=== PATIENT | male | born 1950 | race Caucasian/White ===

== ENCOUNTER 2023-02-25 10:44 | Outpatient (OUT) | payer MEDICARE, SELFPAY ==
[2023-02-25 11:26] LABS: Estimated Average Glucose 131 mg/dL; Glycohemoglobin A1C 6.2 % (4.5-6.2)
[2023-02-25 11:41] LABS: Basophils Percent Auto 0.6 % (0.2-2.0); Eosinophils Absolute Auto 0.1 10^3/uL (0.0-0.7); Hematocrit 42.5 % (42.0-54.0); Immature Granulocytes Abs Auto 0.01 10^3/uL (0.00-0.03); Immature Granulocytes Pct Auto 0.2 % (0.0-0.5); Lymphocytes Percent Auto 19.6 % (20.5-60.0); Mean Corpuscular HGB Conc 32.9 g/dL (29.9-35.2); Mean Corpuscular Hemoglobin 30.9 pg (25.9-34.0); Mean Corpuscular Volume 93.8 fL (80.0-94.0); Mean Platelet Volume 10.5 fL (9.5-13.5); Monocytes Absolute Auto 0.4 10^3/uL (0.3-0.8); Monocytes Percent Auto 7.2 % (1.7-12.0); Neutrophils Absolute Auto 3.5 10^3/uL (1.4-6.5); Neutrophils Percent Auto 71.4 % (43.0-75.0); Platelet Count 171 10^3/uL (150-450); Red Blood Count 4.53 10^6/uL (4.70-6.10); Red Cell Distribution Width 13.7 % (11.0-15.0); White Blood Count 4.9 10^3/uL (4.0-11.0)
[2023-02-25 11:58] LABS: Alanine Aminotransferase 25 U/L (16-63); Albumin Globulin Ratio 0.9; Albumin Level 3.6 g/dL (3.4-5.0); Alkaline Phosphatase 85 U/L (46-116); Anion Gap 9.6; Aspartate Amino Transferase 11 U/L (15-37); BUN Creatinine Ratio 16.2; Bilirubin Total 0.9 mg/dL (0.2-1.0); Calcium 8.9 mg/dL (8.5-10.1); Carbon Dioxide 27.6 mmol/L (21.0-32.0); Chloride 103 mmol/L (98-107); Chol HDL Ratio 5.3; Cholesterol 224 mg/dL (<=200); Estimated GFR (African America >60 (>=60); Estimated GFR (Non-African Ame >60 (>=60); Free T3 2.09 pg/mL (2.18-3.98); Globulin 3.8 g/dL; Glucose 111 mg/dL (74-106); HDL Cholesterol 42 mg/dL (40-60); Potassium 4.2 mmol/L (3.5-5.1); Sodium 136 mmol/L (136-145); Thyroid Stimulating Hormone 5.531 uIU/mL (0.358-3.740); Total Protein 7.4 g/dL (6.4-8.2); Triglycerides 155 mg/dL (<=150)
[2023-02-25 12:06] LABS: Prostate Specific Antigen Scrn 1.72 ng/mL (<=4.00)
[2023-02-25 14:36] LABS: Occult Blood Positive
== END 2023-02-25 10:45 | disposition home or self-care (01) ==
LOC: LAB 10:47
PROVIDERS: PCP Family Medicine; Visit Provider Family Medicine
DX: E04.9 Nontoxic goiter, unspecified (principal); E78.5 Hyperlipidemia, unspecified; I10 Essential (primary) hypertension; I48.0 Paroxysmal atrial fibrillation; R73.09 Other abnormal glucose; Z12.5 Encounter for screening for malignant neoplasm of prostate; Z12.12 Encounter for screening for malignant neoplasm of rectum; E01.0 Iodine-deficiency related diffuse (endemic) goiter
CPT/HCPCS: 36415; 80053; 80061; 83036; 84436; 84443; 84481; 85025; G0103; G0328

== ENCOUNTER 2023-03-15 14:39 | Outpatient (OUT) | payer MEDICARE, SELFPAY | END 2023-03-15 14:40 | disposition home or self-care (01) | LOC: PST 14:40 | PROVIDERS: PCP Family Medicine; Visit Provider Surgery | DX: Z01.818 Encounter for other preprocedural examination (principal); R19.5 Other fecal abnormalities ==

== ENCOUNTER 2023-03-24 06:46 | Day surgery (SDC) | payer MEDICARE, SELFPAY ==
--- NOTE | 2023-03-24 | OP_ITS ---
OPERATION DATE: ??03/24/2023 PREOPERATIVE DIAGNOSIS:? Positive fecal occult blood. POSTOPERATIVE DIAGNOSIS:? Cecal lesion and small sigmoid polyp. PROCEDURE:? Colonoscopy to cecum with biopsies of the cecal lesion and cold forceps polypectomy x1 for sigmoid polyp. SURGEON:? Raudel Vásquez M.D. ANESTHESIA:? Monitored anesthesia care. INDICATIONS AND CONSENT:? Patient is a 72-year-old male with recent positive fecal occult blood.? Indications, risks, benefits, alternatives of proceeding with colonoscopy were explained extensively to the patient, including the risks of bleeding, colon perforation or anesthetic complications.? All of his questions were answered.? Informed consent was obtained. PROCEDURE:? Patient brought to the operating room, placed in the left lateral decubitus position.? Monitored anesthesia care was provided.? Rectal exam was performed which showed no masses or blood.? The scope was inserted into the anal canal.? Under direct visualization was advanced.? With the aid of abdominal compression, it was advanced to the cecum where cecal markings were clearly identified.? There was noted to be a good prep.? Within the cecum, there was noted to be a flat, raised area around the fold, possible polyp versus lymphoid tissue.? It was near the appendiceal orifice.? Multiple biopsies were obtained with good hemostasis.? It was not amenable to polypectomy.? Upon withdrawal of the scope, mucosal surfaces were carefully examined.? There were no mass lesions or inflammatory changes.? No significant diverticulosis.? In the sigmoid colon, there was noted to be a 2 mm sessile polyp that was removed with cold biopsy forceps with good hemostasis.? The scope was retroflexed in the anal canal.? There was no significant hemorrhoidal disease.? Scope was then withdrawn.? Patient tolerated procedure well, was sent to recovery room in good condition.f/u colonoscopy should be in 5 years, but will depend on the pathology results. CC:? Simon Brandt
[2023-03-24 07:07] VITALS: BP 117/83; PULSE 63; RESP 16; TEMP 36.1; O2SAT 97; BMI 30.4
[2023-03-24] MEDS: LACTATED RINGER'S SOLUTION 1,000 ML 50 ML IV (07:25)
[2023-03-24 08:35] VITALS: BP 105/69; PULSE 53; RESP 18; TEMP 36; O2SAT 94
[2023-03-24 08:50] VITALS: BP 114/68; PULSE 52; RESP 18; O2SAT 95
[2023-03-24 09:01] VITALS: BP 123/72; PULSE 53; RESP 18; O2SAT 95
--- NOTE | 2023-03-24 09:17 | PC.NURSE ---
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 notified and also spoke with pt.
== END 2023-03-24 09:05 | disposition home or self-care (01) ==
PROVIDERS: PCP Family Medicine; Visit Provider Surgery
PROC: (CPT 45380; principal; 2023-03-24 07:55)
DX: D12.0 Benign neoplasm of cecum (principal); R19.5 Other fecal abnormalities; I48.91 Unspecified atrial fibrillation; Z79.01 Long term (current) use of anticoagulants; I10 Essential (primary) hypertension; I25.10 Atherosclerotic heart disease of native coronary artery without angina pectoris; E89.0 Postprocedural hypothyroidism; K21.9 Gastro-esophageal reflux disease without esophagitis; M10.9 Gout, unspecified; H91.90 Unspecified hearing loss, unspecified ear; E66.9 Obesity, unspecified; N52.9 Male erectile dysfunction, unspecified; I25.2 Old myocardial infarction; Z79.899 Other long term (current) drug therapy; Z79.890 Hormone replacement therapy; Z68.30 Body mass index [BMI] 30.0-30.9, adult; Z87.891 Personal history of nicotine dependence
CPT/HCPCS: 45380; 45384; 88305; J2704

== ENCOUNTER 2024-02-21 10:16 | Outpatient (OUT) | payer MEDICARE, SELFPAY ==
[2024-02-21 10:42] LABS: Basophils Percent Auto 0.7 % (0.2-2.0); Eosinophils Percent Auto 0.5 % (0.9-7.0); Hematocrit 39.7 % (42.0-54.0); Hemoglobin 13.7 g/dL (14.0-18.0); Immature Granulocytes Abs Auto 0.02 10^3/uL (0.00-0.03); Immature Granulocytes Pct Auto 0.3 % (0.0-0.5); Lymphocytes Absolute Auto 0.9 10^3/uL (1.2-3.8); Mean Corpuscular HGB Conc 34.5 g/dL (29.9-35.2); Mean Corpuscular Hemoglobin 32.2 pg (25.9-34.0); Mean Corpuscular Volume 93.4 fL (80.0-94.0); Mean Platelet Volume 9.5 fL (9.5-13.5); Monocytes Absolute Auto 0.4 10^3/uL (0.3-0.8); Monocytes Percent Auto 7.3 % (1.7-12.0); Neutrophils Absolute Auto 4.7 10^3/uL (1.4-6.5); Neutrophils Percent Auto 77.2 % (43.0-75.0); Platelet Count 245 10^3/uL (150-450); Red Blood Count 4.25 10^6/uL (4.70-6.10); Red Cell Distribution Width 12.5 % (11.0-15.0); White Blood Count 6.1 10^3/uL (4.0-11.0)
[2024-02-21 10:50] LABS: Estimated Average Glucose 126 mg/dL
[2024-02-21 12:04] LABS: Prostate Specific Antigen Scrn 1.84 ng/mL (<=4.00)
[2024-02-21 12:19] LABS: Alanine Aminotransferase 17 U/L (16-63); Albumin Globulin Ratio 0.8; Albumin Level 3.3 g/dL (3.4-5.0); Alkaline Phosphatase 88 U/L (46-116); Anion Gap 10.6; Aspartate Amino Transferase 11 U/L (15-37); BUN Creatinine Ratio 13.5; Bilirubin Total 0.8 mg/dL (0.2-1.0); Calcium 8.8 mg/dL (8.5-10.1); Carbon Dioxide 29.4 mmol/L (21.0-32.0); Chloride 102 mmol/L (98-107); Chol HDL Ratio 3.7; Cholesterol 155 mg/dL (<=200); Estimated GFR (African America >60 (>=60); Estimated GFR (Non-African Ame >60 (>=60); Free T3 1.97 pg/mL (2.18-3.98); Globulin 4.1 g/dL; Glucose 120 mg/dL (74-106); HDL Cholesterol 42 mg/dL (40-60); LDL Cholesterol Calculated 85.6 mg/dL; Sodium 138 mmol/L (136-145); Total Protein 7.4 g/dL (6.4-8.2); Triglycerides 137 mg/dL (<=150); VLDL CHOLESTEROL 27.4 mg/dL
== END 2024-02-21 10:17 | disposition home or self-care (01) ==
LOC: LAB 10:18
PROVIDERS: PCP Family Medicine; Visit Provider Family Medicine
DX: E04.9 Nontoxic goiter, unspecified (principal); I62.00 Nontraumatic subdural hemorrhage, unspecified; K21.9 Gastro-esophageal reflux disease without esophagitis; I10 Essential (primary) hypertension; I48.0 Paroxysmal atrial fibrillation; E78.5 Hyperlipidemia, unspecified; R53.83 Other fatigue; R73.09 Other abnormal glucose; E03.9 Hypothyroidism, unspecified; Z12.5 Encounter for screening for malignant neoplasm of prostate
CPT/HCPCS: 36415; 80053; 80061; 83036; 84436; 84443; 84481; 85025; G0103

== ENCOUNTER 2025-02-28 11:31 | Outpatient (OUT) | payer MEDICARE, SELFPAY ==
--- OUTSIDE RECORDS SUMMARY | 2025-02-28 11:34 | XMS_ITS | Encounter Summary ---
Author Organization [facility] Address [address] [place] [phone] Phone Care Team Providers Care Dress Finisher Name Role Phone Colleen Knowles MD Primary Care Provider Encounter Details Date Type Department Care Team (Late st Contact Info) Description 08/20/2022 Orders Only [facility] [address] [place] [address] Conversion, Onbase Social History Tobacco Use Types Packs/Day Years Used Date Smoking Tobacco: Never Assessed Sex and Gender Information Value Date Recorded Sex Assigned at Not on file Legal Sex Male 2:09 PM EST Gender Identity Not on file Sexual Orientation Not on file documented as of this encounter Plan of Treatment Scheduled Orders Name Type Priority Associated Diagnoses Orde r Schedule OUTSIDE LAB SCAN Lab Ordered: 08/20/2022 OUTSIDE LAB SCAN Lab Ordered: 08/20/2022 documented as of this encounter Visit Diagnoses Not on filedocumented in this encounter Care Teams Dress Finisher Relationship Specialty Start Date End Date Colleen Knowles MD PCP - General 08/14/22 documented as of this encounter
--- OUTSIDE RECORDS SUMMARY | 2025-02-28 11:34 | XMS_ITS | Patient Health Record ---
Author Organization [facility] [place] Address [address] [place] [address] Care Team Providers Care Cnc Maintenance Technician Name Role Phone Nick Odonnell Primary Care Provider [phone] Allergies No Known Allergies Reason For Referral No Information Medications Medication SIG (Take, Route, Frequency, Duration) Notes Start Date End Date Status Ferrous Sulfate 325 (65 Fe) MG 1 tablet Orally daily 02/28/2025 Active Magnesium Glycinate 120 MG 3 capsules Orally Daily Active Carvedilol 12.5 MG TAKE 1 TABLET BY BABAK TH TWICE A DAY WITH FOOD FOR 30 DAYS; Duration: 30 Active Calcium Carbonate 1250 (500 Ca) MG 1 tablet with food Orally qod Active Levothyroxine Sodium 150 MCG TAKE 1 TABL ET BY MOUTH EVERY DAY IN THE MORNING ON AN EMPTY STOMACH FOR 30 DAYS Orally Once a day; Duration: 30 days Active Eliquis 5 MG TAKE 1 TABLET BY BABAK TH TWICE A DAY; Duration: 30 Active Immunizations Vaccine Route Administration Date Status Comme nts Pneumococcal (Pneumovax 23) Unknown 04/21/2016 Administ ered Pneumococcal (Pneumovax 23) Unknown 05/06/2019 Administ ered Pneumococcal (Prevnar 13) Unknown 04/28/2018 Administer ed Social History Tobacco Use: Social History Observation Description Date Details (start date - stop date) Never Smoker NA - NA Tobacco Use/Smoking Question Answer Notes Patient is a nonsmoker Alcohol Screen (Audit-C) Question Answer Notes Did you have a drink containing alcohol in the p ast year? No Points 0 Interpretation Negative AUDIT-C (Standard) Question Answer Notes Did you have a drink containing alcohol in the p ast year? No Points 0 Interpretation Negative Problems Problem Type SNOMED Code ICD Code Onset Dates Problem Status W/U Status Risk Notes Problem Essential hypertension (67081319) Essential (primary) hypertension (I10) Active confirmed Problem Tinea cruris (368893672) Tinea cruris (B35.6) Active confirmed Problem Paroxysmal atrial fibrillation (505983932) Paroxysmal atrial fibrillation (I48.0) Active confirmed Problem Heart failure (48135844) Heart failure, unspecified (I50.9) Active confirmed Problem Sebaceous cyst (743736898) Sebaceous cyst (L72.3) Active confirmed Problem Epididymo-orchiti s (665421118) Epididymo-orchiti s (N45.3) Active confirmed Problem Closed fracture of base of skull (754124077) Other fracture of base of skull, initial encounter for closed fracture (S02.19XA) Active confirmed Problem Chest pain (64934147) Chest pain (R07.9) Active confirmed Problem Hypertension (81935391) Hypertension (I10) Active confirmed Problem Gout (60999884) Gout (M10.9) Active confirmed Problem Knee pain (1802736118) Knee pain (M25.569) Active confirmed Problem Foot pain (14292040) Foot pain (M79.673) Active confirmed Problem Hearing loss (88003769) Hearing loss (H91.90) Active confirmed Problem Pulmonary nodule (595540145) Pulmonary nodule (R91.1) Active confirmed Problem Subdural intracranial hemorrhage (12405625) Subdural hematoma (I62.00) Active confirmed Problem Plantar fasciitis (655609792) Plantar fasciitis (M72.2) Active confirmed Problem Contact dermatitis (90761095) Contact dermatitis (L25.9) Active confirmed Problem Goiter (6340568) Goiter (E04.9) Active confirme d Problem Goiter (2989785) Enlarged thyroi d (E04.9) Active confirmed Problem Tracheomalacia (57529757) Tracheomalacia (J39.8) Active confirmed Problem Erectile dysfunction (disorder) (535451619) Impotence (N52.9) Active confirmed Problem Old myocardial infarction (6423995) History of GA (myocardial infarction) (I25.2) Active confirmed Problem Leucocytosis (705361297) Leucocytosis (D72.829) Active confirmed Problem Gastro-esophageal reflux disease (840503641) Gastro-esophageal reflux disease (K21.9) Active confirmed Problem Bursitis of right elbow (61577599936345) Bursitis of right elbow (M70.31) Active confirmed Problem Cellulitis of finger of left hand (0484033848111508 5) Cellulitis of finger, left (L03.012) Active confirmed Problem Thyromegaly (7518076) Thyromegaly (E01.0) Active confirmed Vital Signs Blood pressure diastolic 84 mm Hg 02/28/2025 Height 72 in 02/28/2025 Blood pressure systolic 128 mm Hg 02/28/2025 Weight 238.2 lbs 02/28/2025 BMI 32.3 kg/m2 02/28/2025 Procedures Procedure Date Ordered Date Performed Result Body Sit e CARDIO Echocardiogram 02/28/2025 N/A Encounters Encounter Location Date Provider Diagnosis [address] [address] 05/16/2024 Nick Odonnell [address] [address] 12/12/2024 Nick Odonnell [address] [address] 02/19/2025 Nick Odonnell [facility] [address] [place] [address] 05/16/2024 Nick Odnonell En[facility] annual wellness exam Z00.[address] [address] 02/28/2025 Nick Odonnell Goiter E04.9 ; Gastro-esophageal reflux disease K21.9 ; Essential (primary) hypertension I10 ; Paroxysmal atrial fibrillation I48.0 and Heart failure, unspecified I50.[address] [address] 12/12/2024 Nick Odonnell Heart failure, unspecified I50.9 ; Paroxysmal atrial fibrillation I48.0 and Subdural hematoma I62.00 Assessments Encounter Date Diagnosis (ICD Code) Assessment Notes Treatment Notes Treatment Clinical Notes Section Notes 05/16/2024 Encounter for Medicare annual wellness exam (ICD-10 - Z00.00) 12/12/2024 Heart failure, unspecified (ICD-10 - I50.9) CHF - No edema - no peraza and no chest =- no orthopnea - 12/12/2024 Paroxysmal atrial fibrillation (ICD-10 - I48.0) A-fib - no palpitations - even on hot days\ 02/28/2025 Goiter (ICD-10 - E04.9) 02/28/2025 Gastro-esophageal reflux disease (ICD-10 - K21.9) 02/28/2025 Essential (primary) hypertension (ICD-10 - I10) 12/12/2024 Subdural hematoma (ICD-10 - I62.00) Subdural - no issues -no residual effects - no headaches 02/28/2025 Paroxysmal atrial fibrillation (ICD-10 - I48.0) 02/28/2025 Heart failure, unspecified (ICD-10 - I50.9) Plan Of Treatment Pending Test Test Name Order Date CMP (COMPLETE METABOLIC PANEL) 3 CMP (COMPLETE METABOLIC PANEL) 4 HEMOGLOBIN A1C (GLYCO) 01/13/2023 HEMOGLOBIN A1C (GLYCO) 02/21/2024 HEMOGLOBIN A1C (GLYCO) 02/28/2025 LIPID PANEL (CHOL/TRIG/HDL/LDL) 02/21/20 24 LIPID PANEL (CHOL/TRIG/HDL/LDL) 02/29/20 25 LIPID PANEL (CHOL/TRIG/HDL/LDL) 01/14/20 23 CBC WITH DIFF 01/13/2023 CBC WITH DIFF 02/21/2024 PSA, PROSTATE-SPECIFIC ANTIGEN 3 URIC ACID 02/28/2025 CARDIO Echocardiogram 02/28/2025 Insulin Level 10/02/2022 EKG Ruiz Jessica 10/02/2022 PSA, TOTAL 02/21/2024 STOOL OCCULT BLOOD 01/13/2023 BNP 02/28/2025 THYROID PROFILE WITH TSH 02/25/2023 US THYROID 02/28/2025 THYROID PANEL (T4/TSH/FREE T3) 5 THYROID PANEL (T4/TSH/FREE T3) 3 THYROID PANEL (T4/TSH/FREE T3) 4 PSA, SCREENING 02/28/2025 CMP (COMP MET STUART) w/eGFR CKD-EPI 2024 CBC WITH DIFF 02/28/2025 Insurance Providers Payer Name Payer Address Payer Phone Subscriber Number Group Number Insured Name Patient Relationship to Insured Coverage Start Date Coverage End Date [employer] MED[employer] ADV PLAN [address] [address] [place] [phone] [id number] Adrian Keyes Self - patient is the insured Medical (General) History Medical History History ICD Code Tracheomalacia J39.8 Thyromegaly E01.0 Enlarged thyroid E04.9 Other fracture of base of skull, initial encounter for closed fracture S02.19XA Subdural hematoma I62.00 Pulmonary nodule R91.1 Goiter E04.9 Leucocytosis D72.829 Epididymo-orchitis N45.3 Gastro-esophageal reflux disease K21.9 Bursitis of right elbow M70.31 Sebaceous cyst L72.3 Chest pain R07.9 Cellulitis of finger, left L03.012 Hearing loss H91.90 Gout M10.9 Knee pain M25.569 Foot pain M79.673 Contact dermatitis L25.9 Plantar fasciitis M72.2 History of GA (myocardial infarction) I2 5.2 Tinea cruris B35.6 Impotence N52.9 Surgical History Surgery Date(Month/Year) Colonoscopy 11/18/23 Colonoscopy 03/24/2023 thyroid surgery 12/2022 right thyroid and left thyroid nodules 2 022 removal epidermal cyst back 2022 Hospitalization History Reason Date(Month/Year) subdural hematoma / fracture skull 2021
--- OUTSIDE RECORDS SUMMARY | 2025-02-28 11:34 | XMS_ITS | Encounter Summary ---
Author Organization [facility] Address [address] [place] [phone] Phone Care Team Providers Care Appliquer Zigzag Name Role Phone Colleen Knowles MD Primary Care Provider Encounter Details Date Type Department Care Team (Late st Contact Info) Description 02/25/2023 Orders Only [facility] [address] [place] [address] Conversion, Onbase Social History Tobacco Use Types [...] r Schedule OUTSIDE LAB SCAN Lab Ordered: 02/25/2023 OUTSIDE LAB SCAN Lab Ordered: 02/25/2023 documented as of this encounter Visit Diagnoses Not on filedocumented in this encounter Care Teams Appliquer Zigzag Relationship Specialty Start Date End Date Colleen Knowles MD PCP - General 08/14/22 documented as of this encounter
--- OUTSIDE RECORDS SUMMARY | 2025-02-28 11:34 | XMS_ITS | Clinical Summary ---
Author Organization [facility] Address [address] [place] [address] Phone Care Team Providers Care Assembler Erector Name Role Phone Colleen Knowles MD Primary Care Provider Medications levothyroxine (Synthroid, Levoxyl) 125 mcg tablet TAKE 1 TABLET BY MOUTH ONCE DAILY 30 tablet 12/18/2022 Active Social History Tobacco Use Types Packs/Day Years Used Date Smoking Tobacco: Never Assessed Sex and Gender Information Value Date Recorded Sex Assigned at Not on file Legal Sex Male 2:09 PM EST Gender Identity Not on file Sexual Orientation Not on file Last Filed Vital Signs Vital Sign Reading Time Taken Comments Blood Pressure - - Pulse - - Temperature 36 C (96.8 F) 03/05/2023 9:39 AM EDT Respiratory Rate - - Oxygen Saturation - - Inhaled Oxygen Concentration - - Weight 103 kg (227 lb 11.2 oz) 03/05/2023 9:39 A M EDT Height 180.3 cm (5' 11 ) 03/05/2023 9:39 AM EDT Body Mass Index 31.76 03/05/2023 9:39 AM EDT Plan of Treatment Health Maintenance Due Date Last Done Comments CT Colonography 1952 Colonoscopy 1952 Colorectal Cancer Screening 1950 FIT-DNA (Cologuard) 1952 FIT 1952 Lipid Panel 1950 Sigmoidoscopy 1950 Yearly Adult Physical 1950 MMR Vaccines (1 of 1 - Stand cynthia series) 1953 Hepatitis C Screening 1970 DTaP/Tdap/Td Vaccines (1 - Tdap) 1974 Pneumococcal Vaccine (1 of 1 - PCV) 2002 Zoster Vaccines (1 of 2) 2002 COVID-19 Vaccine (2023-2 5 season) 2025 Influenza Vaccine (#1) 2025 RSV High Risk: (Elderly (60+ ) or Population) (1 - 1-dose 75+ series) 12/05/2027 HIB Vaccines Aged Out No longer eligi ble based on patient's age to complete this topic HPV Vaccines Aged Out No longer eligi ble based on patient's age to complete this topic Hepatitis A Vaccines Aged Out No long er eligible based on patient's age to complete this topic Hepatitis B Vaccines Aged Out No long er eligible based on patient's age to complete this topic IPV Vaccines Aged Out No longer eligi ble based on patient's age to complete this topic Meningococcal Vaccine Aged Out No susie selma eligible based on patient's age to complete this topic Rotavirus Vaccines Aged Out No longer eligible based on patient's age to complete this topic Care Teams Assembler Erector Relationship Specialty Start Date End Date Colleen Knowles MD PCP - General 08/14/22
--- OUTSIDE RECORDS SUMMARY | 2025-02-28 11:34 | XMS_ITS | Clinical Summary ---
Author Organization [facility] Address [address] [place] [address] Care Team Providers Care Cattle Broker Name Role Phone Unavailable Primary Care Provider Unavailabl e Social History Tobacco Use Types Packs/Day Years Used Date Smoking Tobacco: Never Assessed Sex and Gender Information Value Date Recorded Sex Assigned at Not on file Legal Sex Male 11:50 PM EDT Gender Identity Not on file Sexual Orientation Not on file Last Filed Vital Signs Vital Sign Reading Time Taken Comments Blood Pressure 157/89 07/29/2022 12:00 PM EST Pulse - - Temperature - - Respiratory Rate - - Oxygen Saturation - - Inhaled Oxygen Concentration - - Weight 104 kg (230 lb) 07/29/2022 12:00 PM EST Height 177.8 cm (5' 10 ) 07/29/2022 12:00 PM EST Body Mass Index 33 07/29/2022 12:00 PM EST Plan of Treatment Not on file Insurance [facility] MEDIC[facility] ADVANTAGE
--- OUTSIDE RECORDS SUMMARY | 2025-02-28 11:39 | XMS_ITS | CCD ---
Author Organization [facility] CliniSymo Care Team Providers Care Data Transcriber Name Role Phone Unavailable Primary Care Provider Anupam Lan MD Primary Care Provider [phone] Anupam Peñaloza Primary Care Physician KIKE STOKES Consulting Unavailable CORNELIO MCKEE Attending Unavailable CORNELIO MCKEE Admitting Unavailable Timmis, Patel H Unavailable Unavailable Unavailable ANABELA ., DR BO Consulting Unavailable HOY ., DR BO Primary Care Unavailable HOY ., DR BO Admitting Unavailable HOY ., DR BO Attending Unavailable ZIEBER, DR PARUL Flores Consulting Unavailable HOY ., DR BO Consulting Unavailable HOY ., DR BO Primary Care Unavailable HOY ., DR BO Admitting Unavailable HOY ., DR BO Attending Unavailable WEST, DR SHIELA Odonnell Consulting Unavailable MISC, DR SLOAN Admitting Unavailable MISC, DR SLOAN Attending Unavailable HOY ., DR BO Primary Care Unavailable MISC, DR SLOAN Consulting Unavailable MISC, DR SLOAN Consulting Unavailable MISC, DR SLOAN Admitting Unavailable MISC, DR SLOAN Attending Unavailable HOY ., DR BO Primary Care Unavailable TIMMIS, DR SWEENEY Admitting Unavailable TIMMIS, DR SWEENEY Attending Unavailable TIMMIS, DR SWEENEY Consulting Unavailable HOY ., DR BO Primary Care Unavailable ZIEBER, DR PARUL Flores Consulting Unavailable MISC, DR SLOAN Admitting Unavailable MISC, DR SLOAN Attending Unavailable HOY ., DR BO Primary Care Unavailable HOY ., DR BO Consulting Unavailable HOY ., DR BO Primary Care Unavailable HOY ., DR BO Admsabrina Unavailable HOY ., DR BO Attending Unavailable WEST, DR SHIELA Odonnell Consulting Unavailable HOY ., DR BO Consulting Unavailable HOY ., DR BO Primary Care Unavailable HOY ., DR BO Admitting Unavailable HOY ., DR BO Attending Unavailable HOY ., DR BO Attending Unavailable HOY ., DR BO Consulting Unavailable HOY ., DR BO Admitting Unavailable HOY ., DR BO Primary Care Unavailable NAV FELIX Admitting Unavailable NAV FELIX Attending Unavailable NAV FELIX Consulting Unavailable HOY ., DR BO Primary Care Unavailable HOY ., DR BO Primary Care Unavailable CECE ., FRANCES Admitting Unavailable SOFIA Candelaria, CHI DEMARCO Consulting Unavailjoyce PECK ., FRANCES Attending Unavailable NARCISO PEDERSEN Consulting Unavailable DAJUAN YOUNGBLOOD Consulting Unavailable CECE ., FRANCES Consulting Unavailable BILLY SANDERS Consulting Unavailable NILL ., DR CERVANTES Admitting Unavailable NILL ., DR CERVANTES Attending Unavailable NILL ., DR CERVANTES Consulting Unavailable HOY ., DR BO Primary Care Unavailable Timmis, Patel Charlton Unavailable Rezaee, Nazario Unavailable Reny, Dr. Nazario Shah Attending Kathy vailable Timmis Jr, Dr. Patel Garcia Primary Care U nav[facility] Reza, Dr. Nazario Shah Admitting Kathy vailable Timmis Jr, [facility] Patel [facility] Dr[facility] Nazario Shah Admitting Kathy vailable Rezaee, Dr. Nazario Shah Attending Kathy vailable Rezaee, Dr. Nazario Shah Attending Kathy vailable Rezaee, Dr. Nazario Shah Referring Kathy vailable TIMMIS, [facility] Primary Care Unavailable TIMALS, [facility] Primary Care Unavailable Rezaee, Dr. Nazario Shah Attending Kathy vailable Rezaee, Dr. Nazario Shah Referring Kathy vailable TIMMIS, [facility] Primary Care Unavailable TIMALS, PATEL Referring Unavailable Rezaee, Dr. Nazario Shah Attending Kathy vailable Sarmini, Hicks Talal Admitting Unavaila ble Sarmini, Hicks Talal Attending Unavaila ble Sarmini, Hicks Talal Referring Unavaila ble Medications Current Medications Medication Drug Class(es) Dates Sig (Normalized) Sig (Original) acetaminophen 500 mg oral tablet (1 source) Start: 05-25-2022 acetaminophen (TYLENOL) tablet 1,000 mg acetaminophen 325 mg / oxyCODONE hydrochloride 5 mg oral tablet (1 source) Opioid Agonist Start: 12-18-2022 End: 12-22-2022 take 1 tablet by mouth every six hours oxycodone-acetamin ophen 5 mg-325 mg oral tablet ; 1 tab(s) orally every 6 hours -.Meds to Beds as needed for severe pain Quantity: 20 Refills: 0 Ordered: 17-Dec-2022 Amy Hitchcock Start: 17-Dec-2022 End: 21-Dec-2022 Generic Substitution Allowed Comments: Caution federal law prohibits the transfer of this drug to any person other than the person for whom it was prescribed.May cause drowsiness. Alcohol may intensify this effect. Use care when operating dangerous machinery.This prescription cannot be refilled.This product contains acetaminophen. Do not use with any other product containing acetaminophen to prevent possible liver damage.Using more of this medication than prescribed may cause serious breathing problems. Comment on above: Caution [place] law prohibits the transfer of this drug to any person other than the person for whom it was prescribed.May cause drowsiness. Alcohol may intensify this effect. Use care when operating dangerous machinery.This prescription cannot be refilled.This product contains acetaminophen. Do not use with any other product containing acetaminophen to prevent possible liver damage.Using more of this medication than prescribed may cause serious breathing problems. apixaban 5 mg oral tablet (5 sources) Factor Xa Inhibitor Start: 03-04-2023 take 1 tablet by mouth twice daily Eliquis 5 mg oral tablet 5 mg = 1 tab(s), Oral, BID, Refills(s) 0, Blood Thinner Start Date: 03/04/23 Status: Ordered take 1 tablet by mouth twice singh ly Eliquis 5 mg oral tablet ; 1 tab(s) orally 2 times a day Quantity: 0 Refills: 0 Ordered: 24-Nov-2022 Shira Sharp Generic Substitution Allowed calcium carbonate 1250 mg oral tablet (1 source) Start: 12-18-2022 End: 01-16-2023 take 1 tablet by mouth once daily calcium carbonate 1250 mg (500 mg elemental calcium) oral tablet ; 1 tab(s) orally once a day -.Meds to Beds Quantity: 30 Refills: 0 Ordered: 18-Dec-2022 Zainab Kohli Start: 18-Dec-2022 End: 16-Jan-2023 Generic Substitution Allowed carvedilol 12.5 mg oral tablet (5 sources) alpha-Adrenergi c Coco, beta-Adrenergic Coco Start: 03-04-2023 take 1 tablet by mouth twice daily Coreg 12.5 mg Tab 12.5 mg = 1 tab(s), Oral, BID, Refills(s) 0, High blood pressure Start Date: 03/04/23 Status: Ordered take 1 tablet by mouth twice singh ly carvedilol 12.5 mg oral tablet ; 1 tab(s) orally 2 times a day Quantity: 0 Refills: 0 Ordered: 24-Nov-2022 Shira Sharp Generic Substitution Allowed iopamidol (ISOVUE-370) 76 % injection 130 mL (1 source) Start: 05-25-2022 iopamidol (ISOVUE-370) 76 % injection 130 mL levothyroxine sodium 0.125 mg oral tablet (8 sources) l-Thyroxi ne Start: 03-04-2023 take 1 tablet by mouth once daily levothyroxine 125 mcg (0.125 mg) Tab 125 mcg = 1 tab(s), Oral, Daily, Refills(s) 0, Thyroid Start Date: 03/04/23 Status: Ordered Start: 12-18-2022 Levothyroxine Sodium 125 MCG Oral Tablet Quantity: 30 Refills: 0 Ordered: 18-Dec-2022 DO Start : 18-Dec-2022 Active Start: 12-18-2022 End: 01-16-2023 take 1 tablet by mouth once daily after mealtime Synthroid 125 mcg (0.125 mg) oral tablet ; 1 tab(s) orally once a day -.Meds to Beds Quantity: 30 Refills: 0 Ordered: 18-Dec-2022 Zainab Kohli Start: 18-Dec-2022 End: 16-Jan-2023 Generic Substitution Allowed Comments: It is very important that you take or use this exactly as directed. Do not skip doses or discontinue unless directed by your doctor.Medication should be taken with plenty of water.Some non-prescription drugs may aggravate your condition. Read all labels carefully. If a warning appears, check with your doctor before taking.Take medication on an empty stomach 1 hour before or 2 to 3 hours after a meal unless otherwise directed by your doctor. Comment on above: It is very important that you take or use this exactly as directed. Do not skip doses or discontinue unless directed by your doctor.Medication should be taken with plenty of water.Some non-prescription drugs may aggravate your condition. Read all labels carefully. If a warning appears, check with your doctor before taking.Take medication on an empty stomach 1 hour before or 2 to 3 hours after a meal unless otherwise directed by your doctor. magnesium glycinate 100 mg oral tablet (5 sources) Start: 03-04-2023 magnesium glycinate 100 mg oral capsule 200 mg = 2 cap(s), Oral, Daily, Refills(s) 0, Prophylaxis Start Date: 03/04/23 Status: Ordered take 1 tablet by mouth once nataly y magnesium glycinate 200 mg oral tablet ; 1 tab(s) orally once a day Quantity: 0 Refills: 0 Ordered: 24-Nov-2022 Shira Sharp Generic Substitution Allowed ondansetron (ZOFRAN-ODT) disintegrating tablet 4 mg (1 source) Start: 05-25-2022 ondansetron (ZOFRAN-ODT) disintegrating tablet 4 mg polyethylene glycol 3350 [id number] mg powder for oral solution (1 source) Osmotic Laxative Start: 05-25-2022 polyethylene glycol (GLYCOLAX) packet 17 g sennosides, assisted 8.6 mg oral tablet (1 source) Start: 05-25-2022 senna (SENOKOT ) tablet 8.6 mg 5 ml sodium chloride 9 mg/ml injection (2 sources) Start: 05-25-2022 sodium chlorid e flush 0.9 % injection 5-40 mL Zinc Sulfate (1 source) take 1 tablet by mouth once daily Zinc 140 mg (as elemental zinc 50 mg) oral tablet ; 1 tab(s) orally once a day Quantity: 0 Refills: 0 Ordered: 24-Nov-2022 Shira Sharp Generic Substitution Allowed Completed/Discontinued Medications Medication Drug Class(es) Dates Sig (Normalized) Sig (Original) indomethacin 50 mg oral capsule (4 sources) Nonsteroidal Anti-inflammatory Drug Start: 08-10-2022 take 1 capsule by mouth three times daily as needed Indomethacin 50 MG Oral Capsule TAKE 1 CAPSULE BY MOUTH THREE TIMES A DAY NEEDED Quantity: 20 Refills: 0 Ordered: 10-Aug-2022 DO Start : 10-Aug-2022 Complete Start: 06-15-2022 take 1 capsule by [facility] three times daily as needed for pain indomethacin 50 mg oral capsule 50 mg = 1 cap(s), Oral, TID, PRN Gout pain, Refills(s) 0 Start Date: 06/15/22 Status: Ordered iopamidol (ISOVUE-370) 76 % injection 90 mL (1 source) Start: 05-26-2022 End: 05-26-2022 iopamidol (ISOVUE-370) 76 % injection 90 mL methocarbamol 750 mg oral tablet (6 sources) Muscle Relaxant Start: 05-25-2022 End: 06-05-2022 take 1 tablet by mouth three times daily Methocarbamol 750 MG Oral Tablet TAKE 1 TABLET BY MOUTH THREE TIMES A DAY FOR 10 DAYS Quantity: 30 Refills: 0 Ordered: 26-May-2022 DO Start : 26-May-2022 Complete ondansetron 4 mg disintegrating oral tablet (6 sources) Serotonin-3 Receptor Antagonist Start: 05-26-2022 take 1 tablet by mouth every eight hours as needed for nausea and vomiting Ondansetron 4 MG Oral Tablet Disintegrating DISSOLVE 1 TABLET IN MOUTH EVERY 8 HOURS NEEDED FOR NAUSEA AND VOMITING Quantity: 10 Refills: 0 Ordered: 26-May-2022 DO Start : 26-May-2022 Complete oxyCODONE hydrochloride 5 mg oral tablet (6 sources) Opioid Agonist Start: 05-25-2022 End: 05-29-2022 take 1 tablet by mouth every six hours as needed for pain oxyCODONE HCl - 5 MG Oral Tablet TAKE 1 TABLET BY MOUTH EVERY 6 HOURS NEEDED FOR PAIN Quantity: 5 Refills: 0 Ordered: 26-May-2022 DO Start : 26-May-2022 Complete predniSONE 10 mg oral tablet (11 sources) Start: 08-10-2022 predniSONE 10 MG Oral Tablet 5 TABS DAILY X3 DAYS, 4 TABS X3 DAYS, 3 X3 DAYS, 2 TABS X3 DAYS, 1 X3 DAYS, 1/2 X3 DAYS DIRECTED Quantity: 47 Refills: 0 Ordered: 10-Aug-2022 DO Start : 10-Aug-2022 Active Problems Active Problems Problem Classification Problem Date Documented Da te Episodic/Chronic Acute cerebrovascular disease (8 sources) Hemorrhage into subarachnoid space of neuraxis; Translations: [Nontraumatic subarachnoid hemorrhage, unspecified] Onset: 2 Chronic Cardiac dysrhythmias (6 sources) Paroxysmal atrial fibrillation; Translations: [Unspecified atrial fibrillation] Onset: 3 03-04-2023 Chronic Coronary atherosclerosis and other heart disease (5 sources) Old myocardial infarction; Translations: [History of myocardial infarction] Onset: 3 03-04-2023 Chronic Deficiency and other anemia (1 source) Anemia, unspecified; Translations: [ANEMIA UNSPECIFIED] Onset: 3 Episodic Diabetes mellitus without complication (1 source) Other abnormal glucose; Translations: [OTHER ABNORMAL GLUCOSE] Onset: 3 Episodic Diseases of white blood cells (6 sources) Leukocytosis 08-09-2019 Chronic Disorders of lipid metabolism (1 source) Hyperlipidemia, unspecified; Translations: [HYPERLIPIDEMIA UNSPECIFIED] Onset: 3 Chronic Esophageal disorders (8 sources) Gastroesophageal reflux disease; Translations: [Gastro-esophageal reflux disease without esophagitis] Onset: 3 08-09-2019 Chronic Essential hypertension (9 sources) Essential (primary) hypertension; Translations: [Hypertensive disorder] Onset: 3 Chronic Gout and other crystal arthropathies (6 sources) Gout 08-09-2019 Chronic Inflammatory conditions of male genital organs (6 sources) Orchitis and epididymitis 08-09-2019 Episodic Mycoses (6 sources) Tinea cruris 08-09-2019 Episodic Comment on above: history of Nonspecific chest pain (6 sources) Chest pain 06-15-2022 Episodic Other aftercare (1 source) residential (current) use of anticoagulants; Translations: [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) use of anticoagulants] Onset: 3 Episodic Other aftercare (1 source) Other reporting lead (current) drug therapy; Translations: [Other snf (current) drug therapy] Onset: 3 Episodic Other aftercare (4 sources) Long-term current use of anticoagulant 03-09-2023 Episodic Other and unspecified benign neoplasm (6 sources) Benign neoplasm of cecum; Translations: [Benign neoplasm of cecum] Onset: 3 Episodic Other and unspecified benign neoplasm (6 sources) Benign neoplasm of sigmoid colon; Translations: [Benign neoplasm of sigmoid colon] Onset: 3 Episodic Other and unspecified benign neoplasm (1 source) Benign neoplasm of colon; Translations: [Benign neoplasm of colon, unspecified] Onset: 3 Episodic Other and unspecified benign neoplasm (1 source) Polyp of colon; Translations: [Polyp of colon] Onset: 4 Episodic Other circulatory disease (6 sources) History of subdural hematoma 06-15-2022 Episodic Other circulatory disease (4 sources) Elevated blood-pressure reading, without diagnosis of hypertension; Translations: [ELEVATED BP READING W/O DX HTN] Onset: 3 Episodic Other connective tissue disease (6 sources) Bursitis 06-15-2022 Episodic Other connective tissue disease (6 sources) Foot pain 06-15-2022 Episodic Other connective tissue disease (6 sources) Plantar fasciitis 06-15-2022 Episodic Other ear and sense organ disorders (6 sources) Hearing loss 08-09-2019 Chronic Other gastrointestinal disorders (4 sources) Occult blood in stools 03-04-2023 Episodic Other lower respiratory disease (6 sources) Nodule of lung 06-15-2022 Episodic Other lower respiratory disease (1 source) Solitary pulmonary nodule; Translations: [Solitary pulmonary nodule] Onset: 3 Episodic Other male genital disorders (4 sources) Impotence 03-04-2023 Chronic Other male genital disorders (6 sources) Disorder of male genital organ 11-22-2019 Episodic Other male genital disorders (6 sources) Swelling of testicle 08-09-2019 Episodic Other nervous system disorders (1 source) Other disturbances of skin sensation; Translations: [OTHER DISTURBANCES SKIN SENSATION] Onset: 3 Episodic Other non-traumatic joint disorders (6 sources) Knee pain 06-15-2022 Episodic Other nutritional; endocrine; and metabolic disorders (6 sources) Body mass index 30+ - obesity 06-24-2022 Chronic Other nutritional; endocrine; and metabolic disorders (1 source) Obesity, unspecified; Translations: [Obesity, unspecified] Onset: 3 Chronic Other nutritional; endocrine; and metabolic disorders (1 source) Body mass index (BMI) 31.0-31.9, adult; Translations: [Body mass index [BMI] 31.0-31.9, adult] Onset: 3 Chronic Other nutritional; endocrine; and metabolic disorders (4 sources) Obesity 03-09-2023 Chronic Other skin disorders (1 source) Sebaceous cyst of skin; Translations: [Sebaceous cyst] Onset: 3 Episodic Other skin disorders (6 sources) Inflammatory dermatosis 06-15-2022 Episodic Other skin disorders (1 source) Epidermoid cyst; Translations: [Epidermal cyst] Onset: 3 Episodic Other skin disorders (5 sources) Epidermoid cyst of skin 07-28-2022 Episodic Other skin disorders (3 sources) Sebaceous cyst; Translations: [SEBACEOUS CYST] Onset: 3 Episodic Other skin disorders (1 source) Epidermal cyst; Translations: [EPIDERMAL CYST] Onset: 3 Episodic Other upper respiratory disease (7 sources) Stridor; Translations: [Stridor] Episodic Other upper respiratory disease (4 sources) Abnormal voice; Translations: [Voice and resonance disorder, unspecified] Episodic Screening and history of mental health and substance abuse codes (1 source) Personal history of nicotine dependence; Translations: [PERSONAL HISTORY OF NICOTINE DEPEND] Onset: 3 Episodic Skin and subcutaneous tissue infections (6 sources) Cellulitis of finger 06-15-2022 Episodic Thyroid disorders (20 sources) Goiter; Translations: [Goiter, unspecified] Onset: 2 06-15-2022 Chronic Thyroid disorders (4 sources) Disorder of thyroid, unspecified; Translations: [DISORDER OF THYROID UNSPECIFIED] Onset: 3 Episodic Unclassified (6 sources) Sebaceous cyst of skin 08-09-2019 Unclassified (1 source) Traumatic subdural hemorrhage with loss of consciousness status unknown, initial encounter; Translations: [Traumatic subdural hemorrhage with loss of consciousness status unknown, initial encounter] Onset: 2 Unclassified (1 source) CONTACT W/AND (SUSP) EXPOS COVID-19; Translations: [CONTACT W/AND (SUSP) EXPOS COVID-19] Onset: 2 Unclassified (2 sources) SEE COMMENTS TOTAL SUBSTERNAL THYROIDECTOMY 12-11-2022 Comment on above: SEE COMMENTS * TOTAL SUBSTERNAL THYROIDECTOMY Unclassified (1 source) POST OP 08-14-2022 Comment on above: POST OP Unclassified (1 source) S/P thyroidectomy 12-17-2022 Unclassified (1 source) Chronic atrial fibrillation, unspecified; Translations: [Chronic atrial fibrillation, unspecified] Onset: Past or Other Problems Problem Classification Problem Date Documented Date Episodic/Chronic E Codes: Struck by; against (1 source) Striking against or struck by other objects, initial encounter; Translations: [STRIKING AGNST/STRUCK OTH OBJ INIT] Onset: 05-27-2022 Episodic Immunizations and screening for infectious disease (1 source) Encounter for immunization; Translations: [ENCOUNTER FOR IMMUNIZATION] Onset: 05-27-2022 Episodic Intracranial injury (1 source) Traumatic subarachnoid hemorrhage with loss of consciousness of unspecified duration, initial encounter; Translations: [TRAUMAT SA HEMORR LOC UNS DUR INIT] Onset: 05-27-2022 Episodic Other injuries and conditions due to external causes (3 sources) Unspecified injury of head, initial encounter; Translations: [UNSPECIFIED INJURY HEAD INITIAL ENC] Onset: 05-25-2022 Episodic Other upper respiratory disease (1 source) Epistaxis; Translations: [EPISTAXIS] Onset: 05-27-2022 Episodic Skull and face fractures (2 sources) Fracture of vault of skull, initial encounter for closed fracture; Translations: [Zygomatic fracture, left side, initial encounter for closed fracture] Onset: 05-27-2022 Episodic Unclassified (1 source) TOTAL SUBSTERNAL THYROIDECTOMY 12-11-2022 Comment on above: TOTAL SUBSTERNAL THY ROIDECTOMY Results Test Name Value Interpretation Reference Range Facility [place] [facility] [place] [facility] [place] [facility] October 27, 2024 RAUL KEYES [id number] [phone] : 1950 Dear Raul, This is a reminder that you are due for an appointment with [facility]. Please contact our office at [phone] to schedule an appointment at your earliest convenience. Thank you, [facility] Reminderson 10-27-2024 Reminders Reminders From: Cody Dias To: [facility] - Reminders/Recalls; Sent: 11/29/2023 10:19:16 EDT Show up: 10/12/2024 10:19:00 EDT Subject: Ambulatory Reminder Due Date/Time: 11/17/2024 10:19:00 EDT Reminder/Recall Repeat colonoscopy in 1 year (11/2024) due to tubular adenoma removed in piecemeal fashion. recall letter [facility] Result Letter Officeon 11-28 Result Letter Office (Inserted Image. Un able to display) November 29, 2023 RAUL KEYES [address] [place] [id number] : 1950 Below is a summary of the results of your recent colonoscopy. Your results have been sent to your primary care provider along with recommendations on when the procedure should be repeated. COLONOSCOPY WITH POLYP REMOVAL OR BIOPSY Type of polyp tubular adenoma - not cancer but can become cancer if not removed. Additional colonoscopies will be necessary to monitor your condition and assure that new polyps have not developed. Based on your results we are recommending you repeat the procedure in 1 year. You will be placed in our reminder system and will receive a reminder letter prior to your next due date. [facility] [phone] [facility] IntraOperative Documentson 0 11-24-2023 IntraOperative Documents [id number] F [facility] Surgical Pathology Reporton 11-22-2023 Surgical Pathology Report [facility] [address] [place] [address]- Surgical Pathology Report Collected Date/Time: 11/18/2023 11:33 EDT Pathologist: Linus Bowers MD Received Date/Time: 11/18/2023 12:47 EDT Dayanara VALDES, Fabiola Nichole MD, Fabiola Velázquez Surgical Pathology Report - 11/22/2023 12:03 EDT - Auth (Verified) Final Diagnosis POLYP, CECUM, POLYPECTOMY: - Tubular adenoma (Electronic Signature) Shahram. Elissa MD 11/22/2023 12:03 Clinical Information Benign neoplasm of sigmoid colon , benign neoplasm of cecum Pre-Op Diagnosis: Benign neoplasm of sigmoid colon , benign neoplasm of cecum Procedure: Colonoscopy Post-Op Diagnosis: 1. Small internal hemorrhoids 2. Evidence of possible recurrence of the cecal polyp, I injected 5 ml of Everlift, but due to scarring it was not lifting well, resected in a piecemeal fashion using cold snare. I used APC afterwards to ablate the polypectomy site. No bleeding at end of the procedure Specimen(s) Received Cecal polyp Gross Description Received in formalin labeled with patient name, number, and cecal polyp are multiple fragments of manuel/pink tissue ranging from less than 0.1 cm up to 0.8 cm in greatest dimension measuring in aggregate x 0.8 x 0.1 cm. Specimen is entirely submitted in one cassette. (DC) DC:[facility] Microscopic Description Microscopic examination performed unless gross only specified. [facility] Comment on above: Performed By: #### [id number] #### [facility] [address] [place] [address] Consenton 11-19-2023 Consent [id number] FF [facility] Discharge Instructionson Discharge Instructions [id number] FF [facility] Main OR Intraoperative Recor don 11-19-2023 Main OR Intraoperative Record IntraOp Document Type FT Summary Primary Physician: Fabiola Nichole MD Finalized Date/Time: 11/19/23 08:13:11 Pt. Name: RAUL KEYES/Sex: 1950 Male Med Rec #: [id number] Physician: Fabiola Nichole MD Financial #: [id number] Pt. Type: O Room/Bed: / Admit/Disch: 11/18/23 09:12:34 - 11/18/23 23:59:59 Institution: Case Times FT Entry 1 Patient Times In Room 11/18/23 11:06:00 Out Room 11/18/23 11:45:00 Procedure Times Start 11/18/23 11:11:00 Stop 11/18/23 11:42:00 Anesthesia Times Start 11/18/23 11:06:00 Stop 11/18/23 11:45:00 Time at Cecum 11/18/23 11:16:00 Last Modified By: Tamiko Cat RN 11/18/23 11:45:24 General Comments: 11/19/23 Chart opened to review and send charges [facility] Case Attendance FT Entry 1 Entry 2 Entry 3 Case Attendee Emory ROSAS, Tamiko Cano RINK RAT, Karen Nichole MD, Fabiola Jin Role Performed Lunchroom Supervisor - Primary Staff - Other Surgeon - Primary Time In 11/18/23 11:06:00 11/18/23 11:06:00 11/18/23 11:06:00 Time Out 11/18/23 11:45:00 11/18/23 11:45:00 11/18/23 11:45:00 Procedure COLONOSCOPY(.) COLONOSCOPY(.) COLONOSCOPY(.) Comments help in room Last Modified By: Emory RN, Tamiko Cat RN, Tamiko Cat RN, Tamiko 11/18/23 11:45:32 11/18/23 11:45:32 11/18/23 11:45:32 Entry 4 Entry 5 Case Attendee Fabián VALDES, Omer Servin RN, Taylor Basurto Role Performed Anesthesiologist of Scrub - Primary Record Time In 11/18/23 11:06:00 11/18/23 11:06:00 Time Out 11/18/23 11:45:00 11/18/23 11:45:00 Procedure COLONOSCOPY(.) COLONOSCOPY(.) Comments Last Modified By: Emory RN, Tamiko Cat RN, Tamiko 11/18/23 11:45:32 11/18/23 11:45:32 Perioperative Protocols FT Pre-Care Text: Implements protective measures prior to operative or invasive procedure, confirms identity before the operative or invasive procedure, verifies operative procedure, surgical site, and laterality Entry 1 Procedure(s) COLONOSCOPY(.) Patient Identity Birthday, ID Band Verified (select at Check, Patient least 2): Participation Consents / H and P Anesthesia Consent, Operative Site N/A Verified HandP, Surgery/Procedure Marking Verified Consent Surgical Site No Laterality Verified n/a Verified Procedure Verified Yes Correct Patient Yes Position Verified Availability Equipment, Medication Prep Dry n/a Verified (If Applicable) PreOp Antibiotic No Time Out Tamiko Cat RN, Given Participants Jerome RINK RAT, Dayanara Mcintosh MD, Fabián Rivas MD, Omer Puente, Gareth ROSAS, Taylor Basurto Time Out Complete 11/18/23 11:07:00 Outcomes Met? Yes Last Modified By: Tamiko Cat RN 11/18/23 11:18:05 Post-Care Text: The patient is free from signs and symptoms of injury caused by extraneous objects Allergy Information FT Pre-Care Text: Verifies allergies Entry 1 Allergies Reviewed? Yes Allergies Reviewed Self/Patient With Outcomes Met? Yes Last Modified By: Tamiko Cat RN 11/18/23 11:18:09 Post-Care Text: The patient received appropriate medication(s) safely administered during the perioperative period Surgical Procedures FT Entry 1 Procedure Description Procedure COLONOSCOPY Modifiers . Surgeon Description Colonoscopy with cecal polypectomy lifted with everlift removed with cold snare and APC to post polypectomy site. Primary Procedure Yes Primary Surgeon Dayanara VALDES, Fabiola Jin Start 11/18/23 11:11:00 Stop 11/18/23 11:42:00 Anesthesia Type General Surgical Service Gastroenterology Wound Class 2 - Clean-Contaminated Last Modified By: Tamiko Cat RN 11/18/23 11:44:45 General Case Data FT Pre-Care Text: Classifies surgical wound, implements aseptic technique, initiates traffic control Entry 1 Case Information OR ENDO 1 FT Case Level Level 2 Wound Class 2 - Clean-Contaminated Specialty Gastroenterology ASA Class 3 Preop Diagnosis BENIGN NEOPLASM OF Postop Same As Preop No SIGMOID COLON, BENIGN NEOPLASM OF CECUM Postop Diagnosis Cecal polyp Outcomes Met? Yes Last Modified By: Tamiko Cat RN 11/18/23 11:24:10 Post-Care Text: The patient is free from signs and symptoms of infection Skin Assessment (Pre Procedure) FT Pre-Care Text: Implements protective measures to prevent skin/ tissue injury due to thermal or mechanical sources Evaluates for signs and symptoms of physical injury to skin and tissue Entry 1 Skin Integrity Intact, [place], Warm, and Skin Abnormality No Dry Outcomes Met? Yes Last Modified By: Tamiko Cat RN 11/18/23 11:24:18 Post-Care Text: The patient is free from signs and symptoms of injury caused by extraneous objects Patient Positioning FT Pre-Care Text: Identifies physical alterations that require additional precautions for procedure-specific positioning, verifies presence of prosthetics or corrective devices, positions the patient, evaluates the patient for signs and symptoms of in (more content not included)... [facility] Postoperative Documentson Postoperative Documents [id number] FF [facility] Consent for Treatmenton Consent for Treatment [id number] F [facility] Discharge Instructionson Discharge Instructions RAUL KEYES :1950 Visit Date:11/18/2023 Inpatient Discharge Instructions Your Care Team Admitting Physician - Fabiola Nichole MD Referring Physician - Fabiola Nichole MD Reason for Your Visit BENIGN NEOPLASM OF CIGMOID COLON, BENIGN NEOPLASM OF CECUM Your Diagnosis Colon polyps Tests Performed Pathology Tissue Exam -- Results Pending -- Please visit your patient portal for your results or contact your primary care physician. This Is Your Medications List apixaban (Eliquis 5 mg oral tablet) carvedilol (Coreg 12.5 mg Tab) levothyroxine (levothyroxine 125 mcg (0.125 mg) Tab) magnesium glycinate (magnesium glycinate 100 mg oral capsule) Procedure History Colonoscopy (11/18/2023), Colonoscopy (05/17/2023), Colonoscopy (03/24/2023), Thyroidectomy (12/2022), Excision of cyst (07/15/2022), Biopsy of thyroid. What to do next Instructions From Your Doctor Event Name Event Result Discharge Activity Resume normal activities in 24 hours Discharge Restrictions No driving for 24 hrs Discharge Diet(s) Regular Call Your Doctor For Persistent or heavy bleeding Discharge Instructions Discharge Instructions New Follow Up Appointments after Discharge Follow Up with Dayanara VALDES, FAHAD Rivas, [facility] When: Comments: Call for any problems. Office will call to schedule follow up appointment Where: Medications What How Much When Instructions Next Dose Unchanged apixaban (Eliquis 5 mg oral tablet) 1 Tablets By Mouth 2 times a day Unchanged carvedilol (Coreg 12.5 mg Tab) 1 Tablets By Mouth 2 times a day Unchanged levothyroxine (levothyroxine 125 mcg (0.125 mg) Tab) 1 Tablets By Mouth Every day Unchanged magnesium glycinate (magnesium glycinate 100 mg oral capsule) 2 Capsules By Mouth Every day Test Results No qualifying data available. Allergies No Known Allergies Problems Ongoing - Any problem that you are currently receiving treatment for. Acute epididymo-orchitis Atrial fibrillation Benign neoplasm of cecum Benign neoplasm of sigmoid colon BMI 30.0-30.9,adult Chronic anticoagulation Enlarged thyroid Epidermal cyst GERD (gastroesophageal reflux disease) Gout Hearing loss History of myocardial infarction History of subdural hematoma HTN (hypertension) Hydrocele, left Impotence Leukocytosis Obesity Positive fecal occult blood test Pulmonary nodule Sebaceous cyst Swelling of left testicle Historical - Any problem that you are no longer receiving treatment for. Bursitis Cellulitis of left finger Chest pain Dermatitis Foot pain Knee pain Plantar fasciitis Tinea cruris Devices Implanted/Removed This Visit Notice: You have devices implanted this visit that may not be MRI compatible. Implanted Undefined Procedure Body Site Undefined CAUTERY ERBE UNIT 11/18/2023 CAUTERY ERBE UNIT 11/18/2023 Education Materials Hemorrhoids Hemorrhoids are swollen veins that may develop: ? In the butt (rectum). These are called internal hemorrhoids. ? Around the opening of the butt (anus). These are called external hemorrhoids. Hemorrhoids can cause pain, itching, or bleeding. Most of the time, they do not cause serious problems. They usually get better with diet changes, lifestyle changes, and other home treatments. What are the causes? This condition may be caused by: ? Having trouble pooping (constipation). ? Pushing hard (straining) to poop. ? Watery poop (diarrhea). ? . ? Being very overweight (obese). ? Sitting for long periods of time. ? Heavy lifting or other activity that causes you to strain. ? Anal sex. ? Riding a bike for a long period of time. What are the signs or symptoms? Symptoms of this condition include: ? Pain. ? Itching or soreness in the butt. ? Bleeding from the butt. ? Leaking poop. ? Swelling in the area. ? One or more lumps around the opening of your butt. How is this diagnosed? A doctor can often diagnose this condition by looking at the affected area. The doctor may also: ? Do an exam that involves feeling the area with a gloved hand (digital rectal exam). ? Examine the area inside your butt using a small tube (anoscope). ? Order blood tests. This may be done if you have lost a lot of blood. ? Have you get a test that involves looking inside the colon using a flexible tube with a camera on the end (sigmoidoscopy or colonoscopy). How is this treated? This condition can usually be treated at home. Your doctor may tell you to change what you eat, make lifestyle changes, or try home treatments. If these do not help, procedures can be done to remove the hemorrhoids or make them smaller. These may involve: ? Placing rubber bands at the base of the hemorrhoids to cut off their blood supply. ? Injecting medicine into the hemorrhoids to shrink them. ? (more content not included)... [facility] Comment on above: Result Comment: Elec tronically Signed By: Dona Schmitt I\.br\Date and Time Signed: 11/18/23 11:53 EDT Endoscopic Procedure Report - Otheron 11-18-2023 Endoscopic Procedure Report - Other Patient: RAUL KEYES Age: 72 years Sex: Male : 1950 Associated Diagnoses: None Author: Fabiola Nichole MD Pre-Procedure Procedure Date 11/18/2023 11:08:00 . Procedure Type: Colonoscopy with removal of tumor(s), polyp(s), or other lesion(s) by cold snare technique. Procedure provider Performed by Fabiola Nichole MD. Current history and physical Reviewed. Colonoscopy ([id number]) on 05/17/2023 at 72 Years. Comments: 05/17/2023 15:26 TAYLOR Navarro RN, Ashley 2 polyps, one 2.4 cm clipped Colonoscopy ([id number]) on 03/24/2023 at 72 Years. Thyroidectomy ([id number]) in the month of 12/2022 at 72 Years. Excision of cyst ([id number]) on 07/15/2022 at 71 Years. Comments: 07/28/2022 13:56 Helga Do LPN left upper chest Biopsy of thyroid ([id number]).. Past Medical History Resolved Bursitis ([id number]): Resolved. Chest pain (94737971): Resolved. Cellulitis of left finger (16476786): Resolved. Knee pain (35096630): Resolved. Foot pain (749370276): Resolved. Dermatitis (2110169020): Resolved. Plantar fasciitis (811497325): Resolved. Tinea cruris (0661252166): Resolved. Comments: 08/09/2019 EST 9:04 EST - Alva Alonso MA A history of. Family History Dementia Mother Diabetes mellitus type 2 Sister Alcoholism Father Stroke Father Acute myocardial infarction Brother . Procedure History Colonoscopy ([id number]) on 05/17/2023 at 72 Years. Comments: 05/17/2023 15:26 TAYLOR - Melanie ROSAS Ashley 2 polyps, one 2.4 cm clipped Colonoscopy ([id number]) on 03/24/2023 at 72 Years. Thyroidectomy ([id number]) in the month of 12/2022 at 72 Years. Excision of cyst ([id number]) on 07/15/2022 at 71 Years. Comments: 07/28/2022 13:56 Helga Do LPN left upper chest Biopsy of thyroid ([id number]).. Colorectal neoplasm risk assessment High risk Previous history of polyps. . Informed Consent After discussing the rationale, risks and benefits, and alternatives to this procedure, the patient provided signed consent for the procedure. Pre-procedure diagnosis: History of colon polyps. Medications (Selected) Inpatient Medications Ordered Lactated Ringers IV Marlen 1000 mL 1,000 mL: 1,000 mL, IV, 100 mL/hr, Routine, Start date 11/18/23 9:08:00 EDT, 10 hour(s), Total volume (mL): 1,000 Sodium Chloride 0.9% IV Marlen 1000 mL 1,000 mL: 1,000 mL, IV, 20 mL/hr, Routine, Start date 11/18/23 6:41:00 EDT, 50 hour(s), Total volume (mL): 1,000 Documented Medications Documented Coreg 12.5 mg Tab: 12.5 mg = 1 tab(s), Oral, BID, Refills(s) 0, High blood pressure Eliquis 5 mg oral tablet: 5 mg = 1 tab(s), Oral, BID, Refills(s) 0, Blood Thinner levothyroxine 125 mcg (0.125 mg) Tab: 125 mcg = 1 tab(s), Oral, Daily, Refills(s) 0, Thyroid magnesium glycinate 100 mg oral capsule: 200 mg = 2 cap(s), Oral, Daily, Refills(s) 0, Prophylaxis Anticoagulant/antiplatel et Last dose of Eliquis 3 days ago. ASA Classification: Class II. . Monitoring: See anesthesia record. . Procedure The procedure was performed in the hospital. See anesthesia record for sedation given during procedure. The patient was positioned starting in the left lateral decubitus position. Endoscope type used was an adult-size. The endoscope was lubricated then introduced through the anus. The scope was advanced to the cecum. No difficulties encountered during the procedure. The bowel preparation quality was adequate (see polyps greater than or equal to 6 millimeters). The patient tolerated the procedure well. Time to Cecum: 5 min Withdrawal time 26 min Last colonoscopy: 05/2023 Findings 1. Small internal hemorrhoids 2. Evidence of possible recurrence of the cecal polyp, I injected 5 ml of Everlift, but due to scarring it was not lifting well, resected in a piecemeal fashion using cold snare. I used APC afterwards to ablate the polypectomy site. No bleeding at end of the procedure Images Procedure images: Rec1_hd_video_ [id number].jpg Rec_hd_video_ [id number].jpg Rec1_hd_video_ [id number].jpg Rec1_hd_video_ [id number].jpg Rec_hd_video_ [id number].jpg Rec1_hd_video_ [id number].jpg Rec1_hd_video_ [id number].jpg Rec1_hd_video_ [id number].jpg . Post-Procedure Complications: none. Estimated blood loss: Minimal. Specimens: sent to pathology. Devices/ implants: none left in place. Impression and Plan 1. Small internal hemorrhoids 2. Evidence of possible recurrence of the cecal polyp, I injected 5 ml of Everlift, but due to scarring it was not lifting well, resected in (more content not included)... [facility] Comment on above: Result Comment: Elec tronically Signed By: Dayanara VALDES, Fabiola Jin\.br\Date and Time Signed: 11/18/23 11:46 EDT Other Comment: Keila brenner Attachment - attachment storage system not supported [id number] Can be viewed in source system Missing Attachment - attachment storage system not supported [id number] Can be viewed in source system Missing Attachment - attachment storage system not supported [id number] Can be viewed in source system Missing Attachment - attachment storage system not supported [id number] Can be viewed in source system Missing Attachment - attachment storage system not supported [id number] Can be viewed in source system Missing Attachment - attachment storage system not supported [id number] Can be viewed in source system Missing Attachment - attachment storage system not supported [id number] Can be viewed in source system Missing Attachment - attachment storage system not supported [id number] Can be viewed in source system Inpatient Patient Summaryon 11-18-2023 Inpatient Patient Summary [place] [id number] [facility] Clinical Discharge Instructions PERSON INFORMATION Name: RAUL KEYES PHYSICIANS Admitting Physician: Fabiola Nichole MD Attending Physician: Fabiola Nichole MD PCP: Anabela VALDES, Anupam Discharge Diagnosis: Colon polyps Comment: PATIENT EDUCATION INFORMATION Instructions: Medication Leaflets: Follow up: MEDICATION LIST Medications to Continue with No Changes Other Medications apixaban (Eliquis 5 mg oral tablet) 1 Tablets By Mouth 2 times a day. carvedilol (Coreg 12.5 mg Tab) 1 Tablets By Mouth 2 times a day. levothyroxine (levothyroxine 125 mcg (0.125 mg) Tab) 1 Tablets By Mouth every day. magnesium glycinate (magnesium glycinate 100 mg oral capsule) 2 Capsules By Mouth every day. Comment: [facility] Main OR PACU I [facility] Main OR PACU I Record PACU Phase I Document Type FT Summary Primary Physician: Fabiola Nichole MD Finalized Date/Time: 11/18/23 12:27:04 Pt. Name: RAUL KEYES/Sex: 1950 Male Med Rec #: [id number] Physician: Fabiola Nihcole MD Financial #: [id number] Pt. Type: O Room/Bed: / Admit/Disch: 11/18/23 09:12:34 - Institution: Case Times PACU I FT Pre-Care Text: Identifies barriers to communication and implements measures to provide psychological support Develops individualized plan of care, and ensures continuity of care Maintains patient's dignity and privacy, and maintains patient confidentiality Identifies and reports philosophical, cultural, and spiritual beliefs and values Identifies individual values and wishes concerning care Implements aseptic technique, and administers prescribed antibiotic therapy and immunizing agents as ordered Evaluates postoperative tissue perfusion Implements thermoregulation measures, and monitors body temperature Evaluates postoperative respiratory status Evaluates postoperative cardiac status Evaluates postoperative neurological status Assesses pain control, collaborated in initiating patient-controlled analgesia and implements alternative methods of pain control Verifies allergies, administers prescribed medications and solutions, evaluates response to medications Entry 1 In PACU I 11/18/23 11:46:00 Discharge from PACU 11/18/23 12:16:00 I Outcomes Met? Yes Last Modified By: Dona Schmitt I 11/18/23 12:26:51 Post-Care Text: The patient demonstrates knowledge of the expected response to the operative or invasive procedure The patient's care is consistent with the individualized perioperative plan of care The patient's right to privacy is maintained The patient's value system, lifestyle, ethnicity, and culture are considered, respected, and incorporated into the perioperative plan of care The patient participates in decisions affecting his or her perioperative plan of care The patient is free from signs and symptoms of infection The patient has wound/tissue perfusion consistent with or improved from baseline levels established preoperatively The patient is at or returning to normothermia at the conclusion of the immediate postoperative period The patient's respiratory function is consistent with or improved from baseline levels established preoperatively The patient's cardiovascular status is consistent with or improved from baseline levels established preoperatively The patient's cardiovascular status is consistent with or improved from baseline levels established preoperatively The patient demonstrates and/or reports adequate pain control throughout the perioperative period The patient received appropriate medication(s), safely administered during the perioperative period Acuity Level PACU I FT Entry 1 Start Time 11/18/23 11:46:00 Stop Time 11/18/23 12:16:00 Acuity Level Acuity Level I Last Modified By: Dona Schmitt I 11/18/23 12:27:01 Finalized By: Dona Schmitt I Document Signatures Signed By: Dona Schmitt I 11/18/23 12:27 [facility] Main OR Preoperative Recordo n 11-18-2023 Main OR Preoperative Record Holding Area Document Type FT Summary Primary Physician: Fabiola Nichole MD Finalized Date/Time: 11/18/23 09:36:30 Pt. Name: RAUL KEYES/Sex: 1950 Male Med Rec #: [id number] Physician: Fabiola Nichole MD Financial #: [id number] Pt. Type: O Room/Bed: / Admit/Disch: 11/18/23 09:12:34 - Institution: Case Times Holding FT Pre-Care Text: Verifies consent for planned procedure, identifies individual values and wishes concerning care, includes family members in perioperative teaching Secures patient's records' belongings, and valuables, maintains patient's dignity and privacy, and maintains patient confidentiality Entry 1 In Holding 11/18/23 09:26:00 Outcomes Met? Yes Last Modified By: Shanna Woodall RN 11/18/23 09:35:14 Post-Care Text: The patient participates in decisions affecting his or her perioperative plan of care The patient's right to privacy is maintained Surgery Checklist FT Entry 1 Patient Birthday, ID Band Procedure History and Physical, Identification: Check, Patient Verification: Surgical Consent, With Participation Patient NPO after Midnight: Yes Results Reviewed Clear/yellow Comments: Personal Items: Glasses Personal Items Glassess Comment: Limitations: Vision, hard of hearing Complaints of Pain: No Pain Comment: Denies Operative Site n/a Marking: Availability Equipment Verified: Does Patient Smoke No Patient states Yes Comment - Adult Josette- parking lot postop adult Supervision supervision available Case Cancelled in No Holding Area see comments below for reason Last Modified By: Shanna Woodall RN 11/18/23 09:36:24 General Comments: Pt completed prep at 0430 and remained NPO since/MARITZARN Finalized By: Shanna Woodall RN Document Signatures Signed By: Shanna Woodall RN 11/18/23 09:36 [facility] Monitor [facility] 11-18-2023 Monitor Record [id number] FF [facility] Monitor Record [id number] FF [facility] Outpatient Surgery Discharge Instructionon 11-18-2023 Outpatient Surgery Discharge Instruction [place] [id number] Patient Discharge Instructions PERSON INFORMATION Name: RAUL KEYES Date of : 1950 Current Date: 11/18/2023 11:08:10 PHYSICIANS Admitting Physician: Dayanara VALDES, Fabiola Jin Discharge Diagnosis: Colon polyps RAUL KEYES has been given the following list of follow-up instructions, prescriptions, and patient education materials: PATIENT FOLLOW-UP INFORMATION Diet: Regular Discharge Activity: Resume normal activities in 24 hours Discharge Restrictions: No driving for 24 hrs Call Your Doctor For: Persistent or heavy bleeding IF UNABLE TO CONTACT YOUR PHYSICIAN AND YOU FEEL IT IS AN EMERGENCY, GO TO THE NEAREST EMERGENCY ROOM OR CALL 911 ZEYNEP Barrera JOHN A, have received the attached patient education materials/instructions and have verbalized understanding: May we do a follow up call? Yes No I was present when discharge instructions were given Patient Signature Date Clinican/Nurse Signature Date Follow up: Pharmacy Information: You may receive a survey from [employer] asking you to rate your care experience. Your feedback is important and will help us understand what we do well and how we can improve the quality of care we provide to you, your loved ones and our community. It?s an honor to serve you. Thank you for choosing [facility] HERE ARE THE MEDICATION CHANGES THAT OCCURRED DURING YOUR HOSPITAL STAY Medications to Continue with No Changes Other Medications apixaban (Eliquis 5 mg oral tablet) 1 Tablets By Mouth 2 times a day. carvedilol (Coreg 12.5 mg Tab) 1 Tablets By Mouth 2 times a day. levothyroxine (levothyroxine 125 mcg (0.125 mg) Tab) 1 Tablets By Mouth every day. magnesium glycinate (magnesium glycinate 100 mg oral capsule) 2 Capsules By Mouth every day. PATIENT EDUCATION INFORMATION Instructions: Medication Leaflets: [facility] Patient Education - Texton 0 11-18-2023 Patient Education - Text Colonoscopy Care After Surgery Please read the instructions outlined below and refer to this sheet in the next few weeks. These discharge instructions provide you with general information on caring for yourself after you leave the hospital. Your doctor may also give you specific instructions. While your treatment has been planned according to the most current medical practices available, unavoidable complications occasionally occur. If you have any problems or questions after discharge, please call your doctor. ACTIVITY You may resume your regular activity, but move at a slower pace for the next 24 hours. Take frequent rest periods for the next 24 hours. Walking will help get rid of the air and reduce the bloated feeling in your abdomen (belly). No driving for 24 hours (because of the anesthesia (medicine) used during the test). You may shower. Do not sign any important legal documents or operate any machinery for 24 hours (because of the anesthesia used during the test). NUTRITION Drink plenty of fluids. You may resume your normal diet as instructed by your doctor. Begin with a light meal and progress to your normal diet. Heavy or fried foods are harder to digest and may make you feel nauseated (sick to your stomach). Avoid alcoholic beverages for 24 hours or as instructed. MEDICATIONS You may resume your normal medications unless your doctor tells you otherwise. WHAT YOU CAN EXPECT TODAY Some feelings of bloating in the abdomen. Passage of more gas than usual. Spotting of blood in your stool or on the toilet paper. FOLLOW-UP Your doctor will discuss the results of your test with you. SEEK IMMEDIATE MEDICAL ATTENTION IF: There is more than a spotting of blood in your stool. There is abdominal distention (your abdomen is swollen). There is vomiting. You have a temperature over 101.5 F. There is abdominal pain or discomfort that is severe or gets worse throughout the day. Gastroenterology Hemorrhoids Hemorrhoids are swollen veins that may develop: ? In the butt (rectum). These are called internal hemorrhoids. ? Around the opening of the butt (anus). These are called external hemorrhoids. Hemorrhoids can cause pain, itching, or bleeding. Most of the time, they do not cause serious problems. They usually get better with diet changes, lifestyle changes, and other home treatments. What are the causes? This condition may be caused by: ? Having trouble pooping (constipation). ? Pushing hard (straining) to poop. ? Watery poop (diarrhea). ? . ? Being very overweight (obese). ? Sitting for long periods of time. ? Heavy lifting or other activity that causes you to strain. ? Anal sex. ? Riding a bike for a long period of time. What are the signs or symptoms? Symptoms of this condition include: ? Pain. ? Itching or soreness in the butt. ? Bleeding from the butt. ? Leaking poop. ? Swelling in the area. ? One or more lumps around the opening of your butt. How is this diagnosed? A doctor can often diagnose this condition by looking at the affected area. The doctor may also: ? Do an exam that involves feeling the area with a gloved hand (digital rectal exam). ? Examine the area inside your butt using a small tube (anoscope). ? Order blood tests. This may be done if you have lost a lot of blood. ? Have you get a test that involves looking inside the colon using a flexible tube with a camera on the end (sigmoidoscopy or colonoscopy). How is this treated? This condition can usually be treated at home. Your doctor may tell you to change what you eat, make lifestyle changes, or try home treatments. If these do not help, procedures can be done to remove the hemorrhoids or make them smaller. These may involve: ? Placing rubber bands at the base of the hemorrhoids to cut off their blood supply. ? Injecting medicine into the hemorrhoids to shrink them. ? Shining a type of light energy onto the hemorrhoids to cause them to fall off. ? Doing surgery to remove the hemorrhoids or cut off their blood supply. Follow these instructions at home: Eating and drinking ? Eat foods that have a lot of fiber in them. These include whole grains, beans, nuts, fruits, and vegetables. ? Ask your doctor about taking products that have added fiber (fibersupplements). ? Reduce the amount of fat in your diet. You can do this by: ? Eating low-fat dairy products. ? Eating less red meat. ? Avoiding processed foods. ? Drink enough fluid to keep your pee (urine) pale yellow. Managing pain and swelling ? Take a warm-water bath (sitz bath) for 20 minutes to ease pain. Do this 3?4 times a day. You may do this in a bathtub or using a portable sitz bath that fits over the toilet. ? If told, put ice on the painful area. It may be helpful to use ice between your warm baths. ? Put ice in a plas (more content not included)... Normal [facility] Progress Note-Physicianon Progress Note-Physician Patient: RAUL KEYES Age: 72 years Sex: Male : 1950 Associated Diagnoses: None Author: Fabián VALDES, Omer Puente Preoperative Information Anesthesia Preop Info: Time patient last ate or drank 11/18/2023 00:00:00. Anesthesia history: Patient history: None. Family history+: None. Informed consent: Signed by patient. Re-evaluation prior to induction: Initial evaluation reviewed: No significant change. Review of Systems Eye: Negative except as documented in history of present illness. Ear/Nose/Mouth/Throat: Negative except as documented in history of present illness. Respiratory: Negative except as documented in history of present illness. Cardiovascular: Negative except as documented in history of present illness. Musculoskeletal: Negative except as documented in history of present illness. Neurologic: Negative except as documented in history of present illness. Health Status Allergies: Allergic Reactions (Selected) No Known Allergies, Allergies (1) Active Severity Reaction No Known Allergies None Documented Current medications: (Selected) Inpatient Medications Ordered Sodium Chloride 0.9% IV Marlen 1000 mL 1,000 mL: 1,000 mL, IV, 20 mL/hr, Routine, Start date 11/18/23 6:41:00 EDT, 50 hour(s), Total volume (mL): 1,000 Documented Medications Documented Coreg 12.5 mg Tab: 12.5 mg = 1 tab(s), Oral, BID, Refills(s) 0, High blood pressure Eliquis 5 mg oral tablet: 5 mg = 1 tab(s), Oral, BID, Refills(s) 0, Blood Thinner levothyroxine 125 mcg (0.125 mg) Tab: 125 mcg = 1 tab(s), Oral, Daily, Refills(s) 0, Thyroid magnesium glycinate 100 mg oral capsule: 200 mg = 2 cap(s), Oral, Daily, Refills(s) 0, Prophylaxis, Home Medications (4) Active Coreg 12.5 mg Tab 12.5 mg = 1 tab(s), Oral, BID Eliquis 5 mg oral tablet 5 mg = 1 tab(s), Oral, BID levothyroxine 125 mcg (0.125 mg) Tab 125 mcg = 1 tab(s), Oral, Daily magnesium glycinate 100 mg oral capsule 200 mg = 2 cap(s), Oral, Daily , Medications (1) Active Scheduled: (0) Continuous: (1) Sodium Chloride 0.9% 1,000 mL 1,000 mL, IV, 20 mL/hr PRN: (0) Problem list: All Problems Acute epididymo-orchitis / SNOMED CT 602561527 / Confirmed Atrial fibrillation / SNOMED CT 26127606 / Confirmed Benign neoplasm of cecum / SNOMED CT 232584396 / Confirmed Benign neoplasm of sigmoid colon / SNOMED CT 554947641 / Confirmed BMI 30.0-30.9,adult / SNOMED CT 144231734 / Confirmed Chronic anticoagulation / SNOMED CT 6999901482 / Confirmed Enlarged thyroid / SNOMED CT 8482331 / Confirmed Epidermal cyst / SNOMED CT 9275011882 / Confirmed GERD (gastroesophageal reflux disease) / SNOMED CT 264268128 / Confirmed Gout / SNOMED CT 449128451 / Confirmed Hearing loss / SNOMED CT 48468927 / Confirmed History of myocardial infarction / SNOMED CT 0213370994 / Confirmed History of subdural hematoma / SNOMED CT 9355586250 / Confirmed HTN (hypertension) / SNOMED CT 3451161855 / Confirmed Hydrocele, left / SNOMED CT 2742745418 / Confirmed Impotence / SNOMED CT 7629205099 / Confirmed Leukocytosis / SNOMED CT 768563464 / Confirmed Obesity / SNOMED CT 0967816546 / Confirmed Positive fecal occult blood test / SNOMED CT 45145175 / Confirmed Pulmonary nodule / SNOMED CT 6048999162 / Confirmed Sebaceous cyst / SNOMED CT 6390184512 / Confirmed Swelling of left testicle / SNOMED CT 9152330860 / Confirmed Resolved: Bursitis / SNOMED CT 134130097 Resolved: Cellulitis of left finger / SNOMED CT 67525913 Resolved: Chest pain / SNOMED CT 11299400 Resolved: Dermatitis / SNOMED CT 6201287051 Resolved: Foot pain / SNOMED CT 963630837 Resolved: Knee pain / SNOMED CT 15897510 Resolved: Plantar fasciitis / SNOMED CT 175674469 Resolved: Tinea cruris / SNOMED CT 5168633811 history of, Active Problems (22) Acute epididymo-orchitis Atrial fibrillation 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 Chest pain (17395401): Resolved. Cellulitis of left finger (56057876): Resolved. Knee pain (85304319): Resolved. Foot pain (452390091): Resolved. Dermatitis (8745815737): Resolved. Plantar fasciitis (601954955): Resolved. Tinea cruris (8611610311): Resolved. Comments: 08/09/2019 EST 9:04 TAYLOR - Alva Alonso MA history of Family History: Dementia Mother Diabetes mellitus type 2 Sister Alcoholism Father Stroke Father Acute myocardial infarction Brother Procedure history: Colonoscopy ([id number]) on 05/17/2023 at 72 Years. (more content not included)... Normal [facility] Comment on above: Result Comment: Elec tronically Signed By: Omer Lockwood MD\.br\Date and Time Signed: 11/18/23 14:21 EDT Progress Note-Physician Patient: RAUL KEYES Age: 72 years Sex: Male : 1950 Associated Diagnoses: None Author: Omer Lockwood MD Postoperative Information Postoperative disposition: Postoperative disposition: To PACU. Optimetrix number: Optimetrix number [id number]. Anesthetic utilized: General, No Regional. Health Status Allergies: Allergic Reactions (Selected) No Known Allergies Physical Examination Vital Signs 11/18/2023 12:11 EDT Heart Rate Monitored 46 bpm LOW Respiratory Rate Monitored 15 br/min Systolic Blood Pressure 122 mmHg Diastolic Blood Pressure 84 mmHg Mean Arterial Pressure, Cuff 97 mmHg SpO2 96 % 11/18/2023 12:00 EDT Heart Rate Monitored 50 bpm LOW Respiratory Rate Monitored 14 br/min Systolic Blood Pressure 116 mmHg Diastolic Blood Pressure 83 mmHg Mean Arterial Pressure, Cuff 94 mmHg SpO2 95 % 11/18/2023 11:55 EDT Heart Rate Monitored 48 bpm LOW Respiratory Rate Monitored 12 br/min Systolic Blood Pressure 117 mmHg Diastolic Blood Pressure 83 mmHg Mean Arterial Pressure, Cuff 94 mmHg SpO2 94 % 11/18/2023 11:50 EDT Heart Rate Monitored 51 bpm LOW Respiratory Rate Monitored 12 br/min Systolic Blood Pressure 113 mmHg Diastolic Blood Pressure 81 mmHg Mean Arterial Pressure, Cuff 92 mmHg SpO2 94 % 11/18/2023 11:46 EDT Temperature Temporal Artery 36.3 DegC Heart Rate Monitored 52 bpm LOW Respiratory Rate Monitored 14 br/min Systolic Blood Pressure 115 mmHg Diastolic Blood Pressure 78 mmHg Mean Arterial Pressure, Cuff 90 mmHg SpO2 94 % Pain Assessment: Controlled. General: Awake, Alert, Appropriate. Respiratory: Adequate air exchange. Cardiovascular: Stable, Normal peripheral perfusion. Neurological: Normal sensory function, Normal motor function. Assessment Anesthetic outcome No anesthetic complications noted. Adequate pain relief. able to void without difficulty, able to ambulate with assist, tolerating PO intake, no N/V. Review / Management Condition: Stable. Plan Transfer/Discharge: Transfer/Discharge Discharge when meets criteria ( To home ). [facility] Comment on above: Result Comment: Elec tronically Signed By: Fabián VALDES, Omer Puente\.br\Date and Time Signed: 11/18/23 12:37 EDT Insurance Correspondenceon 11-05-2023 Insurance Correspondence [id number]#[id number] FF [facility] Insurance Correspondence [id number]#1.00TI FF [facility] Tobacco Screening.on 023 Adult depression screening assessment No MG-Otolaryn gol [facility] [address] Work Phone: Fall risk assessment a) No falls within the last year -Otolaryngol [facility] [address] Work Phone: Tobacco use status CPHS b) No -Otolaryngol [facility] [address] Work Phone: CBCon 12-18-2022 Erythrocyte distribution width (RBC) [Ratio] 12.8 % Normal 11.5 - 14.5 [facility] Comment on above: Performed By: #### C BC ####[facility] [id number] [place] [address] Hematocrit (Bld) [Volume fraction] 39.3 % Low 41.0 - 52.0 [facility] Comment on above: Performed By: #### C BC ####[id number] [place] [address] Hemoglobin (Bld) [Mass/Vol] 13.6 g/dL Normal 13.5 - 17.5 [facility] Comment on above: Performed By: #### C BC ####[facility] [id number] [place] [address] MCHC (RBC) [Mass/Vol] 34.6 g/dL Normal 32.0 - 36.0 [facility] Comment on above: Performed By: #### C BC ####[id number] [place] [address] MCV (RBC) [Entitic vol] 91 fL Normal 80 - 100 [facility] Comment on above: Performed By: #### C BC ####[facility] [id number] [place] [address] Platelets (Bld) [#/Vol] 184 10*3/uL Normal 150 - 450 [facility] Comment on above: Performed By: #### C BC ####[facility] [id number] [place] [address] RBC 4.32 x10E12/L Low 4.50 - 5.90 [facility] Comment on above: Performed By: #### C BC ####[facility] [id number] [place] [address] WBC (Bld) [#/Vol] 11.5 10*3/uL High 4.4 - 11.3 [facility] Comment on above: Performed By: #### C BC ####[facility] [id number] [place] [address] Clinical Note - Pharmacy v2- Discharge Med Counselingon 12-18-2022 Clinical Note - Pharmacy v2-Discharge Med Counseling Clinical Note - Pharmacy v2: Discharge Meds: Document TopicDischarge Med Counseling Time Required5 - 10 minutes Prescription Robotics Technician Medications Drug Name: Synthroid 125 mcg (0.125 mg) oral tablet Instructions: 1 tab(s) orally once a day -.Meds to Beds Drug Name: calcium carbonate 1250 mg (500 mg elemental calcium) oral tablet Instructions: 1 tab(s) orally once a day -.Meds to Beds Medications Delivered Topatient Meds Declined by Patient/FamilyDrug Name: oxycodone-acetaminophen 5 mg-325 mg oral tablet Instructions: 1 tab(s) orally every 6 hours -.Meds to Beds as needed for severe pain Education TopicADR counseling; dosage, frequency, storage; medication indication; missed dose explanation; refills Learnerpatient Barriers to Learningnone Methodverbal Outcome Evaluation2=meets goals/outcomes Allergy: Allergies Summary No Known Allergies Electronic Signatures: Jennifer Wilson ([facility]) (Signed 18-Dec-2022 14:00) Authored: Discharge Meds, Allergy Last Updated: 18-Dec-2022 14:00 by Jennifer Wilson ([facility]) Normal [facility] Discharge Planning [id number] 12-18-2022 Discharge Planning Note2 Discharge Planning: Planned Dispositionhome Discharge Destinationhome AMPAC < 20no PCP/Next Provider Follow Up Scheduledyes Kerrick of Choice Explainedyes Anticipated Discharge [id number] Discharge Planning 12/18/22 0838 Met with patient at bedside to discuss discharge planning. Patient lives at home alone in a house. Patient is independent with all ADLs and drives at baseline. Patient does not normally use any assistive devices for ambulation. Patient denies any problems getting to appointments or obtaining/affording medications. Patient plans on returning home at discharge and does not anticipate any HHC, DME, or other home going needs at this time. Viridiana Santizo RN TCC Assessment: Discharge Planning Assessment [id number] Discharge Planning Assessment Completed byViridiana Santizo RN, BSN, RN-BC, TCC (Doc Halo) [phone] Primary Contact Name and NumberDenise (Girlfriend) [phone](1) Prior Level of Functioningindependent Lives Withalone(1) Living Arrangementshouse(1) Stated Reason for AdmissionSuregery(1) [place] (1) PCPDr Patel Eleni [facility] Recent Falls/ Injury/ Need Assist with Ambulationnone Resource/Environmental Concernsnone(1) [facility] Services Anticipated at Transitionnone(1) Readmission Within the Last 30 Daysno previous admission in last 30 days InsuranceHumana Gold Choice Anticipated Changes Related to Illnessnone Equipment Needed After Dischargenone Anticipated Discharge Facility/Level of Care Needs.Home Transportation Home Who/Howsignificant other by private car Medication Adherence/Afford/Obtainy es Discharge Documentation: Code StatusCode Status order at time of discharge: Full Code Electronic Signatures: Viridiana Santizo (RN) (Signed 18-Dec-2022 08:41) Authored: Discharge Planning, Assessment, Discharge Documentation Last Updated: 18-Dec-2022 08:41 by Viridiana Santizo (ALISON) References: 1. Data Referenced From Patient Profile - Adult v2 17-Dec-2022 15:52 Normal [facility] Laboratory - Hematology and Cell countson 12-18-2022 Erythrocyte distribution width (RBC) [Ratio] 12.8 % See Below MG-Otolaryngol [facility] [address] Work Phone: Comment on above: Reference Range: 11. 5 - 14.5 Hematocrit (Bld) [Volume fraction] 39.3 % below low threshold See Below MG-olaryngol [facility] [address] Work Phone: Comment on above: Reference Range: 41. 0 - 52.0 Hemoglobin (Bld) [Mass/Vol] 13.6 g/dL See Below MG-Otolaryngol [place] [address] Work Phone: Comment on above: Reference Range: 13. 5 - 17.5 MCHC (RBC) [Mass/Vol] 34.6 g/dL See Below MG-Otolaryngol [place] [address] Work Phone: Comment on above: Reference Range: 32. 0 - 36.0 MCV (RBC) [Entitic vol] 91 fL 80 - 100 MG-Otolaryngol [place] [address] Work Phone: Platelets (Bld) [#/Vol] 184 10*3/uL 150 - 450 MG-Otolaryngol [place] [address] Work Phone: RBC (Bld) [#/Vol] 4.32 {x10E12/L} below low threshold See Below -Otolaryngol [place] [address] Work Phone: Comment on above: Reference Range: 4.5 0 - 5.90 WBC (Bld) [#/Vol] 11.5 10*3/uL above high threshold 4.4 - 11.3 MG-Otolaryngol [place] [address] Work Phone: Order Reconciliationon 12-18 Order Reconciliation Page 1 Discharge Reconciliation Document Reconciliation Type: Discharge requested on behalf of Zainab Kohli (Advanced Practice Nurse-Admit) done by Zainab Kohli (DRUM STENCILER-CAREER PROFESSIONAL) Discharge - Reconciliation: 18-Dec-2022 08:56 by: Zainab Kohli (DRUM STENCILER-CAREER PROFESSIONAL) Home Medications EnteredHOME MEDICATIONS AT DISCHARGE DateReconciliation Comment/ Additional Information carvedilol 12.5 mg oral tablet 1 tab(s) orally 2 times a day 24-Nov-2022 09:00 carvedilol 12.5 mg oral tablet 1 tab(s) orally 2 times a day 24-Nov-2022 09:00 carvedilol 12.5 mg oral tablet is continued as carvedilol 12.5 mg oral tablet Eliquis 5 mg oral tablet 1 tab(s) orally 2 times a day 24-Nov-2022 09:00 Eliquis 5 mg oral tablet 1 tab(s) orally 2 times a day 24-Nov-2022 09:00 Eliquis 5 mg oral tablet is continued as Eliquis 5 mg oral tablet magnesium glycinate 200 mg oral tablet 1 tab(s) orally once a day 24-Nov-2022 09:00 magnesium glycinate 200 mg oral tablet 1 tab(s) orally once a day 24-Nov-2022 09:00 magnesium glycinate 200 mg oral tablet is continued as magnesium glycinate 200 mg oral tablet oxycodone-acetaminophen 5 mg-325 mg oral tablet 1 tab(s) orally every 6 hours -.Meds to Beds as needed for severe pain 17-Dec-2022 23:03 oxycodone-acetaminophen 5 mg-325 mg oral tablet 1 tab(s) orally every 6 hours -.Meds to Beds as needed for severe pain 17-Dec-2022 23:03 oxycodone-acetaminophen 5 mg-325 mg oral tablet is continued as oxycodone-acetaminophen 5 mg-325 mg oral tablet Zinc 140 mg (as elemental zinc 50 mg) oral tablet 1 tab(s) orally once a day 24-Nov-2022 09:00 Zinc 140 mg (as elemental zinc 50 mg) oral tablet 1 tab(s) orally once a day 24-Nov-2022 09:00 Zinc 140 mg (as elemental zinc 50 mg) oral tablet is continued as Zinc 140 mg (as elemental zinc 50 mg) oral tablet Current OrdersDateHOME MEDICATIONS AT DISCHARGE DateReconciliation Comment/ Additional Information Acetaminophen Tablet (TYLENOL)DOSE = 650 mg Oral Every 4 Hours, PRN Pain - Mild (1-3) 17-Dec-2022 13:35 Acetaminophen is not required Carvedilol Tablet (COREG)DOSE = 12.5 mg Oral 2 Times a Day 17-Dec-2022 17:09 Carvedilol is not required Ondansetron Injectable (ZOFRAN)DOSE = 4 mg IntraVenous Push Every 6 Hours, PRN Nausea and/or Vomiting 17-Dec-2022 13:36 Ondansetron Injectable is not required oxyCODONE Immediate Release Tablet (OXYIR, ROXICODONE)DOSE = 10 mg Oral Every 4 Hours, PRN Pain - Severe (7-10) 17-Dec-2022 13:35 oxyCODONE Immediate Release is not required oxyCODONE Immediate Release Tablet (OXYIR, ROXICODONE)DOSE = 5 mg Oral Every 4 Hours, PRN Pain - Mod (4-6) 17-Dec-2022 13:35 oxyCODONE Immediate Release is not required Sodium Chloride 0.9% Injectable Flush via Peripheral LineVolume = 10 mL IntraVenous Flush Every 8 Hours and as Needed 17-Dec-2022 13:35 Sodium Chloride 0.9% Injectable Flush is not required Home Medications Added During Discharge Reconciliation calcium carbonate 1250 mg (500 mg elemental calcium) oral tablet 1 tab(s) orally once a day -.Meds to Beds Synthroid 125 mcg (0.125 mg) oral tablet 1 tab(s) orally once a day -.Meds to Beds All Active Home Medications at time of Discharge Reconciliation: 18-Dec-2022 08:56 calcium carbonate 1250 mg (500 mg elemental calcium) oral tablet 1 tab(s) orally once a day -.Meds to Beds carvedilol 12.5 mg oral tablet 1 tab(s) orally 2 times a day Eliquis 5 mg oral tablet 1 tab(s) orally 2 times a day magnesium glycinate 200 mg oral tablet 1 tab(s) orally once a day oxycodone-acetaminophen 5 mg-325 mg oral tablet 1 tab(s) orally every 6 hours -.Meds to Beds as needed for severe pain Synthroid 125 mcg (0.125 mg) oral tablet 1 tab(s) orally once a day -.Meds to Beds Zinc 140 mg (as elemental zinc 50 mg) oral tablet 1 tab(s) orally once a day Normal [facility] RENAL FUNCTION PANELon 12-18 Albumin [Mass/Vol] 3.9 g/dL Normal 3.4 - 5.0 [facility] Comment on above: Performed By: #### R ENAL ####[facility] [id number] [place] [address] Anion gap [Moles/Vol] 13 mmol/L Normal 10 - 20 [facility] Comment on above: Performed By: #### R ENAL ####[facility] [id number] [place] [address] Calcium [Mass/Vol] 8.4 mg/dL Low 8.6 - 10.3 [facility] Comment on above: Performed By: #### R ENAL ####[facility] [id number] [place] [address] Chloride [Moles/Vol] 103 mmol/L Normal 98 - 107 [facility] Comment on above: Performed By: #### R ENAL ####[facility] [id number] [place] [address] Creatinine [Mass/Vol] 1.03 mg/dL Normal 0.50 - 1.30 [facility] Comment on above: Performed By: #### R ENAL ####[facility] [id number] [place] [address] GFR/1.73 sq M.predicted among non-blacks MDRD (S/P/Bld) [Vol rate/Area] 78 mL/min/{1.73_m2} Normal >90 [facility] Comment on above: Result Comment: CALC ULATIONS OF ESTIMATED GFR ARE PERFORMED USING THE 2020 CKD-EPI STUDY REFIT EQUATION WITHOUT THE RACE VARIABLE FOR THE IDMS-TRACEABLE CREATININE METHODS. https://jasn.asnjournals.org/content//ASN.9482074 988 Performed By: #### R ENAL ####[facility] [id number] [place] [address] Glucose [Mass/Vol] 148 mg/dL High 74 - 99 [facility] Comment on above: Performed By: #### R ENAL ####[facility] [id number] [place] [address] HCO3 (Bld) [Moles/Vol] 25 mmol/L Normal 21 - 32 [facility] Comment on above: Performed By: #### R ENAL ####[facility] [id number] [place] [address] Phosphate [Mass/Vol] 3.9 mg/dL Normal 2.5 - 4.9 [facility] Comment on above: Result Comment: The performance characteristics of phosphorus testing in heparinized plasma have been validated by the individual laboratory site where testing is performed. Testing on heparinized plasma is not approved by the FDA; however, such approval is not necessary. Performed By: #### R ENAL ####[facility] [id number] [place] [address] Potassium [Moles/Vol] 3.8 mmol/L Normal 3.5 - 5.3 [facility] Comment on above: Performed By: #### R ENAL ####[facility] [id number] [place] [address] Sodium [Moles/Vol] 137 mmol/L Normal 136 - 145 [facility] Comment on above: Performed By: #### R ENAL ####[facility] [id number] [place] [address] Urea nitrogen [Mass/Vol] 12 mg/dL Normal 6 - 23 [facility] Comment on above: Performed By: #### R ENAL ####[facility] [id number] [place] [address] Renal Function Panelon 12-18 Albumin BCP dye [Mass/Vol] 3.9 g/dL 3.4 - 5.0 MG-Otolaryngol [facility] [address] Work Phone: Anion gap [Moles/Vol] 13 mmol/L 10 - 20 MG-Otolaryngol [facility] [address] Work Phone: Calcium [Mass/Vol] 8.4 mg/dL below low threshold 8.6 - 10.3 MG-Otolaryngol [facility] [address] Work Phone: Chloride [Moles/Vol] 103 mmol/L 98 - 107 MG-O tolaryngol [facility] [address] Work Phone: CO2 [Moles/Vol] 25 mmol/L 21 - 32 MG-Otolar yngol [facility] [address] Work Phone: Creatinine [Mass/Vol] 1.03 mg/dL See Below MG-Otolaryngol [facility] 4100 Work Phone: Comment on above: Reference Range: 0.5 0 - 1.30 Glucose [Mass/Vol] 148 mg/dL above high threshold 74 - 99 MG-Otolaryngol [facility] 4100 Work Phone: Phosphate [Mass/Vol] 3.9 mg/dL 2.5 - 4.9 MG-O tolaryngol [facility] 4100 Work Phone: Comment on above: The performance mi acteristics of phosphorus testing in heparinized plasma have been validated by the individual laboratory site where testing is performed. Testing on heparinized plasma is not approved by the FDA; however, such approval is not necessary. Potassium [Moles/Vol] 3.8 mmol/L 3.5 - 5.3 MG-Otolaryngol [facility] 4100 Work Phone: Sodium [Moles/Vol] 137 mmol/L 136 - 145 MG-Nba laryngol [facility] 4100 Work Phone: Urea nitrogen [Mass/Vol] 12 mg/dL 6 - 23 MG-Otolaryngol [facility] 4100 Work Phone: Renal Function Panel 78 {mL/min/1.73m2} >90 MG-Otolaryngol [facility] 4100 Work Phone: Comment on above: CALCULATIONS OF DANIELLE MATED GFR ARE PERFORMED USING THE 2020 CKD-EPI STUDY REFIT EQUATION WITHOUT THE RACE VARIABLE FOR THE IDMS-TRACEABLE CREATININE METHODS.https://jasn.asnjournals.org/content//ASN .[id number] Admission Risk Screen - Adul ton 12-17-2022 Admission Risk Screen - Adult Allergies: Allergies: No Known Allergies: Patient Verification: New W ID Band Applied in my Departmentyes Patient Identity Verified Bypatient ID Band FULL Name, include Middle, spelling matches patient's ID used for verificationyes ID Band Matches Patient ID used for Verficationyes ID Band MRN Matches EMR MRNyes Visitor Restriction: Coronavirus Visitor Restriction: Reasonable restrictions to in-person visitors will be observed due to current coronavirus pandemic. Travel History: COVID-19 Screening Completedno exposure or symptoms(1) Travel or Exposure Past 30 DaysNO travel to International locations in the past 30 days Ebola AlertFor Ebola-like Symptoms: Isolate Patient and Notify Provider/Tar Pot Man For Contact: Notify Provider/[place]ar [place] Man Advance Directive: Advance Directive/DNRno Advance Directive Information Givenpatient/family declined Booth Fall Screen: History of falling (immediate or previous)no (0) Secondary Diagnosisno (0) Intravenous Therapy/ Heparin/Saline Lockyes (20) Gait/Transferringweak (10) Ambulatory Aidsnone/bedrest/nurse assist (0) Mental Statusoriented to own ability (0) Score: Low risk (<25). Moderate risk (25-44). High risk (>44).30 Booth InterventionsMODERATE INTERVENTIONS: *Low Interventions Plus: * falls risk band/sticker applied to patient, *yellow non-skid footwear, *instruct to call for assistance before getting out of bed, *bed/chair/bedside commode/toilet alarms, *sensory devices/ambulatory aides available and in reach, *medications reviewed for potential side effects and care planning. Family Violence Screen: Are you or have you been threatened or abused physically, emotionally, or sexually by anyoneno Has anyone ever threatened to hurt your family or your petsno Does anyone try to keep you from having/contacting other friends or doing things outside your homeno Do you feel UNSAFE going back to the place where you are livingno Do you feel anyone has exploited or taken advantage of you financially or of your personal propertyno Clinical assessment: Are there any apparent signs of injuries/behaviors that could be related to abuse/neglectno Social Service Consult for abuse/neglect needed this visitno Functional Screen: Functional Screen: In the recent/past 2-4 weeks, patient or family have noticedno issues that require a speech/language consult at this time AM-PAC- Basic Mobility/Daily Activity: Patient baseline bedboundno Turning from your back to your side while in a flat bed without using bedrailsa little Moving from lying on your back to sitting on the side of a flat bed without using bedrailsa little Moving to and from bed to chair (including a wheelchair)a little Standing up from a chair using your arms (e.g. wheelchair or bedside chair)a little To walk in hospital rooma little Climbing 3-5 steps with railinga little Basic Mobility - Total Score18 Putting on and taking off regular lower body clothinga little Bathing (including washing, rinsing, drying)a little Putting on and taking off regular upper body clothinga little Toileting, which includes using toilet, bedpan or urinala little Taking care of personal grooming such as brushing teethnone Eating Mealsnone Daily Activity - Total Score20 Learning Assessment (Patient): Patient is Able to be Assessed for Learningyes Factors Influencing Readiness to Learnmotivation to learn Factors that Impact Ability to Learnnone Devices/Methods Used to Communicatenone Learning Preferencesverbal instruction; written material Cultural Considerationsnone Developmental Considerationsnone Episcopal Considerationsnone Learning Assessment (Other Learner): Other learner availableno Depression Screen: During the past month, have you often been bothered by feeling down, depressed or hopelessno During the past month, have you often had little interest or pleasure in doing thingsno Have you had any thoughts of harming anyone elseno [place] Suicide: Risk Screen Not Applicable/Able to Answerable to be screened In the Past Month: Have you wished you were or could go to sleep and not wake upno(1) In the Past Month: Have you had any actual thoughts of killing yourself no(1) Lifetime: Have you ever done, started to do, or prepared to do anything to end your lifeno(1) [place] Suicide Risknegative Adult Nutrition Screen: Have you recently lost weight without tryingno Have you been eating poorly because of a decreased appetiteno Malnutrition Screening Tool Score0 Malnutrition Screening Tool RiskMST = 0 or 1 Not at risk. Eating well with little or no weight loss Nutrition Consult needed this visitno Can Patient Participate in Room Serviceyes, with assistance Patient requires Paper Dishes/Plastic Utensilsno Pain Screen: Pain Scalenumerical 0-10 Pain Scale Educationteachin (more content not included)... Normal [facility] Clinical Event Gnfk-Vcth-Fz Checkon 12-17-2022 Clinical Event Zwts-Tupf-Xj Check Clinical Event: Clinical Event Note: TopicPost-Op Check Details Mr. Keyes is a 72 year old male who is POD #0 for a total substernal thyroidectomy and parathyroid reimplantation due to a diffuse colloid goiter. Patient is feeling well and states he has no pain. He states he has only had a few sips of water since OR. Denies difficulty breathing/SOB, fevers, chills, CP, or N/V. VSS, afebrile. PE: Constitutional: A&Ox3, calm and cooperative, NAD. Eyes: PERRL, clear sclera . ENMT: Moist mucous membranes. Head/Neck: Neck supple. Surgical bandage covering throat without evidence of shadowing, No hematoma palpated on neck. No stridor. MISSY with serosanguinous output (20cc since OR). Cardiovascular: Normal rate and regular rhythm. Respiratory/Thorax: CTAB, No rales, rhonchi, or wheezes. Good symmetric chest expansion. On 2L NC. Gastrointestinal: Nondistended. Genitourinary: Voiding independently. Musculoskeletal: ROM intact, normal strength. Extremities: No peripheral edema. Neurological: A&Ox3, No focal deficits . Psychological: Appropriate mood and behavior. Skin: Warm and dry. Radiology and labs reviewed Plan: - Diet: Clear Liquid diet. Will advance to a Soft diet in the AM, if CLD tolerated. - Continue current pain regimen - PRN antiemetic - DVT Proph: SCDs/ ambulate - Monitor VS every 4 hours - Evening RFP with labs ordered for AM - IS every hour while awake - Encourage ambulation / OOB as tolerated - MISSY drain care. Monitor and record output. - Instructed on post operative care, s/s of infection - Monitor incision for drainage, erythema, excessive bruising - Continue supportive care - F/u with Dr. Oglesby outpatient on 12/25/22 Dispo: Pain control. Probable diet advancement and DC tomorrow. Total time spent 20 minutes, and greater than 50% of time was spent in counseling/coordination of care. Objective Information T PRBPMAPSpO2 [id number]% Date/Time12/17 20: 20: 20:077/6 20:077/6 15:437/6 20:07 Range(35.8C - 36.4C ) (64 - 66 ) (16 - 17 ) (131 - 139 )/ (82 - 82 ) (98 - 98 ) (97% - 98% ) As of 17-Dec-2022 15:43:00, patient is on 2 L/min of oxygen via nasal cannula. Plan of Care Reviewed Withpatient Electronic Signatures: Amy Hitchcock (DRUM STENCILER-CAREER PROFESSIONAL) (Signed 17-Dec-2022 20:45) Authored: Clinical Event Note Last Updated: 17-Dec-2022 20:45 by Amy Hitchcock (DRUM STENCILER-CAREER PROFESSIONAL) Normal [facility] Discharge [id number] 023 Discharge Profile2 Discharge Orders: Anticipated Discharge Date: Anticipated Discharge [id number] Problem List: Additional Dx: Goiter: Catalog Name: Nontoxic goiter, unspecified S/P thyroidectomy: Catalog Name: Postprocedural hypothyroidism Significant Events: Surgical Procedure: Clinical Events This Visit, 17-Dec-2022, 1. Total Substernal Thyroidectomy; Parathyroid Reimplantation; Hospital Providers: Provider RoleProvider Name Nazario Awad Code Status: Code Status at Discharge: Full Code DNR Order Additional Instructions (peds only): Activity: activity as tolerated. May shower. day after discharge. May not drive while taking narcotics. No pushing, pulling, or lifting objects greater than 20 pounds for 2 week(s). Diet: Diet Consistency/Texturesoft Drain/Tube Care 1: TypeJP (Benny Lu) SiteNeck Suctionself Other InstructionsYou have a bulb drain in place that you will be sent home with. To empty the drain, open cap and the top and tip into cup to empty. Squeeze drain then replace the cap. Please empty the drain and record its output twice daily and as needed, and bring these numbers to your follow up appointment. This drain is sutured into place. Please keep it dry and change the dressing sponge around the drain daily or if it gets soiled. Additional Orders: Additional Instructions Instructions post total thyroidectomy: Resumes home meds except no ASA, NSAIDS for 48 hours after discharge Okay to resume your Eliquis 7/8 Percocet is being prescribed to you for pain control. This contains Tylenol. Daily dose of Tylenol is 4,000mg Shower day after discharge, avoid putting direct water onto your incision site and MISSY drain site No Lifting > 20lbs x 2 weeks, No driving x 5 days, Return to work after post-op visit Follow up visit with Dr Oglesby is schedule for 12/25/2022. Call Provider If (Homegoing Patients): Temperature is greater than 102 degrees. Urinating less than normal, over 1 day. Acting very sleepy and difficult to awaken. Vomiting (throwing up) and not able to eat or drink for 12 hours. Any new concerning symptoms. Hospital Course (Home Care/Gold Form): Hospital Course: Hospital Course: include significant abnormal lab values Briefly, the patient is a 72 year-old male with prior hx of a diffuse colloid goiter. Pt opts for total substernal thyroidectomy and parathyroid reimplantation. HOSPITAL COURSE: The patient underwent a total substernal thyroidectomy and parathyroid reimplantation on 12/17/22, which patient tolerated very well and remained stable in the postoperative period. On postoperative day #1, patient was tolerating a Soft diet, and remained afebrile with stable vital signs. Patient was ordered oral narcotics for pain control. Patient was judged stable for discharge home on 12/18/22, tolerating a diet well, afebrile, stable vital signs and lab values, with adequate pain control. The wound was clean and dry. Patient was instructed to follow up in the office within two weeks after discharge and was given prescription for Percocet for pain. Provider FINAL REVIEW of Orders: Final Review: Final Review of Medication Reconciliation and Orders Completedby DRUM STENCILER Reviewing ProviderSAYDEN Allen at 18-Dec-2022 08:58:54 Appointments: Follow-Up Appointment 01: Physician/Dept/Marleni Oglesby Reason for ReferralPost-Op Visit Scheduled Date/Nkqj22-Lfa-1199 13:15 [facility] Otolaryngology [facility] Phone [phone] Electronic Signatures: Zainab Kohli (MOOK-SAM) (Signed 18-Dec-2022 08:58) Authored: Discharge Orders, Provider FINAL REVIEW of Orders Aym Hitchcock (MOOK-CAREER PROFESSIONAL) (Signed 17-Dec-2022 23:02) Authored: Discharge Orders, Hospital Course (Home Care/Gold Form), Appointments Liliam San (DRUM STENCILER-[facility]) (Signed 17-Dec-2022 17:08) Authored: Discharge Orders, Appointments, Gold Form - Hotel Staff Member Summary Last Updated: 18-Dec-2022 08:58 by Zainab Kohli (DRUM STENCILER-[facility]) Normal [facility] INTRAOPERATIVE PTHon 023 INTRAOPERATIVE PTH 102 pg/mL High 12 - 88 [facility] Comment on above: Order Comment: ALISON varela in OR RB result at 1414, 12/17/2022 14:17 Result Comment: ALISON cordoba in OR RB result at 1414, 12/17/2022 14:17 Performed By: #### I OPTH ####[facility] [id number] [place] [address] Laboratory - Chemistry and C hemistry - challengeon 12-17-2022 Parathyrin.intact intraoperative percent change [Mass conc % diff] 102 pg/mL above high threshold 12 - 88 MG-Otolaryngol [facility] 4100 Work Phone: Comment on above: ALISON Kan in OR RB r esult at 1414, 12/17/2022 14:17 Order Reconciliationon 12-17 Order Reconciliation Page 1 Admission Reconciliation Document Reconciliation Type: Admission from OR requested on behalf of Liliam San (Advanced Practice Nurse-Admit) done by Liliam San (DRUM STENCILER-[facility]) Admission from OR - Reconciliation: 17-Dec-2022 17:09 by: Liliam San (DRUM STENCILER-[facility]) Home MedicationsEnteredLast Dose TakenReconciled with current Order Reconciliation Comment/ Additional Information carvedilol 12.5 mg oral tablet 1 tab(s) orally 2 times a [id number]-Dec-2022 AM Carvedilol Tablet (COREG)DOSE = 12.5 mg Oral 2 Times a Day carvedilol 12.5 mg oral tablet continued as the inpatient order Carvedilol Eliquis 5 mg oral tablet 1 tab(s) orally 2 times a [id number] 3 Reviewed and Held magnesium glycinate 200 mg oral tablet 1 tab(s) orally once a [id number]-Dec-2022 Reviewed and Held Zinc 140 mg (as elemental zinc 50 mg) oral tablet 1 tab(s) orally once a day Reviewed and Held Additional Current Orders Acetaminophen Tablet (TYLENOL)DOSE = 650 mg Oral Every 4 Hours, PRN Pain - Mild (1-3) ceFAZolin 1 gram Vial_IPRO SolutionGive 2 gram(s), IntraVenous, ONCE Dexamethasone 10 mg/mL 1 mL Vial PF_IPRO SolutionGive 10 mg, IntraVenous, ONCE DEXMEDETOMIDINE NS 400MCG/100ML 0.9% INJ_IPRO SolutionGive 24 microgram(s), IntraVenous, ONCE FENTANYL 50MCG/1ML 2ML INJ_IPRO SolutionGive 200 microgram(s), IntraVenous, ONCE LIDOCAINE 2% PF 5ML VIAL_IPRO SolutionGive 100 mg, IntraVenous, ONCE Midazolam 1 mg/mL Inj 2 mL_IPRO SolutionGive 2 mg, IntraVenous, ONCE Ondansetron 4 mg/2 mL Inj_IPRO SolutionGive 4 mg, IntraVenous, ONCE Ondansetron Injectable (ZOFRAN)DOSE = 4 mg IntraVenous Push Every 6 Hours, PRN Nausea and/or Vomiting oxyCODONE Immediate Release Tablet (OXYIR, ROXICODONE)DOSE = 10 mg Oral Every 4 Hours, PRN Pain - Severe (7-10) oxyCODONE Immediate Release Tablet (OXYIR, ROXICODONE)DOSE = 5 mg Oral Every 4 Hours, PRN Pain - Mod (4-6) PROPOFOL 10MG/1ML 20ML VIAL_IPRO SolutionGive 200 mg, IntraVenous, ONCE Rocuronium 10 mg/mL Inj 10 mL Vial_IPRO SolutionGive 50 mg, IntraVenous, ONCE Sodium Chloride 0.9% Injectable Flush via Peripheral LineVolume = 10 mL IntraVenous Flush Every 8 Hours and as Needed Normal [facility] Patient Profile - Adult v2on 12-17-2022 Patient Profile - Adult v2 Profile: Initial Info: How to be AddressedJohn (1) Spoken Language PreferredEnglish (1) Source of Informationpatient Stated Reason for AdmissionSuregery Primary Contact Name and NumberDenise (Girlfriend) [phone] Wants Family/Rep Notified of Admissionn/a; family present Notify PCPdeferred, unable to answer Informed of Patient Visiting Rightsyes Limitations on Visitors/Phone Callsnone Temporary Family Living Arrangements (While Hospitalized)none needed Arrived FromOR Patient Belongingsremains with patient Patient Belongings Remaining with Patientclothing; vision aids; purse/wallet Medications Brought to Hospitalno History of MDROno General Health: Blood Avoidance/Restrictionsno ne(1) Previous Transfusion Reactionno(1) Weight in kg103 kilogram(s)(2) Weight in ljr377 pound(s) Weight Methodactual (measured) Scale Typestanding Height in cm180.1 centimeter(s)(2) Height in feet5 feet Height in ihbhmf90.91 inch(es) Height Methodstated BMI (kg/m2)31.754 square meter RSP Based Care: How would you like to participate in your careKeep me informed What is the number one concern for you during this hospitalizationKeep me informed What is the most important thing we can do to support you during this hospitalizationKeep me informed Is there anything we need to know to best care for youKeep me informed Substance: Smoking Statusnever smoker Alcohol Useoccasionally Drug Usedenies Drug 2 Usedenies Health Mgmt: Symptoms/Conditions Managed at HomeHEENT (head, eyes, ears, nose, throat); gastrointestinal Gastrointestinal Symptoms/Conditionsreflu x/heartburn Gastrointestinal Managementmanaged HEENT Symptoms/Conditionsear problem(s) HEENT Management Strategiesmedical device HEENT Managementmanaged Relationship/Environ: Living Environment Commentspt will be staying with girlfriend (1) Resource/Environmental Concernsnone Primary Source of Support/Comfortsignifica nt other Lives Withalone Living Arrangementshouse Services Anticipated at Transitionnone Anticipated Transition [place] Significant IndicatorsComplete Information Review: Allergies, Home Meds and Significant Events have been Reviewed and Verified with Patient/Familyyes ALLERGY, INTOLERANCE, ADVERSE EVENT: Allergies: No Known Allergies: Active Electronic Signatures: Clayton Rust (ALISON) (Signed 17-Dec-2022 15:58) Authored: Initial Info, General Health, RSP Based Care, Substance, Health Mgmt, Relationship/Environ, Additional Information Last Updated: 17-Dec-2022 15:58 by Clayton Rust) References: 1. Data Referenced From Patient Profile - Preop v3 17-Dec-2022 10:00 2. Data Referenced From 1. Vital Signs 17-Dec-2022 10:00 Normal [facility] Patient Profile - Preop v3on 12-17-2022 Patient Profile - Preop v3 Patient Profile - Preop: Initial Info: Patient DemographicsName: RAUL KEYES Date: 1950 Address: [address] [place] [address] Primary Phone [phone] How to be AddressedJohn Spoken Language PreferredEnglish Stated Reason for AdmissionThyroid Surgery Primary Contact Name and NumberDenise Girlfriend Medications Brought to Hospitalno General Health: Weight in kg103 kilogram(s) Weight in wov710 pound(s) Scale Typestanding Height in feet5 feet Height in ibgqyn75.94 inch(es) Height in cm180.1 centimeter(s) BMI (kg/m2)31.754 square meter Patient or Family Member Reaction to Anesthesiano previous reaction Blood Avoidance/Restrictionsno ne Previous Transfusion Reactionno Health Mgmt: Symptoms/Conditions Managed at HomeMedical History AFIB --Eliquis AL --pt denies HTN Pulmonary nodule GERD Thyromegaly Goiter Gout Plantar fasciitis Hearing loss Obesity STOP BANG = HTN, >50, male, +snoring = 3 Caprini = 5 Surgical History Cyst removed from back 2022 Barriers to Managing Healthnone Relationship/Environ: Lives Withalone Living Arrangementshouse Living Environment Commentspt will be staying with girlfriend Resource/Environmental Concernsnone Anticipated Transition [place] Services Anticipated at Transitionnone Tobacco Use: Tobacco Useno Pre-op Checklist: Arrival [id number] Arrival Time09:43 Procedure Typetotal substernal thyroidectomy NPOyes Last Food [id number]-[id number] 21:00 Last Clear Fluid [id number]-3332 07:00 ID Band On Patientpatient ID (name), falls risk Consent Signedpending H&P Completepending Anesthesia Assessment Completedpending EKG Performednot ordered Chest X-Ray Performednot ordered Preop Antibioticsnot ordered Type and Screen Resultedn/a Chlorhexadine Bath Givennot applicable Nasal Antiseptic Appliednot applicable Soap and Water Bath the Night Before Surgeryyes Hair Washed with Shampooyes Bowel Prepno Surgical Site Infection Preventionyes Pain Scales and Managementyes Additional Information: Information Review: Allergies, Home Meds and Significant Events have been Reviewed and Verified with Patient/Familyyes Allergy, Intolerance, Adverse Event: Allergies: No Known Allergies: Active Electronic Signatures: Harpal Bonilla (RN) (Signed 17-Dec-2022 10:05) Authored: Initial Info, General Health, Health Mgmt, Relationship/Environ, Tobacco Use, Pre-op Checklist, Additional Information Last Updated: 17-Dec-2022 10:05 by Harpal Bonilla (ALISON) Normal [facility] RENAL FUNCTION PANELon 12-17 Albumin [Mass/Vol] 4.1 g/dL Normal 3.4 - 5.0 [facility] Comment on above: Performed By: #### R ENAL ####[facility] [id number] [place] [id number] Anion gap [Moles/Vol] 14 mmol/L Normal 10 - 20 [facility] Comment on above: Performed By: #### R ENAL ####[facility] [id number] [place] [address] Calcium [Mass/Vol] 9.0 mg/dL Normal 8.6 - 10.3 [facility] Comment on above: Performed By: #### R ENAL ####[facility] [id number] [place] [address] Chloride [Moles/Vol] 101 mmol/L Normal 98 - 107 [facility] Comment on above: Performed By: #### R ENAL ####[facility] [id number] [place] [address] Creatinine [Mass/Vol] 0.89 mg/dL Normal 0.50 - 1.30 [facility] Comment on above: Performed By: #### R ENAL ####[facility] [id number] [place] [address] eGFR MALE >90 Normal >90 [facility] Comment on above: Result Comment: CALC ULATIONS OF ESTIMATED GFR ARE PERFORMED USING THE 2020 CKD-EPI STUDY REFIT EQUATION WITHOUT THE RACE VARIABLE FOR THE IDMS-TRACEABLE CREATININE METHODS. https://jasn.asnjournals.org/content//ASN.7661680 988 Performed By: #### R ENAL ####[facility] [id number] [place] [address] Glucose [Mass/Vol] 157 mg/dL High 74 - 99 [facility] Comment on above: Performed By: #### R ENAL ####[facility] [id number] [place] [address] HCO3 (Bld) [Moles/Vol] 26 mmol/L Normal 21 - 32 [facility] Comment on above: Performed By: #### R ENAL ####[facility] [id number] [place] [address] Phosphate [Mass/Vol] 4.2 mg/dL Normal 2.5 - 4.9 [facility] Comment on above: Result Comment: The performance characteristics of phosphorus testing in heparinized plasma have been validated by the individual laboratory site where testing is performed. Testing on heparinized plasma is not approved by the FDA; however, such approval is not necessary. Performed By: #### R ENAL ####[facility] [id number] [place] [address] Potassium [Moles/Vol] 3.9 mmol/L Normal 3.5 - 5.3 [facility] Comment on above: Performed By: #### R ENAL ####[facility] [id number] [place] [address] Sodium [Moles/Vol] 137 mmol/L Normal 136 - 145 [facility] Comment on above: Performed By: #### R ENAL ####[facility] [id number] [place] [address] Urea nitrogen [Mass/Vol] 14 mg/dL Normal 6 - 23 [facility] Comment on above: Performed By: #### R ENAL ####[facility] [id number] [place] [address] Renal Function Panelon 12-17 Albumin BCP dye [Mass/Vol] 4.1 g/dL 3.4 - 5.0 MG-Otolaryngol [facility] 4100 Work Phone: Anion gap [Moles/Vol] 14 mmol/L 10 - 20 MG-Otolaryngol [facility] 4100 Work Phone: Calcium [Mass/Vol] 9.0 mg/dL 8.6 - 10.3 MG-[place] laryngol [facility] 4100 Work Phone: Chloride [Moles/Vol] 101 mmol/L 98 - 107 MG-O tolaryngol [facility] 4100 Work Phone: CO2 [Moles/Vol] 26 mmol/L 21 - 32 MG-Otolar yngol [facility] 4100 Work Phone: Creatinine [Mass/Vol] 0.89 mg/dL See Below MG-Otolaryngol [facility] 410 Work Phone: Comment on above: Reference Range: 0.5 0 - 1.30 Glucose [Mass/Vol] 157 mg/dL above high threshold 74 - 99 MG-Otolaryngol [place] [id number] Work Phone: Phosphate [Mass/Vol] 4.2 mg/dL 2.5 - 4.9 MG-O tolaryngol [facility] 4100 Work Phone: Comment on above: The performance mi acteristics of phosphorus testing in heparinized plasma have been validated by the individual laboratory site where testing is performed. Testing on heparinized plasma is not approved by the FDA; however, such approval is not necessary. Potassium [Moles/Vol] 3.9 mmol/L 3.5 - 5.3 MG-Otolaryngol [facility] 4100 Work Phone: Sodium [Moles/Vol] 137 mmol/L 136 - 145 [facility]-[place] laryngol [place] [id number] Work Phone: Urea nitrogen [Mass/Vol] 14 mg/dL 6 - 23 MG-Otolaryngol [facility] 4100 Work Phone: Renal Function Panel >90 >90 MG-O tolaryngol [facility] 4100 Work Phone: Comment on above: CALCULATIONS OF DANIELLE MATED GFR ARE PERFORMED USING THE 2020 CKD-EPI STUDY REFIT EQUATION WITHOUT THE RACE VARIABLE FOR THE IDMS-TRACEABLE CREATININE METHODS.https://jasn.asnjournals.org/content/early/ASN .1992706251 [facility] Surgical Pathology Depar tmenton 12-17-2022 [facility] Surgical Pathology Department Name RAUL KEYES Pathologist: EMILY JANE ASA, MD, PhD Date of Procedure: 12/17/2022 Date Received: 12/17/2022 Date Reported 01/20/2023 Submitting Physician: NAZARIO OGLESBY M.D. Location: [facility] Copy To/Referring/Attending: PATEL FONTAINE JR, MD Other External # FINAL DIAGNOSIS A. TOTAL THYROID GLAND: FOLLICULAR NODULAR DISEASE WITH FOCAL DEGENERATION: THYROID NO PATHOLOGICAL DIAGNOSIS: LYMPH NODES, 2 , ISTHMIC - TOTAL THYROIDECTOMY SPECIMEN Electronically Signed Out By EMILY JANE ASA, MD, PhD/SLA By the signature on this report, the individual or group listed as making the Final Interpretation/Diagnosis certifies that they have reviewed this case. Diagnostic interpretation performed at [facility] [address] [facility] [id number] Clinical History: GOITER STITCH LEFT SUPERIOR POLE Specimens Submitted As: A: TOTAL THYROID GLAND Gross Description: Received in formalin, labeled with the patient's name and hospital number and A. stitch left superior pole , is an oriented total thyroidectomy specimen that weighs 163.1 gm. The right lobe measures 8.7 cm SI x 5.0 cm ML x 3.5 cm AP, the left lobe measures 8.1 cm SI x 5.3 cm ML x 3.8 cm AP, the isthmus measures 2.7 cm SI x 2.4 cm ML x 0.8 cm AP and the pyramidal lobe measure 3.4 x 1.2 x 1.0 cm. The surface has fibrous adhesions and is inked as follows: anterior blue, posterior black. Surface nodules are not grossly identified. On section, the entire thyroid contains multiple well-circumscribed brown-manuel gelatinous nodules ranging in size from 0.4 to 4.3 cm in greatest dimension. Photographs are taken. Heel Sander sections are submitted in 32 cassettes. 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 sections of left lobe superior to inferior 30-32 left inferior pole, perpendicularly sectioned MJR mjr/01/11/2023 [facility] Department of Pathology [id number] [place] [address] Normal [facility] Comment on above: Performed By: #### U HCS #### [facility] Surgical Pathology Department [address] [place] [address] TSHon 2022 TSH Qn 0.71 m[IU]/L Normal 0.44 - 3.98 [facility] Comment on above: Result Comment: TSH testing is performed using different testing methodology at [facility] than at [facility]. Direct result comparisons should only be made within the same method. Performed By: #### T SH2 #### [address] [place] [address] TSH - Thyroid Stimulating Ho rmone, Serumon 2022 TSH Qn 0.71 m[IU]/L See Below MG-Otolaryng [facility] 4100 Work Phone: Comment on above: Reference Range: 0.4 4 - 3.98 TSH testing is performed using different testing methodology at [facility] than at [facility]. Direct result comparisons should only be made within the same method. Tobacco Screening.on 023 Adult depression screening assessment No MG-Otolaryn [facility] 4100 Work Phone: Fall risk assessment a) No falls within the last year MG-Otolaryngol [facility] 4100 Work Phone: Tobacco use status CPHS b) No MG-Otolaryngol [facility] 4105 Work Phone: BASIC METABOLIC PANELon 06-2 -2022 Anion gap [Moles/Vol] 12 mmol/L Normal 10 - 20 [facility] Comment on above: Performed By: #### B MP #### [facility] [address] [place] [address] Calcium [Mass/Vol] 9.5 mg/dL Normal 8.6 - 10.3 [facility] Comment on above: Performed By: #### B MP #### [facility] [address] [place] [address] Chloride [Moles/Vol] 104 mmol/L Normal 98 - 107 [facility] Comment on above: Performed By: #### B MP #### [facility] [address] [place] [address] Creatinine [Mass/Vol] 0.86 mg/dL Normal 0.50 - 1.30 [facility] Comment on above: Performed By: #### B MP #### [facility] [address] [place] [address] eGFR MALE >90 Normal >90 [facility] Comment on above: Result Comment: CALC ULATIONS OF ESTIMATED GFR ARE PERFORMED USING THE 2020 CKD-EPI STUDY REFIT EQUATION WITHOUT THE RACE VARIABLE FOR THE IDMS-TRACEABLE CREATININE METHODS. https://jasn.asnjournals.org/content/early/ASN.2698708 988 Performed By: #### B MP #### [facility] [address] [place] [address] Glucose [Mass/Vol] 110 mg/dL High 74 - 99 [facility] Comment on above: Performed By: #### B MP #### [facility] [address] [place] [address] HCO3 (Bld) [Moles/Vol] 25 mmol/L Normal 21 - 32 [facility] Comment on above: Performed By: #### B MP #### [facility] [address] [place] [address] Potassium [Moles/Vol] 4.1 mmol/L Normal 3.5 - 5.3 [facility] Comment on above: Performed By: #### B MP #### [facility] [address] [place] [address] Sodium [Moles/Vol] 137 mmol/L Normal 136 - 145 [facility] Comment on above: Performed By: #### B MP #### [facility] CN[facility] [address] [place] [address] Urea nitrogen [Mass/Vol] 16 mg/dL Normal 6 - 23 [facility] Comment on above: Performed By: #### B MP #### [facility] CNTR [address] [place] [address] ANION GAP Canceled Normal [facility] Comment on above: Order Comment: TEST BASIC METABOLIC PANEL WAS CANCELLED, 12/01/2022 10:21 DUPLICATE ORDER. Performed By: #### B MP ####[facility] [id number] [place] [address] BICARBONATE Canceled Normal [facility] Comment on above: Order Comment: TEST BASIC METABOLIC PANEL WAS CANCELLED, 12/01/2022 10:21 DUPLICATE ORDER. Performed By: #### B MP ####[facility] [id number] [place] [address] CALCIUM Canceled Normal [facility] Comment on above: Order Comment: TEST BASIC METABOLIC PANEL WAS CANCELLED, 12/01/2022 10:21 DUPLICATE ORDER. Performed By: #### B MP ####[facility] [id number] [place] [address] CHLORIDE Canceled Normal [facility] Comment on above: Order Comment: TEST BASIC METABOLIC PANEL WAS CANCELLED, 12/01/2022 10:21 DUPLICATE ORDER. Performed By: #### B MP ####[facility] [id number] [place] [address] CREATININE Canceled Normal [facility] Comment on above: Order Comment: TEST BASIC METABOLIC PANEL WAS CANCELLED, 12/01/2022 10:21 DUPLICATE ORDER. Performed By: #### B MP ####[facility] [id number] [place] [address] eGFR FEMALE Canceled Normal [facility] Comment on above: Order Comment: TEST BASIC METABOLIC PANEL WAS CANCELLED, 12/01/2022 10:21 DUPLICATE ORDER. Result Comment: CALC ULATIONS OF ESTIMATED GFR ARE PERFORMED USING THE 2020 CKD-EPI STUDY REFIT EQUATION WITHOUT THE RACE VARIABLE FOR THE IDMS-TRACEABLE CREATININE METHODS. https://jasn.asnjournals.org/content/early/ASN.2302741 988 Performed By: #### B MP ####[facility] [id number] [place] [address] eGFR MALE Canceled Normal [facility] Comment on above: Order Comment: TEST BASIC METABOLIC PANEL WAS CANCELLED, 12/01/2022 10:21 DUPLICATE ORDER. Result Comment: CALC ULATIONS OF ESTIMATED GFR ARE PERFORMED USING THE 2020 CKD-EPI STUDY REFIT EQUATION WITHOUT THE RACE VARIABLE FOR THE IDMS-TRACEABLE CREATININE METHODS. https://jasn.asnjournals.org/content/early/ASN.4180143 988 Performed By: #### B MP ####[facility] [id number] [place] [address] GLUCOSE Canceled Normal [facility] Comment on above: Order Comment: TEST BASIC METABOLIC PANEL WAS CANCELLED, 12/01/2022 10:21 DUPLICATE ORDER. Performed By: #### B MP ####[facility] [id number] [place] [address] POTASSIUM Canceled Normal [facility] Comment on above: Order Comment: TEST BASIC METABOLIC PANEL WAS CANCELLED, 12/01/2022 10:21 DUPLICATE ORDER. Performed By: #### B MP ####[facility] [id number] [place] [address] SODIUM Canceled Normal [facility] Comment on above: Order Comment: TEST BASIC METABOLIC PANEL WAS CANCELLED, 12/01/2022 10:21 DUPLICATE ORDER. Performed By: #### B MP ####[facility] [id number] [place] [address] UREA NITROGEN Canceled Normal [facility] Comment on above: Order Comment: TEST BASIC METABOLIC PANEL WAS CANCELLED, 12/01/2022 10:21 DUPLICATE ORDER. Performed By: #### B MP ####[id number] [place] [address] CBC AND DIFFERENTIALon 12-01 % AUTOMATED IMMATURE GRAN 0.2 % Normal 0.0 - 0.9 [facility] Comment on above: Result Comment: Eleonora ture Granulocyte Count (IG) includes promyelocytes, myelocytes and metamyelocytes but does not include bands. Percent differential counts (%) should be interpreted in the context of the absolute cell counts (cells/L). Performed By: #### C BCDF #### [facility] [address] [place] [address] Basophils (Bld) [#/Vol] 0.02 10*3/uL Normal 0.00 - 0.10 [facility] Comment on above: Performed By: #### C BCDF #### [facility] [address] [place] [address] Basophils/100 WBC (Bld) 0.3 % Normal 0.0 - 2.0 [facility] Comment on above: Performed By: #### C BCDF #### [facility] [address] [place] [address] Eosinophils (Bld) [#/Vol] 0.03 10*3/uL Normal 0.00 - 0.70 [facility] Comment on above: Performed By: #### C BCDF #### [facility] [address] [place] [address] Eosinophils/100 WBC (Bld) 0.5 % Normal 0.0 - 6.0 [facility] Comment on above: Performed By: #### C BCDF #### [facility] [address] [place] [address] Erythrocyte distribution width (RBC) [Ratio] 13.0 % Normal 11.5 - 14.5 [facility] Comment on above: Performed By: #### C BCDF #### [facility] [address] [place] [address] Hematocrit (Bld) [Volume fraction] 43.3 % Normal 41.0 - 52.0 [facility] Comment on above: Performed By: #### C BCDF #### [facility] [address] [place] [address] Hemoglobin (Bld) [Mass/Vol] 14.4 g/dL Normal 13.5 - 17.5 [facility] Comment on above: Performed By: #### C BCDF #### [facility] [address] [place] [address] Lymphocytes (Bld) [#/Vol] 0.77 10*3/uL Low 1.20 - 4.80 [facility] Comment on above: Performed By: #### C BCDF #### [facility] [address] [place] [address] Lymphocytes/100 WBC (Bld) 13.3 % Normal 13.0 - 44.0 [facility] Comment on above: Performed By: #### C BCDF #### [facility] [address] [place] [address] MCHC (RBC) [Mass/Vol] 33.3 g/dL Normal 32.0 - 36.0 [facility] Comment on above: Performed By: #### C BCDF #### [facility] [address] [place] [address] MCV (RBC) [Entitic vol] 93 fL Normal 80 - 100 [facility] Comment on above: Performed By: #### C BCDF #### [facility] [address] [place] [address] Monocytes (Bld) [#/Vol] 0.40 10*3/uL Normal 0.10 - 1.00 [facility] Comment on above: Performed By: #### C BCDF #### [facility] [address] [place] [address] Monocytes/100 WBC (Bld) 6.9 % Normal 2.0 - 10.0 [facility] Comment on above: Performed By: #### C BCDF #### [facility] [address] [place] [address] Neutrophils (Bld) [#/Vol] 4.55 10*3/uL Normal 1.20 - 7.70 [facility] Comment on above: Performed By: #### C BCDF #### [facility] CNTR [address] [place] [address] Neutrophils/100 WBC (Bld) 78.8 % Normal 40.0 - 80.0 [facility] Comment on above: Performed By: #### C BCDF #### [facility] CNTR [address] [place] [address] Platelets (Bld) [#/Vol] 200 10*3/uL Normal 150 - 450 [facility] Comment on above: Performed By: #### C BCDF #### [facility] CNTR [address] [place] [address] RBC 4.67 x10E12/L Normal 4.50 - 5.90 [facility] Comment on above: Performed By: #### C BCDF #### [facility] [address] [place] [address] WBC (Bld) [#/Vol] 5.8 10*3/uL Normal 4.4 - 11.3 [facility] Comment on above: Performed By: #### C BCDF #### [facility] [address] [place] [address] % AUTOMATED IMMATURE GRAN Canceled Normal [facility] Comment on above: Order Comment: TEST CBC AND DIFFERENTIAL WAS CANCELLED, 12/01/2022 10:21 DUPLICATE ORDER. Result Comment: Eleonora ture Granulocyte Count (IG) includes promyelocytes, myelocytes and metamyelocytes but does not include bands. Percent differential counts (%) should be interpreted in the context of the absolute cell counts (cells/L). Performed By: #### C BCDF ####[facility] [id number] [place] [address] % BASOPHIL Canceled Normal [facility] Comment on above: Order Comment: TEST CBC AND DIFFERENTIAL WAS CANCELLED, 12/01/2022 10:21 DUPLICATE ORDER. Performed By: #### C BCDF ####[facility] [id number] [place] [address] % EOSINOPHIL Canceled Normal [facility] Comment on above: Order Comment: TEST CBC AND DIFFERENTIAL WAS CANCELLED, 12/01/2022 10:21 DUPLICATE ORDER. Performed By: #### C BCDF ####[facility] [id number] [place] [address] % LYMPHOCYTE Canceled Normal [facility] Comment on above: Order Comment: TEST CBC AND DIFFERENTIAL WAS CANCELLED, 12/01/2022 10:21 DUPLICATE ORDER. Performed By: #### C BCDF ####[facility] [id number] [place] [address] % MONOCYTE Canceled Normal [facility] Comment on above: Order Comment: TEST CBC AND DIFFERENTIAL WAS CANCELLED, 12/01/2022 10:21 DUPLICATE ORDER. Performed By: #### C BCDF ####[facility] [id number] [place] [address] % NEUTROPHIL Canceled Normal [facility] Comment on above: Order Comment: TEST CBC AND DIFFERENTIAL WAS CANCELLED, 12/01/2022 10:21 DUPLICATE ORDER. Performed By: #### C BCDF ####[facility] [id number] [place] [address] BASOPHIL Canceled Normal [facility] Comment on above: Order Comment: TEST CBC AND DIFFERENTIAL WAS CANCELLED, 12/01/2022 10:21 DUPLICATE ORDER. Performed By: #### C BCDF ####[facility] [id number] [place] [address] DIFFERENTIAL Canceled Normal [facility] Comment on above: Order Comment: TEST CBC AND DIFFERENTIAL WAS CANCELLED, 12/01/2022 10:21 DUPLICATE ORDER. Performed By: #### C BCDF ####[facility] [id number] [place] [address] EOSINOPHIL Canceled Normal [facility] Comment on above: Order Comment: TEST CBC AND DIFFERENTIAL WAS CANCELLED, 12/01/2022 10:21 DUPLICATE ORDER. Performed By: #### C BCDF ####[facility] [id number] [facility] [address] HCT Canceled Normal [facility] Comment on above: Order Comment: TEST CBC AND DIFFERENTIAL WAS CANCELLED, 12/01/2022 10:21 DUPLICATE ORDER. Performed By: #### C BCDF ####[facility] [id number] [facility] [place] [address] HGB Canceled Normal [facility] Comment on above: Order Comment: TEST CBC AND DIFFERENTIAL WAS CANCELLED, 12/01/2022 10:21 DUPLICATE ORDER. Performed By: #### C BCDF ####[facility] [id number] [facility] [address] LYMPHOCYTE Canceled Normal [facility] Comment on above: Order Comment: TEST CBC AND DIFFERENTIAL WAS CANCELLED, 12/01/2022 10:21 DUPLICATE ORDER. Performed By: #### C BCDF ####[id number] [address] MCHC Canceled Normal [facility] Comment on above: Order Comment: TEST CBC AND DIFFERENTIAL WAS CANCELLED, 12/01/2022 10:21 DUPLICATE ORDER. Performed By: #### C BCDF ####[id number] [place] [address] MCV Canceled Normal [facility] Comment on above: Order Comment: TEST CBC AND DIFFERENTIAL WAS CANCELLED, 12/01/2022 10:21 DUPLICATE ORDER. Performed By: #### C BCDF ####[facility] [id number] [facility] [place] [address] MONOCYTE Canceled Normal [facility] Comment on above: Order Comment: TEST CBC AND DIFFERENTIAL WAS CANCELLED, 12/01/2022 10:21 DUPLICATE ORDER. Performed By: #### C BCDF ####[facility] [id number] [facility] [place] [address] NEUTROPHIL Canceled Normal [facility] Comment on above: Order Comment: TEST CBC AND DIFFERENTIAL WAS CANCELLED, 12/01/2022 10:21 DUPLICATE ORDER. Performed By: #### C BCDF ####[facility] [id number] [place] [address] NUCLEATED RBC Canceled Normal [facility] Comment on above: Order Comment: TEST CBC AND DIFFERENTIAL WAS CANCELLED, 12/01/2022 10:21 DUPLICATE ORDER. Performed By: #### C BCDF ####[facility] [id number] [place] [address] PLT Canceled Normal [facility] Comment on above: Order Comment: TEST CBC AND DIFFERENTIAL WAS CANCELLED, 12/01/2022 10:21 DUPLICATE ORDER. Performed By: #### C BCDF ####[facility] [id number] [place] [address] RBC Canceled Normal [facility] Comment on above: Order Comment: TEST CBC AND DIFFERENTIAL WAS CANCELLED, 12/01/2022 10:21 DUPLICATE ORDER. Performed By: #### C BCDF ####[facility] [id number] [place] [id number] RDW-CV Canceled Normal [facility] Comment on above: Order Comment: TEST CBC AND DIFFERENTIAL WAS CANCELLED, 12/01/2022 10:21 DUPLICATE ORDER. Performed By: #### C BCDF ####[facility] [id number] [place] [id number] WBC Canceled Normal [facility] Comment on above: Order Comment: TEST CBC AND DIFFERENTIAL WAS CANCELLED, 12/01/2022 10:21 DUPLICATE ORDER. Performed By: #### C BCDF ####[facility] [id number] [place] [id number] Complete Blood Count + Diffe rentialon 12-01-2022 Basophils/100 WBC (Bld) 0.3 % 0.0 - 2.0 [facility] Work Phone: Erythrocyte distribution width (RBC) [Ratio] 13.0 % See Below [facility] Work Phone: Comment on above: Reference Range: 11. 5 - 14.5 Hematocrit (Bld) [Volume fraction] 43.3 % See Below [facility] Work Phone: Comment on above: Reference Range: 41. 0 - 52.0 Hemoglobin (Bld) [Mass/Vol] 14.4 g/dL See Below [facility] Work Phone: Comment on above: Reference Range: 13. 5 - 17.5 Lymphocytes/100 WBC (Bld) 13.3 % See Below [facility] Work Phone: Comment on above: Reference Range: 13. 0 - 44.0 MCHC (RBC) [Mass/Vol] 33.3 g/dL See Below [facility] Work Phone: Comment on above: Reference Range: 32. 0 - 36.0 MCV (RBC) [Entitic vol] 93 fL 80 - 100 [facility] Work Phone: Monocytes/100 WBC (Bld) 6.9 % 2.0 - 10.0 [facility] Work Phone: Neutrophils/100 WBC (Bld) 78.8 % See Below [facility] Work Phone: Comment on above: Reference Range: 40. 0 - 80.0 Platelets (Bld) [#/Vol] 200 10*3/uL 150 - 450 [facility] Work Phone: RBC (Bld) [#/Vol] 4.67 {x10E12/L} See Below [facility] -[facility]ol [facility] Work Phone: Comment on above: Reference Range: 4.5 0 - 5.90 WBC (Bld) [#/Vol] 5.8 10*3/uL 4.4 - 11.3 MG-Nba laryngol [facility] Work Phone: Complete Blood Count + Differential 0.02 {x10E9/L} See Below [facility] Work Phone: Comment on above: Reference Range: 0.0 0 - 0.10 Complete Blood Count + Differential 0.03 {x10E9/L} See Below [facility]ol [facility] Work Phone: Comment on above: Reference Range: 0.0 0 - 0.70 Complete Blood Count + Differential 0.40 {x10E9/L} See Below [facility] Work Phone: Comment on above: Reference Range: 0.1 0 - 1.00 Complete Blood Count + Differential 0.77 {x10E9/L} below low threshold See Below [facility]ol [facility] Work Phone: Comment on above: Reference Range: 1.2 0 - 4.80 Complete Blood Count + Differential 4.55 {x10E9/L} See Below [facility]ol [facility] Work Phone: Comment on above: Reference Range: 1.2 0 - 7.70 Complete Blood Count + Differential 0.5 % 0.0 - 6.0 [facility]ol [facility] Work Phone: Complete Blood Count + Differential 0.2 % 0.0 - 0.9 [facility] Work Phone: Comment on above: Immature Granulocyte Count (IG) includes promyelocytes, myelocytes and metamyelocytes but does not include bands. Percent differential counts (%) should be interpreted in the context of the absolute cell counts (cells/L). Laboratory - Chemistry and C hemistry - challengeon 12-01-2022 Anion gap [Moles/Vol] 12 mmol/L 10 - 20 [facility]ol [facility] Work Phone: Calcium [Mass/Vol] 9.5 mg/dL 8.6 - 10.3 [facility] Work Phone: Chloride [Moles/Vol] 104 mmol/L 98 - 107 [facility] Work Phone: CO2 [Moles/Vol] 25 mmol/L 21 - 32 [facility] yngol [facility] Work Phone: Creatinine [Mass/Vol] 0.86 mg/dL See Below [facility] Work Phone: Comment on above: Reference Range: 0.5 0 - 1.30 Glucose [Mass/Vol] 110 mg/dL above high threshold 74 - 99 [facility] Work Phone: Potassium [Moles/Vol] 4.1 mmol/L 3.5 - 5.3 [facility] Work Phone: Sodium [Moles/Vol] 137 mmol/L 136 - 145 [facility] [facility] Work Phone: Urea nitrogen [Mass/Vol] 16 mg/dL 6 - 23 [facility] Work Phone: No Panel Informationon 12-01 >90 >90 [facility] Work Phone: Comment on above: CALCULATIONS OF DANIELLE MATED GFR ARE PERFORMED USING THE 2020 CKD-EPI STUDY REFIT EQUATION WITHOUT THE RACE VARIABLE FOR THE IDMS-TRACEABLE CREATININE METHODS.https://jasn.asnjournals.org/content/early/ASN .8395366769 Discharge [id number] Discharge Profile2 Discharge Orders: Code Status: Code Status at Discharge: Full Code DNR Order Additional Instructions (peds only): Additional Orders: Additional Instructions 7 DAYS BEFORE SURGERY, ON ____12/10/22____, STOP these medications: Zinc 140 mg (as elemental zinc 50 mg) oral tablet: 1 tab(s) orally once a day magnesium glycinate 200 mg oral tablet: 1 tab(s) orally once a day 3 DAYS BEFORE SURGERY, ON ___12/14/22 , STOP these medications: Eliquis 5 mg oral tablet: 1 tab(s) orally 2 times a day IF SURGERY IS DELAY OR CANCELLED PLEASE RESUME BLOOD THINNER PREVIOUSLY SCHEDULE DAY OF SURGERY, TAKE THESE MEDICATIONS: carvedilol 12.5 mg oral tablet: 1 tab(s) orally 2 times a day CONTACT SURGEON'S OFFICE IF YOU DEVELOP: * Fever = 100.4 F * New respiratory symptoms (e.g. cough, shortness of breath, respiratory distress, sore throat) * Recent loss of taste or smell *Flu like symptoms such as headache, fatigue or gastrointestinal symptoms * You develop any open sores, shingles, burning or painful urination AND/OR: * You no longer wish to have the surgery. * Any other personal circumstances change that may lead to the need to cancel or defer this surgery. *You were admitted to any hospital within one week of your planned procedure. SMOKING: *Quitting smoking can make a huge difference to your health and recovery from surgery. *If you need help with quitting, call [phone]. THE DAY BEFORE SURGERY: *Do not eat any food after midnight the night before surgery. *You are permitted to drink water up to 4 hours before your surgery. DIABETICS: Please check fasting blood sugar upon waking up. If fasting sugar is <80 mg/dl, please drink 100ml/3oz of apple juice no later than 2 hours prior to surgery. SURGICAL TIME *You will be contacted between 2 p.m. and 6 p.m. the business day before your surgery with your arrival time. *If you haven't received a call by 6pm, call [phone]. *Scheduled surgery times may change and you will be notified if this occurs-check your personal voicemail for any updates. ON THE MORNING OF SURGERY: *Wear comfortable, loose fitting clothing. *Do not use moisturizers, creams, lotions or perfume. *All jewelry and valuables should be left at home. *Prosthetic devices such as contact lenses, hearing aids, dentures, eyelash extensions, hairpins and body piercing must be removed before surgery. BRING WITH YOU: *Photo ID and insurance card *Current list of medicines and allergies *Pacemaker/Defibrillator /Heart stent cards *CPAP machine and mask *Slings/splints/crutches *Copy of your complete Advanced Directive/DHPOA-if applicable *Neurostimulator implant remote PARKING AND ARRIVAL: *Check in at the Main Entrance desk and let them know you are here for surgery. *You will be directed to the 2nd floor surgical waiting area. AFTER OUTPATIENT SURGERY: *A responsible adult MUST accompany you at the time of discharge and stay with you for 24 hours after your surgery. *You may NOT drive yourself home after surgery. *You may use a taxi or ride sharing service ([employer], [employer]) to return home ONLY if you are accompanied by a friend or family member. *Instructions for resuming your medications will be provided by your surgeon. Electronic Signatures: Shira Sharp (RN) (Signed 24-Nov-2022 09:01) Authored: Discharge Orders, Gold Form - Hotel Staff Member Summary Misa Pitts (PAC) (Signed 01-Dec-2022 09:55) Authored: Discharge Orders Last Updated: 01-Dec-2022 09:55 by Misa Pitts (PAC) Normal [facility] ECHOCARDIO M/2D COMPLETEon 0 10-09-2022 ECHOCARDIO M/2D COMPLETE Patient: RAUL KEYES Exam Date: 10/09/2022 : 1950 Gender:M Ordering : DR ANUPAM PEÑALOZA . Admission #: [id number] Family : Order #: [id number] CLICK HERE TO VIEW EXAM ECHOCARDIOGRAM REPORT PROCEDURE: CARDIO PULMONARY ECHOCARDIO M/2D COMP INDICATIONS: Hypertension, atrial fibrillation COMPARISON: None. DESCRIPTION: COMPLETE ECHOCARDIOGRAM Real-time transthoracic echocardiography with 2D, M-mode, spectral and color flow Doppler performed. QUALITY: Technical quality was good. LEFT VENTRICLE: Normal chamber size. Mild concentric left ventricular hypertrophy. LV EF: Normal left ventricular ejection fraction, (>55%). DIASTOLIC: Not adequately assessed due to heart rhythm. ATRIAL SEPTUM: Inadequately seen. LEFT ATRIUM: Moderate dilatation. RIGHT ATRIUM: Normal chamber size. RIGHT VENTRICLE: Normal chamber size. Normal right ventricular systolic function. TRICUSPID VALVE: Normal mobility and thickness. Mild regurgitation. Doppler studies reveal moderately (45-60) elevated right sided pressures. RVSP 56 mmHg MITRAL VALVE: Normal mobility and thickness. No evidence of mitral valve stenosis. There is no mitral annular calcification. Trivial mitral regurgitation. AORTIC VALVE: Normal trileaflet appearance. No visible sclerosis. Normal leaflet mobility. No evidence of aortic valve stenosis. Mild aortic regurgitation. AORTIC ROOT: Normal diameter and appearance. PULMONIC VALVE: Normal thickness and mobility. No stenosis. Trivial regurgitation. PERICARDIUM: Anterior free space; trivial effusion versus fat pad. IVC: Collapses with inspirations. CONCLUSION: Global left ventricular systolic function is normal; visually estimated ejection fraction is 55 to 60%. Mildly increased left ventricular wall thickness. The left atrium is moderately dilated. The right ventricle is normal in size and systolic function. Mild tricuspid regurgitation. Mildly elevated right-sided pressures. Mild aortic regurgitation. Anterior free space; trivial effusion versus fat pad. Adult Echocardiography Procedure Report Left Ventricle LVEDD (3.7 - 5.6 cm): 5.09 cm LVESD (2.2 - 4.0 cm): 2.97 cm LVIVS thickness (0.6 - 1.2 cm): 1.20 cm LVPW thickness (0.5 - 1.0 cm): 1.11 cm e': 0.09 m/s E - e': 6.60 LVOT Max Gradient: 2.54 mm[Hg] Peak Velocity (LVOT): 0.80 m/s Mean Velocity (LVOT): 0.60 m/s LVOT Diameter 2.67 cm Left Ventricular Ejection Fraction: 72.36 %, 72.36 % Left Atrium LA Volume Index (2D A2C): 100.86 ml, 100.86 ml Left Atrium Systolic Dimension: 4.16 cm Mitral Valve MV E to A Ratio: 0.97 Mitral Valve A-Wave Peak Velocity: 0.64 m/s Mitral Valve E-Wave Peak Velocity: 0.61 m/s Right Ventricle Aorta AO Root Diam: 4.33 cm Aortic Valve AoV Area (Peak Lawrence): 4.55 cm2, 4.55 cm2 Peak Velocity(Antegrade Flow): 0.98 m/s Peak Gradient(Antegrade Flow): 3.80 mm[Hg] Tricuspid Valve Peak Velocity (Regurgitant Flow): 2.56 m/s, 3.66 m/s Peak Velocity: 0.86 m/s Pulmonic Valve Peak Velocity: 0.87 m/s, 0.91 m/s Peak Gradient: 3.02 mm[Hg], 3.30 mm[Hg] Right Atrium Right Atrium Systolic Pressure: 32.95 ml, 32.95 ml Dictated by: Roberto Flores M.D. on 10/09/2022 at 16:46 Approved by: Roberto Flores M.D. on 10/09/2022 at 16:51 Normal [facility] INSULINon 10-03-2022 Insulin 13.4 uIU/mL Normal 2.6-24.9 [facility] Comment on above: Performed By: #### I NSULIN #### [facility] [address] [place] [address] Dr. Jarrod Butterfield CBC AUTO DIFFon 10-02-2022 BASO # 0.0 103/ul Normal 0.0-0.1 [facility] Comment on above: Performed By: #### T HYRABS #### [facility] [address] [place] [address] Dr. Jarrod Butterfield Basophils/100 WBC (Bld) 0.6 % Normal 0.2-2.0 [facility] Comment on above: Performed By: #### T HYRABS #### [facility] [address] [place] [address] Dr. Jarrod Butterfield EO # 0.0 103/ul Normal 0.0-0.7 [facility] Comment on above: Performed By: #### T HYRABS #### [facility] [address] [place] [address] Dr. Jarrod Butterfield Eosinophils/100 WBC (Bld) 0.4 % Critically low 0.9-7.0 [facility] Comment on above: Performed By: #### T HYRABS #### [facility] [address] [place] [address] Dr. Jarrod Butterfield Erythrocyte distribution width (RBC) [Ratio] 13.2 % Normal 11.0-15.0 [facility] Comment on above: Performed By: #### T HYRABS #### [facility] [address] [place] [address] Dr. Jarrod Butterfield Hematocrit (Bld) [Volume fraction] 44.8 % Normal 42.0-54.0 [facility] Comment on above: Performed By: #### T HYRABS #### [facility] [address] [address] [address] Jarrod Butterfield Hemoglobin (Bld) [Mass/Vol] 15.3 g/dL Normal 14.0-18.0 [facility] Comment on above: Performed By: #### T HYRABS #### [facility] [address] [address] [address] Jarrod Butterfield IG # 0.02 10e3/ul Normal 0.00-0.03 [facility] Comment on above: Performed By: #### T HYRABS #### [facility] [address] [place] [address] Dr. Jarrod Butterfield IG % 0.4 % Normal 0.0-0.5 [facility] Comment on above: Performed By: #### T HYRABS #### [facility] [address] [place] [address] Dr. Jarrod Butterfield LYMPH # 0.9 103/ul Critically low 1.2-3.8 [facility] Comment on above: Performed By: #### T HYRABS #### [facility] [address] [place] [address] Dr. Jarrod Butterfield Lymphocytes/100 WBC (Bld) 18.0 % Critically low 20.5-60.0 [facility] Comment on above: Performed By: #### T HYRABS #### [facility] [address] [place] [address] Dr. Jarrod Butterfield MANUAL DIFF REQ NO Normal [facility] Comment on above: Performed By: #### T HYRABS #### [facility] [address] [address] [address] Jarrod Butterfield MCH (RBC) [Entitic mass] 31.0 pg Normal 25.9-34.0 [facility] Comment on above: Performed By: #### T HYRABS #### [facility] [address] [place] [address] Dr. Jarrod Butterfield MCHC (RBC) [Mass/Vol] 34.2 g/dL Normal 29.9-35.2 [facility] Comment on above: Performed By: #### T HYRABS #### [facility] [address] [address] [address] Jarrod Butterfield MCV (RBC) [Entitic vol] 90.7 fL Normal 80.0-94.0 [facility] Comment on above: Performed By: #### T HYRABS #### [facility] [address] [place] [address] Dr. Jarrod Butterfield MONO # 0.4 103/ul Normal 0.3-0.8 [facility] Comment on above: Performed By: #### T HYRABS #### [facility] [address] [place] [address] Dr. Jarrod Butterfield Monocytes/100 WBC (Bld) 8.1 % Normal 1.7-12.0 [facility] Comment on above: Performed By: #### T HYRABS #### [facility] [address] [place] [address] Dr. Jarrod Butterfield NEUT # 3.8 103/ul Normal 1.4-6.5 [facility] Comment on above: Performed By: #### T HYRABS #### [facility] [address] [place] [address] Dr. Jarrod Butterfield Neutrophils/100 WBC (Bld) 72.5 % Normal 43.0-75.0 [facility] Comment on above: Performed By: #### T HYRABS #### [facility] [address] [place] [address] Dr. Jarrod Butterfield Platelet mean volume (Bld) [Entitic vol] 10.2 fL Normal 9.5-13.5 [facility] Comment on above: Performed By: #### T HYRABS #### [facility] [address] [place] [address] Dr. Jarrod Butterfield PLT 205 103/ul Normal 150-450 [facility] Comment on above: Performed By: #### T HYRABS #### [facility] [address] [place] [address] Dr. Jarrod Butterfield RBC 4.94 106/ul Normal 4.70-6.10 [facility] Comment on above: Performed By: #### T BHAVANI #### [facility] [address] [address] [address] Jarrod Butterfield WBC 5.2 103/ul Normal 4.0-11.0 [facility] Comment on above: Performed By: #### T BHAVANI #### [facility] [address] [place] [address] Dr. Jarrod Butterfield FREE THYROXINE INDEX T7on FTI 2.37 Normal 1.30-4.50 [facility] Comment on above: Performed By: #### L IPID, CMP, T7, TSH #### [facility] [address] [place] [address] Dr. Jarrod Butterfield T3U 37.0 % Normal 33.0-40.0 [facility] Comment on above: Performed By: #### L IPID, CMP, T7, TSH #### [facility] [address] [place] [address] Dr. Jarrod Butterfield T4 [Mass/Vol] 6.40 ug/dL Normal 4.50-12.10 [facility] Comment on above: Performed By: #### L IPID, CMP, T7, TSH #### [facility] [address] [place] [address] Dr. Jarrod Butterfield GLYCOHEMOGLOBIN A1Con 2022 ADA RECOMMENDATION SEE BELOW Normal [facility] Comment on above: Result Comment: ADA RECOMMENDED LIMIT 4.0 - 6.0 ADA THERAPEUTIC TARGET < 7.0 ACTION SUGGESTED > 7.0 Performed By: #### A 1C #### [facility] [address] [place] [address] Dr. Jarrod Butterfield Glucose [Mass/Vol] 134 mg/dL Normal [facility] Comment on above: Performed By: #### A 1C #### [facility] [address] [place] [address] Dr. Jarrod Butterfield HbA1c (Bld) [Mass fraction] 6.3 % Critically high 4.5-6.2 [facility] Comment on above: Performed By: #### A 1C #### [facility] [address] [address] [address] Jarrod Butterfield IRONon 10-02-2022 Iron [Mass/Vol] 74.0 ug/dL Normal 65.0-175.0 [facility] Comment on above: Performed By: #### A 1C #### [facility] [address] [address] [address] Jarrod Butterfield LIPID PROFILEon 10-02-2022 CHOL-HDL RATIO NORM SEE BELOW Normal [facility] Comment on above: Result Comment: 3.3 - 4.4 LOW RISK 4.4 - 7.1 AVERAGE RISK 7.1 - 11.0 MODERATE RISK >11.0 HIGH RISK Performed By: #### T HYBS #### [facility] [address] [place] [address] Dr. Jarrod Butterfield Cholesterol [Mass/Vol] 199 mg/dL Normal <=200 [facility] Comment on above: Performed By: #### T HYBS #### [facility] [address] [address] [address] Jarrod Butterfield Cholesterol in HDL [Mass/Vol] 45 mg/dL Normal 40-60 [facility] Comment on above: Performed By: #### T HYBS #### [facility] [address] [address] [address] Jarrod Butterfield Cholesterol in LDL [Mass/Vol] 131.0 mg/dL Normal [facility] Comment on above: Performed By: #### T HYBS #### [facility] [address] [address] [address] Jarrod Butterfield Cholesterol.total/Ch olesterol in HDL [Mass ratio] 4.4 {ratio} Normal [facility] Comment on above: Performed By: #### T HYBS #### [facility] [address] [place] [address] Dr. Jarrod Butterfield HDL NORMAL > or = 60 mg/dl - LO W CARDIOVASCULAR RISK <40 mg/dl - HIGH CARDIOVASCULAR RISK Normal [facility] Comment on above: Performed By: #### T HYBS #### [facility] [address] [place] [address] Dr. Jarrod Butterfield LDL CALC NORMAL SEE BELOW Normal [facility] Comment on above: Result Comment: <100 mg/dl OPTIMAL 100 - 129 mg/dl NEAR OR ABOVE OPTIMAL 130 - 159 mg/dl BORDERLINE HIGH 160 - 189 mg/dl HIGH >190 mg/dl VERY HIGH Performed By: #### T HYRABS #### [facility] [address] [address] [address] Jarrod Butterfield Triglyceride [Mass/Vol] 115 mg/dL Normal <=150 [facility] Comment on above: Performed By: #### T HYRABS #### [facility] [address] [address] [address] Jarrod Butterfield VLDL CALC 23.0 mg/dL Normal [facility] Comment on above: Performed By: #### T HYRABS #### [facility] [address] [place] [address] Dr. Jarrod Butterfield PROF 14(COMP METB)on 023 Albumin [Mass/Vol] 3.8 g/dL Normal 3.4-5.0 [facility] Comment on above: Performed By: #### T HYRABS #### [facility] [address] [address] [address] Jarrod Butterfield Albumin/Globulin [Mass ratio] 1.0 {ratio} Normal [facility] Comment on above: Performed By: #### T HYRABS #### [facility] [address] [address] [address] Jarrod Butterfield ALP [Catalytic activity/Vol] 99 U/L Normal 46-116 [facility] Comment on above: Performed By: #### T HYRABS #### [facility] [address] [address] [address] Jarrod Butterfield ALT [Catalytic activity/Vol] 24 U/L Normal 16-63 [facility] Comment on above: Performed By: #### T HYRABS #### [facility] [address] [address] [address] Jrarod Butterfield Anion gap [Moles/Vol] 14.0 mmol/L Normal [facility] Comment on above: Performed By: #### T HYRABS #### [facility] [address] [address] [address] Jarrod Butterfield AST [Catalytic activity/Vol] 14 U/L Critically low 15-37 [facility] Comment on above: Performed By: #### T HYRABS #### [facility] [address] [address] [address] Jarrod Butterfield Bilirubin [Mass/Vol] 1.1 mg/dL Critically high 0.2-1.0 [facility] Comment on above: Performed By: #### T HYRABS #### [facility] [address] [address] [address] Jarrod Butterfield Calcium [Mass/Vol] 9.0 mg/dL Normal 8.5-10.1 [facility] Comment on above: Performed By: #### T HYRABS #### [facility] [address] [place] [address] Dr. Jarrod Butterfield Chloride [Moles/Vol] 102 mmol/L Normal 98-107 [facility] Comment on above: Performed By: #### T HYRABS #### [facility] [address] [address] [address] Jarrod Butterfield CO2 [Moles/Vol] 27.6 mmol/L Normal 21.0-32.0 [facility] Comment on above: Performed By: #### T HYRABS #### [facility] [address] [place] [address] Dr. Jarrod Butterfield Creatinine [Mass/Vol] 0.94 mg/dL Normal 0.70-1.30 [facility] Comment on above: Performed By: #### T HYRABS #### [facility] [address] [place] [address] Dr. Jarrod Butterfield EGFR-AF [facility] LUCIAN >60 Normal >=60 [facility] Comment on above: Performed By: #### T HYRABS #### [facility] [address] [address] [address] Jarrod Butterfield EGFR-NON AF [facility] >60 Normal >=60 [facility] Comment on above: Performed By: #### T HYRABS #### [facility] [address] [address] [address] Jarrod Butterfield Globulin (S) [Mass/Vol] 4.0 g/dL Normal [facility] Comment on above: Performed By: #### T HYRABS #### [facility] [address] [address] [address] Jarrod Butterfield Glucose [Mass/Vol] 119 mg/dL Critically high 74-106 [facility] Comment on above: Performed By: #### T HYRABS #### [facility] [address] [address] [address] Jarrod Butterfield Potassium [Moles/Vol] 4.2 mmol/L Normal 3.5-5.1 [facility] Comment on above: Performed By: #### T HYRABS #### [facility] [address] [place] [address] Dr. Jarrod Butterfield Protein [Mass/Vol] 7.8 g/dL Normal 6.4-8.2 [facility] Comment on above: Performed By: #### T HYRABS #### [facility] [address] [address] [address] Jarrod Butterfield Sodium [Moles/Vol] 140 mmol/L Normal 136-145 [facility] Comment on above: Performed By: #### T HYRABS #### [facility] [address] [place] [address] Dr. Jarrod Butterfield Urea nitrogen [Mass/Vol] 16.0 mg/dL Normal 7.0-18.0 [facility] Comment on above: Performed By: #### T HYRABS #### [facility] [address] [place] [address] Dr. Jarrod Butterfield Urea nitrogen/Creatinine [Mass ratio] 17.0 mg/mg Normal [facility] Comment on above: Performed By: #### T HYRABS #### [facility] [address] [place] [address] Dr. Jarrod Butterfield TSHon 10-02-2022 TSH 0.555 uIU/mL Normal 0.358-3.740 [facility] Comment on above: Performed By: #### T HYRABS #### [facility] [address] [address] [address] Jarrod Butterfield NM THY SCAN W Bhavin 09-12-19 23 NM THY SCAN W UPT EXAMINATION: NM THY SCAN W UPT HISTORY: Diffuse endemic goiter COMPARISON: 06/09/2022 TECHNIQUE: After obtaining patient consent, 250.8 uCi I-123 was administered orally. Uptake was evaluated between 4 and 6 hours and at 24 hours. Images were acquired at 4 - 6 hours. FINDINGS: THYROID SCAN: Normal-appearing thyroid gland without enlargement or filling defect. 7 hour uptake 6.5%, normal in 6 hours 6014% 12 hour uptake 12.9% normal 24 hours 10-30% IMPRESSION: The thyroid gland appears prominent in overall size with no focal hot or cold nodules Normal uptake Electronically authenticated by: SHIELA KINCAID Date: 2022-09-11 07:43 Normal [facility] THYROID ANTIBODIESon 023 Thyroglobulin Antibody <1.0 Normal 0.0-0.9 [facility] Comment on above: Result Comment: Thyr oglobulin Antibody measured by 5minutes Methodology Performed By: #### T HYRABS #### [facility] [address] [place] [address] Dr. Jarrod Butterfield Thyroid Peroxidase (TPO) Ab 10 IU/mL Normal 0-34 [facility] Comment on above: Performed By: #### T HYRABS #### [facility] [address] [place] [address] Dr. Jarrod Butterfield FREE T3on 08-20-2022 FREE T3 2.63 pg/mlL Normal 2.18-3.98 [facility] Comment on above: Performed By: #### T HYRABS #### [facility] [address] [place] [address] Dr. Jarrod Butterfield FREE T4on 08-20-2022 Free T4 [Mass/Vol] 1.16 ng/dL Normal 0.76-1.46 [facility] Comment on above: Performed By: #### F T4 #### [facility] [address] [place] [address] Dr. Jarrod Butterfield TSHon 08-15-2022 TSH Qn 0.33 m[IU]/L Low 0.44 - 3.98 [facility] Comment on above: Result Comment: TSH testing is performed using different testing methodology at [facility] than at other [facility]. Direct result comparisons should only be made within the same method. Performed By: #### T SH2 #### [facility] [id number] [place] [address] TSH - Thyroid Stimulating Ho ming, Serumon 08-14-2022 TSH Qn 0.33 m[IU]/L below low threshold See Below MG-Otolaryngol [facility] [address] Work Phone: Comment on above: Reference Range: 0.4 4 - 3.98 TSH testing is performed using different testing methodology at [facility] than at other [facility]. Direct result comparisons should only be made within the same method. Tobacco Screening.on 023 Adult depression screening assessment No MG-Otolaryn gol [facility] 4100 Work Phone: Fall risk assessment a) No falls within the last year MG-Otolaryngol [facility] 4100 Work Phone: Tobacco use status [facility] b) No MG-Otolaryngol [facility] 4[address] Work Phone: CREATININEon 07-21-2022 Creatinine [Mass/Vol] 0.87 mg/dL Normal 0.70-1.30 [facility] Comment on above: Performed By: #### T HYRABS #### [facility] [address] [address] [address] Jarrod Butterfield EGFR-AF [facility] >60 Normal >=60 [facility] Comment on above: Performed By: #### T HYRABS #### [facility] [address] [address] [address] Jarrod Butterfield EGFR-NON AF [facility] >60 Normal >=60 [facility] Comment on above: Performed By: #### T HYRABS #### [facility] [address] [address] CHEST W CONon 07-21-2022 CT CHEST W CON EXAMINATION: CT CHES T W CON HISTORY: Disorder of thyroid gland COMPARISON: Ultrasound thyroid 06/09/2022, 06/17/2022 TECHNIQUE: Multi-planar CT images were created with IV contrast. Axial, Coronal, and Sagittal images. Dose reduction techniques were achieved by using automated exposure control and/or adjustment of mA and/or kV according to patient size and/or use of iterative reconstruction technique. FINDINGS: LUNGS: No visible pulmonary disease. PLEURA: No mass, effusion, or pneumothorax. VASCULATURE: No abnormality. BECKY: No mass or adenopathy. MEDIASTINUM: No mass or adenopathy. CARDIAC: No enlargement, pericardial thickening, or significant calcification. AORTA: Mild dilation of ascending aorta, 4.1 cm in diameter. CHEST WALL: Enlarged, markedly heterogeneous thyroid gland bilaterally. BONES: No bone lesion or fracture. LIMITED ABDOMEN: No suspicious findings Limited images of the upper abdomen. OTHER: Negative. IMPRESSION: 1. Enlarged heterogeneous thyroid gland with prior ultrasound thyroid findings. 2. No mass or lymphadenopathy to suggest metastatic disease. 3. Mild ectasia of ascending aorta. Electronically authenticated by: PARUL WANG Date: 2022-07-21 09:55 Normal [facility] CT NECK ST W CONon CT NECK ST W CON EXAMINATION: CT NECK ST W CON HISTORY: Disorder of thyroid gland COMPARISON: Ultrasound thyroid 06/09/2022, 06/17/2022, CT C-spine 05/25/2022 TECHNIQUE: Axial, Coronal, and Sagittal CT images created with IV contrast. Dose reduction techniques were achieved by using automated exposure control and/or adjustment of mA and/or kV according to patient size and/or use of iterative reconstruction technique. FINDINGS: NASOPHARYNX: No asymmetry of the fossae of Rosenmuller and torus tubarius. ORAL CAVITY: No visible mass. OROPHARYNX: No asymmetry of the facial and lingual tonsils. HYPOPHARYNX: No mass or other visible lesion. LARYNX: No mass or asymmetry of the vocal cords. SINUSES: No significant fluid or mucosal thickening. NECK GLADS: Markedly enlarged and heterogeneous thyroid lobes bilaterally. LYMPH NODES: No pathological-appearing or enlarged lymph nodes. VASCULATURE: No suspicious abnormality. BONES: C6-7 marked degenerative disc disease. OTHER: No additional imaging findings. IMPRESSION: 1. Markedly enlarged heterogeneous thyroid consistent with prior ultrasound studies. 2. No appreciable mass or lymphadenopathy to suggest metastatic disease. 3. C6-7 marked degenerative disc disease. Electronically authenticated by: PARUL WANG Date: 2022-07-21 10:09 Normal [facility] US THYROID FN ASP BXon 06-20 US THYROID FN ASP BX Begin Addendum #1 COLLECTED DATE/TIME: 06/17/2022 13:22 EST Final Diagnosis Report for [facility] [place] (A/B) RIGHT THYROID INFERIOR NODULE; FINE NEEDLE ASPIRATION: -ATYPIA OF UNDETERMINED SIGNIFICANCE. COMMENT: Follicular cells with architectural atypia. Molecular testing or a repeat aspirate may be helpful if clinically indicated. (C/D) LEFT THYROID INFERIOR NODULE; FINE NEEDLE ASPIRATION: -ATYPIA OF UNDETERMINED SIGNIFICANCE. COMMENT: Follicular cells, predominantly benign appearing, with focal cytologic atypia. Molecular testing or a repeat aspirate may be helpful if clinically indicated. 06/19/[address] Peñaloza. Verified with nurse that report was present in office (). Original Report EXAMINATION: US THYROID FN ASP BX, US FNA W US GD ADD LES HISTORY: Thyroid nodule COMPARISON: Ultrasound thyroid 06/09/2022 TECHNIQUE: After obtaining informed consent, ultrasound-guided fine needle aspiration was performed in the usual sterile manner. FINDINGS: IMAGING: Ultrasound. BIOPSY NEEDLE: 25-gauge; 3 separate passes within the heterogeneous right lobe mass and heterogeneous left lobe mass. LOCATION: Inferior pole right lobe; inferior pole left lobe. SPECIMEN TYPE: Cellular tissue. LOCAL ANESTHETIC: Buffered Xylocaine. COMPLICATIONS: None. LABORATORY: Prepared slide smears and washings for cell block evaluation. OTHER: Negative. PATHOLOGY: Pending. An addendum will be added when results are available. IMPRESSION: 1. Uneventful ultrasound guided fine needle aspiration (FNA). 2. Pathology results are pending. Normal [facility] CT HEAD WO CONTRASTon 2022 1. No residual intracranial blood. 2. Known skull fractures unchanged. 3. Increased mucosal thickening mainly in the left maxillary sinus. [facility] RIS CONSOLIDATED EXAMINATION: CT HEAD WO CONTRAST HISTORY: Subdural hematoma COMPARISON: CT BRAIN 05/25/2022 Cecilia. TECHNIQUE: CT examination of the head without IV contrast. Dose reduction techniques were achieved by using automated exposure control and/or adjustment of mA and/or kV according to patient size and/or use of iterative reconstruction technique. FINDINGS: POSITIVES: Left zygoma and left frontoparietal skull fractures, nondisplaced, unchanged. NEGATIVES: Prior right temporal subarachnoid hemorrhage has resolved. COINCIDENTAL: Increased mucosal thickening in the maxillary air cells, left greater than right. Convex right nasal septal deviation. ROUTINE: Mild symmetric atrophy cerebrum and cerebellum. 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 [facility] SHRADDHA Lawrence, Andrei sims Jr., MD - 06/17/2022 EXAMINATION: CT HEAD WO CONTRAST HISTORY: Subdural hematoma COMPARISON: CT BRAIN 05/25/2022 Cecilia. TECHNIQUE: CT examination of the head without IV contrast. Dose reduction techniques were achieved by using automated exposure control and/or adjustment of mA and/or kV according to patient size and/or use of iterative reconstruction technique. FINDINGS: POSITIVES: Left zygoma and left frontoparietal skull fractures, nondisplaced, unchanged. NEGATIVES: Prior right temporal subarachnoid hemorrhage has resolved. COINCIDENTAL: Increased mucosal thickening in the maxillary air cells, left greater than right. Convex right nasal septal deviation. ROUTINE: Mild symmetric atrophy cerebrum and cerebellum. 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 IMPRESSION: 1. No residual intracranial blood. 2. Known skull fractures unchanged. 3. Increased mucosal thickening mainly in the left maxillary sinus. [employer] Phone: Radiology Study observation (narrative) [employer] Phone: CT HEAD WO CONTRASTOrdered B y: Andrei Lawrence on 06-17-2022 [employer] Phone: US THYROIDon 06-09-2022 US THYROID EXAMINATION: US THYR OID HISTORY: Simple goiter COMPARISON: No relevant comparison available. TECHNIQUE: Sonographic images of the thyroid gland were obtained. FINDINGS: The right thyroid lobe measures 8.7 x 3.6 x 3.6 cm. Heterogeneous echotexture with multiple nodules The thyroid isthmus measures 8 mm, thickened. Heterogeneous echotexture The left thyroid lobe measures 8.1 x 4.4 x 4.1 cm. Heterogeneous echotexture with multiple nodules The 3 most suspicious nodules: Nodule 1: Right inferior. 3.9 x 3.4 x 3.0 cm. Solid, isoechoic, wide, lobular margins, no calcifications. TR 4 Nodule 2: Right mid anterior. 3.1 x 2.9 x 1.9 cm. Solid, hyperechoic, wide, lobular margins, no calcification is. TR 4 Nodule 3: Left inferior lobe. 5.3 x 4.0 x 3.8 cm. Solid, isoechoic, tall, irregular margins, TR 5 IMPRESSION: Multinodular goiter. Multiple nodules meet criteria for biopsy. Consider biopsy of nodule 3, 5.3 cm on the left and nodule 1, 3.9 cm in the right TI-RADS: The [employer] TI-RADS committee's white paper recommendations for thyroid lesions classified as TR5 (highly suspicious) are listed below: > 0.5 cm. Annual ultrasound follow-up for up to 5 years. > 1.0 cm. FNA. J. Am Reji Radiol 2017;14:587-595. Electronically authenticated by: SHIELA KINCAID Date: 2022-06-09 13:36 Normal [facility] FREE THYROXINE INDEX T7on FTI 2.93 Normal 1.30-4.50 [facility] Comment on above: Performed By: #### T 7, TSH #### [facility] [address] [address] [address] Jarrod Butterfield T3U 39.0 % Normal 33.0-40.0 [facility] Comment on above: Performed By: #### T 7, TSH #### [facility] [address] [address] [address] Jarrod Butterfield T4 [Mass/Vol] 7.50 ug/dL Normal 4.50-12.10 [facility] Comment on above: Performed By: #### T 7, TSH #### [facility] [address] [address] [address] Jarrod Butterfield TSHon 06-04-2022 TSH 0.508 uIU/mL Normal 0.358-3.740 [facility] Comment on above: Performed By: #### T 7, TSH #### [facility] [address] [address] [address] FACIAL BONES WO CONTRASTo n 05-26-2022 CT FACIAL BONES WO CONTRAST EXAMINATION: CT OF THE FACE WITHOUT CONTRAST 05/26/2022 12:07 am TECHNIQUE: CT of the face was performed without the administration of intravenous contrast. Multiplanar reformatted images are provided for review. Automated exposure control, iterative reconstruction, and/or weight based adjustment of the mA/kV was utilized to reduce the radiation dose to as low as reasonably achievable. COMPARISON: None HISTORY: ORDERING SYSTEM PROVIDED HISTORY: Ayana zygomatic arch fx TECHNOLOGIST PROVIDED HISTORY: Ayana zygomatic arch fx FINDINGS: FACIAL BONES: Nondisplaced fracture of the left zygomatic arch (5:102). Partially imaged nondisplaced fracture of the left temporal bone, extending into the left parietal bone. The frontal sinuses, orbital moran, maxilla, pterygoid plates, hard palate, nasal bones and mandible are intact. The temporomandibular joints are aligned. ORBITAL CONTENTS: The globes appear intact. The extraocular muscles, optic nerve sheath complexes and lacrimal glands appear unremarkable. No retrobulbar hematoma or mass is seen. SINUSES: There is fluid in the sphenoid sinuses, left greater than right. The mastoid air cells are clear. SOFT TISSUES: No superficial facial soft tissue swelling is seen. IMPRESSION: Nondisplaced fracture of the left zygomatic arch. Partially imaged nondisplaced fracture of the left temporal bone, extending into the left parietal bone. Interpreted by: Félix Iverson MD Signed by: Félix Iverson MD 05/26/22 Final result Normal [facility] Nondisplaced fractur e of the left zygomatic arch. Partially imaged nondisplaced fracture of the left temporal bone, extending into the left parietal bone. [facility] RIS CONSOLIDATED EXAMINATION: CT OF THE FACE WITHOUT CONTRAST 05/26/2022 12:07 am TECHNIQUE: CT of the face was performed without the administration of intravenous contrast. Multiplanar reformatted images are provided for review. Automated exposure control, iterative reconstruction, and/or weight based adjustment of the mA/kV was utilized to reduce the radiation dose to as low as reasonably achievable. COMPARISON: None HISTORY: ORDERING SYSTEM PROVIDED HISTORY: Ayana zygomatic arch fx TECHNOLOGIST PROVIDED HISTORY: L zygomatic arch fx FINDINGS: FACIAL BONES: Nondisplaced fracture of the left zygomatic arch (5:102). Partially imaged nondisplaced fracture of the left temporal bone, extending into the left parietal bone. The frontal sinuses, orbital moran, maxilla, pterygoid plates, hard palate, nasal bones and mandible are intact. The temporomandibular joints are aligned. ORBITAL CONTENTS: The globes appear intact. The extraocular muscles, optic nerve sheath complexes and lacrimal glands appear unremarkable. No retrobulbar hematoma or mass is seen. SINUSES: There is fluid in the sphenoid sinuses, left greater than right. The mastoid air cells are clear. SOFT TISSUES: No superficial facial soft tissue swelling is seen. [facility] Félix Ramirez MD - 05/26/2022 EXAMINATION: CT OF THE FACE WITHOUT CONTRAST 05/26/2022 12:07 am TECHNIQUE: CT of the face was performed without the administration of intravenous contrast. Multiplanar reformatted images are provided for review. Automated exposure control, iterative reconstruction, and/or weight based adjustment of the mA/kV was utilized to reduce the radiation dose to as low as reasonably achievable. COMPARISON: None HISTORY: ORDERING SYSTEM PROVIDED HISTORY: L zygomatic arch fx TECHNOLOGIST PROVIDED HISTORY: L zygomatic arch fx FINDINGS: FACIAL BONES: Nondisplaced fracture of the left zygomatic arch (5:102). Partially imaged nondisplaced fracture of the left temporal bone, extending into the left parietal bone. The frontal sinuses, orbital moran, maxilla, pterygoid plates, hard palate, nasal bones and mandible are intact. The temporomandibular joints are aligned. ORBITAL CONTENTS: The globes appear intact. The extraocular muscles, optic nerve sheath complexes and lacrimal glands appear unremarkable. No retrobulbar hematoma or mass is seen. SINUSES: There is fluid in the sphenoid sinuses, left greater than right. The mastoid air cells are clear. SOFT TISSUES: No superficial facial soft tissue swelling is seen. IMPRESSION: Nondisplaced fracture of the left zygomatic arch. Partially imaged nondisplaced fracture of the left temporal bone, extending into the left parietal bone. [facility] [employer] [facility] Phone: CT FACIAL BONES WO CONTRASTO rdered By: Félix Iverson on 05-26-2022 [employer] Work Phone: CT HEAD WO CONTRASTon 2021 CT HEAD WO CONTRAST EXAMINATION: CT OF THE HEAD WITHOUT CONTRAST; CTA OF THE HEAD AND NECK WITH CONTRAST 05/26/2022 9:26 am: TECHNIQUE: CT of the head was performed without the administration of intravenous contrast. Automated exposure control, iterative reconstruction, and/or weight based adjustment of the mA/kV was utilized to reduce the radiation dose to as low as reasonably achievable.; CTA of the head and neck was performed with the administration of intravenous contrast. Multiplanar reformatted images are provided for review. MIP images are provided for review. Stenosis of the internal carotid arteries measured using NASCET criteria. Automated exposure control, iterative reconstruction, and/or weight based adjustment of the mA/kV was utilized to reduce the radiation dose to as low as reasonably achievable. Noncontrast CT of the head with reconstructed 2-D images are also provided for review. COMPARISON: Earlier same day head CT HISTORY: ORDERING SYSTEM PROVIDED HISTORY: SDH/SAH w/temporal bone fx FINDINGS: CT HEAD: BRAIN/VENTRICLES: No significant change in the thin acute left parietal convexity subdural hematoma measuring up to 3.5 mm in maximal thickness. No new areas of acute hemorrhage. No significant mass effect or midline shift. No acute infarct. No hydrocephalus. ORBITS: The visualized portion of the orbits demonstrate no acute abnormality. SINUSES: Mucosal disease again noted throughout the left sphenoid sinus with an air-fluid level. Remaining paranasal sinuses are clear. The mastoid air cells are clear. SOFT TISSUES/SKULL: Again seen is a nondisplaced left parietal fracture extending into the left sphenoid bone. Nondisplaced left zygomatic arch fracture again noted. CTA NECK: AORTIC ARCH/ARCH VESSELS: No dissection or arterial injury. No significant stenosis of the brachiocephalic or subclavian arteries. CAROTID ARTERIES: No dissection, arterial injury, or hemodynamically significant stenosis by NASCET criteria. VERTEBRAL ARTERIES: No dissection, arterial injury, or significant stenosis. SOFT TISSUES: Again seen is a 5 mm left upper lobe pulmonary nodule. No cervical or superior mediastinal lymphadenopathy. The larynx and pharynx are unremarkable. No acute abnormality of the salivary glands. Enlarged and heterogeneous appearance of the thyroid gland. BONES: No acute osseous abnormality. CTA HEAD: ANTERIOR CIRCULATION: No significant stenosis of the intracranial internal carotid, anterior cerebral, or middle cerebral arteries. No aneurysm. POSTERIOR CIRCULATION: No significant stenosis of the vertebral, basilar, or posterior cerebral arteries. No aneurysm. OTHER: No dural venous sinus thrombosis on this non-dedicated study. IMPRESSION: 1. No significant change in size of the small, acute left parietal convexity subdural hematoma measuring up to 3.5 mm. No significant mass effect. 2. No acute vascular injury to the major arteries of the head or neck. No large vessel occlusion or high-grade stenosis. 3. Incidental, 5 mm left upper lobe pulmonary nodule. Optional CT chest follow-up in 1 year if patient is felt to be high risk. 4. Enlarged and heterogeneous appearance of the thyroid gland. Nonemergent thyroid ultrasound recommended for further evaluation on an outpatient basis. Interpreted by: Barron Cordero DO Signed by: Barron Cordero DO 05/26/22 Final result Normal [facility] CT HEAD WO CONTRAST EXAMINATION: CT OF THE HEAD WITHOUT CONTRAST 05/25/2022 6:44 pm TECHNIQUE: CT of the head was performed without the administration of intravenous contrast. Automated exposure control, iterative reconstruction, and/or weight based adjustment of the mA/kV was utilized to reduce the radiation dose to as low as reasonably achievable. COMPARISON: None. HISTORY: ORDERING SYSTEM PROVIDED HISTORY: trauma TECHNOLOGIST PROVIDED HISTORY: trauma FINDINGS: BRAIN/VENTRICLES: There is a thin left posterior parietal subdural hematoma measuring up to 3.5 mm in thickness. There is no intracranial mass effect. The subdural hematoma is best visualized on coronal imaging. The ventricular system is normal in size and in the midline. There is no parenchymal hemorrhage. No area of abnormal brain attenuation. ORBITS: Mild left periorbital and supraorbital soft tissue swelling. Globes are unremarkable. SINUSES: There are air-fluid levels in the sphenoid sinus. SOFT TISSUES/SKULL: There is an acute nondisplaced fracture of the left zygomatic arch. There is an acute nondepressed left temporoparietal skull fracture extending from the skull base to the vertex. There is a left posterior scalp hematoma. IMPRESSION: There is a thin left posterior parietal subdural hematoma measuring up to 3.5 mm in thickness. There is no significant intracranial mass. There is an acute nondepressed left temporoparietal skull fracture extending from the skull base to the vertex. There is an associated left posterior parietal scalp hematoma and there are air-fluid levels in the sphenoid sinus suggesting fracture extension. Acute nondepressed left zygomatic arch fracture. Findings were discussed with TOBI SANCHEZ at 1:30 am on 05/26/2022. Interpreted by: Omer Murphy MD Signed by: Omer Murphy MD 05/26/22 Final result Normal [facility] There is a thin left posterior parietal subdural hematoma measuring up to 3.5 mm in thickness. There is no significant intracranial mass. There is an acute nondepressed left temporoparietal skull fracture extending from the skull base to the vertex. There is an associated left posterior parietal scalp hematoma and there are air-fluid levels in the sphenoid sinus suggesting fracture extension. Acute nondepressed left zygomatic arch fracture. Findings were discussed with TOBI SANCHEZ at 1:30 am on 05/26/2022. [facility] CONSOLIDATED EXAMINATION: CT OF THE HEAD WITHOUT CONTRAST 05/25/2022 6:44 pm TECHNIQUE: CT of the head was performed without the administration of intravenous contrast. Automated exposure control, iterative reconstruction, and/or weight based adjustment of the mA/kV was utilized to reduce the radiation dose to as low as reasonably achievable. COMPARISON: None. HISTORY: ORDERING SYSTEM PROVIDED HISTORY: trauma TECHNOLOGIST PROVIDED HISTORY: trauma FINDINGS: BRAIN/VENTRICLES: There is a thin left posterior parietal subdural hematoma measuring up to 3.5 mm in thickness. There is no intracranial mass effect. The subdural hematoma is best visualized on coronal imaging. The ventricular system is normal in size and in the midline. There is no parenchymal hemorrhage. No area of abnormal brain attenuation. ORBITS: Mild left periorbital and supraorbital soft tissue swelling. Globes are unremarkable. SINUSES: There are air-fluid levels in the sphenoid sinus. SOFT TISSUES/SKULL: There is an acute nondisplaced fracture of the left zygomatic arch. There is an acute nondepressed left temporoparietal skull fracture extending from the skull base to the vertex. There is a left posterior scalp hematoma. [facility] CONSOLIDATED Omer Murphy MD - 05/26/2022 EXAMINATION: CT OF THE HEAD WITHOUT CONTRAST 05/25/2022 6:44 pm TECHNIQUE: CT of the head was performed without the administration of intravenous contrast. Automated exposure control, iterative reconstruction, and/or weight based adjustment of the mA/kV was utilized to reduce the radiation dose to as low as reasonably achievable. COMPARISON: None. HISTORY: ORDERING SYSTEM PROVIDED HISTORY: trauma TECHNOLOGIST PROVIDED HISTORY: trauma FINDINGS: BRAIN/VENTRICLES: There is a thin left posterior parietal subdural hematoma measuring up to 3.5 mm in thickness. There is no intracranial mass effect. The subdural hematoma is best visualized on coronal imaging. The ventricular system is normal in size and in the midline. There is no parenchymal hemorrhage. No area of abnormal brain attenuation. ORBITS: Mild left periorbital and supraorbital soft tissue swelling. Globes are unremarkable. SINUSES: There are air-fluid levels in the sphenoid sinus. SOFT TISSUES/SKULL: There is an acute nondisplaced fracture of the left zygomatic arch. There is an acute nondepressed left temporoparietal skull fracture extending from the skull base to the vertex. There is a left posterior scalp hematoma. IMPRESSION: There is a thin left posterior parietal subdural hematoma measuring up to 3.5 mm in thickness. There is no significant intracranial mass. There is an acute nondepressed left temporoparietal skull fracture extending from the skull base to the vertex. There is an associated left posterior parietal scalp hematoma and there are air-fluid levels in the sphenoid sinus suggesting fracture extension. Acute nondepressed left zygomatic arch fracture. Findings were discussed with TOBI SANCHEZ at 1:30 am on 05/26/2022. [employer] Work Phone: CT HEAD WO CONTRASTOrdered B y: Omer Murphy on 05-26-2022 [employer] Work Phone: CT IAC POSTERIOR FOSSA WO CO NTRASTon 05-26-2022 CT IAC POSTERIOR FOSSA WO CONTRAST EXAMINATION: CT OF THE INTERNAL AUDITORY CANAL WITHOUT CONTRAST 05/26/2022 12:07 am: TECHNIQUE: CT of the internal auditory canal was performed without contrast was performed without the administration of intravenous contrast. Multiplanar reformatted images are provided for review. Automated exposure control, iterative reconstruction, and/or weight based adjustment of the mA/kV was utilized to reduce the radiation dose to as low as reasonably achievable. COMPARISON: None. HISTORY: ORDERING SYSTEM PROVIDED HISTORY: temporal bone fx TECHNOLOGIST PROVIDED HISTORY: temporal bone fx FINDINGS: Suboptimal temporal bone images, which may be related to post processing. RIGHT TEMPORAL BONE: The external auditory canal is clear without evidence of bony erosion. The scutum is intact. The middle ear cavity is clear. The ossicular chain is intact. The mastoid air cells are clear. The inner ear structures appear unremarkable. Normal mineralization of the otic capsule. The internal auditory canal and vestibular aqueduct appear unremarkable. The carotid canal is normal in appearance. The jugular bulb is unremarkable. LEFT TEMPORAL BONE: Nondisplaced fracture of the squamous portion of the left temporal bone (605:5).. The external auditory canal is clear without evidence of bony erosion. The scutum is intact. The middle ear cavity is clear. The ossicular chain is intact. The mastoid air cells are clear. The inner ear structures appear unremarkable. Normal mineralization of the otic capsule. The internal auditory canal and vestibular aqueduct appear unremarkable. The carotid canal is normal in appearance. The jugular bulb is unremarkable. BRAIN: The visualized portion of the intracranial contents appear unremarkable. Left zygomatic arch fracture, nondisplaced. ORBITS: The visualized portion of the orbits demonstrate no acute abnormality. SINUSES: There is fluid in the sphenoid sinuses, left greater than right. IMPRESSION: Suboptimal temporal bone images, which may be related to post processing. Nondisplaced fracture of the squamous portion of the left temporal bone. Interpreted by: Félix Iverson MD Signed by: Félix Iverson MD 05/26/22 Final result Normal [facility] Suboptimal temporal bone images, which may be related to post processing. Nondisplaced fracture of the squamous portion of the left temporal bone. [facility] RIS CONSOLID[facility] EXAMINATION: CT OF THE INTERNAL AUDITORY CANAL WITHOUT CONTRAST 05/26/2022 12:07 am: TECHNIQUE: CT of the internal auditory canal was performed without contrast was performed without the administration of intravenous contrast. Multiplanar reformatted images are provided for review. Automated exposure control, iterative reconstruction, and/or weight based adjustment of the mA/kV was utilized to reduce the radiation dose to as low as reasonably achievable. COMPARISON: None. HISTORY: ORDERING SYSTEM PROVIDED HISTORY: temporal bone fx TECHNOLOGIST PROVIDED HISTORY: temporal bone fx FINDINGS: Suboptimal temporal bone images, which may be related to post processing. RIGHT TEMPORAL BONE: The external auditory canal is clear without evidence of bony erosion. The scutum is intact. The middle ear cavity is clear. The ossicular chain is intact. The mastoid air cells are clear. The inner ear structures appear unremarkable. Normal mineralization of the otic capsule. The internal auditory canal and vestibular aqueduct appear unremarkable. The carotid canal is normal in appearance. The jugular bulb is unremarkable. LEFT TEMPORAL BONE: Nondisplaced fracture of the squamous portion of the left temporal bone (605:5).. The external auditory canal is clear without evidence of bony erosion. The scutum is intact. The middle ear cavity is clear. The ossicular chain is intact. The mastoid air cells are clear. The inner ear structures appear unremarkable. Normal mineralization of the otic capsule. The internal auditory canal and vestibular aqueduct appear unremarkable. The carotid canal is normal in appearance. The jugular bulb is unremarkable. BRAIN: The visualized portion of the intracranial contents appear unremarkable. Left zygomatic arch fracture, nondisplaced. ORBITS: The visualized portion of the orbits demonstrate no acute abnormality. SINUSES: There is fluid in the sphenoid sinuses, left greater than right. [facility] Félix Iverson MD - 05/26/2022 EXAMINATION: CT OF THE INTERNAL AUDITORY CANAL WITHOUT CONTRAST 05/26/2022 12:07 am: TECHNIQUE: CT of the internal auditory canal was performed without contrast was performed without the administration of intravenous contrast. Multiplanar reformatted images are provided for review. Automated exposure control, iterative reconstruction, and/or weight based adjustment of the mA/kV was utilized to reduce the radiation dose to as low as reasonably achievable. COMPARISON: None. HISTORY: ORDERING SYSTEM PROVIDED HISTORY: temporal bone fx TECHNOLOGIST PROVIDED HISTORY: temporal bone fx FINDINGS: Suboptimal temporal bone images, which may be related to post processing. RIGHT TEMPORAL BONE: The external auditory canal is clear without evidence of bony erosion. The scutum is intact. The middle ear cavity is clear. The ossicular chain is intact. The mastoid air cells are clear. The inner ear structures appear unremarkable. Normal mineralization of the otic capsule. The internal auditory canal and vestibular aqueduct appear unremarkable. The carotid canal is normal in appearance. The jugular bulb is unremarkable. LEFT TEMPORAL BONE: Nondisplaced fracture of the squamous portion of the left temporal bone (605:5).. The external auditory canal is clear without evidence of bony erosion. The scutum is intact. The middle ear cavity is clear. The ossicular chain is intact. The mastoid air cells are clear. The inner ear structures appear unremarkable. Normal mineralization of the otic capsule. The internal auditory canal and vestibular aqueduct appear unremarkable. The carotid canal is normal in appearance. The jugular bulb is unremarkable. BRAIN: The visualized portion of the intracranial contents appear unremarkable. Left zygomatic arch fracture, nondisplaced. ORBITS: The visualized portion of the orbits demonstrate no acute abnormality. SINUSES: There is fluid in the sphenoid sinuses, left greater than right. IMPRESSION: Suboptimal temporal bone images, which may be related to post processing. Nondisplaced fracture of the squamous portion of the left temporal bone. [employer] Phone: [employer] Phone: CTA HEAD NECK W CONTRASTon 1 07-27-2021 CTA HEAD NECK W CONTRAST EXAMINATION: CT OF THE HEAD WITHOUT CONTRAST; CTA OF THE HEAD AND NECK WITH CONTRAST 05/26/2022 9:26 am: TECHNIQUE: CT of the head was performed without the administration of intravenous contrast. Automated exposure control, iterative reconstruction, and/or weight based adjustment of the mA/kV was utilized to reduce the radiation dose to as low as reasonably achievable.; CTA of the head and neck was performed with the administration of intravenous contrast. Multiplanar reformatted images are provided for review. MIP images are provided for review. Stenosis of the internal carotid arteries measured using NASCET criteria. Automated exposure control, iterative reconstruction, and/or weight based adjustment of the mA/kV was utilized to reduce the radiation dose to as low as reasonably achievable. Noncontrast CT of the head with reconstructed 2-D images are also provided for review. COMPARISON: Earlier same day head CT HISTORY: ORDERING SYSTEM PROVIDED HISTORY: SDH/SAH w/temporal bone fx FINDINGS: CT HEAD: BRAIN/VENTRICLES: No significant change in the thin acute left parietal convexity subdural hematoma measuring up to 3.5 mm in maximal thickness. No new areas of acute hemorrhage. No significant mass effect or midline shift. No acute infarct. No hydrocephalus. ORBITS: The visualized portion of the orbits demonstrate no acute abnormality. SINUSES: Mucosal disease again noted throughout the left sphenoid sinus with an air-fluid level. Remaining paranasal sinuses are clear. The mastoid air cells are clear. SOFT TISSUES/SKULL: Again seen is a nondisplaced left parietal fracture extending into the left sphenoid bone. Nondisplaced left zygomatic arch fracture again noted. CTA NECK: AORTIC ARCH/ARCH VESSELS: No dissection or arterial injury. No significant stenosis of the brachiocephalic or subclavian arteries. CAROTID ARTERIES: No dissection, arterial injury, or hemodynamically significant stenosis by NASCET criteria. VERTEBRAL ARTERIES: No dissection, arterial injury, or significant stenosis. SOFT TISSUES: Again seen is a 5 mm left upper lobe pulmonary nodule. No cervical or superior mediastinal lymphadenopathy. The larynx and pharynx are unremarkable. No acute abnormality of the salivary glands. Enlarged and heterogeneous appearance of the thyroid gland. BONES: No acute osseous abnormality. CTA HEAD: ANTERIOR CIRCULATION: No significant stenosis of the intracranial internal carotid, anterior cerebral, or middle cerebral arteries. No aneurysm. POSTERIOR CIRCULATION: No significant stenosis of the vertebral, basilar, or posterior cerebral arteries. No aneurysm. OTHER: No dural venous sinus thrombosis on this non-dedicated study. IMPRESSION: 1. No significant change in size of the small, acute left parietal convexity subdural hematoma measuring up to 3.5 mm. No significant mass effect. 2. No acute vascular injury to the major arteries of the head or neck. No large vessel occlusion or high-grade stenosis. 3. Incidental, 5 mm left upper lobe pulmonary nodule. Optional CT chest follow-up in 1 year if patient is felt to be high risk. 4. Enlarged and heterogeneous appearance of the thyroid gland. Nonemergent thyroid ultrasound recommended for further evaluation on an outpatient basis. Interpreted by: Barron Cordero DO Signed by: Barron Cordero DO 05/26/22 Final result Normal [facility] No Panel Informationon 05-26 1. No significant ch sukumar in size of the small, acute left parietal convexity subdural hematoma measuring up to 3.5 mm. No significant mass effect. 2. No acute vascular injury to the major arteries of the head or neck. No large vessel occlusion or high-grade stenosis. 3. Incidental, 5 mm left upper lobe pulmonary nodule. Optional CT chest follow-up in 1 year if patient is felt to be high risk. 4. Enlarged and heterogeneous appearance of the thyroid gland. Nonemergent thyroid ultrasound recommended for further evaluation on an outpatient basis. [facility] RIS CONSOLIDATED EXAMINATION: CT OF THE HEAD WITHOUT CONTRAST; CTA OF THE HEAD AND NECK WITH CONTRAST 05/26/2022 9:26 am: TECHNIQUE: CT of the head was performed without the administration of intravenous contrast. Automated exposure control, iterative reconstruction, and/or weight based adjustment of the mA/kV was utilized to reduce the radiation dose to as low as reasonably achievable.; CTA of the head and neck was performed with the administration of intravenous contrast. Multiplanar reformatted images are provided for review. MIP images are provided for review. Stenosis of the internal carotid arteries measured using NASCET criteria. Automated exposure control, iterative reconstruction, and/or weight based adjustment of the mA/kV was utilized to reduce the radiation dose to as low as reasonably achievable. Noncontrast CT of the head with reconstructed 2-D images are also provided for review. COMPARISON: Earlier same day head CT HISTORY: ORDERING SYSTEM PROVIDED HISTORY: SDH/SAH w/temporal bone fx FINDINGS: CT HEAD: BRAIN/VENTRICLES: No significant change in the thin acute left parietal convexity subdural hematoma measuring up to 3.5 mm in maximal thickness. No new areas of acute hemorrhage. No significant mass effect or midline shift. No acute infarct. No hydrocephalus. ORBITS: The visualized portion of the orbits demonstrate no acute abnormality. SINUSES: Mucosal disease again noted throughout the left sphenoid sinus with an air-fluid level. Remaining paranasal sinuses are clear. The mastoid air cells are clear. SOFT TISSUES/SKULL: Again seen is a nondisplaced left parietal fracture extending into the left sphenoid bone. Nondisplaced left zygomatic arch fracture again noted. CTA NECK: AORTIC ARCH/ARCH VESSELS: No dissection or arterial injury. No significant stenosis of the brachiocephalic or subclavian arteries. CAROTID ARTERIES: No dissection, arterial injury, or hemodynamically significant stenosis by NASCET criteria. VERTEBRAL ARTERIES: No dissection, arterial injury, or significant stenosis. SOFT TISSUES: Again seen is a 5 mm left upper lobe pulmonary nodule. No cervical or superior mediastinal lymphadenopathy. The larynx and pharynx are unremarkable. No acute abnormality of the salivary glands. Enlarged and heterogeneous appearance of the thyroid gland. BONES: No acute osseous abnormality. CTA HEAD: ANTERIOR CIRCULATION: No significant stenosis of the intracranial internal carotid, anterior cerebral, or middle cerebral arteries. No aneurysm. POSTERIOR CIRCULATION: No significant stenosis of the vertebral, basilar, or posterior cerebral arteries. No aneurysm. OTHER: No dural venous sinus thrombosis on this non-dedicated study. [facility] RIS [facility]SOL[facility] Barron Cordero DO - 05/26/2022 EXAMINATION: CT OF THE HEAD WITHOUT CONTRAST; CTA OF THE HEAD AND NECK WITH CONTRAST 05/26/2022 9:26 am: TECHNIQUE: CT of the head was performed without the administration of intravenous contrast. Automated exposure control, iterative reconstruction, and/or weight based adjustment of the mA/kV was utilized to reduce the radiation dose to as low as reasonably achievable.; CTA of the head and neck was performed with the administration of intravenous contrast. Multiplanar reformatted images are provided for review. MIP images are provided for review. Stenosis of the internal carotid arteries measured using NASCET criteria. Automated exposure control, iterative reconstruction, and/or weight based adjustment of the mA/kV was utilized to reduce the radiation dose to as low as reasonably achievable. Noncontrast CT of the head with reconstructed 2-D images are also provided for review. COMPARISON: Earlier same day head CT HISTORY: ORDERING SYSTEM PROVIDED HISTORY: SDH/SAH w/temporal bone fx FINDINGS: CT HEAD: BRAIN/VENTRICLES: No significant change in the thin acute left parietal convexity subdural hematoma measuring up to 3.5 mm in maximal thickness. No new areas of acute hemorrhage. No significant mass effect or midline shift. No acute infarct. No hydrocephalus. ORBITS: The visualized portion of the orbits demonstrate no acute abnormality. SINUSES: Mucosal disease again noted throughout the left sphenoid sinus with an air-fluid level. Remaining paranasal sinuses are clear. The mastoid air cells are clear. SOFT TISSUES/SKULL: Again seen is a nondisplaced left parietal fracture extending into the left sphenoid bone. Nondisplaced left zygomatic arch fracture again noted. CTA NECK: AORTIC ARCH/ARCH VESSELS: No dissection or arterial injury. No significant stenosis of the brachiocephalic or subclavian arteries. CAROTID ARTERIES: No dissection, arterial injury, or hemodynamically significant stenosis by NASCET criteria. VERTEBRAL ARTERIES: No dissection, arterial injury, or significant stenosis. SOFT TISSUES: Again seen is a 5 mm left upper lobe pulmonary nodule. No cervical or superior mediastinal lymphadenopathy. The larynx and pharynx are unremarkable. No acute abnormality of the salivary glands. Enlarged and heterogeneous appearance of the thyroid gland. BONES: No acute osseous abnormality. CTA HEAD: ANTERIOR CIRCULATION: No significant stenosis of the intracranial internal carotid, anterior cerebral, or middle cerebral arteries. No aneurysm. POSTERIOR CIRCULATION: No significant stenosis of the vertebral, basilar, or posterior cerebral arteries. No aneurysm. OTHER: No dural venous sinus thrombosis on this non-dedicated study. IMPRESSION: 1. No significant change in size of the small, acute left parietal convexity subdural hematoma measuring up to 3.5 mm. No significant mass effect. 2. No acute vascular injury to the major arteries of the head or neck. No large vessel occlusion or high-grade stenosis. 3. Incidental, 5 mm left upper lobe pulmonary nodule. Optional CT chest follow-up in 1 year if patient is felt to be high risk. 4. Enlarged and heterogeneous appearance of the thyroid gland. Nonemergent thyroid ultrasound recommended for further evaluation on an outpatient basis. [employer] Phone: Radiology Study observation (narrative) [employer] Phone: No Panel InformationOrdered By: Barron Cordero on 05-26-2022 [facility] [employer] Phone: CBC AUTO DIFFon 05-25-2022 BASO # 0.1 103/ul Normal 0.0-0.1 [facility] Comment on above: Performed By: #### C BC #### [facility] [address] [place] [address] Dr. Jarrod Butterfield Basophils/100 WBC (Bld) 0.3 % Normal 0.2-2.0 [facility] Comment on above: Performed By: #### C BC #### [facility] [address] [address] [address] Jarrod Butterfield EO # 0.0 103/ul Normal 0.0-0.7 [facility] Comment on above: Performed By: #### C BC #### [facility] [address] [address] [address] Jarrod Butterfield Eosinophils/100 WBC (Bld) 0.0 % Critically low 0.9-7.0 [facility] Comment on above: Performed By: #### C BC #### [facility] [address] [place] [address] Dr. Jarrod Butterfield Erythrocyte distribution width (RBC) [Ratio] 13.0 % Normal 11.0-15.0 [facility] Comment on above: Performed By: #### C BC #### [facility] [address] [place] [address] Dr. Jarrod Butterfield Hematocrit (Bld) [Volume fraction] 43.2 % Normal 42.0-54.0 [facility] Comment on above: Performed By: #### C BC #### [facility] [address] [place] [address] Dr. Jarrod Butterfield Hemoglobin (Bld) [Mass/Vol] 14.7 g/dL Normal 14.0-18.0 [facility] Comment on above: Performed By: #### C BC #### [facility] [address] [place] [address] Dr. Jarrod Butterfield IG # 0.13 10e3/ul Critically high 0.00-0.03 [facility] Comment on above: Performed By: #### C BC #### [facility] [address] [place] [address] Dr. Jarrod Butterfield IG % 0.7 % Critically high 0.0-0.5 [facility] Comment on above: Performed By: #### C BC #### [facility] [address] [place] [address] Dr. Jarrod Butterfield LYMPH # 0.7 103/ul Critically low 1.2-3.8 [facility] Comment on above: Performed By: #### C BC #### [facility] [address] [place] [address] Dr. Jarrod Butterfield Lymphocytes/100 WBC (Bld) 3.5 % Critically low 20.5-60.0 [facility] Comment on above: Performed By: #### C BC #### [facility] [address] [place] [address] Dr. Jarrod Butterfield MANUAL DIFF REQ NO Normal [facility] Comment on above: Performed By: #### C BC #### [facility] [address] [place] [address] Dr. Jarrod Butterfield MCH (RBC) [Entitic mass] 31.2 pg Normal 25.9-34.0 [facility] Comment on above: Performed By: #### C BC #### [facility] [address] [address] [address] Jarrod Butterfield MCHC (RBC) [Mass/Vol] 34.0 g/dL Normal 29.9-35.2 [facility] Comment on above: Performed By: #### C BC #### [facility] [address] [address] [address] Jarrod Butterfield MCV (RBC) [Entitic vol] 91.7 fL Normal 80.0-94.0 [facility] Comment on above: Performed By: #### C BC #### [facility] [address] [place] [address] Dr. Jarrod Butterfield MONO # 1.0 103/ul Critically high 0.3-0.8 [facility] Comment on above: Performed By: #### C BC #### [facility] [address] [place] [address] Dr. Jarrod Butterfield Monocytes/100 WBC (Bld) 5.1 % Normal 1.7-12.0 [facility] Comment on above: Performed By: #### C BC #### [facility] [address] [place] [address] Dr. Jarrod Butterfield NEUT # 17.8 103/ul Critically high 1.4-6.5 [facility] Comment on above: Performed By: #### C BC #### [facility] [address] [place] [address] Dr. Jarrod Butterfield Neutrophils/100 WBC (Bld) 90.4 % Critically high 43.0-75.0 [facility] Comment on above: Performed By: #### C BC #### [facility] [address] [place] [address] Dr. Jarrod Butterfield Platelet mean volume (Bld) [Entitic vol] 10.2 fL Normal 9.5-13.5 [facility] Comment on above: Performed By: #### C BC #### [facility] [address] [place], [place] [address] Dr. Jarrod Butterfield PLT 245 103/ul Normal 150-450 [facility] Comment on above: Performed By: #### C BC #### [facility] [id number] [address] Jarrod Butterfield RBC 4.71 106/ul Normal 4.70-6.10 [facility] Comment on above: Performed By: #### C BC #### [facility] [id number] Jarrod Butterfield WBC 19.6 103/ul Critically high 4.0-11.0 [facility] Comment on above: Performed By: #### C BC #### [facility] [address] [place], [place] [id number] Dr. Jarrod Butterfield CT CHEST ABDOMEN PELVIS WO C ONTRASTon 05-25-2022 CT CHEST ABDOMEN PELVIS WO CONTRAST EXAMINATION: CT OF THE THORACIC SPINE WITHOUT CONTRAST; CT OF THE CHEST, ABDOMEN, AND PELVIS WITHOUT CONTRAST; CT OF THE LUMBAR SPINE WITHOUT CONTRAST 05/25/2022 3:44 pm; 05/25/2022 3:56 pm: TECHNIQUE: CT of the thoracic spine was performed without the administration of intravenous contrast. Multiplanar reformatted images are provided for review. Automated exposure control, iterative reconstruction, and/or weight based adjustment of the mA/kV was utilized to reduce the radiation dose to as low as reasonably achievable.; CT of the chest, abdomen and pelvis was performed without the administration of intravenous contrast. Multiplanar reformatted images are provided for review. Automated exposure control, iterative reconstruction, and/or weight based adjustment of the mA/kV was utilized to reduce the radiation dose to as low as reasonably achievable.; CT of the lumbar spine was performed without the administration of intravenous contrast. Multiplanar reformatted images are provided for review. Adjustment of mA and/or kV according to patient size was utilized. Automated exposure control, iterative reconstruction, and/or weight based adjustment of the mA/kV was utilized to reduce the radiation dose to as low as reasonably achievable. COMPARISON: None. HISTORY: ORDERING SYSTEM PROVIDED HISTORY: trauma TECHNOLOGIST PROVIDED HISTORY: trauma; ORDERING SYSTEM PROVIDED HISTORY: trauma, tree branch fell on head TECHNOLOGIST PROVIDED HISTORY: trauma, tree branch fell on head Decision Support Exception - unselect if not a suspected or confirmed emergency medical condition->Emergency Medical Condition (MA) FINDINGS: Chest: Pulmonary arteries: Pulmonary arteries appear within normal limits. Main pulmonary artery is of normal caliber.. Mediastinum: There are a few small nonspecific lymph nodes seen in the middle mediastinum. No suspicious lymphadenopathy. Diffuse thyroid enlargement. Lungs/pleura:. There is mild bibasilar atelectasis/fibrosis. No pulmonary masses are noted. No pleural effusions are identified. Cardiomediastinal Structures: Coronary arterial calcifications are seen. Cardiac chambers are enlarged Soft Tissues/Bones: There are hypertrophic degenerative changes in the thoracic spine. No acute osseous abnormalities. FINDINGS:. Organs: Liver is normal in size and density. No focal masses identified. No evidence of intrahepatic ductal dilatation. Spleen is normal size. The gallbladder is unremarkable. Both adrenal glands are normal. Pancreas is normal in appearance. The kidneys are normal in size and attenuation without evidence of hydronephrosis or renal calculi. GI/Bowel: The visualized bowel and mesentery show no mass lesions. Mild colonic diverticulosis. No evidence of diverticulitis. Pelvis: No intrapelvic mass is identified. Bladder and rectum are intact. Peritoneum/Retroperitone um: No free fluid. No lymphadenopathy. No evidence of pneumoperitoneum. Bones/Soft Tissues: The abdominal and pelvic moran are unremarkable. Degenerative changes seen in the visualized spine . No acute bony abnormalities.Grade 1 spondylolisthesis of L5 on S1, most likely degenerative and spondylolysis at L5. BONES/ALIGNMENT: There is grade 1 spondylolisthesis of L5 on S1. Spine. The vertebral body heights are maintained. No osseous destructive lesion is seen. DEGENERATIVE CHANGES: Multilevel thoracic spondylosis and degenerative disc disease. Degenerative disc disease also noted at L1-2, L2-3, L3-4 , L4-L5 and L5-S1 with loss of height and early sclerosis of the articulating endplates. The spinal canal appears to be patent. There are posterior marginal osteophytes with associated broad-based disc bulges at these levels with associated facet hypertrophy and ligamentous hypertrophy. Spondylolysis at L5. SOFT TISSUES/RETROPERITONEUM: The paraspinal soft tissue show no gross abnormalities. No paraspinal mass is seen. Vascular calcifications are seen compatible with atherosclerotic disease. IMPRESSION: No acute intrathoracic, intra-abdominal or intrapelvic abnormalities are noted. Diffuse thyroid enlargement. No acute bony abnormalities are noted in the thoracic and lumbar spine. Multilevel lumbar spondylosis, facet arthropathy and degenerative disc disease as described above. Grade 1 spondylolisthesis of L5 on S1, most likely degenerative and spondylolysis at L5. RECOMMENDATIONS: Further evaluation may be obtained with MR imaging if clinically indicated. Interpreted by: Roque Kuhn MD Signed by: Roque Kuhn MD 05/25/22 Final result Normal [facility] CT CSPINE WO CONon 2 CT CSPINE WO CON EXAMINATION: CT [facility]SPI NE WO CON HISTORY: Got hit in the head with a falling tree branch with cervical pain. TECHNIQUE: Axial CT scans through the cervical spine were obtained without contrast administration. Sagittal and coronal reconstruction images were obtained. A trauma Dose reduction techniques were achieved by using: automated exposure control and/or adjustment of mA and /or kV according to patient size and/or use of iterative reconstruction technique. COMPARISON: None. FINDINGS: No acute fracture or posttraumatic malalignment is shown. At C2-C3, partial fusion of C2 and C3 vertebral bodies and right C2-C3 facet joint without instrumentation and fusion of the left C2-C3 facet joint without instrumentation. At C3-C4, moderate stenosis of the right neural foramen secondary to uncovertebral hypertrophy and facet hypertrophy. Mild to moderate anterior discovertebral complexes from C4 to C7. Decreased disc height and mild discovertebral complex at C6-C7 without instrumentation. The prevertebral soft tissue space appears normal. Visualized intracranial contents appear normal. Enlargement of the thyroid gland with heterogeneous densities results in compression of the transverse dimension of the trachea. Visualized neck shows no adenopathy. Visualized lung apices are clear. IMPRESSION: No acute fracture or posttraumatic malalignment. Partial fusion of C2 and C3 vertebral bodies and right C2-C3 facet joint without instrumentation and fusion to of the left C2-C3 facet joint without instrumentation. Moderate stenosis of the right C3-C4 neural foramen secondary to uncovertebral hypertrophy and facet hypertrophy. Enlargement of the thyroid gland with heterogeneous densities results in compression of the transverse dimension of the trachea, probably due to a goiter. Please consider a thyroid ultrasound. Electronically authenticated by: DAJUAN YOUNGBLOOD Date: 2022-05-25 17:45 Normal [facility] CT HEAD WO CONon 05-25-2022 CT HEAD WO CON EXAMINATION: CT HEAD WO CON HISTORY: UNSPECIFIED INJURY OF HEAD, INITIAL ENCOUNTER COMPARISON: None. TECHNIQUE: CT head without IV contrast. Coronal and sagittal reformations were performed. Dose reduction techniques were achieved by using automated exposure control and/or adjustment of mA and/or kV according to patient size and/or use of iterative reconstruction technique. FINDINGS: The lateral ventricles are normal size, shape and position. The third and fourth ventricles are midline. Maxwell-white differentiation is normal. A mass is not identified. A small volume of subarachnoid hemorrhage tracks along the right temporal lobe. Cortical sulci are normal and are symmetrical side to side. There is a nondisplaced fracture extending from the left frontal bone to the squamous portion of the left temporal bone. There is a small volume of fluid within the left sphenoid sinus. The mastoid air cells are normally pneumatized. A nondisplaced fracture involving the left zygomatic arch is noted. IMPRESSION: 1. Small volume subarachnoid hemorrhage tracking along the right temporal lobe. 2. Nondisplaced fracture involving the left frontal bone extending to the squamous portion of the left temporal bone. 3. Nondisplaced fracture involving the left zygomatic arch. Findings were discussed with Dr. Peck at 1700 hours. Electronically authenticated by: BILLY SANDERS Date: 2022-05-25 17:07 Normal [facility] CT LUMBAR SPINE TRAUMA RECON STRUCTIONon 05-25-2022 CT LUMBAR SPINE TRAUMA RECONSTRUCTION EXAMINATION: CT OF THE THORACIC SPINE WITHOUT CONTRAST; CT OF THE CHEST, ABDOMEN, AND PELVIS WITHOUT CONTRAST; CT OF THE LUMBAR SPINE WITHOUT CONTRAST 05/25/2022 3:44 pm; 05/25/2022 3:56 pm: TECHNIQUE: CT of the thoracic spine was performed without the administration of intravenous contrast. Multiplanar reformatted images are provided for review. Automated exposure control, iterative reconstruction, and/or weight based adjustment of the mA/kV was utilized to reduce the radiation dose to as low as reasonably achievable.; CT of the chest, abdomen and pelvis was performed without the administration of intravenous contrast. Multiplanar reformatted images are provided for review. Automated exposure control, iterative reconstruction, and/or weight based adjustment of the mA/kV was utilized to reduce the radiation dose to as low as reasonably achievable.; CT of the lumbar spine was performed without the administration of intravenous contrast. Multiplanar reformatted images are provided for review. Adjustment of mA and/or kV according to patient size was utilized. Automated exposure control, iterative reconstruction, and/or weight based adjustment of the mA/kV was utilized to reduce the radiation dose to as low as reasonably achievable. COMPARISON: None. HISTORY: ORDERING SYSTEM PROVIDED HISTORY: trauma TECHNOLOGIST PROVIDED HISTORY: trauma; ORDERING SYSTEM PROVIDED HISTORY: trauma, tree branch fell on head TECHNOLOGIST PROVIDED HISTORY: trauma, tree branch fell on head Decision Support Exception - unselect if not a suspected or confirmed emergency medical condition->Emergency Medical Condition (MA) FINDINGS: Chest: Pulmonary arteries: Pulmonary arteries appear within normal limits. Main pulmonary artery is of normal caliber.. Mediastinum: There are a few small nonspecific lymph nodes seen in the middle mediastinum. No suspicious lymphadenopathy. Diffuse thyroid enlargement. Lungs/pleura:. There is mild bibasilar atelectasis/fibrosis. No pulmonary masses are noted. No pleural effusions are identified. Cardiomediastinal Structures: Coronary arterial calcifications are seen. Cardiac chambers are enlarged Soft Tissues/Bones: There are hypertrophic degenerative changes in the thoracic spine. No acute osseous abnormalities. FINDINGS:. Organs: Liver is normal in size and density. No focal masses identified. No evidence of intrahepatic ductal dilatation. Spleen is normal size. The gallbladder is unremarkable. Both adrenal glands are normal. Pancreas is normal in appearance. The kidneys are normal in size and attenuation without evidence of hydronephrosis or renal calculi. GI/Bowel: The visualized bowel and mesentery show no mass lesions. Mild colonic diverticulosis. No evidence of diverticulitis. Pelvis: No intrapelvic mass is identified. Bladder and rectum are intact. Peritoneum/Retroperitone um: No free fluid. No lymphadenopathy. No evidence of pneumoperitoneum. Bones/Soft Tissues: The abdominal and pelvic moran are unremarkable. Degenerative changes seen in the visualized spine . No acute bony abnormalities.Grade 1 spondylolisthesis of L5 on S1, most likely degenerative and spondylolysis at L5. BONES/ALIGNMENT: There is grade 1 spondylolisthesis of L5 on S1. Spine. The vertebral body heights are maintained. No osseous destructive lesion is seen. DEGENERATIVE CHANGES: Multilevel thoracic spondylosis and degenerative disc disease. Degenerative disc disease also noted at L1-2, L2-3, L3-4 , L4-L5 and L5-S1 with loss of height and early sclerosis of the articulating endplates. The spinal canal appears to be patent. There are posterior marginal osteophytes with associated broad-based disc bulges at these levels with associated facet hypertrophy and ligamentous hypertrophy. Spondylolysis at L5. SOFT TISSUES/RETROPERITONEUM: The paraspinal soft tissue show no gross abnormalities. No paraspinal mass is seen. Vascular calcifications are seen compatible with atherosclerotic disease. IMPRESSION: No acute intrathoracic, intra-abdominal or intrapelvic abnormalities are noted. Diffuse thyroid enlargement. No acute bony abnormalities are noted in the thoracic and lumbar spine. Multilevel lumbar spondylosis, facet arthropathy and degenerative disc disease as described above. Grade 1 spondylolisthesis of L5 on S1, most likely degenerative and spondylolysis at L5. RECOMMENDATIONS: Further evaluation may be obtained with MR imaging if clinically indicated. Interpreted by: Roque Kuhn MD Signed by: Roque Kuhn MD 05/25/22 Final result Normal [facility] CT THORACIC SPINE TRAUMA REC ONSTRUCTIONon 05-25-2022 CT THORACIC SPINE TRAUMA RECONSTRUCTION EXAMINATION: CT OF THE THORACIC SPINE WITHOUT CONTRAST; CT OF THE CHEST, ABDOMEN, AND PELVIS WITHOUT CONTRAST; CT OF THE LUMBAR SPINE WITHOUT CONTRAST 05/25/2022 3:44 pm; 05/25/2022 3:56 pm: TECHNIQUE: CT of the thoracic spine was performed without the administration of intravenous contrast. Multiplanar reformatted images are provided for review. Automated exposure control, iterative reconstruction, and/or weight based adjustment of the mA/kV was utilized to reduce the radiation dose to as low as reasonably achievable.; CT of the chest, abdomen and pelvis was performed without the administration of intravenous contrast. Multiplanar reformatted images are provided for review. Automated exposure control, iterative reconstruction, and/or weight based adjustment of the mA/kV was utilized to reduce the radiation dose to as low as reasonably achievable.; CT of the lumbar spine was performed without the administration of intravenous contrast. Multiplanar reformatted images are provided for review. Adjustment of mA and/or kV according to patient size was utilized. Automated exposure control, iterative reconstruction, and/or weight based adjustment of the mA/kV was utilized to reduce the radiation dose to as low as reasonably achievable. COMPARISON: None. HISTORY: ORDERING SYSTEM PROVIDED HISTORY: trauma TECHNOLOGIST PROVIDED HISTORY: trauma; ORDERING SYSTEM PROVIDED HISTORY: trauma, tree branch fell on head TECHNOLOGIST PROVIDED HISTORY: trauma, tree branch fell on head Decision Support Exception - unselect if not a suspected or confirmed emergency medical condition->Emergency Medical Condition (MA) FINDINGS: Chest: Pulmonary arteries: Pulmonary arteries appear within normal limits. Main pulmonary artery is of normal caliber.. Mediastinum: There are a few small nonspecific lymph nodes seen in the middle mediastinum. No suspicious lymphadenopathy. Diffuse thyroid enlargement. Lungs/pleura:. There is mild bibasilar atelectasis/fibrosis. No pulmonary masses are noted. No pleural effusions are identified. Cardiomediastinal Structures: Coronary arterial calcifications are seen. Cardiac chambers are enlarged Soft Tissues/Bones: There are hypertrophic degenerative changes in the thoracic spine. No acute osseous abnormalities. FINDINGS:. Organs: Liver is normal in size and density. No focal masses identified. No evidence of intrahepatic ductal dilatation. Spleen is normal size. The gallbladder is unremarkable. Both adrenal glands are normal. Pancreas is normal in appearance. The kidneys are normal in size and attenuation without evidence of hydronephrosis or renal calculi. GI/Bowel: The visualized bowel and mesentery show no mass lesions. Mild colonic diverticulosis. No evidence of diverticulitis. Pelvis: No intrapelvic mass is identified. Bladder and rectum are intact. Peritoneum/Retroperitone um: No free fluid. No lymphadenopathy. No evidence of pneumoperitoneum. Bones/Soft Tissues: The abdominal and pelvic moran are unremarkable. Degenerative changes seen in the visualized spine . No acute bony abnormalities.Grade 1 spondylolisthesis of L5 on S1, most likely degenerative and spondylolysis at L5. BONES/ALIGNMENT: There is grade 1 spondylolisthesis of L5 on S1. Spine. The vertebral body heights are maintained. No osseous destructive lesion is seen. DEGENERATIVE CHANGES: Multilevel thoracic spondylosis and degenerative disc disease. Degenerative disc disease also noted at L1-2, L2-3, L3-4 , L4-L5 and L5-S1 with loss of height and early sclerosis of the articulating endplates. The spinal canal appears to be patent. There are posterior marginal osteophytes with associated broad-based disc bulges at these levels with associated facet hypertrophy and ligamentous hypertrophy. Spondylolysis at L5. SOFT TISSUES/RETROPERITONEUM: The paraspinal soft tissue show no gross abnormalities. No paraspinal mass is seen. Vascular calcifications are seen compatible with atherosclerotic disease. IMPRESSION: No acute intrathoracic, intra-abdominal or intrapelvic abnormalities are noted. Diffuse thyroid enlargement. No acute bony abnormalities are noted in the thoracic and lumbar spine. Multilevel lumbar spondylosis, facet arthropathy and degenerative disc disease as described above. Grade 1 spondylolisthesis of L5 on S1, most likely degenerative and spondylolysis at L5. RECOMMENDATIONS: Further evaluation may be obtained with MR imaging if clinically indicated. Interpreted by: Roque Kuhn MD Signed by: Roque Kuhn MD 05/25/22 Final result Normal [facility] Covid-19 PCR (CVDTB)on 05-14 SARS-CoV-2 (COVID-19) RNA CORRINE+probe Ql (Unsp spec) Not detected Normal NOT DETECTED [facility] Comment on above: Result Comment: When diagnostic testing is negative, the possibility of a false negative should be considered in the context of a patient's recent exposures and the presence of clinical signs and symptoms consistent with SARS-CoV-2. This test is not yet approved or cleared by the [place] FDA. When there are no FDA-approved or cleared tests available, and other criteria are met, FDA can make tests available under an emergency access mechanism called an Emergency Use Authorization (EUA). The EUA for this test is supported by the Inventory Specialist Manager of Health and Human Service's declaration that circumstances exist to justify the emergency use of in vitro diagnostics for the detection and/or diagnosis of the virus that causes COVID-19. This EUA will remain in effect for the duration of the COVID-19 declaration justifying emergency of IVDs, unless it is terminated or revoked by the FDA (after which the test may no longer be used). Performed By: #### [facility] #### [facility] [address] [id number] [address] Jarrod Butterfield No Panel Informationon 05-25 No acute intrathorac ic, intra-abdominal or intrapelvic abnormalities are noted. Diffuse thyroid enlargement. No acute bony abnormalities are noted in the thoracic and lumbar spine. Multilevel lumbar spondylosis, facet arthropathy and degenerative disc disease as described above. Grade 1 spondylolisthesis of L5 on S1, most likely degenerative and spondylolysis at L5. RECOMMENDATIONS: Further evaluation may be obtained with MR imaging if clinically indicated. PN RIS CONSOLIDATED EXAMINATION: CT OF THE THORACIC SPINE WITHOUT CONTRAST; CT OF THE CHEST, ABDOMEN, AND PELVIS WITHOUT CONTRAST; CT OF THE LUMBAR SPINE WITHOUT CONTRAST 05/25/2022 3:44 pm; 05/25/2022 3:56 pm: TECHNIQUE: CT of the thoracic spine was performed without the administration of intravenous contrast. Multiplanar reformatted images are provided for review. Automated exposure control, iterative reconstruction, and/or weight based adjustment of the mA/kV was utilized to reduce the radiation dose to as low as reasonably achievable.; CT of the chest, abdomen and pelvis was performed without the administration of intravenous contrast. Multiplanar reformatted images are provided for review. Automated exposure control, iterative reconstruction, and/or weight based adjustment of the mA/kV was utilized to reduce the radiation dose to as low as reasonably achievable.; CT of the lumbar spine was performed without the administration of intravenous contrast. Multiplanar reformatted images are provided for review. Adjustment of mA and/or kV according to patient size was utilized. Automated exposure control, iterative reconstruction, and/or weight based adjustment of the mA/kV was utilized to reduce the radiation dose to as low as reasonably achievable. COMPARISON: None. HISTORY: ORDERING SYSTEM PROVIDED HISTORY: trauma TECHNOLOGIST PROVIDED HISTORY: trauma; ORDERING SYSTEM PROVIDED HISTORY: trauma, tree branch fell on head TECHNOLOGIST PROVIDED HISTORY: trauma, tree branch fell on head Decision Support Exception - unselect if not a suspected or confirmed emergency medical condition->Emergency Medical Condition (MA) FINDINGS: Chest: Pulmonary arteries: Pulmonary arteries appear within normal limits. Main pulmonary artery is of normal caliber.. Mediastinum: There are a few small nonspecific lymph nodes seen in the middle mediastinum. No suspicious lymphadenopathy. Diffuse thyroid enlargement. Lungs/pleura:. There is mild bibasilar atelectasis/fibrosis. No pulmonary masses are noted. No pleural effusions are identified. Cardiomediastinal Structures: Coronary arterial calcifications are seen. Cardiac chambers are enlarged Soft Tissues/Bones: There are hypertrophic degenerative changes in the thoracic spine. No acute osseous abnormalities. FINDINGS:. Organs: Liver is normal in size and density. No focal masses identified. No evidence of intrahepatic ductal dilatation. Spleen is normal size. The gallbladder is unremarkable. Both adrenal glands are normal. Pancreas is normal in appearance. The kidneys are normal in size and attenuation without evidence of hydronephrosis or renal calculi. GI/Bowel: The visualized bowel and mesentery show no mass lesions. Mild colonic diverticulosis. No evidence of diverticulitis. Pelvis: No intrapelvic mass is identified. Bladder and rectum are intact. Peritoneum/Retroperitone um: No free fluid. No lymphadenopathy. No evidence of pneumoperitoneum. Bones/Soft Tissues: The abdominal and pelvic moran are unremarkable. Degenerative changes seen in the visualized spine . No acute bony abnormalities.Grade 1 spondylolisthesis of L5 on S1, most likely degenerative and spondylolysis at L5. BONES/ALIGNMENT: There is grade 1 spondylolisthesis of L5 on S1. Spine. The vertebral body heights are maintained. No osseous destructive lesion is seen. DEGENERATIVE CHANGES: Multilevel thoracic spondylosis and degenerative disc disease. Degenerative disc disease also noted at L1-2, L2-3, L3-4 , L4-L5 and L5-S1 with loss of height and early sclerosis of the articulating endplates. The spinal canal appears to be patent. There are posterior marginal osteophytes with associated broad-based disc bulges at these levels with associated facet hypertrophy and ligamentous hypertrophy. Spondylolysis at L5. SOFT TISSUES/RETROPERITONEUM: The paraspinal soft tissue show no gross abnormalities. No paraspinal mass is seen. Vascular calcifications are seen compatible with atherosclerotic disease. [facility] RIS CONSOLIDATED Roque Kuhn MD - 05/25/2022 EXAMINATION: CT OF THE THORACIC SPINE WITHOUT CONTRAST; CT OF THE CHEST, ABDOMEN, AND PELVIS WITHOUT CONTRAST; CT OF THE LUMBAR SPINE WITHOUT CONTRAST 05/25/2022 3:44 pm; 05/25/2022 3:56 pm: TECHNIQUE: CT of the thoracic spine was performed without the administration of intravenous contrast. Multiplanar reformatted images are provided for review. Automated exposure control, iterative reconstruction, and/or weight based adjustment of the mA/kV was utilized to reduce the radiation dose to as low as reasonably achievable.; CT of the chest, abdomen and pelvis was performed without the administration of intravenous contrast. Multiplanar reformatted images are provided for review. Automated exposure control, iterative reconstruction, and/or weight based adjustment of the mA/kV was utilized to reduce the radiation dose to as low as reasonably achievable.; CT of the lumbar spine was performed without the administration of intravenous contrast. Multiplanar reformatted images are provided for review. Adjustment of mA and/or kV according to patient size was utilized. Automated exposure control, iterative reconstruction, and/or weight based adjustment of the mA/kV was utilized to reduce the radiation dose to as low as reasonably achievable. COMPARISON: None. HISTORY: ORDERING SYSTEM PROVIDED HISTORY: trauma TECHNOLOGIST PROVIDED HISTORY: trauma; ORDERING SYSTEM PROVIDED HISTORY: trauma, tree branch fell on head TECHNOLOGIST PROVIDED HISTORY: trauma, tree branch fell on head Decision Support Exception - unselect if not a suspected or confirmed emergency medical condition->Emergency Medical Condition (MA) FINDINGS: Chest: Pulmonary arteries: Pulmonary arteries appear within normal limits. Main pulmonary artery is of normal caliber.. Mediastinum: There are a few small nonspecific lymph nodes seen in the middle mediastinum. No suspicious lymphadenopathy. Diffuse thyroid enlargement. Lungs/pleura:. There is mild bibasilar atelectasis/fibrosis. No pulmonary masses are noted. No pleural effusions are identified. Cardiomediastinal Structures: Coronary arterial calcifications are seen. Cardiac chambers are enlarged Soft Tissues/Bones: There are hypertrophic degenerative changes in the thoracic spine. No acute osseous abnormalities. FINDINGS:. Organs: Liver is normal in size and density. No focal masses identified. No evidence of intrahepatic ductal dilatation. Spleen is normal size. The gallbladder is unremarkable. Both adrenal glands are normal. Pancreas is normal in appearance. The kidneys are normal in size and attenuation without evidence of hydronephrosis or renal calculi. GI/Bowel: The visualized bowel and mesentery show no mass lesions. Mild colonic diverticulosis. No evidence of diverticulitis. Pelvis: No intrapelvic mass is identified. Bladder and rectum are intact. Peritoneum/Retroperitone um: No free fluid. No lymphadenopathy. No evidence of pneumoperitoneum. Bones/Soft Tissues: The abdominal and pelvic moran are unremarkable. Degenerative changes seen in the visualized spine . No acute bony abnormalities.Grade 1 spondylolisthesis of L5 on S1, most likely degenerative and spondylolysis at L5. BONES/ALIGNMENT: There is grade 1 spondylolisthesis of L5 on S1. Spine. The vertebral body heights are maintained. No osseous destructive lesion is seen. DEGENERATIVE CHANGES: Multilevel thoracic spondylosis and degenerative disc disease. Degenerative disc disease also noted at L1-2, L2-3, L3-4 , L4-L5 and L5-S1 with loss of height and early sclerosis of the articulating endplates. The spinal canal appears to be patent. There are posterior marginal osteophytes with associated broad-based disc bulges at these levels with associated facet hypertrophy and ligamentous hypertrophy. Spondylolysis at L5. SOFT TISSUES/RETROPERITONEUM: The paraspinal soft tissue show no gross abnormalities. No paraspinal mass is seen. Vascular calcifications are seen compatible with atherosclerotic disease. IMPRESSION: No acute intrathoracic, intra-abdominal or intrapelvic abnormalities are noted. Diffuse thyroid enlargement. No acute bony abnormalities are noted in the thoracic and lumbar spine. Multilevel lumbar spondylosis, facet arthropathy and degenerative disc disease as described above. Grade 1 spondylolisthesis of L5 on S1, most likely degenerative and spondylolysis at L5. RECOMMENDATIONS: Further evaluation may be obtained with MR imaging if clinically indicated. [employer] Phone: Radiology Study observation (narrative) [employer] Phone: Radiology Study observation (narrative) [employer] Phone: No Panel InformationOrdered By: Roque Kuhn on 05-25-2022 [facility] [employer] Phone: PROF 14(COMP METB)on 022 Albumin [Mass/Vol] 3.9 g/dL Normal 3.4-5.0 [facility] Comment on above: Performed By: #### C MP #### [facility] [address] [place] [address] Dr. Jarrod Butterfield Albumin/Globulin [Mass ratio] 1.0 {ratio} Normal [facility] Comment on above: Performed By: #### C MP #### [facility] [address] [place] [address] Dr. Jarrod Butterfield ALP [Catalytic activity/Vol] 87 U/L Normal 46-116 [facility] Comment on above: Performed By: #### C MP #### [facility] [address] [place] [address] Dr. Jarrod Butterfield ALT [Catalytic activity/Vol] 22 U/L Normal 16-63 [facility] Comment on above: Performed By: #### C MP #### [facility] [address] [place] [address] Dr. Jarrod Butterfield Anion gap [Moles/Vol] 12.7 mmol/L Normal [facility] Comment on above: Performed By: #### C MP #### [facility] [address] [place] [address] Dr. Jarrod Butterfield AST [Catalytic activity/Vol] 18 U/L Normal 15-37 [facility] Comment on above: Performed By: #### C MP #### [facility] [address] [address] [address] Jarrod Butterfield Bilirubin [Mass/Vol] 1.1 mg/dL Critically high 0.2-1.0 [facility] Comment on above: Performed By: #### C MP #### [facility] [address] [address] [address] Jarrod Butterfield Calcium [Mass/Vol] 9.2 mg/dL Normal 8.5-10.1 [facility] Comment on above: Performed By: #### C MP #### [facility] [address] [place] [address] Dr. Jarrod Butterfield Chloride [Moles/Vol] 102 mmol/L Normal 98-107 [facility] Comment on above: Performed By: #### C MP #### [facility] [address] [place] [address] Dr. Jarrod Butterfield CO2 [Moles/Vol] 27.1 mmol/L Normal 21.0-32.0 [facility] Comment on above: Performed By: #### C MP #### [facility] [address] [place] [address] Dr. Jarrod Butterfield Creatinine [Mass/Vol] 0.87 mg/dL Normal 0.70-1.30 [facility] Comment on above: Performed By: #### C MP #### [facility] [address] [place] [address] Dr. Jarrod Butterfield EGFR-AF [facility] LUCIAN >60 Normal >=60 [facility] Comment on above: Performed By: #### C MP #### [facility] [address] [place] [address] Dr. Jarrod Butterfield EGFR-NON AF [facility] LUCIAN >60 Normal >=60 [facility] Comment on above: Performed By: #### C MP #### [facility] [address] [place] [address] Dr. Jarrod Butterfield Globulin (S) [Mass/Vol] 4.1 g/dL Normal [facility] Comment on above: Performed By: #### C MP #### [facility] [address] [address] [address] Jarrod Butterfield Glucose [Mass/Vol] 151 mg/dL Critically high 74-106 [facility] Comment on above: Performed By: #### C MP #### [facility] [address] [address] [address] Jarrod Butterfield Potassium [Moles/Vol] 3.8 mmol/L Normal 3.5-5.1 [facility] Comment on above: Performed By: #### C MP #### [facility] [address] [address] [address] Jarrod Butterfield Protein [Mass/Vol] 8.0 g/dL Normal 6.4-8.2 [facility] Comment on above: Performed By: #### C MP #### [facility] [address] [address] [address] Jarrod Butterfield Sodium [Moles/Vol] 138 mmol/L Normal 136-145 [facility] Comment on above: Performed By: #### C MP #### [facility] [address] [address] [address] Jarrod Butterfield Urea nitrogen [Mass/Vol] 20.0 mg/dL Critically high 7.0-18.0 [facility] Comment on above: Performed By: #### C MP #### [facility] [address] [address] [address] Jarrod Butterfield Urea nitrogen/Creatinine [Mass ratio] 23.0 mg/mg Normal [facility] Comment on above: Performed By: #### C MP #### [facility] [address] [address] [address] Jarrod Butterfield TYPE AND SCREENon 05-25-2022 ABO/Rh Negative [facility] Arm Band Number [id number] [facility] Expiration Date 05/28/2022,1788 [facility] Trauma Panelon 05-25-2022 Anion gap [Moles/Vol] 9 mmol/L 9 - 17 mmol/L [facility] aPTT Coag (Bld) [Time] 22.0 s [facility] [employer] Comment on above: IV Heparin Therapy Range: 48.6-77.8 Blood Bank Specimen BILL FOR SERVICES PERFORMED [facility] [employer] Carboxyhemoglobin 2.7 % 0 - 5 % [facility] [employer] Comment on above: Reference Range: Non-Smokers 0-2% Average Smoker 2-4% Heavy Smoker <10% Chloride [Moles/Vol] 100 mmol/L 98 - 10 7 mmol/L [facility] [employer] CO2 [Moles/Vol] 27 mmol/L 20 - 31 mmol/L [facility] [employer] Creatinine [Mass/Vol] 0.7 mg/dL 0.70 - 1.20 mg/dL [facility] [employer] [place] Ethanol [Mass/Vol] mg/dL NINF - 10 mg/dL [facility] [employer] Ethanol percent <0.010 NINF - 0.010 % [facility] [employer] FIO2 INFORMATION NOT PROVIDED [facility] [employer] GFR/1.73 sq M.predicted MDRD (S/P/Bld) [Vol rate/Area] 60 mL/min/{1.73_m2} Low - PINF [facility] [employer] Comment on above: Effective Mar 16, 2022 These results are not intended for use in patients <18 years of age. eGFR results are calculated without a race factor using the 2020 CKD-EPI equation. Careful clinical correlation is recommended, particularly when comparing to results calculated using previous equations. The CKD-EPI equation is less accurate in patients with extremes of muscle mass, extra-renal metabolism of creatine, excessive creatine ingestion, or following therapy that affects renal tubular secretion. Glucose [Mass/Vol] 142 mg/dL High 70 - 99 mg/dL [facility] [employer] hCG Qual MALE [facility] [employer] HCO3 (Bld) [Moles/Vol] 24.7 mmol/L 24 - 30 mmol/L [facility] [employer] Hematocrit (Bld) [Volume fraction] 42.1 % 40.7 - 50.3 % [facility] [employer] Hemoglobin (Bld) [Mass/Vol] 14.3 g/dL 13.0 - 17.0 g/dL [facility] INR Coag (Bld) [Relative time] 1.1 {INR} [facility] Comment on above: Therapeutic Range: Moderate Anticoagulant Intensity: INR = 2.0-3.0 High Anticoagulant Intensity: INR = 2.5-3.5 Interpretation and review of laboratory results Abnormal [facility] MCH (RBC) [Entitic mass] 32.1 pg 25.2 - 33.5 pg [facility] MCHC (RBC) [Mass/Vol] 34.0 g/dL 28.4 - 34.8 g/dL [facility] MCV (RBC) [Entitic vol] 94.6 fL 82.6 - 102.9 fL [facility] Negative Base Excess, Chandler 0.4 mmol/L 0.0 - 2.0 mmol/L [facility] NRBC Automated 0.0 0.0 per 100 WBC [facility] Oxygen saturation in Blood 84.0 % 60.0 - 85.0 % [facility] pCO2, Chandler 44.5 [facility] pH, Chandler 7.363 7.320 - 7.420 [facility] Platelet distribution width (Bld) [Ratio] 13.0 % 11.8 - 14.4 % [facility] Platelet mean volume (Bld) [Entitic vol] 10.7 fL 8.1 - 13.5 fL [facility] Platelets (Bld) [#/Vol] 283 10*3/uL [facility] pO2, Chandler 52.8 High [facility] Potassium [Moles/Vol] 3.8 mmol/L 3.7 - 5.3 mmol/L [facility] PT Coag (PPP) [Time] 11.4 s [facility] Pt Temp 37.0 [facility] RBC (Bld) [#/Vol] 4.45 10*6/uL 4.21 - 5.7 7 m/uL [facility] Sodium [Moles/Vol] 136 mmol/L 135 - 144 mmol/L [facility] Urea nitrogen (BldV) [Mass/Vol] 18 mg/dL 8 - 23 mg/dL [facility] WBC (Bld) [#/Vol] 17.5 10*3/uL High [facility] Trauma Profileon 05-25-2022 Anion gap [Moles/Vol] 9 mmol/L Normal 9-17 [facility] Comment on above: Performed By: #### E RTPF #### [address] [address] Security Sales Consultant: Lázaro Deleon MD Chloride [Moles/Vol] 100 mmol/L Normal 98-107 [facility] Comment on above: Performed By: #### E RTPF #### [address] [address] Security Sales Consultant: Lázaro Deleon MD CO2 [Moles/Vol] 27 mmol/L Normal 20-31 [facility] Comment on above: Performed By: #### E RTPF #### [address] [address] Security Sales Consultant: Lázaro Deleon MD Creatinine [Mass/Vol] 0.70 mg/dL Normal 0.70-1.20 [facility] Comment on above: Performed By: #### E RTPF #### [address] [address] Security Sales Consultant: Lázaro Deleon MD Ethanol [Mass/Vol] mg/dL Normal <10 [facility] Comment on above: Performed By: #### E RTPF #### [address] [address] Security Sales Consultant: Lázaro Deleon MD Ethanol percent <0.010 Normal <0.010 [facility] Comment on above: Performed By: #### E RTPF #### [address] [address] Security Sales Consultant: Lázaro Deleon MD GFR/1.73 sq M.predicted among non-blacks MDRD (S/P/Bld) [Vol rate/Area] 60 mL/min/{1.73_m2} Low >60 [facility] Comment on above: Result Comment: Effective Mar 16, 2022 These results are not intended for use in patients <18 years of age. eGFR results are calculated without a race factor using the 2020 CKD-EPI equation. Careful clinical correlation is recommended, particularly when comparing to results calculated using previous equations. The CKD-EPI equation is less accurate in patients with extremes of muscle mass, extra-renal metabolism of creatine, excessive creatine ingestion, or following therapy that affects renal tubular secretion. Performed By: #### E RTPF #### [facility] [employer] [address] [place] [address] Security Sales Consultant: Lázaro Deleon MD Glucose [Mass/Vol] 142 mg/dL High 70-99 [facility] Comment on above: Performed By: #### E RTPF #### [address] [address] Security Sales Consultant: Lázaro Deleon MD Potassium [Moles/Vol] 3.8 mmol/L Normal 3.7-5.3 [facility] Comment on above: Performed By: #### E RTPF #### [address] [address] Security Sales Consultant: Lázaro Deleon MD Sodium [Moles/Vol] 136 mmol/L Normal 135-144 [facility] Comment on above: Performed By: #### E RTPF #### [address] [address] Security Sales Consultant: Lázaro Deleon MD Urea nitrogen [Mass/Vol] 18 mg/dL Normal 8-23 [facility] Comment on above: Performed By: #### E RTPF #### [address] [address] Security Sales Consultant: Lázaro Deleon MD aPTT Coag (Bld) [Time] 22.0 s Normal 20.5-30.5 [facility] Comment on above: Result Comment: IV Heparin Therapy Range: 48.6-77.8 Performed By: #### E RTPF #### [address] [address] Security Sales Consultant: Lázaro Deleon MD INR Coag (PPP) [Relative time] 1.1 {INR} Normal [facility] Comment on above: Result Comment: Therapeutic Range: Moderate Anticoagulant Intensity: INR = 2.0-3.0 High Anticoagulant Intensity: INR = 2.5-3.5 Performed By: #### E RTPF #### [address] [address] Security Sales Consultant: Lázaro Deleon MD PT Coag (PPP) [Time] 11.4 s Normal 9.1-12.3 [facility] Comment on above: Performed By: #### E RTPF #### [address] [address] Security Sales Consultant: Lázaro Deleon MD Body Temp. 37.0 Normal [facility] Comment on above: Performed By: #### E RTPF #### [address] [address] Security Sales Consultant: Lázaro Deleon MD Carboxy Hgb 2.7 % Normal 0-5 [facility] Comment on above: Result Comment: Reference Range: Non-Smokers 0-2% Average Smoker 2-4% Heavy Smoker <10% Performed By: #### E RTPF #### [address] [address] Security Sales Consultant: Lázaro Deleon MD FIO2 INFORMATION NOT PROVIDED Normal [facility] Comment on above: Performed By: #### E RTPF #### [address] [address] Security Sales Consultant: Lázaro Deleon MD HCO3 (Bld) [Moles/Vol] 24.7 mmol/L Normal 24-30 [facility] Comment on above: Performed By: #### E RTPF #### [facility] [employer] [address] [place] [address] Security Sales Consultant: Lázaro Deleon MD Negative Base Excess 0.4 mmol/L Normal 0.0-2.0 [facility] Comment on above: Performed By: #### E RTPF #### [address] [address] Security Sales Consultant: Lázaro Deleon MD Oxygen saturation in Blood 84.0 % Normal 60.0-85.0 [facility] Comment on above: Performed By: #### E RTPF #### [address] [address] Security Sales Consultant: Lázaro Deleon MD pCO2 44.5 mm Hg Normal 39-55 [facility] Comment on above: Performed By: #### E RTPF #### [address] [address] Security Sales Consultant: Lázaro Deleon MD pH (Bld) 7.363 [pH] Normal 7.320-7.420 [facility] Comment on above: Performed By: #### E RTPF #### [address] [address] Security Sales Consultant: Lázaro Deleon MD pO2 52.8 mm Hg High 30-50 [facility] Comment on above: Performed By: #### E RTPF #### [address] [address] Security Sales Consultant: Lázaro Deleon MD Erythrocyte distribution width (RBC) [Ratio] 13.0 % Normal 11.8-14.4 [facility] Comment on above: Performed By: #### E RTPF #### [address] [address] Security Sales Consultant: Lázaro Deleon MD Hematocrit (Bld) [Volume fraction] 42.1 % Normal 40.7-50.3 [facility] Comment on above: Performed By: #### E RTPF #### [address] [address] Security Sales Consultant: Lázaro Deleon MD Hemoglobin (Bld) [Mass/Vol] 14.3 g/dL Normal 13.0-17.0 [facility] Comment on above: Performed By: #### E RTPF #### [address] [address] Security Sales Consultant: Lázaro Deleon MD MCH (RBC) [Entitic mass] 32.1 pg Normal 25.2-33.5 [facility] Comment on above: Performed By: #### E RTPF #### [address] [address] Security Sales Consultant: Lázaro Deleon MD MCHC (RBC) [Mass/Vol] 34.0 g/dL Normal 28.4-34.8 [facility] Comment on above: Performed By: #### E RTPF #### [address] [address] Security Sales Consultant: Lázaro Deleon MD MCV (RBC) [Entitic vol] 94.6 fL Normal 82.6-102.9 [facility] Comment on above: Performed By: #### E RTPF #### [address] [address] Security Sales Consultant: Lázaro Deleon MD NRBC Automated 0.0 per 100 WBC Normal 0.0 [facility] Comment on above: Performed By: #### E RTPF #### [address] [id number] Security Sales Consultant: Lázaro Deleon MD Platelet mean volume (Bld) [Entitic vol] 10.7 fL Normal 8.1-13.5 [facility] Comment on above: Performed By: #### E RTPF #### [address] [address] Security Sales Consultant: Lázaro Deleon MD Platelets (Bld) [#/Vol] 283 10*3/uL Normal 138-453 [facility] Comment on above: Performed By: #### E RTPF #### [address] [address] Security Sales Consultant: Lázaro Deleon MD RBC (Bld) [#/Vol] 4.45 10*6/uL Normal 4.21-5.77 [facility] Comment on above: Performed By: #### E RTPF #### [address] [address] Security Sales Consultant: Lázaro Deleon MD WBC (Bld) [#/Vol] 17.5 10*3/uL High 3.5-11.3 [facility] Comment on above: Performed By: #### E RTPF #### [address] [address] Security Sales Consultant: Lázaro Deleon MD Blood Bank BILL FOR SERVICES PERFORMED Normal [facility] Comment on above: Performed By: #### E RTPF #### [address] [address] Security Sales Consultant: Lázaro Deleon MD Type + Screenon 05-25-2022 Type + Screen Sample Expiration 05/28/2022,2359 Arm Band Number [id number] ABO/Rh(D) O NEGATIVE Antibody Screen NEGATIVE Normal [facility] Comment on above: Performed By: #### T YS #### [address] [address] Security Sales Consultant: Lázaro Deleon MD XR CHEST 1 Von 05-25-2022 XR CHEST 1 V EXAMINATION: XR CHES T 1 V, , 05/25/2022 5:28 PM EST INDICATION: UNSPECIFIED INJURY OF HEAD, INITIAL ENCOUNTER HISTORY: Ordering Provider Reason for Exam: Technologist Note: Additional: COMPARISON: None. TECHNIQUE: Chest x-ray: One view. FINDINGS: No pneumothorax, pleural effusion or focal airspace consolidation. Heart is normal in size. Bony thorax is unremarkable. IMPRESSION: No acute cardiopulmonary process. Electronically authenticated by: NARCISO PEDERSEN Date: 2022-05-25 18:30 Normal [facility] Vital Signs Date Time Vital Sign Value Performing Clinician Facility 11-18-2023 12:11-0400 Diastolic blood pressure 84 mm[Hg] Hicks Sarmini [facility] 11-18-2023 12:11-0400 Heart rate 46 /min Hicks Sarmini [facility] 11-18-2023 12:11-0400 Mean blood pressure 97 mm[Hg] Hicks Sarmini [facility] 11-18-2023 12:11-0400 Respiratory rate 15 /min Hicks Sarmini [facility] 11-18-2023 12:11-0400 SaO2% (BldA) [Mass fraction] 96 % Hicks Sarmini [facility] 11-18-2023 12:11-0400 Systolic blood pressure 122 mm[Hg] Hicks Sarmini [facility] 11-18-2023 12:00-0400 Heart rate 50 /min Hicks Sarmini [facility] 11-18-2023 12:00-0400 SaO2% (BldA) [Mass fraction] 95 % Hicks Sarmini [facility] 11-18-2023 12:00-0400 Systolic blood pressure 116 mm[Hg] Hicks Sarmini [facility] 11-18-2023 11:55-0400 Diastolic blood pressure 83 mm[Hg] Hicks Sarmini [facility] 11-18-2023 11:55-0400 Heart rate 48 /min Hicks Sarmini [facility] 11-18-2023 11:55-0400 Mean blood pressure 94 mm[Hg] Hicks Sarmini [facility] 11-18-2023 11:55-0400 Respiratory rate 12 /min Hicks Sarmini [facility] 11-18-2023 11:55-0400 SaO2% (BldA) [Mass fraction] 94 % Hicks Sarmini [facility] 11-18-2023 11:55-0400 Systolic blood pressure 117 mm[Hg] Hicks Sarmini [facility] 11-18-2023 11:46-0400 Body temperature 97.34 [degF] Hicks Sarmini [facility] 11-18-2023 11:40-0400 Respiratory rate 14 /min Hicks Sarmini [facility] 11-18-2023 09:39-0400 Blood Pressure Location Hicks Sarmini [facility] 11-18-2023 09:39-0400 Body temperature 97.88 [degF] Hicks Sarmini [facility] 07-09-2023 10:53-0500 Diastolic blood pressure 102 mm[Hg] Hicks Sarmini [facility] 07-09-2023 10:53-0500 Mean blood pressure 119 mm[Hg] Hicks Sarmini [facility] 07-09-2023 10:53-0500 Systolic blood pressure 152 mm[Hg] Hicks Sarmini [facility] 07-09-2023 10:48-0500 Blood Pressure Location Hicks Sarmini [facility] 07-09-2023 10:48-0500 Diastolic blood pressure 94 mm[Hg] Hicks Sarmini [facility] 07-09-2023 10:48-0500 Heart rate 72 /min Hicks Sarmini [facility] 07-09-2023 10:48-0500 Respiratory rate 16 /min Hicks Sarmini [facility] 07-09-2023 10:48-0500 Systolic blood pressure 158 mm[Hg] Hicks Sarmini [facility] 05-17-2023 13:50-0500 Diastolic blood pressure 97 mm[Hg] Hicks Sarmini [facility] 05-17-2023 13:50-0500 Heart rate 52 /min Hicks Sarmini [facility] 05-17-2023 13:50-0500 Respiratory rate 20 /min Hicks Sarmini [facility] 05-17-2023 13:50-0500 SaO2% (BldA) [Mass fraction] 84 % Hicks Sarmini [facility] 05-17-2023 13:50-0500 Systolic blood pressure 144 mm[Hg] Hicks Sarmini [facility] 05-17-2023 13:40-0500 Diastolic blood pressure 98 mm[Hg] Hicks Sarmini [facility] 05-17-2023 13:40-0500 Heart rate 58 /min Hicks Sarmini [facility] 05-17-2023 13:40-0500 Respiratory rate 18 /min Hicks Sarmini [facility] 05-17-2023 13:40-0500 SaO2% (BldA) [Mass fraction] 95 % Hicks Sarmini [facility] 05-17-2023 13:40-0500 Systolic blood pressure 144 mm[Hg] Hicks Sarmini [facility] 05-17-2023 13:25-0500 Diastolic blood pressure 88 mm[Hg] Hciks Sarmini [facility] 05-17-2023 13:25-0500 Heart rate 58 /min Hicks Sarmini [facility] 05-17-2023 13:25-0500 Respiratory rate 18 /min Hicks Sarmini [facility] 05-17-2023 13:25-0500 SaO2% (BldA) [Mass fraction] 95 % Hicks Sarmini [facility] 05-17-2023 13:25-0500 Systolic blood pressure 113 mm[Hg] Hicks Sarmini [facility] 05-17-2023 13:13-0500 Body temperature 97.7 [degF] Hicks Sarmini [facility] 05-17-2023 13:05-0500 Respiratory rate 15 /min Hicks Kearamini [facility] 05-17-2023 12:55-0500 Respiratory rate 17 /min Hicks Kearamini [facility] 05-17-2023 11:48-0500 Blood Pressure Location Fabiola Sarahmini [facility] 05-17-2023 11:48-0500 Body temperature 98.24 [degF] Fabiola Sarahmini [facility] 12-25-2022 13:37-0400 Body height 180.34 cm Patel H Timmis Work Phone: [facility] [address] Work Phone: 12-25-2022 13:37-0400 Body mass index (BMI) [Ratio] 30.74 kg/m2 Patel H Timmis Work Phone: [facility] [address] Work Phone: 12-25-2022 13:37-0400 Body surface area Derived from formula 2.2 m2 Patel H Timmis Work Phone: [facility] [address] Work Phone: 12-25-2022 13:37-0400 Body temperature 96.1 [degF] Patel H Timmis [facility] Work Phone: 12-25-2022 13:37-0400 Body weight 99.97 kg Patel H Timmis Work Phone: [facility] Work Phone: 12-18-2022 14:30-0400 Body temperature 98.06 [degF] Patel Timmis Other Phone: [facility] 12-18-2022 14:30-0400 Diastolic blood pressure 74 mm[Hg] Patel Timmis Other Phone: [facility] 12-18-2022 14:30-0400 Heart rate 62 /min Patel Timmis Other Phone: [facility] 12-18-2022 14:30-0400 Respiratory rate 18 /min Patel Timmis Other Phone: [facility] 12-18-2022 14:30-0400 SaO2% (BldA) [Mass fraction] 94 % Patel Timmis Other Phone: [facility] 12-18-2022 14:30-0400 Systolic blood pressure 130 mm[Hg] Patel Timmis Other Phone: [facility] 2022 12:28-0400 Body height 180.34 cm Patel H Timmis Work Phone: [facility] Work Phone: 2022 12:28-0400 Body mass index (BMI) [Ratio] 31.94 kg/m2 Patel H Timmis Work Phone: [facility] Work Phone: 2022 12:28-0400 Body surface area Derived from formula 2.23 m2 Patel H Timmis Work Phone: [facility] Work Phone: 2022 12:28-0400 Body weight 103.87 kg Patel H Timmis Work Phone: [facility] Work Phone: 08-14-2022 14:25-0500 Body height 180.34 cm Patel Mendozas Work Phone: [facility] [address] Work Phone: 08-14-2022 14:25-0500 Body mass index (BMI) [Ratio] 31.67 kg/m2 Patel Mendozas Work Phone: [facility] [address] Work Phone: 08-14-2022 14:25-0500 Body surface area Derived from formula 2.23 m2 Patel Mendozas Work Phone: [facility] [address] Work Phone: 08-14-2022 14:25-0500 Body temperature 96.6 [degF] Patel Mendozas Work Phone: [facility] [address] Work Phone: 08-14-2022 14:25-0500 Body weight 103.01 kg Patel Mendozas Work Phone: [facility] 4100 Work Phone: 06-24-2022 14:58-0500 Blood Pressure Location Billy ARBOLEDAAyana [facility] [place] 06-24-2022 14:58-0500 Diastolic blood pressure 88 mm[Hg] Billy HRER General Surgery [place] 06-24-2022 14:58-0500 Heart rate 76 /min Billy HERR General Surgery [place] 06-24-2022 14:58-0500 Respiratory rate 16 /min Billy HERR [facility] [place] 06-24-2022 14:58-0500 Systolic blood pressure 130 mm[Hg] Billy ARBOLEDAAyana [facility] Surgery [place] 05-26-2022 11:37-0500 Body temperature 97.59 [degF] Nikita Mario MD Work Phone: [employer] 05-26-2022 11:37-0500 Diastolic blood pressure 90 mm[Hg] Nikita Mario MD Work Phone: [employer] 05-26-2022 11:37-0500 SaO2% (BldA) [Mass fraction] 94 % Nikita Mario MD Work Phone: [employer] 05-26-2022 11:37-0500 Systolic blood pressure 134 mm[Hg] Nikita Mario MD Work Phone: [employer] 05-26-2022 08:22-0500 Heart rate 57 /min Nikita Mario MD Work Phone: [employer] 05-26-2022 08:22-0500 Respiratory rate 18 /min Nikita Mario MD Work Phone: [employer] 05-25-2022 20:00-0500 Body height 182.9 cm Nikita Mario MD Work Phone: [facility] [employer] 05-25-2022 20:00-0500 Body mass index (BMI) [Ratio] 30.32 kg/m2 Nikita Mario MD Work Phone: [employer] 05-25-2022 20:00-0500 Body weight 101.4 kg Nikita Mario MD Work Phone: [employer] Encounters Encounter Date Encounter Type Care Provider Facility Start: 11-18-2023 End: 11-18-2023 ambulatory Hicks Taledd Edmondsoni [place] [place]: 11-18-2023 End: 11-18-2023 Patient encounter procedure Fabiola Edmondsoni [facility] Start: 07-09-2023 End: 07-09-2023 Patient encounter procedure Fabiola Nichole [facility] Start: 05-17-2023 End: 05-17-2023 Patient encounter procedure Fabiola Nichole [facility] Start: 04-16-2023 End: 04-16-2023 Patient encounter procedure Billy HERR General Surgery Nill/Said Daisy Start: 01-22-2023 Chart Update Patel patel Work Phone: [facility] Work Phone: Start: 12-25-2022 Patient encounter procedure Patel Allyson Eleni Work Phone: [facility] 3[facility] Work Phone: Start: 12-25-2022 Postop follow up vis it related to original px Patel Angelesjonnyamanda Work Phone: [facility] 3[facility] Work Phone: Start: 12-25-[address] Nazario Oglesby Facility:[id number] Start: 12-17-2022 End: 12-18-2022 Evaluation and management of inpatient Nazario Steinberg 7th Flr Rm 719 A Start: 2022 Office outpatient vi sit 25 minutes Patel Fontaine Work Phone: [facility] 4[facility] Work Phone: Start: 2022 Patient encounter procedure Patel Fontaine Work Phone: [facility]awwmz[facility]mlansr[facility] 4108 Work Phone: Start: 2022 ambulatory PATEL FONTAINE Facility: [id number] Start: 12-01-2022 Chart Update Patel patel Work Phone: TN-Wcqzveqnsckjwm-Vgs [facility] Work Phone: Start: 12-01-[address] Nazario Oglesby [facility] [place] [facility] Start: 12-01-2022 Encounter for preprocedural laboratory examination Dr. Nazario Oglesby [facility] Start: 10-09-2022 End: 10-10-[address] ANUPAM PEÑALOZA . Facility:H1 Start: 10-02-2022 End: 10-03-[address] ANUPAM PEÑALOZA . Facility: Start: 09-28-2022 End: 09-28-2022 ambulatory NAV FELIX Facility:H1 Start: 09-10-[address] DOCTOR GRIFFIN Facility :H1 Start: 09-09-2022 End: 09-10-[address] SHIELA KINCAID Facility:H1 Start: 08-20-2022 End: 08-21-[address] DOCTOR GRIFFIN Facility: Start: 08-16-2022 Chart Update Patel patel Work Phone: CC[facility]ael[facility]uncuduk[facility] 4104 Work Phone: Start: 08-14-2022 ambulatory PATEL FONTAINE Facility: [id number] Start: 08-14-2022 Office outpatient ne w 45 minutes Patel Fontaine Work Phone: LJ-Ydsdrgduwjopjw-Ksc urban Work Phone: Start: 08-14-2022 Patient encounter procedure Patel Fontaine Work Phone: IT[facility]Veugabohnrizre[facility] 4101 Work Phone: Start: 07-28-2022 End: 07-28-2022 Patient encounter procedure Billy HERR General Surgery Nill/Myrna Villa Start: 07-21-2022 End: 07-22-[address] PATEL FONTAINE Facility:H1 Start: 07-15-2022 End: 07-15-[address] BILLY HERR . Facility:H1 Start: 06-24-2022 End: 06-24-2022 Patient encounter procedure Billy HERR General Surgery Nilayana/Said Daisy Start: 06-17-2022 End: 06-19-2022 Subsequent hospital visit by physician [facility] Cat Scan Room [facility] CT Scan Comment on above: Subdural hematoma Start: 06-17-2022 End: 06-17-[address] ANUPAM PEÑALOZA . Facility:H1 Start: 06-09-2022 End: 06-10-[address] ANUPAM PEÑALOZA . Facility:H1 Start: 06-04-2022 End: 06-05-[address] ANUPAM PEÑALOZA . Facility:H1 Start: 05-25-2022 End: 05-26-2022 Evaluation and management of inpatient [facility] Start: 05-25-2022 End: 05-26-2022 Evaluation and management of inpatient Nikita Mario MD Work Phone: [facility] 1C Stepdown Comment on above: SAH (subarachnoid he morrhage) (HCC) (Primary Dx); Subdural hematoma; Subarachnoid hemorrhage (HCC) Start: 05-25-2022 End: 05-25-[address] ANUPAM PEÑALOZA . Facility:H1 Procedures Date Procedure Procedure Detail Performing Clinician Start: 11-18-2023 Colonoscopy Fabiola li Start: 05-17-2023 Colonoscopy Fabiola li Comment on above: 2 polyps, one 2.4 cm clipped Start: 03-24-2023 Colonoscopy Billy BADILLO Start: 12-12-2022 Thyroidectomy Billy MADRID Start: 02-01-2023 Excision of cyst Michae l NEMESIO Comment on above: left upper chest Start: 06-17-2022 Ct head/brain w/o co ntrast material Raffi Flores Matthews [employer] Work Phone: Start: 05-26-2022 Ct angiography neck w/contrast/noncontrast Tobi Kim DO Start: 05-26-2022 Ct head/brain w/o co ntrast material Christiano Lew DO Work Phone: Start: 05-26-2022 Ct head/brain w/o co ntrast material Tobi Sanchez DO Start: 05-25-2022 Antibody screen Saul Mario MD Work Phone: Start: 05-25-2022 CT LUMBAR SPINE TRAU MA RECONSTRUCTION Carter Turner MD Work Phone: Start: 05-25-2022 CT THORACIC SPINE TR AUMA RECONSTRUCTION Carter Turner MD Work Phone: Start: 05-25-2022 Ct thorax w/o contra st material Carter Turner MD Work Phone: Start: 05-25-2022 Blood typing serologic abo Nikita Mario MD Work Phone: Start: 05-25-2022 TRAUMA PANEL Nikita Mario MD Work Phone: Biopsy of thyroid Billy BADILLO History of thyroidectomy S/P thyroidectom y Patel Fontaine Other Phone: Plan of Treatment Date Care Activity Detail Author Start: 03-05-2023 FUV, Provider: Nazario Oglesby, Status: Pen, Time: 10:00 AM FUV, Provider: Nazario Oglesby, Status: Pen, Time: 10:00 AM [facility]bp[facility]ef[facility] Work Phone: Start: 01-08-2023 POV, Provider: Nazario Oglesby, Status: Pen, Time: 12:45 PM POV, Provider: Nazario Oglesby, Status: Pen, Time: 12:45 PM [facility] 4100 Work Phone: Start: 12-25-2022 Patient encounter procedure [facility] Otolaryngology [place] Start: 12-25-2022 POV, Provider: Nazario Oglesby, Status: Pen, Time: 1:15 PM POV, Provider: Nazario Oglesby, Status: Pen, Time: 1:15 PM CM-Wuiizdbbpqfxkv-Jbyhjv an Work Phone: Start: 12-22-2022 SURGCMC, Provider: Nazario Oglesby, Status: Pen, Time: 7:00 AM SURGCMC, Provider: Nazario Oglesby, Status: Pen, Time: 7:00 AM GN-Knyvwkdnkxumkv-Vchvtp an Work Phone: Start: 12-17-2022 End: 12-18-2023 [facility] Start: 12-17-2022 SURGAMC, Provider: Nazario Oglesby, Status: Pen, Time: 7:00 AM SURGAMC, Provider: Nazario Oglesby, Status: Pen, Time: 7:00 AM ND-Irvjpjxpqcnoku-Zpsghp an Work Phone: Start: 2022 VIRFUVHOMMary, Provider : Nazario Oglesby, Status: Pen, Time: 12:15 PM VIRFUVHOME, Provider: Nazario Oglesby, Status: Pen, Time: 12:15 PM OL-Xgdxanjwqdzabu-[facility] 4100 Work Phone: Start: 06-26-2022 End: 05-27-2023 CT HEAD WO CONTRAST CT HEAD WO CONTRAST Imaging Routine Subdural hematoma Expected: 06/26/2022, Expires: 05/27/2023 [facility] Work Phone: Comment on above: Expected: 06/26/2022 , Expires: 05/27/2023 Start: 06-22-2022 End: 06-22-2022 Patient encounter procedure 06/22/2022 Office Visit Neurosurgery Yen Amaya, [employer] PROFESSIONAL [address] [facility] [address] [place] [address] [facility] Start: 05-27-2022 Annual Wellness Visi t (AWV) Annual Wellness Visit (AWV) [facility] Start: 01-12-2022 Influenza vaccination Flu vaccine (# 1) [facility] Start: 2017 Pneumococcal 65+ yea rs Vaccine (1 - PCV) Pneumococcal 65+ years Vaccine (1 - PCV) [facility] Start: 2002 Shingles vaccine (1 of 2) Shingles vaccine (1 of 2) [facility] Start: 1997 Screening for malignant neoplasm of colon [facility] Start: 1992 Lipid panel Lipids [facility] Start: 12-05-1987 Diabetes screen Diabetes screen [facility] Start: 12-05-1971 DTaP/Tdap/Td vaccine (1 - Tdap) DTaP/Tdap/Td vaccine (1 - Tdap) [facility] Start: 1970 Hepatitis C screening Hepatitis C sc reen [facility] Start: 1964 Depression Screen Depression Screen [facility] Start: 06-05-1953 COVID-19 Vaccine (#1) COVID-19 Vacci ne (#1) [facility] Oxygen therapy [Minimum Data Set] Initiate Oxygen Therapy Protocol Respiratory Care Routine As Needed until discontinued starting 05/25/2022 [facility] Work Phone: Comment on above: As Needed until disc ontinued starting 05/25/2022 End: 05-25-2022 TRAUMA PANEL TRAUMA PANEL Lab STAT One Time for 1 Occurrences starting 05/25/2022 until 05/25/2022 [facility] Work Phone: Comment on above: One Time for 1 Occur rences starting 05/25/2022 until 05/25/2022 Immunizations Immunization Date Immunization Notes Care Provider Fa cili 04-15-2020 influenza virus vaccine, unspecified formulation Hicks Sarmini [facility] 05-06-2019 influenza virus vaccine, unspecified formulation Hicks Sarmini [facility] 05-06-2019 pneumococcal polysaccharide vaccine, 23 valent Hicks Sarmini [facility] 04-28-2018 pneumococcal conjuga te vaccine, 13 valent Hicks Sarmini [facility] 03-28-2018 influenza virus vaccine, unspecified formulation Hicks Sarmini [facility] 04-26-2017 influenza, unspecifi ed formulation Hicks Sarmini [facility] 04-21-2016 pneumococcal polysaccharide vaccine, 23 valent Hicks Sarmini [facility] NEGATED: Highlighted row has not occurred!06-24-2022 influenza virus vaccine, unspecified formulation Billy ARBOLEDAAyana General Surgery [place] Payers Date Payer Category Payer Unknown [id number] 1957 Medicare [id number] 1.2.8 [id number] 1952 Unknown [id number] 2.16. [id number] 1952 Unknown [id number] 2.16.84 0.1.554350.3.579.2.593 1952 Unknown [id number] 2.16.84 0.1.718543.3.579.2.593 1952 Unknown [id number] 2.16.84 0.1.222961.3.579.2.593 1952 Unknown [id number] 2.16.84 0.1.194230.3.579.2.593 1952 Unknown [id number] 2.16.84 0.1.072885.3.579.2.593 1952 Unknown [id number] 2.16.84 0.1.382105.3.579.2.593 1952 Unknown [id number] 2.16.84 0.1.478746.3.579.2.593 1952 Unknown [id number] 2.16.84 0.1.602987.3.579.2.593 1952 Unknown [id number] 2.16.84 0.1.791574.3.579.2.593 1952 Unknown [id number] 2.16.84 0.1.217619.3.579.2.593 1952 Unknown [id number] 2.16.84 0.1.966209.3.579.2.593 1952 Unknown [id number] 2.16.84 0.1.567987.3.579.2.593 1952 Unknown [id number] 2.16. 840.1.823274.3.579.2.356 1952 Unknown [id number] . [id number] 1952 Unknown [id number] .. [id number] 1952 Unknown [id number] .. [id number] 1952 Unknown [id number] .. [id number] 1952 Unknown [id number] 2.16.8 40.1.409625.3.579.2.727 1952 Unknown [id number] 2.16.8 [id number] Unknown Social History Date Type Detail [facility] [employer] Work Phone: Start: 05-26-2022 History SDOH Alcohol Frequency 2 [facility] [employer] Phone: Start: 05-26-2022 History SDOH Alcohol Std Drinks 1 [employer] Phone: Start: 1950 Sex Assigned At Not on file [facility] [employer] Phone: Start: 05-15-2022 End: 05-25-2022 Exposure to SARS-CoV-2 (event) Not sure [employer] Start: 06-24-2022 End: 07-09-2023 Tobacco smoking status Ex-smoker (finding) General Surgery Daisy Tobacco smoking status Never Gener al Surgery Daisy Sex Assigned At Male [facility] Medical Equipment Procedure Code Equipment Code Equipment Origin al Text Equipment Identifier Dates Unknown Unknown 11/18/23 Non Biological Unknown FDA Start: 11-18-2023 FDA Start: 11-18-2023 Functional Status Date Assessment Result Facility 11-18-2023 Functional Status N/A [facility] 07-09-2023 Functional Status N/A [facility] 05-17-2023 Functional Status N/A [facility] 06-24-2022 Functional Status N/A [facility] [place] Functional observable [facility] Mental Status Date Assessment Result Facility 12-17-2022 Cognitive functions 18-Dec-19 2317:06 [facility] Clinical Notes 05-14-2022 to 11-19-2023 Note Date & Type Note Facility 11-19-2023 Note [id number] 3#1.00TIFF [facility] 11-18-2023 Evaluation + Plan note Extrac yulia from: Title:ANES Post-operative Note---General Author: Omer Lockwood MD. Date:11/18/23 Plan Transfer/Discharge: Transfer/Discharge Discharge when meets criteria ( To home ). Extracted from: Title:ANES Pre-operative Note 2022 Author:Omer Reid. Date:11/18/23 Plan [place] [employer] Anesthesiologists (ASA) physical status classification: Class III. Anesthetic Preoperative Plan: Anesthesia General. [facility]06-06-2024 Hospital Discharge instructions Patient Education 11/18/2023 11:53:28 Hemorrhoids, Rkzs-sn-Ijja Hemorrhoids Hemorrhoids are swollen veins that may develop: In the butt (rectum). These are called internal hemorrhoids. Around the opening of the butt (anus). These are called external hemorrhoids. Hemorrhoids can cause pain, itching, or bleeding. Most of the time, they do not cause serious problems. They usually get better with diet changes, lifestyle changes, and other home treatments. What are the causes? This condition may be caused by: Having trouble pooping (constipation). Pushing hard (straining) to poop. Watery poop (diarrhea). . Being very overweight (obese). Sitting for long periods of time. Heavy lifting or other activity that causes you to strain. Anal sex. Riding a bike for a long period of time. What are the signs or symptoms? Symptoms of this condition include: Pain. Itching or soreness in the butt. Bleeding from the butt. Leaking poop. Swelling in the area. One or more lumps around the opening of your butt. How is this diagnosed? A doctor can often diagnose this condition by looking at the affected area. The doctor may also: Do an exam that involves feeling the area with a gloved hand (digital rectal exam). Examine the area inside your butt using a small tube (anoscope). Order blood tests. This may be done if you have lost a lot of blood. Have you get a test that involves looking inside the colon using a flexible tube with a camera on the end (sigmoidoscopy or colonoscopy). How is this treated? This condition can usually be treated at home. Your doctor may tell you to change what you eat, make lifestyle changes, or try home treatments. If these do not help, procedures can be done to remove the hemorrhoids or make them smaller. These may involve: Placing rubber bands at the base of the hemorrhoids to cut off their blood supply. Injecting medicine into the hemorrhoids to shrink them. Shining a type of light energy onto the hemorrhoids to cause them to fall off. Doing surgery to remove the hemorrhoids or cut off their blood supply. Follow these instructions at home: Eating and drinking Eat foods that have a lot of fiber in them. These include whole grains, beans, nuts, fruits, and vegetables. Ask your doctor about taking products that have added fiber (fibersupplements). Reduce the amount of fat in your diet. You can do this by: ?Eating low-fat dairy products. ?Eating less red meat. ?Avoiding processed foods. Drink enough fluid to keep your pee (urine) pale yellow. Managing pain and swelling Take a warm-water bath (sitz bath) for 20 minutes to ease pain. Do this 3 4 times a day. You may dothis in a bathtub or using a portable sitz bath that fits over the toilet. If told, put ice on the painful area. It may be helpful to use ice between your warm baths. ?Put ice in a plastic bag. ?Place a towel between your skin and the bag. ?Leave the ice on for 20 minutes, 2 3 times a day. General instructions Take uuco-yms-wzvimbh and prescription medicines only as told by your doctor. ?Medicated creams and medicines may be used as told. Exercise often. Ask your doctor how much and what kind of exercise is best for you. Go to the bathroom when you have the urge to poop. Do not wait. Avoid pushing too hard when you poop. Keep your butt dry and clean. Use wet toilet paper or moist towelettes after pooping. Do not sit on the toilet for a long time. Keep all follow-up visits as told by your doctor. This is important. Contact a doctor if you: Have pain and swelling that do not get better with treatment or medicine. Have trouble pooping. Cannot poop. Have pain or swelling outside the area of the hemorrhoids. Get help right away if you have: Bleeding that will not stop. Summary Hemorrhoids are swollen veins in the butt or around the opening of the butt. They can cause pain, itching, or bleeding. Eat foods that have a lot of fiber in them. These include whole grains, beans, nuts, fruits, and vegetables. Take a warm-water bath (sitz bath) for 20 minutes to ease pain. Do this 3 4 times a day. This information is not intended to replace advice given to you by your health care provider. Make sure you discuss any questions you have with your health care provider. Document Revised: 12/10/2021 Document Reviewed: 12/10/2021 [employer] Patient Education 2022 [employer]. 11/18/2023 11:53:25 Colon Polyps Colon Polyps Colon polyps are tissue growths inside the colon, which is part of the large intestine. They are one of the types of polyps that can grow in the body. A polyp may be a round bump or a mushroom-shapedgrowth. You could have one polyp or more than one. Most colon polyps are noncancerous (benign). However, some colon polyps can become cancerous over time. Finding and removing the polyps early can help prevent this. What are the causes? The exact cause of colon polyps is not known. What increases the risk? The following factors may make you more likely to develop this condition: Having a family history of colorectal cancer or colon polyps. Being older than 45 years of age. Being younger than 45 years of age and having a significant family history of colorectal cancer or colon polyps or a genetic condition that puts you at higher risk of getting colon polyps. Having inflammatory bowel disease, such as ulcerative colitis or Crohn's disease. Having certain conditions passed from parent to child (hereditary conditions), such as: ?Familial adenomatous polyposis (FAP). ?Oneill syndrome. ?Turcot syndrome. ?Peutz Jeghers syndrome. ?MUTYH-associated polyposis (MAP). Being overweight. Certain lifestyle factors. These include smoking cigarettes, drinking too much alcohol, not gettingenough exercise, and eating a diet that is high in fat and red meat and low in fiber. Having had childhood cancer that was treated with radiation of the abdomen. What are the signs or symptoms? Many times, there are no symptoms. If you have symptoms, they may include: Blood coming from the rectum during a bowel movement. Blood in the stool (feces). The blood may be bright red or very dark in color. Pain in the abdomen. A change in bowel habits, such as constipation or diarrhea. How is this diagnosed? This condition is diagnosed with a colonoscopy. This is a procedure in which a lighted, flexible scope is inserted into the opening between the buttocks (anus) and then passed into the colon to examine the area. Polyps are sometimes found when a colonoscopy is done as part of routine cancer screening tests. How is this treated? This condition is treated by removing any polyps that are found. Most polyps can be removed during a colonoscopy. Those polyps will then be tested for cancer. Additional treatment may be needed depending on the results of testing. Follow these instructions at home: Eating and drinking Eat foods that are high in fiber, such as fruits, vegetables, and whole grains. Eat foods that are high in calcium and vitamin D, such as milk, cheese, yogurt, eggs, liver, fish, and broccoli. Limit foods that are high in fat, such as fried foods and desserts. Limit the amount of red meat, precooked or cured meat, or other processed meat that you eat, such as hot dogs, sausages, caldera, or meat loaves. Limit sugary drinks. Lifestyle Maintain a healthy weight, or lose weight if recommended by your health care provider. Exercise every day or as told by your health care provider. Do not use any products that contain nicotine or tobacco, such as cigarettes, e- cigarettes, and chewing tobacco. If you need help quitting, ask your health care provider. Do not drink alcohol if: ?Your health care provider tells you not to drink. ?You are , may be , or are planning to become . If you drink alcohol: ?Limit how much you use to: ?0 1 drink a day for women. ?0 2 drinks a day for men. ?Know how much alcohol is in your drink. In the [place] one drink equals one 12 oz bottle of beer (355 mL), one 5 oz glass of wine (148 mL), or one 1 oz glass of hard liquor (44 mL). General instructions Take djcf-spl-fudelgx and prescription medicines only as told by your health care provider. Keep all follow-up visits. This is important. This includes having regularly scheduled colonoscopies. Talk to your health care provider about when you need a colonoscopy. Contact a health care provider if: You have new or worsening bleeding during a bowel movement. You have new or increased blood in your stool. You have a change in bowel habits. You lose weight for no known reason. Summary Colon polyps are tissue growths inside the colon, which is part of the large intestine. They are one type of polyp that can grow in the body. Most colon polyps are noncancerous (benign), but some can become cancerous over time. This condition is diagnosed with a colonoscopy. This condition is treated by removing any polyps that are found. Most polyps can be removed during a colonoscopy. This information is not intended to replace advice given to you by your health care provider. Make sure you discuss any questions you have with your health care provider. Document Revised: 09/18/2020 Document Reviewed: 09/18/2020 [employer] Patient Education 2022 [employer]. 11/18/2023 11:53:24 Colonoscopy, Care After Surgery Salam (CUSTOM) Colonoscopy Care After Surgery Please read the instructions outlined below and refer to this sheet in the next few weeks. These discharge instructions provide you with general information on caring for yourself after you leave thehospital. Your doctor may also give you specific instructions. While your treatment has been planned according to the most current medical practices available, unavoidable complications occasionally occur. If you have any problems or questions after discharge, please call your doctor. ACTIVITY You may resume your regular activity, but move at a slower pace for the next 24 hours. Take frequent rest periods for the next 24 hours. Walking will help get rid of the air and reduce the bloated feeling in your abdomen (belly). No driving for 24 hours (because of the anesthesia (medicine) used during the test). You may shower. Do not sign any important legal documents or operate any machinery for 24 hours (because of the anesthesia used during the test). NUTRITION Drink plenty of fluids. You may resume your normal diet as instructed by your doctor. Begin with a light meal and progress to your normal diet. Heavy or fried foods are harder to digestand may make you feel nauseated (sick to your stomach). Avoid alcoholic beverages for 24 hours or as instructed. MEDICATIONS You may resume your normal medications unless your doctor tells you otherwise. WHAT YOU CAN EXPECT TODAY Some feelings of bloating in the abdomen. Passage of more gas than usual. Spotting of blood in your stool or on the toilet paper. FOLLOW-UP Your doctor will discuss the results of your test with you. SEEK IMMEDIATE MEDICAL ATTENTION IF: There is more than a spotting of blood in your stool. There is abdominal distention (your abdomen is swollen). There is vomiting. You have a temperature over 101.5 F. There is abdominal pain or discomfort that is severe or gets worse throughout the day. Follow Up Care 07/09/2023 11:47:41 With:Dayanara VALDES, FAHAD Rivas, [facility] Address: When: Unknown Comments:Call for any problems. Office will call to schedule follow up appointment [facility]2023 Hospital Discharge instructions Patient Education 05/17/2023 13:20:36 Colonoscopy, Care After Surgery Salam (CUSTOM) Colonoscopy Care After Surgery Please read the instructions outlined below and refer to this sheet in the next few weeks. These discharge instructions provide you with general information on caring for yourself after you leave thespital. Your doctor may also give you specific instructions. While your treatment has been planned according to the most current medical practices available, unavoidable complications occasionally occur. If you have any problems or questions after discharge, please call your doctor. ACTIVITY You may resume your regular activity, but move at a slower pace for the next 24 hours. Take frequent rest periods for the next 24 hours. Walking will help get rid of the air and reduce the bloated feeling in your abdomen (belly). No driving for 24 hours (because of the anesthesia (medicine) used during the test). You may shower. Do not sign any important legal documents or operate any machinery for 24 hours (because of the anesthesia used during the test). NUTRITION Drink plenty of fluids. You may resume your normal diet as instructed by your doctor. Begin with a light meal and progress to your normal diet. Heavy or fried foods are harder to digestand may make you feel nauseated (sick to your stomach). Avoid alcoholic beverages for 24 hours or as instructed. MEDICATIONS You may resume your normal medications unless your doctor tells you otherwise. WHAT YOU CAN EXPECT TODAY Some feelings of bloating in the abdomen. Passage of more gas than usual. Spotting of blood in your stool or on the toilet paper. FOLLOW-UP Your doctor will discuss the results of your test with you. SEEK IMMEDIATE MEDICAL ATTENTION IF: There is more than a spotting of blood in your stool. There is abdominal distention (your abdomen is swollen). There is vomiting. You have a temperature over 101.5 F. There is abdominal pain or discomfort that is severe or gets worse throughout the day. 05/17/2023 13:20:34 Colon Polyps Colon Polyps Colon polyps are tissue growths inside the colon, which is part of the large intestine. They are one of the types of polyps that can grow in the body. A polyp may be a round bump or a mushroom-shapedgrowth. You could have one polyp or more than one. Most colon polyps are noncancerous (benign). However, some colon polyps can become cancerous over time. Finding and removing the polyps early can help prevent this. What are the causes? The exact cause of colon polyps is not known. What increases the risk? The following factors may make you more likely to develop this condition: Having a family history of colorectal cancer or colon polyps. Being older than 45 years of age. Being younger than 45 years of age and having a significant family history of colorectal cancer or colon polyps or a genetic condition that puts you at higher risk of getting colon polyps. Having inflammatory bowel disease, such as ulcerative colitis or Crohn's disease. Having certain conditions passed from parent to child (hereditary conditions), such as: ?Familial adenomatous polyposis (FAP). ?Oneill syndrome. ?Turcot syndrome. ?Peutz Jeghers syndrome. ?MUTYH-associated polyposis (MAP). Being overweight. Certain lifestyle factors. These include smoking cigarettes, drinking too much alcohol, not gettingenough exercise, and eating a diet that is high in fat and red meat and low in fiber. Having had childhood cancer that was treated with radiation of the abdomen. What are the signs or symptoms? Many times, there are no symptoms. If you have symptoms, they may include: Blood coming from the rectum during a bowel movement. Blood in the stool (feces). The blood may be bright red or very dark in color. Pain in the abdomen. A change in bowel habits, such as constipation or diarrhea. How is this diagnosed? This condition is diagnosed with a colonoscopy. This is a procedure in which a lighted, flexible scope is inserted into the opening between the buttocks (anus) and then passed into the colon to examine the area. Polyps are sometimes found when a colonoscopy is done as part of routine cancer screening tests. How is this treated? This condition is treated by removing any polyps that are found. Most polyps can be removed during a colonoscopy. Those polyps will then be tested for cancer. Additional treatment may be needed depending on the results of testing. Follow these instructions at home: Eating and drinking Eat foods that are high in fiber, such as fruits, vegetables, and whole grains. Eat foods that are high in calcium and vitamin D, such as milk, cheese, yogurt, eggs, liver, fish, and broccoli. Limit foods that are high in fat, such as fried foods and desserts. Limit the amount of red meat, precooked or cured meat, or other processed meat that you eat, such as hot dogs, sausages, caldera, or meat loaves. Limit sugary drinks. Lifestyle Maintain a healthy weight, or lose weight if recommended by your health care provider. Exercise every day or as told by your health care provider. Do not use any products that contain nicotine or tobacco, such as cigarettes, e- cigarettes, and chewing tobacco. If you need help quitting, ask your health care provider. Do not drink alcohol if: ?Your health care provider tells you not to drink. ?You are , may be , or are planning to become . If you drink alcohol: ?Limit how much you use to: ?0 1 drink a day for women. ?0 2 drinks a day for men. ?Know how much alcohol is in your drink. In the [place] one drink equals one 12 oz bottle of beer (355 mL), one 5 oz glass of wine (148 mL), or one 1 oz glass of hard liquor (44 mL). General instructions Take ndke-tzu-nshsvpy and prescription medicines only as told by your health care provider. Keep all follow-up visits. This is important. This includes having regularly scheduled colonoscopies. Talk to your health care provider about when you need a colonoscopy. Contact a health care provider if: You have new or worsening bleeding during a bowel movement. You have new or increased blood in your stool. You have a change in bowel habits. You lose weight for no known reason. Summary Colon polyps are tissue growths inside the colon, which is part of the large intestine. They are one type of polyp that can grow in the body. Most colon polyps are noncancerous (benign), but some can become cancerous over time. This condition is diagnosed with a colonoscopy. This condition is treated by removing any polyps that are found. Most polyps can be removed during a colonoscopy. This information is not intended to replace advice given to you by your health care provider. Make sure you discuss any questions you have with your health care provider. Document Revised: 09/18/2020 Document Reviewed: 09/18/2020 [employer] Patient Education 2022 [employer]. Follow Up Care 05/11/2023 09:33:00 With:Dayanara VALDES, FAHAD Rivas [facility] Address: [address] [place] [address], [address] [phone] When: Unknown Comments:office will call for follow up [facility]2023 Evaluation + Plan noteExtracted from: Title:ANES Post-operative Note 2022 Author:Red Magana ams, CRNA Date:05/17/23 Plan Transfer/Discharge: Transfer/Discharge Discharge when meets criteria ( To home ). Extracted from: Title:ANES Pre-operative Note - Adult Author:Red Morales CRNA. Date:05/17/23 Plan [place] [employer]hesiologists (ASA) physical status classification: Class III. Anesthetic Preoperative Plan: Anesthesia General. [facility]07-07-2023 NoteSend Summary: Note Recipients: Discharge: Summary: Admission Date: .17-Dec-2022 09:13:00 Discharge Date: 18-Dec-2022 Admission Reason: thyroid goiter Final Discharge Diagnoses: Goiter Procedures: Date: 17-Dec-2022 13:58:00 Procedure Name: 1. Total Substernal Thyroidectomy; Parathyroid Reimplantation Condition at Discharge: satisfactory Disposition at Discharge: home Vital Signs: T PRBPMAPSpO2 [id number]% Date/Time12/18 7:5712/18 7:5712/18 7:5712/18 7:5712/17 22:477/7 7:57 Range(35.6C - 36.4C ) (62 - 69 ) (16 - 18 ) (130 - 152 )/ (76 - 87 ) (98 - 108 ) (96% - 100% ) As of 17-Dec-2022 15:43:00, patient is on 2 L/min of oxygen via room air. Date: Weight/Scale Type:Height: 17-Dec-2022 15:59472 kg / oynrmygf335.1 cm Hospital Course: Briefly, the patient is a 72 year-old male with prior hx of a diffuse colloid goiter. Pt opts for total substernal thyroidectomy and parathyroid reimplantation. HOSPITAL COURSE: The patient underwent a total substernal thyroidectomy and parathyroid reimplantation on 12/17/22, which patient tolerated very well and remained stable in the postoperative period. On postoperative day #1, patient was tolerating a Soft diet, and remained afebrile with stable vital signs. Patient was ordered oral narcotics for pain control. Patient was judged stable for discharge home on 12/18/22, tolerating a diet well, afebrile, stable vital signs and lab values, with adequate pain control. The wound was clean and dry. MISSY drain was pulled per attending discretion. Patient was instructed to follow up in the office after discharge and was given prescription for Percocet for pain. Discharge Information: and Continuing Care: Lab Results - Pending: Surgical Pathology Drawn at 17-Dec-2022 13:03:00 Radiology Results - Pending: None Discharge Instructions: Activity: activity as tolerated. May shower.. day after discharge May not drive while taking narcotics. No pushing, pulling, or lifting objects greater than 20 pounds for 2 week(s). Nutrition/Diet: Diet Consistency/Texture: soft Drain/Tube Care: Type: MISYS (Benny Lu) Site: Neck Suction: self Other Instructions: You have a bulb drain in place that you will be sent home with. To empty the drain, open cap and the top and tip into cup to empty. Squeeze drain then replace the cap. Please empty the drain and record its output twice daily and as needed, and bring these numbers to your follow up appointment. This drain is sutured into place. Please keep it dry and change the dressing sponge around the drain daily or if it gets soiled. Additional Orders: Additional Instructions: Instructions post total thyroidectomy: Resumes home meds except no ASA, NSAIDS for 48 hours after discharge Okay to resume your Eliquis 12/19 Percocet is being prescribed to you for pain control. This contains Tylenol. Daily dose of Tylenol is 4,000mg Shower day after discharge, avoid putting direct water onto your incision site and MISSY drain site No Lifting > 20lbs x 2 weeks, No driving x 5 days, Return to work after post-op visit Follow up visit with Dr Oglesby is schedule for 12/25/2022. Follow Up Appointments: Follow-Up Appointment 01: Physician/Dept/Service: Dr. Nazario Oglesby Reason for Referral: Post-Op Visit Scheduled Date/Time: 25-Dec-2022 13:15 Location: [facility] Otolaryngology Annette Discharge Medications: Home Medication oxycodone-acetaminophen 5 mg-325 mg oral tablet - 1 tab(s) orally every 6 hours -.Meds to Beds as needed for severe pain Synthroid 125 mcg (0.125 mg) oral tablet - 1 tab(s) orally once a day -.Meds to Beds calcium carbonate 1250 mg (500 mg elemental calcium) oral tablet - 1 tab(s) orally once a day -.Meds to Beds carvedilol 12.5 mg oral tablet - 1 tab(s) orally 2 times a day Eliquis 5 mg oral tablet - 1 tab(s) orally 2 times a day Zinc 140 mg (as elemental zinc 50 mg) oral tablet - 1 tab(s) orally once a day magnesium glycinate 200 mg oral tablet - 1 tab(s) orally once a day PRN Medication DNR Status: Code StatusCode Status order at time of discharge: Full Code Electronic Signatures: Zainab Kohli (DRUM STENCILER-CAREER PROFESSIONAL) (Signed 18-Dec-2022 09:01) Authored: Send Summary, Summary Content, Ongoing Care, DNR Status, Note Completion Last Updated: 18-Dec-2022 09:01 by Zainab Kohli (DRUM STENCILER-CAREER PROFESSIONAL)[facility]07-06-2023 NotePROCEDURE DETAILS Preoperative Diagnosis: Diffuse colloid goiter, 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 Total Substernal Thyroidectomy; Parathyroid Reimplantation Anesthesia: Clayton Babcock Estimated Blood Loss: 2cc Findings: large goiter Operative Report: Patient was brought to the operating room placed supine on the operating table. Proper timeout was performed. Patient was intubated utilizing the Nims tube with proper confirmation of position. Table was rotated 90 degrees patient was prepped and draped in standard fashion intraoperative nerve monitoring was confirmed. 8 cm incision was created in a natural skin crease after being infiltrated with 1% lidocaine with 1 to 100,000 units epinephrine. This was taken down to level the strap musculature anterior jugular veins were controlled. Flaps were elevated superiorly and inferiorly massive goiter was noted. Strap musculature was split in order to access the gland left thyroidectomy was performed with capsular dissection recurrent nerve was identified and carefully traced out of harm's way. Inferior parathyroid gland was identified and preserved. Vascular pedicles were controlled using double clips and LigaSure. Brush's ligament was taken down. Nerve stimulated 0.5 mA at the conclusion of the left removal. Substernal component was delivered with blunt dissection. We then proceeded to repeat the similar operation on the right-hand side with a larger goiter superior pole was taken down capsular dissection allowed me to maintain a plane of dissection to preserve the integrity of the parathyroid glands the recurrent nerve was identified in its anatomic position traced to the entrance into the larynx traced inferiorly to allow me to deliver the substernal component out of the chest. Brush's ligament was taken down and the gland was delivered pyramidal lobe was also taken down. Reinspection confirmed adequate hemostasis patient was Valsalva. Strap musculature was reapplied. PTH was drawn. Inferior parathyroid gland on the left-hand side was noted to be dusky therefore was removed minced and reimplanted into a pocket which was created into the left sternocleidal mastoid muscle with the 3-0 Vicryl suture being used to secure it. Strap musculature was reapproximated in the midline loosely. Drain was placed and secured in standard fashion layered closure took place. Steri-Strips were applied. Patient tolerated the procedure well. Attestation: Note Completion: Attending AttestationI performed the procedure without a resident Electronic Signatures: Nazario Oglesby) (Signed 17-Dec-2022 14:01) Authored: Post-Operative Note, Chart Review, Note Completion Last Updated: 17-Dec-2022 14:01 by Nazario Oglesby)[facility] 12-17-2022 NoteHistory & Physical Reviewed: I have reviewed the History and Physical dated: 01-Dec-2022 History and Physical reviewed and relevant findings noted. Patient examined to review pertinent physical findings.: No significant changes Home Medications Reviewed: no changes noted Allergies Reviewed: no changes noted ERAS (Enhanced Recovery After Surgery): ERAS Patient: yes CPM/PAT Utilization: yes Immunonutrition Recovery Drink Utilization: no Carbohydrate Supplement Drink Utilization: no Consent: COVID-19 Consent: COVID-19 Risk ConsentSurgeon has reviewed alvarado risks related to the risk of tyesha COVID-19 and if they contract COVID-19 what the risks are. Electronic Signatures: Nazario Oglesby) (Signed 17-Dec-2022 10:20) Authored: History & Physical Reviewed, ERAS, Consent, Note Completion Last Updated: 17-Dec-2022 10:20 by Nazario Oglesby)[facility] 12-01-2022 NoteHistory of Present Illness: Admission Reason: total substernal thyroidectomy HPI: Date of Consult: 12.01.22 Referring Provider: Dr. Oglesby Surgery, Date, and Length: total substernal thyroidectomy, 12/17/22, 3HRS Raul Keyes is a 71 year-old male who presents to the [facility] for perioperative risk assessment prior to surgery. Patient presents with a primary diagnosis of nontoxic goiter. Pt with mild stridor with deep inspiration. He now notices that he has some airway restriction and can hear this on deep inspiration. He denies difficulty with swallowing. When he lays down has compressive symptoms and phlegm. 07/21/22 CT chest shows enlarged heterogenous thyroid; no mass or lymphadenopathy to suggest metastasis. Pt wishes to proceed with thyroidectomy as scheduled. This note was created in part upon personal review of patients medical records. Patient is scheduled to have total substernal thyroidectomy Medical History AFIB --Eliquis AL --pt denies HTN Pulmonary nodule GERD Thyromegaly Goiter Gout Plantar fasciitis Hearing loss Obesity STOP BANG = HTN, >50, male, +snoring = 3 Caprini = 5 Surgical History Cyst removed from back 2022 Pt denies any past history of anesthetic complications such as PONV, awareness, prolonged sedation, dental damage, aspiration, cardiac arrest, difficult intubation, difficult I.V. access or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
[2025-02-28 12:18] LABS: Hematocrit 41.5 % (42.0-54.0); Hemoglobin 14.2 g/dL (14.0-18.0); Immature Granulocytes Abs Auto 0.01 10^3/uL (0.00-0.03); Immature Granulocytes Pct Auto 0.2 % (0.0-0.5); Lymphocytes Absolute Auto 0.8 10^3/uL (1.2-3.8); Mean Corpuscular HGB Conc 34.2 g/dL (29.9-35.2); Mean Corpuscular Hemoglobin 31.9 pg (25.9-34.0); Mean Corpuscular Volume 93.3 fL (80.0-94.0); Platelet Count 183 10^3/uL (150-450); Red Blood Count 4.45 10^6/uL (4.70-6.10); White Blood Count 4.2 10^3/uL (4.0-11.0)
[2025-02-28 12:40] LABS: Alanine Aminotransferase 30 U/L (16-63); Albumin Globulin Ratio 0.8; Albumin Level 3.6 g/dL (3.4-5.0); Alkaline Phosphatase 82 U/L (46-116); Anion Gap 12.5; Aspartate Amino Transferase 15 U/L (15-37); Blood Urea Nitrogen 16.0 mg/dL (7.0-18.0); Calcium 8.7 mg/dL (8.5-10.1); Carbon Dioxide 25.5 mmol/L (21.0-32.0); Chloride 105 mmol/L (98-107); Cholesterol 228 mg/dL (<=200); Estimated GFR (African America >60 (>=60 mL/min/1.73m^2); Estimated GFR (Non-African Ame >60 (>=60 mL/min/1.73m^2); Free T3 1.74 pg/mL (2.18-3.98); Globulin 4.3 g/dL; Glucose 123 mg/dL (74-106); HDL Cholesterol 40 mg/dL (40-60); NT Pro B Type Natriuretic Pept 74.0 pg/mL (<=900.0); Potassium 4.0 mmol/L (3.5-5.1); Sodium 139 mmol/L (136-145); Thyroid Stimulating Hormone 3.471 uIU/mL (0.358-3.740); Total Protein 7.9 g/dL (6.4-8.2); Triglycerides 250 mg/dL (<=150); Uric Acid 7.1 mg/dL (3.5-7.2); VLDL CHOLESTEROL 50.0 mg/dL
== END 2025-02-28 11:32 | disposition home or self-care (01) ==
LOC: LAB 11:32
PROVIDERS: PCP Family Medicine; Visit Provider Family Medicine
DX: E04.9 Nontoxic goiter, unspecified (principal); K21.9 Gastro-esophageal reflux disease without esophagitis; I48.0 Paroxysmal atrial fibrillation; I11.0 Hypertensive heart disease with heart failure; E78.5 Hyperlipidemia, unspecified; R73.09 Other abnormal glucose; M10.9 Gout, unspecified; E03.9 Hypothyroidism, unspecified; Z12.5 Encounter for screening for malignant neoplasm of prostate; R53.83 Other fatigue; I50.30 Unspecified diastolic (congestive) heart failure
CPT/HCPCS: 36415; 80053; 80061; 83036; 83880; 84436; 84443; 84481; 84550; 85025; G0103

== ENCOUNTER 2025-03-08 09:38 | Outpatient (OUT) | payer MEDICARE, SELFPAY ==
--- NOTE | 2025-03-08 09:43 | US_ITS ---
The [address] [address] Patient Name: RAUL ADHIKARI MRN: [id number] date: 1950 Sex: M Assigned Patient Location: CARD Current Patient Location: CARD Accession/Order Number: [id number] Exam Date: 03/08/2025 10:25 Report Date: 03/08/2025 11:15 At the request of: ANUPAM PEÑALOZA MD Procedure: US thyroid Thyroid ultrasound Reason for exam: Thyroidectomy. Previous goiter. Comparison: none Technique: Grayscale and color Doppler images of the thyroid bed were obtained. Findings: Patient is status post thyroidectomy. No suspicious abnormalities seen within the thyroid bed. No suspicious lymph nodes. US/US thyroid Impression: No suspicious abnormality is seen involving the thyroid bed. Impression dictated by: Barron Powers Jr. DBariOBari 03/08/2025 11:15 AM Dictation Location: [place] [address] Electronically authenticated by: [id number] Y Date: 03/08/2025 11:15
--- OUTSIDE RECORDS SUMMARY | 2025-03-08 09:43 | XMS_ITS | CCD ---
Author Organization [facility] CliniSyid Care Team Providers Care Hearing Aide Technician Name Role Phone Unavailable Primary Care Provider Anupam Lan MD Primary Care Provider [phone] Anupam Peñaloza Primary Care Physician KIKE [...] DR BO Primary Care Unavailable Timmis, Patel Camp Unavailable Rezaee, Nazario Unavailable Reny, Dr. Nazario Shah Attending Kathy vailable Timmis Jr, Dr. Patel Garcia Primary Care U navailable Reza, Dr. Nazario Shah Admitting Kathy vailable Timmis Jr, Dr. Patel Garcia [facility] , Dr[facility] Patel Garcia [facility]erring [facility], Dr. Nazario Shah Admitting Kathy vailable Rezaee, Dr. Nazario Shah Attending Kathy vailable Rezaee, Dr. Nazario Shah Attending Kathy vailable Rezaee, Dr. Nazario Shah Referring Kathy vailable TIMMIS, [facility] Primary Care Unavailable TIMAZS, [facility] Primary Care Unavailable Rezaee, Dr. Nazario Shah Attending Kathy vailable Rezaee, Dr. Nazario Shah Referring Kathy vailable TIMMIS, [facility] Primary Care Unavailable TIMAZS, PATEL Referring Unavailable Rezaee, Dr. Nazario Shah [...] serious breathing problems. Comment on above: Caution [employer] law prohibits the transfer of this drug [...] disintegrating tablet 4 mg polyethylene glycol 3350 51976 mg powder for oral solution (1 source) Osmotic Laxative Start: 05-25-2022 polyethylene glycol (GLYCOLAX) packet 17 g sennosides, fci 8.6 mg oral tablet (1 source) Start: [...] Complete Start: 06-15-2022 take 1 capsule by [facility] three times daily as needed for [...] pain 06-15-2022 Episodic Other aftercare (1 source) group home (current) use of anticoagulants; Translations: [extermination supervisor (current) use of anticoagulants] Onset: 3 Episodic Other aftercare (1 source) Other long term care social worker (current) drug therapy; Translations: [Other longterm (current) drug therapy] Onset: 3 Episodic Other [...] Value Interpretation Reference Range Facility [facility] Patient Letter [facility] October 27, 2024 RAUL KEYES [address] [id number] : 1950 Dear Raul, This is a reminder that you are due for an appointment with [facility]. Please contact our office at [phone] to schedule an appointment at your earliest convenience. Thank you, [facility] Normal [facility] Reminderson 10-27-2024 Reminders Reminders From: Cody Dias To: [facility] - Reminders/Recalls; Sent: 11/29/2023 10:19:16 EDT Show up: 10/12/2024 10:19:00 EDT Subject: Ambulatory Reminder Due Date/Time: 11/17/2024 10:19:00 EDT Reminder/Recall Repeat colonoscopy in 1 year (11/2024) due to tubular adenoma removed in piecemeal fashion. recall letter Normal [facility] Result Letter Officeon 11-28 Result Letter Office (Inserted Image. Un able to display) November 29, 2023 RAUL KEYES [address] [place] [id number] : 1950 Below is a summary of [...] letter prior to your next due date. [facility] [phone] Normal [facility] IntraOperative Documentson 0 11-24-2023 IntraOperative Documents [id number] F Normal [facility] Surgical Pathology Reporton 11-22-2023 Surgical Pathology Report [facility] [address] [place] [address]- Surgical Pathology Report Collected Date/Time: 11/18/2023 11:33 [...] is entirely submitted in one cassette. (DC) DC:[facility] Microscopic Description Microscopic examination performed unless gross only specified. Normal [facility] Comment on above: Performed By: #### [id number] #### [facility] Laboratory [address] [place] [address] Consenton 11-19-2023 Consent [id number]#1.00TI FF [facility] Discharge Instructionson Discharge Instructions [id number]#1.00TI FF [facility] Main OR Intraoperative Recor don 11-19-2023 Main OR Intraoperative Record IntraOp Document Type FT Summary Primary Physician: Fabiola Nichole MD Finalized Date/Time: 11/19/23 08:13:11 Pt. Name: RAUL KEYES/Sex: 1950 Male Med Rec #: [id number] Physician: Fabiola Nichole MD Financial #: [id number] Pt. Type: O Room/Bed: / Admit/Disch: 11/18/23 [...] 3 Case Attendee Emory ROSAS, Tamiko Cano EXPORT DOCUMENTS CLERK, aKren Nichole MD, Fabiola Jin Role Performed Regional Tanker Truck Driver - Primary Staff - Other Surgeon - [...] Out Tamiko Cat RN, Given Participants Jerome EXPORT DOCUMENTS CLERK, Dayanara Mcintosh MD, Fabián Rivas MD, Omer [...] and tissue Entry 1 Skin Integrity Intact, [place], Warm, and Skin Abnormality No Dry Outcomes [...] of in (more content not included)... Normal [facility] Postoperative Documentson Postoperative Documents [id number]#1.00TI FF [facility] Consent for Treatmenton Consent for Treatment [id number]#1.00TIF F [facility] Discharge Instructionson Discharge Instructions RAUL KEYES :1950 [...] Follow Up with Dayanara VALDES, FAHAD Rivas, [facility] When: Comments: Call for any problems. Office [...] them. ? (more content not included)... Normal [facility] Comment on above: Result Comment: Elec tronically [...] MD. Current history and physical Reviewed. Colonoscopy ([id number]) on 05/17/2023 at 72 Years. Comments: 05/17/2023 15:26 TAYLOR Navarro RN, Ashley 2 polyps, one 2.4 cm clipped Colonoscopy ([id number]) on 03/24/2023 at 72 Years. Thyroidectomy (93259667) in the month of 12/2022 at 72 Years. Excision of cyst (5354504377) on 07/15/2022 at 71 Years. Comments: 07/28/2022 13:56 Helga Do LPN left upper chest Biopsy of thyroid (31325822).. Past Medical History Resolved Bursitis (473867991): Resolved. Chest pain (43153428): Resolved. Cellulitis of left finger (83007297): Resolved. Knee pain (05641187): Resolved. Foot pain (488700876): Resolved. Dermatitis (2768092845): Resolved. Plantar fasciitis (848046838): Resolved. Tinea cruris (1279826067): Resolved. Comments: 08/09/2019 EST 9:04 EST - Alva Alonso MA A history of. Family History Dementia Mother Diabetes mellitus type 2 Sister Alcoholism Father Stroke Father Acute myocardial infarction Brother . Procedure History Colonoscopy (880531873) on 05/17/2023 at 72 Years. Comments: 05/17/2023 15:26 TAYLOR - Melanie ROSAS Ashley 2 polyps, one 2.4 cm clipped Colonoscopy (848280954) on 03/24/2023 at 72 Years. Thyroidectomy (29220704) in the month of 12/2022 at 72 Years. Excision of cyst (5853653111) on 07/15/2022 at 71 Years. Comments: 07/28/2022 13:56 Helga Do LPN left upper chest Biopsy of thyroid (95491593).. Colorectal neoplasm risk assessment High risk Previous [...] of the procedure Images Procedure images: Rec1_hd_video_ [id number]_[id number].jpg Rec_hd_video_ Y99_19_[id number]_103.jpg Rec1_hd_video_ I80_56_91_656.jpg Rec1_hd_video_ E07_51_82_478.jpg Rec_hd_video_ Y85_05_73_725.jpg Rec1_hd_video_ L94_63_98_174.jpg Rec1_hd_video_ P76_58_25_031.jpg Rec1_hd_video_ D80_35_54_641.jpg . Post-Procedure Complications: none. Estimated blood loss: Minimal. Specimens: sent to pathology. Devices/ implants: none left in place. Impression and Plan 1. Small internal hemorrhoids 2. Evidence of possible recurrence of the cecal polyp, I injected 5 ml of Everlift, but due to scarring it was not lifting well, resected in (more content not included)... Normal [facility] Comment on above: Result Comment: Elec tronically Signed By: Dayanara VALDES, Fabiola Jin\.br\Date and Time Signed: 11/18/23 11:46 EDT Other Comment: Keila brenner Attachment - attachment storage system not supported [id number] Can be viewed in source system Missing Attachment - attachment storage system not supported 2783280 Can be viewed in source system Missing Attachment - attachment storage system not supported 1410862 Can be viewed in source system Missing Attachment - attachment storage system not supported 7738977 Can be viewed in source system Missing Attachment - attachment storage system not supported 0512497 Can be viewed in source system Missing Attachment - attachment storage system not supported 4056636 Can be viewed in source system Missing Attachment - attachment storage system not supported 2283369 Can be viewed in source system Missing Attachment - attachment storage system not supported 2912898 Can be viewed in source system Inpatient Patient Summaryon 11-18-2023 Inpatient Patient Summary [place] [id number] [facility] Clinical Discharge Instructions PERSON INFORMATION Name: [...] Capsules By Mouth every day. Comment: [facility] Main OR PACU I Recordon Main OR PACU I Record PACU Phase I Document Type FT Summary Primary Physician: Fabiola Nichole MD Finalized Date/Time: 11/18/23 12:27:04 Pt. Name: RAUL KEYES/Sex: 1950 Male Med Rec #: [id number] Physician: Fabiola Nichole MD Financial #: [id number] Pt. Type: O Room/Bed: / Admit/Disch: 11/18/23 [...] By: Dona Schmitt I 11/18/23 12:27 Normal [facility] Main OR Preoperative Recordo n 11-18-2023 Main OR Preoperative Record Holding Area Document Type FT Summary Primary Physician: Fabiola Nichole MD Finalized Date/Time: 11/18/23 09:36:30 Pt. Name: RAUL KEYES/Sex: 1950 Male Med Rec #: [id number] Physician: Fabiola Nichole MD Financial #: [id number] Pt. Type: O Room/Bed: / Admit/Disch: 11/18/23 [...] By: Shanna Woodall RN 11/18/23 09:36 Normal [facility] Monitor Recordon 11-18-2023 Monitor Record [id number] FF Normal [facility] Monitor Record [id number]#1.00TI FF Normal [facility] Outpatient Surgery Discharge Instructionon 11-18-2023 Outpatient Surgery Discharge Instruction [place] [id number] Patient Discharge Instructions PERSON INFORMATION Name: RAUL [...] Information: You may receive a survey from [employer] asking you to rate your care experience. Your feedback is important and will help us understand what we do well and how we can improve the quality of care we provide to you, your loved ones and our community. It?s an honor to serve you. Thank you for choosing [facility] HERE ARE THE MEDICATION CHANGES THAT OCCURRED [...] PATIENT EDUCATION INFORMATION Instructions: Medication Leaflets: [facility] Patient Education - Texton 0 11-18-2023 Patient [...] a plas (more content not included)... Normal [facility] Progress Note-Physicianon Progress Note-Physician Patient: RAUL KEYES [...] All Problems Acute epididymo-orchitis / SNOMED CT 262022882 / Confirmed Atrial fibrillation / SNOMED CT 74726390 / Confirmed Benign neoplasm of cecum / SNOMED CT 724246077 / Confirmed Benign neoplasm of sigmoid colon / SNOMED CT 680965015 / Confirmed BMI 30.0-30.9,adult / SNOMED CT 766095183 / Confirmed Chronic anticoagulation / SNOMED CT 6060797684 / Confirmed Enlarged thyroid / SNOMED CT 7085990 / Confirmed Epidermal cyst / SNOMED CT 5541514819 / Confirmed GERD (gastroesophageal reflux disease) / SNOMED CT 146864289 / Confirmed Gout / SNOMED CT 796592874 / Confirmed Hearing loss / SNOMED CT 54805831 / Confirmed History of myocardial infarction / SNOMED CT 5524653401 / Confirmed History of subdural hematoma / SNOMED CT 7376844851 / Confirmed HTN (hypertension) / SNOMED CT 3871953611 / Confirmed Hydrocele, left / SNOMED CT 1453006141 / Confirmed Impotence / SNOMED CT 4257745483 / Confirmed Leukocytosis / SNOMED CT 000806656 / Confirmed Obesity / SNOMED CT 1298512033 / Confirmed Positive fecal occult blood test / SNOMED CT 10053767 / Confirmed Pulmonary nodule / SNOMED CT 4173675050 / Confirmed Sebaceous cyst / SNOMED CT 7204791074 / Confirmed Swelling of left testicle / SNOMED CT 0670877322 / Confirmed Resolved: Bursitis / SNOMED CT 305832548 Resolved: Cellulitis of left finger / SNOMED CT 88912259 Resolved: Chest pain / SNOMED CT 82246584 Resolved: Dermatitis / SNOMED CT 7715842897 Resolved: Foot pain / SNOMED CT 093073877 Resolved: Knee pain / SNOMED CT 20550767 Resolved: Plantar fasciitis / SNOMED CT 138479997 Resolved: Tinea cruris / SNOMED CT 8641318843 history of, Active Problems (22) Acute epididymo-orchitis [...] testicle Histories Past Medical History: Resolved Bursitis (338319526): Resolved. Chest pain (65753661): Resolved. Cellulitis of left finger (43953328): Resolved. Knee pain (18218103): Resolved. Foot pain (114059571): Resolved. Dermatitis (9531272990): Resolved. Plantar fasciitis (508412510): Resolved. Tinea cruris (9743916091): Resolved. Comments: 08/09/2019 EST 9:04 TAYLOR - Alva Alonso MA history of Family History: Dementia Mother Diabetes mellitus type 2 Sister Alcoholism Father Stroke Father Acute myocardial infarction Brother Procedure history: Colonoscopy (365521816) on 05/17/2023 at 72 Years. (more content not included)... Normal [facility] Comment on above: Result Comment: Elec tronically Signed By: Omer Lockwood MD\.br\Date and Time Signed: 11/18/23 14:21 EDT Progress Note-Physician Patient: RAUL KEYES Age: 72 years Sex: Male : 1950 Associated Diagnoses: None Author: Omer Lockwood MD Postoperative Information Postoperative disposition: Postoperative disposition: To PACU. Optimetrix number: Optimetrix number [id number]. Anesthetic utilized: General, No Regional. Health Status [...] when meets criteria ( To home ). [facility] Comment on above: Result Comment: Elec tronically Signed By: Fabián VALDES, Omer Puente\.br\Date and Time Signed: 11/18/23 12:37 EDT Insurance Correspondenceon 11-05-2023 Insurance Correspondence [id number]#1.00TI FF [facility] Insurance Correspondence [id number]#1.00TI FF [facility] Tobacco Screening.on 023 Adult depression screening assessment No MG-Otolaryn gol [facility] 4[address] Work Phone: Fall risk assessment a) No falls within the last year -Otolaryngol [facility] 4[address] Work Phone: Tobacco use status CPHS b) No -Otolaryngol [facility] [address] Work Phone: CBCon 12-18-2022 Erythrocyte distribution width (RBC) [Ratio] 12.8 % Normal 11.5 - 14.5 [facility] Comment on above: Performed By: #### C BC ####[facility] [id number] [place] [address] Hematocrit (Bld) [Volume fraction] 39.3 % Low 41.0 - 52.0 [facility] Comment on above: Performed By: #### C BC ####[facility] [place] [address] Hemoglobin (Bld) [Mass/Vol] 13.6 g/dL Normal 13.5 - 17.5 [facility] Comment on above: Performed By: #### C BC ####[facility] [id number] [place] [address] MCHC (RBC) [Mass/Vol] 34.6 g/dL Normal 32.0 - 36.0 [facility] Comment on above: Performed By: #### C BC ####[facility] [place] [address] MCV (RBC) [Entitic vol] 91 fL Normal 80 - 100 [facility] Comment on above: Performed By: #### C BC ####[facility] [id number] [place] [address] Platelets (Bld) [#/Vol] 184 10*3/uL Normal 150 - 450 [facility] Comment on above: Performed By: #### C BC ####[facility] [id number] [place] [address] RBC 4.32 x10E12/L Low 4.50 - 5.90 [facility] Comment on above: Performed By: #### C BC ####[facility] [id number] [place] [address] WBC (Bld) [#/Vol] 11.5 10*3/uL High 4.4 - 11.3 [facility] Comment on above: Performed By: #### C BC ####[facility] [id number] [place] [address] Clinical Note - Pharmacy v2- Discharge Med Counselingon 12-18-2022 Clinical Note - Pharmacy v2-Discharge Med Counseling Clinical Note - Pharmacy v2: Discharge Meds: Document TopicDischarge Med Counseling Time Required5 - 10 minutes Prescription [employer] Program Director Medications Drug Name: Synthroid 125 mcg (0.125 [...] No Known Allergies Electronic Signatures: Jennifer Wilson ([facility]) (Signed 18-Dec-2022 14:00) Authored: Discharge Meds, Allergy Last Updated: 18-Dec-2022 14:00 by Jennifer Wilson ([facility]) Normal [facility] Discharge Planning Ifjh4rs 0 12-18-2022 Discharge Planning Note2 Discharge Planning: Planned Dispositionhome Discharge Destinationhome AMPAC < 20no PCP/Next Provider Follow Up Scheduledyes Michie of Choice Explainedyes Anticipated Discharge [id number] Discharge Planning 12/18/22 0838 Met with patient [...] Santizo RN TCC Assessment: Discharge Planning Assessment [id number] Discharge Planning Assessment Completed byViridiana Santizo RN, BSN, RN-BC, TCC (Doc Halo) [phone] Primary Contact Name and NumberDenise (Girlfriend) [phone](1) Prior Level of Functioningindependent Lives Withalone(1) Living Arrangementshouse(1) Stated Reason for AdmissionSuregery(1) [place] (1) PCPDr Patel Eleni [facility] Recent Falls/ Injury/ Need Assist with Ambulationnone Resource/Environmental Concernsnone(1) [facility] Services Anticipated at Transitionnone(1) Readmission Within [...] Profile - Adult v2 17-Dec-2022 15:52 Normal [facility] Laboratory - Hematology and Cell countson 12-18-2022 Erythrocyte distribution width (RBC) [Ratio] 12.8 % See Below MG-Otolaryngol [facility] 5720 Work Phone: Comment on above: Reference Range: 11. 5 - 14.5 Hematocrit (Bld) [Volume fraction] 39.3 % below low threshold See Below MG-olaryngol [facility] 0360 Work Phone: Comment on above: Reference Range: 41. 0 - 52.0 Hemoglobin (Bld) [Mass/Vol] 13.6 g/dL See Below MG-Otolaryngol [place] [address] Work Phone: Comment on above: Reference Range: 13. 5 - 17.5 MCHC (RBC) [Mass/Vol] 34.6 g/dL See Below MG-Otolaryngol [place] [address] Work Phone: Comment on above: Reference Range: 32. 0 - 36.0 MCV (RBC) [Entitic vol] 91 fL 80 - 100 MG-Otolaryngol [place] [address] Work Phone: Platelets (Bld) [#/Vol] 184 10*3/uL 150 - 450 MG-Otolaryngol [place] [address] Work Phone: RBC (Bld) [#/Vol] 4.32 {x10E12/L} below low threshold See Below -Otolaryngol [place] [address] Work Phone: Comment on above: Reference Range: 4.5 0 - 5.90 WBC (Bld) [#/Vol] 11.5 10*3/uL above high threshold 4.4 - 11.3 MG-Otolaryngol [place] [address] Work Phone: Order Reconciliationon 12-18 Order Reconciliation Page 1 Discharge Reconciliation Document Reconciliation Type: Discharge requested on behalf of Zainab Kohli (Advanced Practice Nurse-Admit) done by Zainab Kohli (CLAIMS ACCOUNT MANAGER-SUPERVISOR GEAR REPAIR) Discharge - Reconciliation: 18-Dec-2022 08:56 by: Zainab Kohli (CLAIMS ACCOUNT MANAGER-SUPERVISOR GEAR REPAIR) Home Medications EnteredHOME MEDICATIONS AT DISCHARGE DateReconciliation [...] 1 tab(s) orally once a day Normal [facility] RENAL FUNCTION PANELon 12-18 Albumin [Mass/Vol] 3.9 g/dL Normal 3.4 - 5.0 [facility] Comment on above: Performed By: #### R ENAL ####[facility] [id number] [place] [address] Anion gap [Moles/Vol] 13 mmol/L Normal 10 - 20 [facility] Comment on above: Performed By: #### R ENAL ####[facility] [id number] [place] [address] Calcium [Mass/Vol] 8.4 mg/dL Low 8.6 - 10.3 [facility] Comment on above: Performed By: #### R ENAL ####[facility] [id number] [place] [address] Chloride [Moles/Vol] 103 mmol/L Normal 98 - [address] [facility] Comment on above: Performed By: #### R ENAL ####[facility] [id number] [place] [address] Creatinine [Mass/Vol] 1.03 mg/dL Normal 0.50 - 1.30 [facility] Comment on above: Performed By: #### R ENAL ####[facility] [id number] [place] [address] GFR/1.73 sq M.predicted among non-blacks MDRD (S/P/Bld) [Vol rate/Area] 78 mL/min/{1.73_m2} Normal >90 [facility] Comment on above: Result Comment: CALC ULATIONS OF ESTIMATED GFR ARE PERFORMED USING THE 2020 CKD-EPI STUDY REFIT EQUATION WITHOUT THE RACE VARIABLE FOR THE IDMS-TRACEABLE CREATININE METHODS. https://jasn.asnjournals.org/content//ASN.4754271 988 Performed By: #### R ENAL ####[facility] [id number] [place] [address] Glucose [Mass/Vol] 148 mg/dL High 74 - 99 [facility] Comment on above: Performed By: #### R ENAL ####[facility] [id number] [place] [address] HCO3 (Bld) [Moles/Vol] 25 mmol/L Normal 21 - 32 [facility] Comment on above: Performed By: #### R ENAL ####[facility] [id number] [place] [address] Phosphate [Mass/Vol] 3.9 mg/dL Normal 2.5 - 4.[address] [facility] Comment on above: Result Comment: The performance characteristics of phosphorus testing in heparinized plasma have been validated by the individual laboratory site where testing is performed. Testing on heparinized plasma is not approved by the FDA; however, such approval is not necessary. Performed By: #### R ENAL ####[facility] [id number] [place] [address] Potassium [Moles/Vol] 3.8 mmol/L Normal 3.5 - 5.3 [facility] Comment on above: Performed By: #### R ENAL ####[facility] [id number] [place] [address] Sodium [Moles/Vol] 137 mmol/L Normal 136 - 145 [facility] Comment on above: Performed By: #### R ENAL ####[facility] [id number] [place] [address] Urea nitrogen [Mass/Vol] 12 mg/dL Normal 6 - 23 [facility] Comment on above: Performed By: #### R ENAL ####[facility] [id number] [place] [address] Renal Function Panelon 12-18 Albumin BCP dye [Mass/Vol] 3.9 g/dL 3.4 - 5.0 MG-Otolaryngol [facility] 4100 Work Phone: Anion gap [Moles/Vol] 13 mmol/L 10 - 20 MG-Otolaryngol [facility] 4100 Work Phone: Calcium [Mass/Vol] 8.4 mg/dL below low threshold 8.6 - 10.3 MG-Otolaryngol [facility] 4100 Work Phone: Chloride [Moles/Vol] 103 mmol/L 98 - 107 MG-O tolaryngol [facility] 4100 Work Phone: CO2 [Moles/Vol] 25 mmol/L 21 - 32 MG-Otolar yngol [facility] 4100 Work Phone: Creatinine [Mass/Vol] 1.03 mg/dL See Below MG-Otolaryngol [facility] 4[address] Work Phone: Comment on above: Reference Range: 0.5 0 - 1.30 Glucose [Mass/Vol] 148 mg/dL above high threshold 74 - 99 MG-Otolaryngol [facility] 4100 Work Phone: Phosphate [Mass/Vol] 3.9 mg/dL 2.5 - 4.9 MG-O tolaryngol [facility] 4100 Work Phone: Comment on above: The performance mi acteristics of phosphorus testing in heparinized plasma have been validated by the individual laboratory site where testing is performed. Testing on heparinized plasma is not approved by the FDA; however, such approval is not necessary. Potassium [Moles/Vol] 3.8 mmol/L 3.5 - 5.3 MG-Otolaryngol [facility] 4100 Work Phone: Sodium [Moles/Vol] 137 mmol/L 136 - 145 MG-Nba laryngol [facility] 4100 Work Phone: Urea nitrogen [Mass/Vol] 12 mg/dL 6 - 23 MG-Otolaryngol [facility] 4100 Work Phone: Renal Function Panel 78 {mL/min/1.73m2} >90 MG-Otolaryngol [facility] 4[address] Work Phone: Comment on above: CALCULATIONS OF DANIELLE MATED GFR ARE PERFORMED USING THE 2020 CKD-EPI STUDY REFIT EQUATION WITHOUT THE RACE VARIABLE FOR THE IDMS-TRACEABLE CREATININE METHODS.https://jasn.asnjournals.org/content//ASN .3655459044 Admission Risk Screen - Adul ton 12-17-2022 [...] AlertFor Ebola-like Symptoms: Isolate Patient and Notify Provider/Kindergarten Teacher Assistant For Contact: Notify Provider/Kindergarten Teacher Assistant Advance Directive: Advance Directive/DNRno Advance Directive Information [...] instruction; written material Cultural Considerationsnone Developmental Considerationsnone Restorationism Considerationsnone Learning Assessment (Other Learner): Other learner availableno Depression Screen: During the past month, have you often been bothered by feeling down, depressed or hopelessno During the past month, have you often had little interest or pleasure in doing thingsno Have you had any thoughts of harming anyone elseno Shickley Suicide: Risk Screen Not Applicable/Able to Answerable to be screened In the Past Month: Have you wished you were or could go to sleep and not wake upno(1) In the Past Month: Have you had any actual thoughts of killing yourself no(1) Lifetime: Have you ever done, started to do, or prepared to do anything to end your lifeno(1) Shickley Suicide Risknegative Adult Nutrition Screen: Have you [...] Scale Educationteachin (more content not included)... Normal [facility] Clinical Event Cdxf-Nnbw-Od Checkon 12-17-2022 Clinical Event Ajwk-Mrrx-Ns Check Clinical Event: Clinical Event Note: TopicPost-Op [...] counseling/coordination of care. Objective Information T PRBPMAPSpO2 [id number]% Date/Time12/17 20: 20: 20:077/6 20:077/6 15:437/6 20:07 Range(35.8C - 36.4C ) (64 - 66 ) (16 - 17 ) (131 - 139 )/ (82 - 82 ) (98 - 98 ) (97% - 98% ) As of 17-Dec-2022 15:43:00, patient is on 2 L/min of oxygen via nasal cannula. Plan of Care Reviewed Withpatient Electronic Signatures: Amy Hitchcock (CLAIMS ACCOUNT MANAGER-SUPERVISOR GEAR REPAIR) (Signed 17-Dec-2022 20:45) Authored: Clinical Event Note Last Updated: 17-Dec-2022 20:45 by Amy Hitchcock (CLAIMS ACCOUNT MANAGER-SUPERVISOR GEAR REPAIR) Normal [facility] Discharge [id number] 023 Discharge Profile2 Discharge Orders: Anticipated Discharge Date: Anticipated Discharge [id number] Problem List: Additional Dx: Goiter: Catalog Name: [...] Review of Medication Reconciliation and Orders Completedby CLAIMS ACCOUNT MANAGER Reviewing ProviderSAYDEN Allen at 18-Dec-2022 08:58:54 Appointments: Follow-Up Appointment 01: Physician/Dept/Marleni Oglesby Reason for ReferralPost-Op Visit Scheduled Date/Wtbi89-Gwc-7631 13:15 [facility] Otolaryngology [facility] Phone [phone] Electronic Signatures: Zainab Kohli (MOOK-SAM) (Signed 18-Dec-2022 08:58) Authored: Discharge Orders, Provider FINAL REVIEW of Orders Amy Hitchcock (MOOK-SUPERVISOR GEAR REPAIR) (Signed 17-Dec-2022 23:02) Authored: Discharge Orders, Hospital Course (Home Care/Gold Form), Appointments Liliam San (CLAIMS ACCOUNT MANAGER-[facility]) (Signed 17-Dec-2022 17:08) Authored: Discharge Orders, Appointments, Gold Form - Computer Forensic Specialist Summary Last Updated: 18-Dec-2022 08:58 by Zainab Kohli (CLAIMS ACCOUNT MANAGER-[facility]) Normal [facility] INTRAOPERATIVE PTHon 023 INTRAOPERATIVE PTH 102 pg/mL High 12 - 88 [facility] Comment on above: Order Comment: ALISON varela in OR RB result at 1414, 12/17/2022 14:17 Result Comment: ALISON cordoba in OR RB result at 1414, 12/17/2022 14:17 Performed By: #### I OPTH ####[facility] [id number] [place] [address] Laboratory - Chemistry and C hemistry - challengeon 12-17-2022 Parathyrin.intact intraoperative percent change [Mass conc % diff] 102 pg/mL above high threshold 12 - 88 MG-Otolaryngol [facility] 4100 Work Phone: Comment on above: ALISON Kan in OR RB r esult at 1414, 12/17/2022 14:17 Order Reconciliationon 12-17 Order Reconciliation Page 1 Admission Reconciliation Document Reconciliation Type: Admission from OR requested on behalf of Liliam San (Advanced Practice Nurse-Admit) done by Liliam San (CLAIMS ACCOUNT MANAGER-[facility]) Admission from OR - Reconciliation: 17-Dec-2022 17:09 by: Liliam San (CLAIMS ACCOUNT MANAGER-[facility]) Home MedicationsEnteredLast Dose TakenReconciled with current Order Reconciliation Comment/ Additional Information carvedilol 12.5 mg oral tablet 1 tab(s) orally 2 times a [id number]-Dec-2022 AM Carvedilol Tablet (COREG)DOSE = 12.5 mg Oral 2 Times a Day carvedilol 12.5 mg oral tablet continued as the inpatient order Carvedilol Eliquis 5 mg oral tablet 1 tab(s) orally 2 times a [id number] 3 Reviewed and Held magnesium glycinate 200 mg oral tablet 1 tab(s) orally once a [id number]-229017-Dec-2022 Reviewed and Held Zinc 140 mg (as [...] Every 8 Hours and as Needed Normal [facility] Patient Profile - Adult v2on 12-17-2022 Patient Profile - Adult v2 Profile: Initial Info: How to be AddressedJohn (1) Spoken Language PreferredEnglish (1) Source of Informationpatient Stated Reason for AdmissionSuregery Primary Contact Name and NumberDenise (Girlfriend) [phone] Wants Family/Rep Notified of Admissionn/a; family present Notify PCPdeferred, unable to answer Informed of Patient Visiting Rightsyes Limitations on Visitors/Phone Callsnone Temporary Family Living Arrangements (While Hospitalized)none needed Arrived FromOR Patient Belongingsremains with patient Patient Belongings Remaining with Patientclothing; vision aids; purse/wallet Medications Brought to Hospitalno History of MDROno General Health: Blood Avoidance/Restrictionsno ne(1) Previous Transfusion Reactionno(1) Weight in kg103 kilogram(s)(2) Weight in rsg397 pound(s) Weight Methodactual (measured) Scale Typestanding Height in cm180.1 centimeter(s)(2) Height in feet5 feet Height in .91 inch(es) Height Methodstated BMI (kg/m2)31.754 square meter [...] From 1. Vital Signs 17-Dec-2022 10:00 Normal [facility] Patient Profile - Preop v3on 12-17-2022 Patient Profile - Preop v3 Patient Profile - Preop: Initial Info: Patient DemographicsName: RAUL KEYES Date: 1950 Address: [address] [place] [address] Primary Phone [phone] How to be AddressedJohn Spoken Language PreferredEnglish Stated Reason for AdmissionThyroid Surgery Primary Contact Name and NumberDenise Girlfriend Medications Brought to Hospitalno General Health: Weight in kg103 kilogram(s) Weight in roq824 pound(s) Scale Typestanding Height in feet5 feet Height in wjxbux55.94 inch(es) Height in cm180.1 centimeter(s) BMI (kg/m2)31.754 square meter Patient or Family Member Reaction to Anesthesiano previous reaction Blood Avoidance/Restrictionsno ne Previous Transfusion Reactionno Health Mgmt: Symptoms/Conditions Managed at HomeMedical History AFIB --Eliquis [place] --pt denies HTN Pulmonary nodule GERD Thyromegaly Goiter Gout Plantar fasciitis Hearing loss Obesity STOP BANG = HTN, >50, male, +snoring = 3 Caprini = 5 Surgical History Cyst removed from back 2022 Barriers to Managing Healthnone Relationship/Environ: Lives Withalone Living Arrangementshouse Living Environment Commentspt will be staying with girlfriend Resource/Environmental Concernsnone Anticipated Transition [place] Services Anticipated at Transitionnone Tobacco Use: Tobacco Useno Pre-op Checklist: Arrival [id number]-0074 Arrival Time09:43 Procedure Typetotal substernal thyroidectomy NPOyes Last Food Bqwxji27-Iat-0305 21:00 Last Clear Fluid Blbveq27-Jmr-1566 07:00 ID Band On Patientpatient ID (name), [...] 17-Dec-2022 10:05 by Harpal Bonilla (ALISON) Normal [facility] RENAL FUNCTION PANELon 12-17 Albumin [Mass/Vol] 4.1 g/dL Normal 3.4 - 5.0 [facility] Comment on above: Performed By: #### R ENAL ####[facility] [id number] [place] [id number] Anion gap [Moles/Vol] 14 mmol/L Normal 10 - 20 [facility] Comment on above: Performed By: #### R ENAL ####[facility] [id number] [place] [address] Calcium [Mass/Vol] 9.0 mg/dL Normal 8.6 - 10.3 [facility] Comment on above: Performed By: #### R ENAL ####[facility] [id number] [place] [address] Chloride [Moles/Vol] 101 mmol/L Normal 98 - [address] [facility] Comment on above: Performed By: #### R ENAL ####[facility] [id number] [place] [address] Creatinine [Mass/Vol] 0.89 mg/dL Normal 0.50 - 1.30 [facility] Comment on above: Performed By: #### R ENAL ####[facility] [id number] [place] [address] eGFR MALE >90 Normal >90 [facility] Comment on above: Result Comment: CALC ULATIONS OF ESTIMATED GFR ARE PERFORMED USING THE 2020 CKD-EPI STUDY REFIT EQUATION WITHOUT THE RACE VARIABLE FOR THE IDMS-TRACEABLE CREATININE METHODS. https://jasn.asnjournals.org/content//ASN.5035220 988 Performed By: #### R ENAL ####[facility] [id number] [place] [address] Glucose [Mass/Vol] 157 mg/dL High 74 - 99 [facility] Comment on above: Performed By: #### R ENAL ####[facility] [id number] [place] [address] HCO3 (Bld) [Moles/Vol] 26 mmol/L Normal 21 - 32 [facility] Comment on above: Performed By: #### R ENAL ####[facility] [id number] [place] [address] Phosphate [Mass/Vol] 4.2 mg/dL Normal 2.5 - 4.[address] [facility] Comment on above: Result Comment: The performance characteristics of phosphorus testing in heparinized plasma have been validated by the individual laboratory site where testing is performed. Testing on heparinized plasma is not approved by the FDA; however, such approval is not necessary. Performed By: #### R ENAL ####[facility] [id number] [place] [address] Potassium [Moles/Vol] 3.9 mmol/L Normal 3.5 - 5.3 [facility] Comment on above: Performed By: #### R ENAL ####[facility] [id number] [place] [address] Sodium [Moles/Vol] 137 mmol/L Normal 136 - 145 [facility] Comment on above: Performed By: #### R ENAL ####[facility] [id number] [place] [address] Urea nitrogen [Mass/Vol] 14 mg/dL Normal 6 - 23 [facility] Comment on above: Performed By: #### R ENAL ####[facility] [id number] [place] [address] Renal Function Panelon 12-17 Albumin BCP dye [Mass/Vol] 4.1 g/dL 3.4 - 5.0 MG-Otolaryngol [facility] 4100 Work Phone: Anion gap [Moles/Vol] 14 mmol/L 10 - 20 MG-Otolaryngol [facility] 4100 Work Phone: Calcium [Mass/Vol] 9.0 mg/dL 8.6 - 10.3 [facility] laryngol [facility] 4100 Work Phone: Chloride [Moles/Vol] 101 mmol/L 98 - 107 MG-O tolaryngol [facility] 4100 Work Phone: CO2 [Moles/Vol] 26 mmol/L 21 - 32 MG-Otolar yngol [facility] 4100 Work Phone: Creatinine [Mass/Vol] 0.89 mg/dL See Below MG-Otolaryngol [facility] 410 Work Phone: Comment on above: Reference Range: 0.5 0 - 1.30 Glucose [Mass/Vol] 157 mg/dL above high threshold 74 - 99 MG-Otolaryngol [place] 255570 Work Phone: Phosphate [Mass/Vol] 4.2 mg/dL 2.5 - 4.9 MG-O tolaryngol [facility] 4100 Work Phone: Comment on above: The performance mi acteristics of phosphorus testing in heparinized plasma have been validated by the individual laboratory site where testing is performed. Testing on heparinized plasma is not approved by the FDA; however, such approval is not necessary. Potassium [Moles/Vol] 3.9 mmol/L 3.5 - 5.3 MG-Otolaryngol [facility] 4100 Work Phone: Sodium [Moles/Vol] 137 mmol/L 136 - 145 [facility] laryngol [place] 255570 Work Phone: Urea nitrogen [Mass/Vol] 14 mg/dL 6 - 23 MG-Otolaryngol [facility] 4100 Work Phone: Renal Function Panel >90 >90 MG-O tolaryngol [facility] 4100 Work Phone: Comment on above: CALCULATIONS OF DANIELLE MATED GFR ARE PERFORMED USING THE 2020 CKD-EPI STUDY REFIT EQUATION WITHOUT THE RACE VARIABLE FOR THE IDMS-TRACEABLE CREATININE METHODS.https://jasn.asnjournals.org/content/early/ASN .5345691477 [facility] Surgical Pathology Depar tmenton 12-17-2022 [facility] Surgical Pathology Department Name RAUL KEYES [...] reviewed this case. Diagnostic interpretation performed at [facility] [address] [place] [address] [facility] [address] Clinical History: GOITER STITCH LEFT SUPERIOR POLE [...] cm in greatest dimension. Photographs are taken. Manager Of Community Relations sections are submitted in 32 cassettes. A 1 right superior pole, perpendicularly sectioned 2-12 public health representative sections of right lobe superior to inferior 13-15 right inferior pole, perpendicularly sectioned 16-18 isthmus from right to left 19-20 pyramidal lobe,serially sectioned 21-22 left superior pole, perependicularly sectioned 23-30 public health representative sections of left lobe superior to inferior 30-32 left inferior pole, perpendicularly sectioned MJR mjr/01/11/2023 [facility] Department of Pathology [id number] [place] [address] Normal [facility] Comment on above: Performed By: #### U HCS #### [facility] Surgical Pathology Department [address] [place] [address] TSHon 2022 TSH Qn 0.71 m[IU]/L Normal 0.44 - 3.98 [facility] Comment on above: Result Comment: TSH testing is performed using different testing methodology at [facility] than at [facility]. Direct result comparisons should only be made within the same method. Performed By: #### T SH2 #### [address] [place] [address] TSH - Thyroid Stimulating Ho rmone, Serumon 2022 TSH Qn 0.71 m[IU]/L See Below MG-Otolaryng [facility] 4100 Work Phone: Comment on above: Reference Range: 0.4 4 - 3.98 TSH testing is performed using different testing methodology at [facility] than at [facility]. Direct result comparisons should only be made within the same method. Tobacco Screening.on 023 Adult depression screening assessment No MG-Otolaryn [facility] 4100 Work Phone: Fall risk assessment a) No falls within the last year MG-Otolaryngol [facility] 4100 Work Phone: Tobacco use status CPHS b) No MG-Otolaryngol [facility] 4103 Work Phone: BASIC METABOLIC PANELon 06-2 -2022 Anion gap [Moles/Vol] 12 mmol/L Normal 10 - 20 [facility] Comment on above: Performed By: #### B MP #### [facility] [address] [place] [address] Calcium [Mass/Vol] 9.5 mg/dL Normal 8.6 - 10.3 [facility] [place] Comment on above: Performed By: #### B MP #### [facility] [address] [place] [address] Chloride [Moles/Vol] 104 mmol/L Normal 98 - 107 [facility] Comment on above: Performed By: #### B MP #### [facility] [address] [place] [address] Creatinine [Mass/Vol] 0.86 mg/dL Normal 0.50 - 1.30 [facility] Comment on above: Performed By: #### B MP #### [facility] [address] [place] [address] eGFR MALE >90 Normal >90 [facility] Comment on above: Result Comment: CALC ULATIONS OF ESTIMATED GFR ARE PERFORMED USING THE 2020 CKD-EPI STUDY REFIT EQUATION WITHOUT THE RACE VARIABLE FOR THE IDMS-TRACEABLE CREATININE METHODS. https://jasn.asnjournals.org/content/early/ASN.3620529 988 Performed By: #### B MP #### [facility] [address] [place] [address] Glucose [Mass/Vol] 110 mg/dL High 74 - 99 [facility] [place] Comment on above: Performed By: #### B MP #### [facility] [address] [place] [address] HCO3 (Bld) [Moles/Vol] 25 mmol/L Normal 21 - 32 [facility] Comment on above: Performed By: #### B MP #### [facility] [address] [place] [address] Potassium [Moles/Vol] 4.1 mmol/L Normal 3.5 - 5.3 [facility] Comment on above: Performed By: #### B MP #### [facility] CNTR [address] [place] [address] Sodium [Moles/Vol] 137 mmol/L Normal 136 - 145 [facility] [place] Comment on above: Performed By: #### B MP #### [facility] CNTR [address] [place] [address] Urea nitrogen [Mass/Vol] 16 mg/dL Normal 6 - 23 [facility] Comment on above: Performed By: #### B MP #### [facility] CNTR [address] [place] [address] ANION GAP Canceled Normal [facility] Comment on above: Order Comment: TEST BASIC METABOLIC PANEL WAS CANCELLED, 12/01/2022 10:21 DUPLICATE ORDER. Performed By: #### B MP ####[facility] [id number] [place] [address] BICARBONATE Canceled Normal [facility] Comment on above: Order Comment: TEST BASIC METABOLIC PANEL WAS CANCELLED, 12/01/2022 10:21 DUPLICATE ORDER. Performed By: #### B MP ####[facility] [id number] [place] [address] CALCIUM Canceled Normal [facility] Comment on above: Order Comment: TEST BASIC METABOLIC PANEL WAS CANCELLED, 12/01/2022 10:21 DUPLICATE ORDER. Performed By: #### B MP ####[facility] [id number] [place] [address] CHLORIDE Canceled Normal [facility] Comment on above: Order Comment: TEST BASIC METABOLIC PANEL WAS CANCELLED, 12/01/2022 10:21 DUPLICATE ORDER. Performed By: #### B MP ####[facility] [id number] [place] [address] CREATININE Canceled Normal [facility] Comment on above: Order Comment: TEST BASIC METABOLIC PANEL WAS CANCELLED, 12/01/2022 10:21 DUPLICATE ORDER. Performed By: #### B MP ####[facility] [id number] [place] [address] eGFR FEMALE Canceled Normal [facility] Comment on above: Order Comment: TEST BASIC METABOLIC PANEL WAS CANCELLED, 12/01/2022 10:21 DUPLICATE ORDER. Result Comment: CALC ULATIONS OF ESTIMATED GFR ARE PERFORMED USING THE 2020 CKD-EPI STUDY REFIT EQUATION WITHOUT THE RACE VARIABLE FOR THE IDMS-TRACEABLE CREATININE METHODS. https://jasn.asnjournals.org/content/early/ASN.2829966 988 Performed By: #### B MP ####[facility] [id number] [place] [address] eGFR MALE Canceled Normal [facility] Comment on above: Order Comment: TEST BASIC METABOLIC PANEL WAS CANCELLED, 12/01/2022 10:21 DUPLICATE ORDER. Result Comment: CALC ULATIONS OF ESTIMATED GFR ARE PERFORMED USING THE 2020 CKD-EPI STUDY REFIT EQUATION WITHOUT THE RACE VARIABLE FOR THE IDMS-TRACEABLE CREATININE METHODS. https://jasn.asnjournals.org/content/early/ASN.9415259 988 Performed By: #### B MP ####[facility] [id number] [place] [address] GLUCOSE Canceled Normal [facility] Comment on above: Order Comment: TEST BASIC METABOLIC PANEL WAS CANCELLED, 12/01/2022 10:21 DUPLICATE ORDER. Performed By: #### B MP ####[facility] [id number] [place] [address] POTASSIUM Canceled Normal [facility] Comment on above: Order Comment: TEST BASIC METABOLIC PANEL WAS CANCELLED, 12/01/2022 10:21 DUPLICATE ORDER. Performed By: #### B MP ####[facility] [id number] [place] [address] SODIUM Canceled Normal [facility] Comment on above: Order Comment: TEST BASIC METABOLIC PANEL WAS CANCELLED, 12/01/2022 10:21 DUPLICATE ORDER. Performed By: #### B MP ####[facility] [id number] [place] [address] UREA NITROGEN Canceled Normal [facility] Comment on above: Order Comment: TEST BASIC METABOLIC PANEL WAS CANCELLED, 12/01/2022 10:21 DUPLICATE ORDER. Performed By: #### B MP ####[facility] [place] [address] CBC AND DIFFERENTIALon 12-01 % AUTOMATED IMMATURE GRAN 0.2 % Normal 0.0 - 0.9 [facility] Comment on above: Result Comment: Eleonora ture Granulocyte Count (IG) includes promyelocytes, myelocytes and metamyelocytes but does not include bands. Percent differential counts (%) should be interpreted in the context of the absolute cell counts (cells/L). Performed By: #### C BCDF #### [facility] [address] [place] [address] Basophils (Bld) [#/Vol] 0.02 10*3/uL Normal 0.00 - 0.10 [facility] Comment on above: Performed By: #### C BCDF #### [facility] [address] [place] [address] Basophils/100 WBC (Bld) 0.3 % Normal 0.0 - 2.0 [facility] Comment on above: Performed By: #### C BCDF #### [facility] [address] [place] [address] Eosinophils (Bld) [#/Vol] 0.03 10*3/uL Normal 0.00 - 0.70 [facility] Comment on above: Performed By: #### C BCDF #### [facility] [address] [place] [address] Eosinophils/100 WBC (Bld) 0.5 % Normal 0.0 - 6.0 [facility] Comment on above: Performed By: #### C BCDF #### [facility] [address] [place] [address] Erythrocyte distribution width (RBC) [Ratio] 13.0 % Normal 11.5 - 14.5 [facility] Comment on above: Performed By: #### C BCDF #### [facility] [address] [place] [address] Hematocrit (Bld) [Volume fraction] 43.3 % Normal 41.0 - 52.0 [facility] Comment on above: Performed By: #### C BCDF #### [facility] [address] [place] [address] Hemoglobin (Bld) [Mass/Vol] 14.4 g/dL Normal 13.5 - 17.5 [facility] Comment on above: Performed By: #### C BCDF #### [facility] [address] [place] [address] Lymphocytes (Bld) [#/Vol] 0.77 10*3/uL Low 1.20 - 4.80 [facility] Comment on above: Performed By: #### C BCDF #### [facility] [address] [place] [address] Lymphocytes/100 WBC (Bld) 13.3 % Normal 13.0 - 44.0 [facility] Comment on above: Performed By: #### C BCDF #### [facility] [address] [place] [address] MCHC (RBC) [Mass/Vol] 33.3 g/dL Normal 32.0 - 36.0 [facility] Comment on above: Performed By: #### C BCDF #### [facility] [address] [place] [address] MCV (RBC) [Entitic vol] 93 fL Normal 80 - 100 [facility] Comment on above: Performed By: #### C BCDF #### [facility] [address] [place] [address] Monocytes (Bld) [#/Vol] 0.40 10*3/uL Normal 0.10 - 1.00 [facility] Comment on above: Performed By: #### C BCDF #### [facility] [address] [place] [address] Monocytes/100 WBC (Bld) 6.9 % Normal 2.0 - 10.0 [facility] Comment on above: Performed By: #### C BCDF #### [facility] [address] [place] [address] Neutrophils (Bld) [#/Vol] 4.55 10*3/uL Normal 1.20 - 7.70 [facility] Comment on above: Performed By: #### C BCDF #### [facility] [address] [place] [address] Neutrophils/100 WBC (Bld) 78.8 % Normal 40.0 - 80.0 [facility] Comment on above: Performed By: #### C BCDF #### [facility] [address] [place] [address] Platelets (Bld) [#/Vol] 200 10*3/uL Normal 150 - 450 [facility] Comment on above: Performed By: #### C BCDF #### [facility] [address] [place] [address] RBC 4.67 x10E12/L Normal 4.50 - 5.90 [facility] Comment on above: Performed By: #### C BCDF #### [facility] [address] [place] [address] WBC (Bld) [#/Vol] 5.8 10*3/uL Normal 4.4 - 11.3 [facility] [place] Comment on above: Performed By: #### C BCDF #### [facility] [address] [place] [address] % AUTOMATED IMMATURE GRAN Canceled Normal [facility] Comment on above: Order Comment: TEST CBC AND DIFFERENTIAL WAS CANCELLED, 12/01/2022 10:21 DUPLICATE ORDER. Result Comment: Eleonora ture Granulocyte Count (IG) includes promyelocytes, myelocytes and metamyelocytes but does not include bands. Percent differential counts (%) should be interpreted in the context of the absolute cell counts (cells/L). Performed By: #### C BCDF ####[facility] [id number] [place] [address] % BASOPHIL Canceled Normal [facility] Comment on above: Order Comment: TEST CBC AND DIFFERENTIAL WAS CANCELLED, 12/01/2022 10:21 DUPLICATE ORDER. Performed By: #### C BCDF ####[facility] [id number] [place] [address] % EOSINOPHIL Canceled Normal [facility] Comment on above: Order Comment: TEST CBC AND DIFFERENTIAL WAS CANCELLED, 12/01/2022 10:21 DUPLICATE ORDER. Performed By: #### C BCDF ####[facility] [id number] [place] [address] % LYMPHOCYTE Canceled Normal [facility] Comment on above: Order Comment: TEST CBC AND DIFFERENTIAL WAS CANCELLED, 12/01/2022 10:21 DUPLICATE ORDER. Performed By: #### C BCDF ####[facility] [id number] [place] [address] % MONOCYTE Canceled Normal [facility] Comment on above: Order Comment: TEST CBC AND DIFFERENTIAL WAS CANCELLED, 12/01/2022 10:21 DUPLICATE ORDER. Performed By: #### C BCDF ####[facility] [id number] [place] [address] % NEUTROPHIL Canceled Normal [facility] Comment on above: Order Comment: TEST CBC AND DIFFERENTIAL WAS CANCELLED, 12/01/2022 10:21 DUPLICATE ORDER. Performed By: #### C BCDF ####[facility] [id number] [place] [address] BASOPHIL Canceled Normal [facility] Comment on above: Order Comment: TEST CBC AND DIFFERENTIAL WAS CANCELLED, 12/01/2022 10:21 DUPLICATE ORDER. Performed By: #### C BCDF ####[facility] [id number] [place] [address] DIFFERENTIAL Canceled Normal [facility] Comment on above: Order Comment: TEST CBC AND DIFFERENTIAL WAS CANCELLED, 12/01/2022 10:21 DUPLICATE ORDER. Performed By: #### C BCDF ####[facility] [id number] [place] [address] EOSINOPHIL Canceled Normal [facility] Comment on above: Order Comment: TEST CBC AND DIFFERENTIAL WAS CANCELLED, 12/01/2022 10:21 DUPLICATE ORDER. Performed By: #### C BCDF ####[facility] [id number] [address] [facility] [address] HCT Canceled Normal [facility] Comment on above: Order Comment: TEST CBC AND DIFFERENTIAL WAS CANCELLED, 12/01/2022 10:21 DUPLICATE ORDER. Performed By: #### C BCDF ####[facility] [id number] [facility] [place] [address] HGB Canceled Normal [facility] Comment on above: Order Comment: TEST CBC AND DIFFERENTIAL WAS CANCELLED, 12/01/2022 10:21 DUPLICATE ORDER. Performed By: #### C BCDF ####[facility] [id number] [facility] [place] [address] LYMPHOCYTE Canceled Normal [facility] Comment on above: Order Comment: TEST CBC AND DIFFERENTIAL WAS CANCELLED, 12/01/2022 10:21 DUPLICATE ORDER. Performed By: #### C BCDF ####[id number] [place] [address] MCHC Canceled Normal [facility] Comment on above: Order Comment: TEST CBC AND DIFFERENTIAL WAS CANCELLED, 12/01/2022 10:21 DUPLICATE ORDER. Performed By: #### C BCDF ####[id number] [place] [address] MCV Canceled Normal [facility] Comment on above: Order Comment: TEST CBC AND DIFFERENTIAL WAS CANCELLED, 12/01/2022 10:21 DUPLICATE ORDER. Performed By: #### C BCDF ####[facility] [id number] [facility] [place] [address] MONOCYTE Canceled Normal [facility] Comment on above: Order Comment: TEST CBC AND DIFFERENTIAL WAS CANCELLED, 12/01/2022 10:21 DUPLICATE ORDER. Performed By: #### C BCDF ####[facility] [id number] [facility] [place] [address] NEUTROPHIL Canceled Normal [facility] Comment on above: Order Comment: TEST CBC AND DIFFERENTIAL WAS CANCELLED, 12/01/2022 10:21 DUPLICATE ORDER. Performed By: #### C BCDF ####[facility] [id number] [place] [address] NUCLEATED RBC Canceled Normal [facility] Comment on above: Order Comment: TEST CBC AND DIFFERENTIAL WAS CANCELLED, 12/01/2022 10:21 DUPLICATE ORDER. Performed By: #### C BCDF ####[facility] [id number] [place] [address] PLT Canceled Normal [facility] Comment on above: Order Comment: TEST CBC AND DIFFERENTIAL WAS CANCELLED, 12/01/2022 10:21 DUPLICATE ORDER. Performed By: #### C BCDF ####[facility] [id number] [place] [address] RBC Canceled Normal [facility] Comment on above: Order Comment: TEST CBC AND DIFFERENTIAL WAS CANCELLED, 12/01/2022 10:21 DUPLICATE ORDER. Performed By: #### C BCDF ####[facility] [id number] [place] [id number] RDW-CV Canceled Normal [facility] Comment on above: Order Comment: TEST CBC AND DIFFERENTIAL WAS CANCELLED, 12/01/2022 10:21 DUPLICATE ORDER. Performed By: #### C BCDF ####[facility] [id number] [place] [id number] WBC Canceled Normal [facility] Comment on above: Order Comment: TEST CBC AND DIFFERENTIAL WAS CANCELLED, 12/01/2022 10:21 DUPLICATE ORDER. Performed By: #### C BCDF ####[facility] [id number] [place] [id number] Complete Blood Count + Diffe rentialon 12-01-2022 [...] + Differential 0.03 {x10E9/L} See Below [facility]Otolaryngol [facility] Work Phone: Comment on above: Reference Range: 0.0 0 - 0.70 Complete Blood Count + Differential 0.40 {x10E9/L} See Below [facility]Otolaryngol [facility] Work Phone: Comment on above: Reference Range: 0.1 0 - 1.00 Complete Blood Count + Differential 0.77 {x10E9/L} below low threshold See Below [facility]Otolaryngol [facility] Work Phone: Comment on above: Reference Range: 1.2 0 - 4.80 Complete Blood Count + Differential 4.55 {x10E9/L} See Below [facility]tolaryngol [facility] Work Phone: Comment on above: Reference Range: 1.2 0 - 7.70 Complete Blood Count + Differential 0.5 % 0.0 - 6.0 [facility] [employer] Work Phone: Complete Blood Count + Differential 0.2 % 0.0 - 0.9 [facility] Work Phone: Comment on above: Immature Granulocyte Count (IG) includes promyelocytes, myelocytes and metamyelocytes but does not include bands. Percent differential counts (%) should be interpreted in the context of the absolute cell counts (cells/L). Laboratory - Chemistry and C hemistry - challengeon 12-01-2022 Anion gap [Moles/Vol] 12 mmol/L 10 - 20 [facility] [employer] Work Phone: Calcium [Mass/Vol] 9.5 mg/dL 8.6 - 10.3 [facility] laryngol [facility] Work Phone: Chloride [Moles/Vol] 104 mmol/L 98 [...] Sodium [Moles/Vol] 137 mmol/L 136 - 145 [facility] [facility]aryngol [facility] Work Phone: Urea nitrogen [Mass/Vol] 16 mg/dL 6 - 23 [facility] Work Phone: No Panel Informationon 12-01 >90 >90 [facility] Work Phone: Comment on above: CALCULATIONS OF DANIELLE MATED GFR ARE PERFORMED USING THE 2020 CKD-EPI STUDY REFIT EQUATION WITHOUT THE RACE VARIABLE FOR THE IDMS-TRACEABLE CREATININE METHODS.https://jasn.asnjournals.org/content/early/ASN .5384186924 Discharge [id number] 023 Discharge Profile2 Discharge Orders: Code Status: [...] *If you need help with quitting, call [phone]. THE DAY BEFORE SURGERY: *Do not eat [...] haven't received a call by 6pm, call [phone]. *Scheduled surgery times may change and you [...] use a taxi or ride sharing service ([employer], [employer]) to return home ONLY if you are accompanied by a friend or family member. *Instructions for resuming your medications will be provided by your surgeon. Electronic Signatures: Shira Sharp (RN) (Signed 24-Nov-2022 09:01) Authored: Discharge Orders, Gold Form - Computer Forensic Specialist Summary Misa Pitts (PAC) (Signed 01-Dec-2022 09:55) Authored: Discharge Orders Last Updated: 01-Dec-2022 09:55 by Misa Pitts (PAC) Normal [facility] ECHOCARDIO M/2D COMPLETEon 0 10-09-2022 ECHOCARDIO M/2D COMPLETE Patient: RAUL KEYES Exam Date: 10/09/2022 : 1950 Gender:M Ordering : DR ANUPAM PEÑALOZA . Admission #: [id number] Family : Order #: [id number] CLICK HERE TO VIEW EXAM ECHOCARDIOGRAM REPORT [...] M.D. on 10/09/2022 at 16:51 Normal [facility] INSULINon 10-03-2022 Insulin 13.4 uIU/mL Normal 2.6-24.9 [facility] Comment on above: Performed By: #### I NSULIN #### [facility] [address] [place] [address] Dr. Jarrod Butterfield CBC AUTO DIFFon 10-02-2022 BASO # 0.0 103/ul Normal 0.0-0.1 [facility] Comment on above: Performed By: #### T HYRABS #### [facility] [address] [place] [address] Dr. Jarrod Butterfield Basophils/100 WBC (Bld) 0.6 % Normal 0.2-2.0 [facility] Comment on above: Performed By: #### T HYRABS #### [facility] [address] [place] [address] Dr. Jarrod Butterfield EO # 0.0 103/ul Normal 0.0-0.7 [facility] Comment on above: Performed By: #### T HYRABS #### [facility] [address] [place] [address] Dr. Jarrod Butterfield Eosinophils/100 WBC (Bld) 0.4 % Critically low 0.9-7.0 [facility] Comment on above: Performed By: #### T HYRABS #### [facility] [address] [place] [address] Dr. Jarrod Butterfield Erythrocyte distribution width (RBC) [Ratio] 13.2 % Normal 11.0-15.0 [facility] Comment on above: Performed By: #### T HYRABS #### [facility] [address] [place] [address] Dr. Jarrod Butterfield Hematocrit (Bld) [Volume fraction] 44.8 % Normal 42.0-54.0 [facility] Comment on above: Performed By: #### T HYRABS #### [facility] [address] [address] [address] Jarrod Butterfield Hemoglobin (Bld) [Mass/Vol] 15.3 g/dL Normal 14.0-18.0 [facility] Comment on above: Performed By: #### T HYRABS #### [facility] [address] [address] [address] Jarrod Butterfield IG # 0.02 10e3/ul Normal 0.00-0.03 [facility] Comment on above: Performed By: #### T HYRABS #### [facility] [address] [place] [address] Dr. Jarrod Butterfield IG % 0.4 % Normal 0.0-0.5 [facility] Comment on above: Performed By: #### T HYRABS #### [facility] [address] [place] [address] Dr. Jarrod Butterfield LYMPH # 0.9 103/ul Critically low 1.2-3.8 [facility] Comment on above: Performed By: #### T HYRABS #### [facility] [address] [place] [address] Dr. Jarrod Butterfield Lymphocytes/100 WBC (Bld) 18.0 % Critically low 20.5-60.0 [facility] Comment on above: Performed By: #### T HYRABS #### [facility] [address] [place] [address] Dr. Jarrod Butterfield MANUAL DIFF REQ NO Normal [facility] Comment on above: Performed By: #### T HYRABS #### [facility] [address] [address] [address] Jarrod Butterfield MCH (RBC) [Entitic mass] 31.0 pg Normal 25.9-34.0 [facility] Comment on above: Performed By: #### T HYRABS #### [facility] [address] [place] [address] Dr. Jarrod Butterfield MCHC (RBC) [Mass/Vol] 34.2 g/dL Normal 29.9-35.2 [facility] Comment on above: Performed By: #### T HYRABS #### [facility] [address] [address] [address] Jarrod Butterfield MCV (RBC) [Entitic vol] 90.7 fL Normal 80.0-94.0 [facility] Comment on above: Performed By: #### T HYRABS #### [facility] [address] [place] [address] Dr. Jarrod Butterfield MONO # 0.4 103/ul Normal 0.3-0.8 [facility] Comment on above: Performed By: #### T HYRABS #### [facility] [address] [place] [address] Dr. Jarrod Butterfield Monocytes/100 WBC (Bld) 8.1 % Normal 1.7-12.0 [facility] Comment on above: Performed By: #### T HYRABS #### [facility] [address] [place] [address] Dr. Jarrod Butterfield NEUT # 3.8 103/ul Normal 1.4-6.5 [facility] Comment on above: Performed By: #### T HYRABS #### [facility] [address] [place] [address] Dr. Jarrod Butterfield Neutrophils/100 WBC (Bld) 72.5 % Normal 43.0-75.0 [facility] Comment on above: Performed By: #### T HYRABS #### [facility] [address] [place] [address] Dr. Jarrod Butterfield Platelet mean volume (Bld) [Entitic vol] 10.2 fL Normal 9.5-13.5 [facility] Comment on above: Performed By: #### T HYRABS #### [facility] [address] [place] [address] Dr. Jarrod Butterfield PLT 205 103/ul Normal 150-450 [facility] Comment on above: Performed By: #### T HYRABS #### [facility] [address] [place] [address] Dr. Jarrod Butterfield RBC 4.94 106/ul Normal 4.70-6.10 [facility] Comment on above: Performed By: #### T BHAVANI #### [facility] [address] [address] [address] Jarrod Butterfield WBC 5.2 103/ul Normal 4.0-11.0 [facility] Comment on above: Performed By: #### T BHAVANI #### [facility] [address] [place] [address] Dr. Jarrod Butterfield FREE THYROXINE INDEX T7on FTI 2.37 Normal 1.30-4.50 [facility] Comment on above: Performed By: #### L IPID, CMP, T7, TSH #### [facility] [address] [place] [address] Dr. Jarrod Butterfield T3U 37.0 % Normal 33.0-40.0 [facility] Comment on above: Performed By: #### L IPID, CMP, T7, TSH #### [facility] [address] [place] [address] Dr. Jarrod Butterfield T4 [Mass/Vol] 6.40 ug/dL Normal 4.50-12.10 [facility] Comment on above: Performed By: #### L IPID, CMP, T7, TSH #### [facility] [address] [place] [address] Dr. Jarrod Butterfield GLYCOHEMOGLOBIN A1Con 2022 ADA RECOMMENDATION SEE BELOW Normal [facility] Comment on above: Result Comment: ADA RECOMMENDED LIMIT 4.0 - 6.0 ADA THERAPEUTIC TARGET < 7.0 ACTION SUGGESTED > 7.0 Performed By: #### A 1C #### [facility] [address] [place] [address] Dr. Jarrod Butterfield Glucose [Mass/Vol] 134 mg/dL Normal [facility] Comment on above: Performed By: #### A 1C #### [facility] [address] [place] [address] Dr. Jarrod Butterfield HbA1c (Bld) [Mass fraction] 6.3 % Critically high 4.5-6.2 [facility] Comment on above: Performed By: #### A 1C #### [facility] [address] [address] [address] Jarrod Butterfield IRONon 10-02-2022 Iron [Mass/Vol] 74.0 ug/dL Normal 65.0-175.0 [facility] Comment on above: Performed By: #### A 1C #### [facility] [address] [address] [address] Jarrod Butterfield LIPID PROFILEon 10-02-2022 CHOL-HDL RATIO NORM SEE BELOW Normal [facility] Comment on above: Result Comment: 3.3 - 4.4 LOW RISK 4.4 - 7.1 AVERAGE RISK 7.1 - 11.0 MODERATE RISK >11.0 HIGH RISK Performed By: #### T HYBS #### [facility] [address] [place] [address] Dr. Jarrod Butterfield Cholesterol [Mass/Vol] 199 mg/dL Normal <=200 [facility] Comment on above: Performed By: #### T HYBS #### [facility] [address] [address] [address] Jarrod Butterfield Cholesterol in HDL [Mass/Vol] 45 mg/dL Normal 40-60 [facility] Comment on above: Performed By: #### T HYBS #### [facility] [address] [address] [address] Jarrod Butterfield Cholesterol in LDL [Mass/Vol] 131.0 mg/dL Normal [facility] Comment on above: Performed By: #### T HYBS #### [facility] [address] [address] [address] Jarrod Butterfield Cholesterol.total/Ch olesterol in HDL [Mass ratio] 4.4 {ratio} Normal [facility] Comment on above: Performed By: #### T HYBS #### [facility] [address] [place] [address] Dr. Jarrod Butterfield HDL NORMAL > or = 60 mg/dl - LO W CARDIOVASCULAR RISK <40 mg/dl - HIGH CARDIOVASCULAR RISK Normal [facility] Comment on above: Performed By: #### T HYBS #### [facility] [address] [place] [address] Dr. Jarrod Butterfield LDL CALC NORMAL SEE BELOW Normal [facility] Comment on above: Result Comment: <100 mg/dl OPTIMAL 100 - 129 mg/dl NEAR OR ABOVE OPTIMAL 130 - 159 mg/dl BORDERLINE HIGH 160 - 189 mg/dl HIGH >190 mg/dl VERY HIGH Performed By: #### T HYRABS #### [facility] [address] [address] [address] Jarrod Butterfield Triglyceride [Mass/Vol] 115 mg/dL Normal <=150 [facility] Comment on above: Performed By: #### T HYRABS #### [facility] [address] [address] [address] Jarrod Butterfield VLDL CALC 23.0 mg/dL Normal [facility] Comment on above: Performed By: #### T HYRABS #### [facility] [address] [place] [address] Dr. Jarrod Butterfield PROF 14(COMP METB)on 023 Albumin [Mass/Vol] 3.8 g/dL Normal 3.4-5.0 [facility] Comment on above: Performed By: #### T HYRABS #### [facility] [address] [address] [address] Jarrod Butterfield Albumin/Globulin [Mass ratio] 1.0 {ratio} Normal [facility] Comment on above: Performed By: #### T HYRABS #### [facility] [address] [address] [address] Jarrod Butterfield ALP [Catalytic activity/Vol] 99 U/L Normal 46-116 [facility] Comment on above: Performed By: #### T HYRABS #### [facility] [address] [address] [address] Jarrod Butterfield ALT [Catalytic activity/Vol] 24 U/L Normal 16-63 [facility] Comment on above: Performed By: #### T HYRABS #### [facility] [address] [address] [address] Jarrod Butterfield Anion gap [Moles/Vol] 14.0 mmol/L Normal [facility] Comment on above: Performed By: #### T HYRABS #### [facility] [address] [address] [address] Jarrod Butterfield AST [Catalytic activity/Vol] 14 U/L Critically low 15-37 [facility] Comment on above: Performed By: #### T HYRABS #### [facility] [address] [address] [address] Jarrod Butterfield Bilirubin [Mass/Vol] 1.1 mg/dL Critically high 0.2-1.0 [facility] Comment on above: Performed By: #### T HYRABS #### [facility] [address] [address] [address] Jarrod Butterfield Calcium [Mass/Vol] 9.0 mg/dL Normal 8.5-10.1 [facility] Comment on above: Performed By: #### T HYRABS #### [facility] [address] [place] [address] Dr. Jarrod Butterfield Chloride [Moles/Vol] 102 mmol/L Normal 98-107 [facility] Comment on above: Performed By: #### T HYRABS #### [facility] [address] [address] [address] Jarrod Butterfield CO2 [Moles/Vol] 27.6 mmol/L Normal 21.0-32.0 [facility] Comment on above: Performed By: #### T HYRABS #### [facility] [address] [place] [address] Dr. Jarrod Butterfield Creatinine [Mass/Vol] 0.94 mg/dL Normal 0.70-1.30 [facility] Comment on above: Performed By: #### T HYRABS #### [facility] [address] [place] [address] Dr. Jarrod Butterfield EGFR-AF LUXEMBOURGER >60 Normal >=60 [facility] Comment on above: Performed By: #### T HYRABS #### [facility] [address] [address] [address] Jarrod Butterfield EGFR-NON AF LUXEMBOURGER >60 Normal >=60 [facility] Comment on above: Performed By: #### T HYRABS #### [facility] [address] [address] [address] Jarrod Butterfield Globulin (S) [Mass/Vol] 4.0 g/dL Normal [facility] Comment on above: Performed By: #### T HYRABS #### [facility] [address] [address] [address] Jarrod Butterfield Glucose [Mass/Vol] 119 mg/dL Critically high 74-106 [facility] Comment on above: Performed By: #### T HYRABS #### [facility] [address] [address] [address] Jarrod Butterfield Potassium [Moles/Vol] 4.2 mmol/L Normal 3.5-5.1 [facility] Comment on above: Performed By: #### T HYRABS #### [facility] [address] [place] [address] Dr. Jarrod Butterfield Protein [Mass/Vol] 7.8 g/dL Normal 6.4-8.2 [facility] Comment on above: Performed By: #### T HYRABS #### [facility] [address] [address] [address] Jarrod Butterfield Sodium [Moles/Vol] 140 mmol/L Normal 136-145 [facility] Comment on above: Performed By: #### T HYRABS #### [facility] [address] [place] [address] Dr. Jarrod Butterfield Urea nitrogen [Mass/Vol] 16.0 mg/dL Normal 7.0-18.0 [facility] Comment on above: Performed By: #### T HYRABS #### [facility] [address] [place] [address] Dr. Jarrod Butterfield Urea nitrogen/Creatinine [Mass ratio] 17.0 mg/mg Normal [facility] Comment on above: Performed By: #### T HYRABS #### [facility] [address] [place] [address] Dr. Jarrod Butterfield TSHon 10-02-2022 TSH 0.555 uIU/mL Normal 0.358-3.740 [facility] Comment on above: Performed By: #### T HYRABS #### [facility] [address] [address] [address] Jarrod Butterfield NM THY SCAN W [...] by: SHIELA KINCAID Date: 2022-09-11 07:43 Normal [facility] THYROID ANTIBODIESon 023 Thyroglobulin Antibody <1.0 Normal 0.0-0.9 [facility] Comment on above: Result Comment: Thyr oglobulin Antibody measured by [employer] Methodology Performed By: #### T HYRABS #### [facility] [address] [place] [address] Dr. Jarrod Butterfield Thyroid Peroxidase (TPO) Ab 10 IU/mL Normal 0-34 [facility] Comment on above: Performed By: #### T HYRABS #### [facility] [address] [place] [address] Dr. Jarrod Butterfield FREE T3on 08-20-2022 FREE T3 2.63 pg/mlL Normal 2.18-3.98 [facility] Comment on above: Performed By: #### T HYRABS #### [facility] [address] [place] [address] Dr. Jarrod Butterfield FREE T4on 08-20-2022 Free T4 [Mass/Vol] 1.16 ng/dL Normal 0.76-1.46 [facility] Comment on above: Performed By: #### F T4 #### [facility] [address] [place] [address] Dr. Jarrod Butterfield TSHon 08-15-2022 TSH Qn 0.33 m[IU]/L Low 0.44 - 3.98 [facility] Comment on above: Result Comment: TSH testing is performed using different testing methodology at [facility] than at other [facility]. Direct result comparisons should only be made within the same method. Performed By: #### T SH2 #### [facility] [id number] [place] [address] TSH - Thyroid Stimulating Ho ming, Serumon 08-14-2022 TSH Qn 0.33 m[IU]/L below low threshold See Below MG-Otolaryngol [facility] [address] Work Phone: Comment on above: Reference Range: 0.4 4 - 3.98 TSH testing is performed using different testing methodology at [facility] than at other [facility]. Direct result comparisons should only be made within the same method. Tobacco Screening.on 023 Adult depression screening assessment No MG-Otolaryn gol [facility] 4100 Work Phone: Fall risk assessment a) No falls within the last year MG-Otolaryngol [facility] 4100 Work Phone: Tobacco use status CPHS b) No MG-Otolaryngol [facility] [address] Work Phone: CREATININEon 07-21-2022 Creatinine [Mass/Vol] 0.87 mg/dL Normal 0.70-1.30 [facility] Comment on above: Performed By: #### T HYRABS #### [facility] [address] [address] [address] Jarrod Butterfield EGFR-AF LUXEMBOURGER >60 Normal >=60 [facility] Comment on above: Performed By: #### T HYRABS #### [facility] [address] [address] [address] Jarrod Butterfield EGFR-NON AF LUXEMBOURGER >60 Normal >=60 [facility] Comment on above: Performed By: #### T HYRABS #### [facility] [address] [address] CHEST W CONon [...] by: PARUL WANG Date: 2022-07-21 09:55 Normal [facility] CT NECK ST W CONon CT NECK [...] PARUL WANG Date: 2022-07-21 10:09 Normal [facility] US THYROID FN ASP BXon 06-20 US THYROID FN ASP BX Begin Addendum #1 COLLECTED DATE/TIME: 06/17/2022 13:22 EST Final Diagnosis Report for [facility] [place] (A/B) RIGHT THYROID INFERIOR NODULE; FINE [...] 2. Pathology results are pending. Normal [facility] CT HEAD WO CONTRASTon 2022 1. No residual intracranial blood. 2. Known skull fractures unchanged. 3. Increased mucosal thickening mainly in the left maxillary sinus. [facility] RIS CONSOLIDATED EXAMINATION: CT HEAD WO CONTRAST HISTORY: Subdural hematoma COMPARISON: CT BRAIN 05/25/2022 [place]. 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 [facility] SHRADDHA Lawrence, Andrei sims Jr., MD - 06/17/2022 EXAMINATION: CT HEAD WO CONTRAST HISTORY: Subdural hematoma COMPARISON: CT BRAIN 05/25/2022 [place]. TECHNIQUE: CT examination of the head without [...] thickening mainly in the left maxillary sinus. [employer] Phone: Radiology Study observation (narrative) [employer] Phone: CT HEAD WO CONTRASTOrdered B y: nAdrei Lawrence on 06-17-2022 [employer] Phone: US THYROIDon 06-09-2022 US THYROID EXAMINATION: [...] 3.9 cm in the right TI-RADS: The [employer] TI-RADS committee's white paper recommendations for thyroid lesions classified as TR5 (highly suspicious) are listed below: > 0.5 cm. Annual ultrasound follow-up for up to 5 years. > 1.0 cm. FNA. J. Am Reji Radiol 2017;14:587-595. Electronically authenticated by: SHIELA KINCAID Date: 2022-06-09 13:36 Normal [facility] FREE THYROXINE INDEX T7on FTI 2.93 Normal 1.30-4.50 [facility] Comment on above: Performed By: #### T 7, TSH #### [facility] [address] [address] [address] Jarrod Butterfield T3U 39.0 % Normal 33.0-40.0 [facility] Comment on above: Performed By: #### T 7, TSH #### [facility] [address] [address] [address] Jarrod Butterfield T4 [Mass/Vol] 7.50 ug/dL Normal 4.50-12.10 [facility] Comment on above: Performed By: #### T 7, TSH #### [facility] [address] [address] [address] Jarrod Butterfield TSHon 06-04-2022 TSH 0.508 uIU/mL Normal 0.358-3.740 [facility] Comment on above: Performed By: #### T 7, TSH #### [facility] [address] [address] FACIAL BONES WO [...] Félix Iverson MD 05/26/22 Final result Normal [facility] Nondisplaced fractur e of the left zygomatic arch. Partially imaged nondisplaced fracture of the left temporal bone, extending into the left parietal bone. [facility] RIS CONSOLIDATED EXAMINATION: CT OF THE FACE [...] superficial facial soft tissue swelling is seen. [facility] Félix Ramirez MD - 05/26/2022 EXAMINATION: [...] bone, extending into the left parietal bone. [facility] [employer] [facility] Work Phone: CT FACIAL BONES WO CONTRASTO rdered By: Félix Iverson on 05-26-2022 [employer] Work Phone: CT HEAD WO CONTRASTon 2021 [...] Barron Cordero DO 05/26/22 Final result Normal [facility] CT HEAD WO CONTRAST EXAMINATION: CT OF [...] Omer Murphy MD 05/26/22 Final result Normal [facility] There is a thin left posterior parietal [...] TOBI SANCHEZ at 1:30 am on 05/26/2022. [facility] CONSOLIDATED EXAMINATION: CT OF THE HEAD [...] There is a left posterior scalp hematoma. [facility] CONSOLIDATED Omer Murphy MD - 05/26/2022 [...] TOBI SANCHEZ at 1:30 am on 05/26/2022. [employer] Work Phone: CT HEAD WO CONTRASTOrdered B y: Omer Murphy on 05-26-2022 [employer] Work Phone: CT IAC POSTERIOR FOSSA WO [...] Félix Iverson MD 05/26/22 Final result Normal [facility] Suboptimal temporal bone images, which may be related to post processing. Nondisplaced fracture of the squamous portion of the left temporal bone. [facility] RIS CONSOLIDATED EXAMINATION: CT OF THE INTERNAL [...] the sphenoid sinuses, left greater than right. [facility] RIS CONSOLIDATED Félix Iverson MD - 05/26/2022 [...] squamous portion of the left temporal bone. [employer] Phone: [employer] Phone: CTA HEAD NECK W CONTRASTon 1 [...] Barron Cordero DO 05/26/22 Final result Normal [facility] No Panel Informationon 05-26 1. No significant [...] for further evaluation on an outpatient basis. [facility] RIS CONSOLIDATED EXAMINATION: CT OF THE HEAD [...] venous sinus thrombosis on this non-dedicated study. [facility] RIS CONSOLIDATED Barron Cordero DO - 05/26/2022 [...] for further evaluation on an outpatient basis. [employer] Phone: Radiology Study observation (narrative) [employer] Phone: No Panel InformationOrdered By: Barron Cordero on 05-26-2022 [facility] [email or web address] Phone: CBC AUTO DIFFon 05-25-2022 BASO # 0.1 103/ul Normal 0.0-0.1 [facility] Comment on above: Performed By: #### C BC #### [facility] [address] [place] [address] Dr. Jarrod Butterfield Basophils/100 WBC (Bld) 0.3 % Normal 0.2-2.0 [facility] Comment on above: Performed By: #### C BC #### [facility] [address] [address] [address] Jarrod Butterfield EO # 0.0 103/ul Normal 0.0-0.7 [facility] Comment on above: Performed By: #### C BC #### [facility] [address] [address] [address] Jarrod Butterfield Eosinophils/100 WBC (Bld) 0.0 % Critically low 0.9-7.0 [facility] Comment on above: Performed By: #### C BC #### [facility] [address] [place] [address] Dr. Jarrod Butterfield Erythrocyte distribution width (RBC) [Ratio] 13.0 % Normal 11.0-15.0 [facility] Comment on above: Performed By: #### C BC #### [facility] [address] [place] [address] Dr. Jarrod Butterfield Hematocrit (Bld) [Volume fraction] 43.2 % Normal 42.0-54.0 [facility] Comment on above: Performed By: #### C BC #### [facility] [address] [place] [address] Dr. Jarrod Butterfield Hemoglobin (Bld) [Mass/Vol] 14.7 g/dL Normal 14.0-18.0 [facility] Comment on above: Performed By: #### C BC #### [facility] [address] [place] [address] Dr. Jarrod Butterfield IG # 0.13 10e3/ul Critically high 0.00-0.03 [facility] Comment on above: Performed By: #### C BC #### [facility] [address] [place] [address] Dr. Jarrod Butterfield IG % 0.7 % Critically high 0.0-0.5 [facility] Comment on above: Performed By: #### C BC #### [facility] [address] [place] [address] Dr. Jarrod Butterfield LYMPH # 0.7 103/ul Critically low 1.2-3.8 [facility] Comment on above: Performed By: #### C BC #### [facility] [address] [place] [address] Dr. Jarrod Butterfield Lymphocytes/100 WBC (Bld) 3.5 % Critically low 20.5-60.0 [facility] Comment on above: Performed By: #### C BC #### [facility] [address] [place] [address] Dr. Jarrod Butterfield MANUAL DIFF REQ NO Normal [facility] Comment on above: Performed By: #### C BC #### [facility] [address] [place] [address] Dr. Jarrod Butterfield MCH (RBC) [Entitic mass] 31.2 pg Normal 25.9-34.0 [facility] Comment on above: Performed By: #### C BC #### [facility] [address] [address] [address] Jarrod Butterfield MCHC (RBC) [Mass/Vol] 34.0 g/dL Normal 29.9-35.2 [facility] Comment on above: Performed By: #### C BC #### [facility] [address] [address] [address] Jarrod Butterfield MCV (RBC) [Entitic vol] 91.7 fL Normal 80.0-94.0 [facility] Comment on above: Performed By: #### C BC #### [facility] [address] [place] [address] Dr. Jarrod Butterfield MONO # 1.0 103/ul Critically high 0.3-0.8 [facility] Comment on above: Performed By: #### C BC #### [facility] [address] [place] [address] Dr. Jarrod Butterfield Monocytes/100 WBC (Bld) 5.1 % Normal 1.7-12.0 [facility] Comment on above: Performed By: #### C BC #### [facility] [address] [place] [address] Dr. Jarrod Butterfield NEUT # 17.8 103/ul Critically high 1.4-6.5 [facility] Comment on above: Performed By: #### C BC #### [facility] [address] [place] [address] Dr. Jarrod Butterfield Neutrophils/100 WBC (Bld) 90.4 % Critically high 43.0-75.0 [facility] Comment on above: Performed By: #### C BC #### [facility] [address] [place] [address] Dr. Jarrod Butterfield Platelet mean volume (Bld) [Entitic vol] 10.2 fL Normal 9.5-13.5 [facility] Comment on above: Performed By: #### C BC #### [facility] [address] [place], [place] [address] Dr. Jarrod Butterfield PLT 245 103/ul Normal 150-450 [facility] Comment on above: Performed By: #### C BC #### [facility] [id number] Jarrod Butterfield RBC 4.71 106/ul Normal 4.70-6.10 [facility] Comment on above: Performed By: #### C BC #### [facility] [address] [id number] Jarrod Butterfield WBC 19.6 103/ul Critically high 4.0-11.0 [facility] Comment on above: Performed By: #### C BC #### [facility] [address] [place], [place] [id number] Dr. Jarrod Butterfield CT CHEST ABDOMEN PELVIS [...] Roque Kuhn MD 05/25/22 Final result Normal [facility] CT CSPINE WO CONon 2 CT CSPINE [...] by: DAJUAN YOUNGBLOOD Date: 2022-05-25 17:45 Normal [facility] CT HEAD WO CONon 05-25-2022 CT HEAD [...] by: BILLY SANDERS Date: 2022-05-25 17:07 Normal [facility] CT LUMBAR SPINE TRAUMA RECON STRUCTIONon 05-25-2022 [...] Roque Kuhn MD 05/25/22 Final result Normal [facility] CT THORACIC SPINE TRAUMA REC ONSTRUCTIONon 05-25-2022 [...] Roque Kuhn MD 05/25/22 Final result Normal [facility] Covid-19 PCR (CVDTB)on 05-14 SARS-CoV-2 (COVID-19) RNA CORRINE+probe Ql (Unsp spec) Not detected Normal NOT DETECTED [facility] Comment on above: Result Comment: When diagnostic [...] for this test is supported by the Commercial Development Manager of Health and Human Service's declaration [...] longer be used). Performed By: #### C [facility] #### [facility] [address] [address] [address] Jarrod Butterfield No Panel Informationon 05-25 [...] calcifications are seen compatible with atherosclerotic disease. [facility] RIS CONSOLIDATED Roque Kuhn MD - 05/25/2022 [...] obtained with MR imaging if clinically indicated. [employer] Phone: Radiology Study observation (narrative) [employer] Phone: Radiology Study observation (narrative) [employer] Phone: No Panel InformationOrdered By: Roque Kuhn on 05-25-2022 [facility] [email or web address] Phone: PROF 14(COMP METB)on 022 Albumin [Mass/Vol] 3.9 g/dL Normal 3.4-5.0 [facility] Comment on above: Performed By: #### C MP #### [facility] [address] [place] [address] Dr. Jarrod Butterfield Albumin/Globulin [Mass ratio] 1.0 {ratio} Normal [facility] Comment on above: Performed By: #### C MP #### [facility] [address] [place] [address] Dr. Jarrod Butterfield ALP [Catalytic activity/Vol] 87 U/L Normal 46-116 [facility] Comment on above: Performed By: #### C MP #### [facility] [address] [place] [address] Dr. Jarrod Butterfield ALT [Catalytic activity/Vol] 22 U/L Normal 16-63 [facility] Comment on above: Performed By: #### C MP #### [facility] [address] [place] [address] Dr. Jarrod Butterfield Anion gap [Moles/Vol] 12.7 mmol/L Normal [facility] Comment on above: Performed By: #### C MP #### [facility] [address] [place] [address] Dr. Jarrod Butterfield AST [Catalytic activity/Vol] 18 U/L Normal 15-37 [facility] Comment on above: Performed By: #### C MP #### [facility] [address] [address] [address] Jarrod Butterfield Bilirubin [Mass/Vol] 1.1 mg/dL Critically high 0.2-1.0 [facility] Comment on above: Performed By: #### C MP #### [facility] [address] [address] [address] Jarrdo Butterfield Calcium [Mass/Vol] 9.2 mg/dL Normal 8.5-10.1 [facility] Comment on above: Performed By: #### C MP #### [facility] [address] [place] [address] Dr. Jarrod Butterfield Chloride [Moles/Vol] 102 mmol/L Normal 98-107 [facility] Comment on above: Performed By: #### C MP #### [facility] [address] [place] [address] Dr. Jarrod Butterfield CO2 [Moles/Vol] 27.1 mmol/L Normal 21.0-32.0 [facility] Comment on above: Performed By: #### C MP #### [facility] [address] [place] [address] Dr. Jarrod Butterfield Creatinine [Mass/Vol] 0.87 mg/dL Normal 0.70-1.30 [facility] Comment on above: Performed By: #### C MP #### [facility] [address] [place] [address] Dr. Jarrod Butterfield EGFR-AF LUXEMBOURGER >60 Normal >=60 [facility] Comment on above: Performed By: #### C MP #### [facility] [address] [place] [address] Dr. Jarrod Butterfield EGFR-NON AF LUXEMBOURGER >60 Normal >=60 [facility] Comment on above: Performed By: #### C MP #### [facility] [address] [place] [address] Dr. Jarrod Butterfield Globulin (S) [Mass/Vol] 4.1 g/dL Normal [facility] Comment on above: Performed By: #### C MP #### [facility] [address] [address] [address] Jarrod Butterfield Glucose [Mass/Vol] 151 mg/dL Critically high 74-106 [facility] Comment on above: Performed By: #### C MP #### [facility] [address] [address] [address] Jarrod Butterfield Potassium [Moles/Vol] 3.8 mmol/L Normal 3.5-5.1 [facility] Comment on above: Performed By: #### C MP #### [facility] [address] [address] [address] Jarrod Butterfield Protein [Mass/Vol] 8.0 g/dL Normal 6.4-8.2 [facility] Comment on above: Performed By: #### C MP #### [facility] [address] [address] [address] Jarrod Butterfield Sodium [Moles/Vol] 138 mmol/L Normal 136-145 [facility] Comment on above: Performed By: #### C MP #### [facility] [address] [address] [address] Jarrod Butterfield Urea nitrogen [Mass/Vol] 20.0 mg/dL Critically high 7.0-18.0 [facility] Comment on above: Performed By: #### C MP #### [facility] [address] [address] [address] Jarrod Butterfield Urea nitrogen/Creatinine [Mass ratio] 23.0 mg/mg Normal [facility] Comment on above: Performed By: #### C MP #### [facility] [address] [address] [address] Jarrod Butterfield TYPE AND SCREENon 05-25-2022 ABO/Rh Negative [facility] Arm Band Number [id number] [facility] Expiration Date 05/28/2022,6291 [facility] Trauma Panelon 05-25-2022 Anion gap [Moles/Vol] 9 mmol/L 9 - 17 mmol/L [facility] aPTT Coag (Bld) [Time] 22.0 s [facility] [employer] Comment on above: IV Heparin Therapy Range: 48.6-77.8 Blood Bank Specimen BILL FOR SERVICES PERFORMED [facility] [employer] Carboxyhemoglobin 2.7 % 0 - 5 % [facility] [employer] Comment on above: Reference Range: Non-Smokers 0-2% Average Smoker 2-4% Heavy Smoker <10% Chloride [Moles/Vol] 100 mmol/L 98 - 10 7 mmol/L [facility] [employer] CO2 [Moles/Vol] 27 mmol/L 20 - 31 mmol/L [facility] [employer] Creatinine [Mass/Vol] 0.7 mg/dL 0.70 - 1.20 mg/dL [facility] [employer] Ethanol [Mass/Vol] mg/dL NINF - 10 mg/dL [facility] [employer] Ethanol percent <0.010 NINF - 0.010 % [facility] [employer] FIO2 INFORMATION NOT PROVIDED [facility] [employer] GFR/1.73 sq M.predicted MDRD (S/P/Bld) [Vol rate/Area] 60 mL/min/{1.73_m2} Low - PINF [facility] [employer] Comment on above: Effective Mar 16, 2022 [...] 142 mg/dL High 70 - 99 mg/dL [facility] [employer] hCG Qual MALE [facility] [employer] HCO3 (Bld) [Moles/Vol] 24.7 mmol/L 24 - 30 mmol/L [facility] [employer] Hematocrit (Bld) [Volume fraction] 42.1 % 40.7 - 50.3 % [facility] [employer] Hemoglobin (Bld) [Mass/Vol] 14.3 g/dL 13.0 - 17.0 g/dL [facility] INR Coag (Bld) [Relative time] 1.1 {INR} [facility] Comment on above: Therapeutic Range: Moderate Anticoagulant Intensity: INR = 2.0-3.0 High Anticoagulant Intensity: INR = 2.5-3.5 Interpretation and review of laboratory results Abnormal [facility] MCH (RBC) [Entitic mass] 32.1 pg 25.2 - 33.5 pg [facility] MCHC (RBC) [Mass/Vol] 34.0 g/dL 28.4 - 34.8 g/dL [facility] MCV (RBC) [Entitic vol] 94.6 fL 82.6 - 102.9 fL [facility] Negative Base Excess, [place] 0.4 mmol/L 0.0 - 2.0 mmol/L [facility] NRBC Automated 0.0 0.0 per 100 WBC [facility] Oxygen saturation in Blood 84.0 % 60.0 - 85.0 % [facility] pCO2, [place] 44.5 [facility] pH, [place] 7.363 7.320 - 7.420 [facility] Platelet distribution width (Bld) [Ratio] 13.0 % 11.8 - 14.4 % [facility] Platelet mean volume (Bld) [Entitic vol] 10.7 fL 8.1 - 13.5 fL [facility] Platelets (Bld) [#/Vol] 283 10*3/uL [facility] pO2, [place] 52.8 High [facility] Potassium [Moles/Vol] 3.8 mmol/L 3.7 - 5.3 mmol/L [facility] PT Coag (PPP) [Time] 11.4 s [facility] Pt Temp 37.0 [facility] RBC (Bld) [#/Vol] 4.45 10*6/uL 4.21 - 5.7 7 m/uL [facility] Sodium [Moles/Vol] 136 mmol/L 135 - 144 mmol/L [facility] Urea nitrogen (BldV) [Mass/Vol] 18 mg/dL 8 - 23 mg/dL [facility] WBC (Bld) [#/Vol] 17.5 10*3/uL High [facility] Trauma Profileon 05-25-2022 Anion gap [Moles/Vol] 9 mmol/L Normal 9-17 [facility] Comment on above: Performed By: #### E RTPF #### [address] [address] [employer]: Lázaro Deleon MD Chloride [Moles/Vol] 100 mmol/L Normal 98-107 [facility] Comment on above: Performed By: #### E RTPF #### [address] [address] [employer]: Lázaro Deleon MD CO2 [Moles/Vol] 27 mmol/L Normal 20-31 [facility] Comment on above: Performed By: #### E RTPF #### [address] [address] [employer]: Lázaro Deleon MD Creatinine [Mass/Vol] 0.70 mg/dL Normal 0.70-1.20 [facility] Comment on above: Performed By: #### E RTPF #### [address] [address] [employer]: Lázaro Deleon MD Ethanol [Mass/Vol] mg/dL Normal <10 [facility] Comment on above: Performed By: #### E RTPF #### [address] [address] [employer]: Lázaro Deleon MD Ethanol percent <0.010 Normal <0.010 [facility] Comment on above: Performed By: #### E RTPF #### [address] [address] [employer]: Lázaro Deleon MD GFR/1.73 sq M.predicted among non-blacks MDRD (S/P/Bld) [Vol rate/Area] 60 mL/min/{1.73_m2} Low >60 [facility] Comment on above: Result Comment: Effective Mar [...] secretion. Performed By: #### E RTPF #### [facility] [address] [place] [address] [employer]: Lázaro Deleon MD Glucose [Mass/Vol] 142 mg/dL High 70-99 [facility] Comment on above: Performed By: #### E RTPF #### [address] [address] [employer]: Lázaro Deleon MD Potassium [Moles/Vol] 3.8 mmol/L Normal 3.7-5.3 [facility] Comment on above: Performed By: #### E RTPF #### [address] [address] [employer]: Lázaro Deleon MD Sodium [Moles/Vol] 136 mmol/L Normal 135-144 [facility] Comment on above: Performed By: #### E RTPF #### [address] [address] [employer]: Lázaro Deleon MD Urea nitrogen [Mass/Vol] 18 mg/dL Normal 8-23 [facility] Comment on above: Performed By: #### E RTPF #### [address] [address] [employer]: Lázaro Deleon MD aPTT Coag (Bld) [Time] 22.0 s Normal 20.5-30.5 [facility] Comment on above: Result Comment: IV Heparin Therapy Range: 48.6-77.8 Performed By: #### E RTPF #### [address] [address] [employer]: Lázaro Deleon MD INR Coag (PPP) [Relative time] 1.1 {INR} Normal [facility] Comment on above: Result Comment: Therapeutic Range: Moderate Anticoagulant Intensity: INR = 2.0-3.0 High Anticoagulant Intensity: INR = 2.5-3.5 Performed By: #### E RTPF #### [address] [address] [employer]: Lázaro Deleon MD PT Coag (PPP) [Time] 11.4 s Normal 9.1-12.3 [facility] Comment on above: Performed By: #### E RTPF #### [address] [address] [employer]: Lázaro Deleon MD Body Temp. 37.0 Normal [facility] Comment on above: Performed By: #### E RTPF #### [address] [address] [employer]: Lázaro Deleon MD Carboxy Hgb 2.7 % Normal 0-5 [facility] Comment on above: Result Comment: Reference Range: Non-Smokers 0-2% Average Smoker 2-4% Heavy Smoker <10% Performed By: #### E RTPF #### [address] [address] [employer]: Lázaro Deleon MD FIO2 INFORMATION NOT PROVIDED Normal [facility] Comment on above: Performed By: #### E RTPF #### [address] [address] [employer]: Lázaro Deleon MD HCO3 (Bld) [Moles/Vol] 24.7 mmol/L Normal 24-30 [facility] Comment on above: Performed By: #### E RTPF #### [facility] [address] [place] [address] Border Guard: Lázaro Deleon MD Negative Base Excess 0.4 mmol/L Normal 0.0-2.0 [facility] Comment on above: Performed By: #### E RTPF #### [address] [address] [employer]: Lázaro Deleon MD Oxygen saturation in Blood 84.0 % Normal 60.0-85.0 [facility] Comment on above: Performed By: #### E RTPF #### [address] [address] [employer]: Lázaro Deleon MD pCO2 44.5 mm Hg Normal 39-55 [facility] Comment on above: Performed By: #### E RTPF #### [address] [address] [employer] Guard: Lázaro Deleon MD pH (Bld) 7.363 [pH] Normal 7.320-7.420 [facility] Comment on above: Performed By: #### E RTPF #### [address] [address] [employer]: Lázaro Deleon MD pO2 52.8 mm Hg High 30-50 [facility] Comment on above: Performed By: #### E RTPF #### [address] [address] [employer]: Lázaro Deleon MD Erythrocyte distribution width (RBC) [Ratio] 13.0 % Normal 11.8-14.4 [facility] Comment on above: Performed By: #### E RTPF #### [address] [address] [employer]: Lázaro Deleon MD Hematocrit (Bld) [Volume fraction] 42.1 % Normal 40.7-50.3 [facility] Comment on above: Performed By: #### E RTPF #### [address] [address] [employer]: Lázaro Deleon MD Hemoglobin (Bld) [Mass/Vol] 14.3 g/dL Normal 13.0-17.0 [facility] Comment on above: Performed By: #### E RTPF #### [address] [address] [employer]: Lázaro Deleon MD MCH (RBC) [Entitic mass] 32.1 pg Normal 25.2-33.5 [facility] Comment on above: Performed By: #### E RTPF #### [address] [address] [employer]: Lázaro Deleon MD MCHC (RBC) [Mass/Vol] 34.0 g/dL Normal 28.4-34.8 [facility] Comment on above: Performed By: #### E RTPF #### [address] [address] [employer]: Lázaro Deleon MD MCV (RBC) [Entitic vol] 94.6 fL Normal 82.6-102.9 [facility] Comment on above: Performed By: #### E RTPF #### [address] [address] [employer] Guard: Lázaro Deleon MD NRBC Automated 0.0 per 100 WBC Normal 0.0 [facility] Comment on above: Performed By: #### E RTPF #### [address] [id number] [employer]: Lázaro Deleon MD Platelet mean volume (Bld) [Entitic vol] 10.7 fL Normal 8.1-13.5 [facility] Comment on above: Performed By: #### E RTPF #### [address] [address] [employer] Guard: Lázaro Deleon MD Platelets (Bld) [#/Vol] 283 10*3/uL Normal 138-453 [facility] Comment on above: Performed By: #### E RTPF #### [address] [address] [employer] Guard: Lázaro Deelon MD RBC (Bld) [#/Vol] 4.45 10*6/uL Normal 4.21-5.77 [facility] Comment on above: Performed By: #### E RTPF #### [address] [address] [employer] Guard: Lázaro Deleon MD WBC (Bld) [#/Vol] 17.5 10*3/uL High 3.5-11.3 [facility] Comment on above: Performed By: #### E RTPF #### [address] [address] [employer] Guard: Lázaro Deleon MD Blood Bank BILL FOR SERVICES PERFORMED Normal [facility] Comment on above: Performed By: #### E RTPF #### [address] [address] [employer] Guard: Lázaro Deleon MD Type + Screenon 05-25-2022 Type + Screen Sample Expiration 05/28/2022,2359 [id number] ABO/Rh(D) O NEGATIVE Antibody Screen NEGATIVE Normal [facility] Comment on above: Performed By: #### T YS #### [address] [address] Border Guard: Lázaro Deleon MD XR CHEST 1 Von [...] by: NARCISO PEDERSEN Date: 2022-05-25 18:30 Normal [facility] Vital Signs Date Time Vital Sign Value Performing Clinician Facility 11-18-2023 12:11-0400 Diastolic blood pressure 84 mm[Hg] Hicks Sarmini [facility] 11-18-2023 12:11-0400 Heart rate 46 /min Hicks Sarmini [facility] 11-18-2023 12:11-0400 Mean blood pressure 97 mm[Hg] Hicks Sarmini [facility] 11-18-2023 12:11-0400 Respiratory rate 15 /min Hicks Sarmini [facility] 11-18-2023 12:11-0400 SaO2% (BldA) [Mass fraction] 96 % Hicks Sarmini [facility] 11-18-2023 12:11-0400 Systolic blood pressure 122 mm[Hg] Hicks Sarmini [facility] 11-18-2023 12:00-0400 Heart rate 50 /min Hicks Sarmini [facility] 11-18-2023 12:00-0400 SaO2% (BldA) [Mass fraction] 95 % Hicks Sarmini [facility] 11-18-2023 12:00-0400 Systolic blood pressure 116 mm[Hg] Hicks Sarmini [facility] 11-18-2023 11:55-0400 Diastolic blood pressure 83 mm[Hg] Hicks Sarmini [facility] 11-18-2023 11:55-0400 Heart rate 48 /min Hicks Sarmini [facility] 11-18-2023 11:55-0400 Mean blood pressure 94 mm[Hg] Hicks Sarmini [facility] 11-18-2023 11:55-0400 Respiratory rate 12 /min Hicks Sarmini [facility] 11-18-2023 11:55-0400 SaO2% (BldA) [Mass fraction] 94 % Hicks Sarmini [facility] 11-18-2023 11:55-0400 Systolic blood pressure 117 mm[Hg] Hicks Sarmini [facility] 11-18-2023 11:46-0400 Body temperature 97.34 [degF] Hicks Sarmini [facility] 11-18-2023 11:40-0400 Respiratory rate 14 /min Hicks Sarmini [facility] 11-18-2023 09:39-0400 Blood Pressure Location Hicks Sarmini [facility] 11-18-2023 09:39-0400 Body temperature 97.88 [degF] Hicks Sarmini [facility] 07-09-2023 10:53-0500 Diastolic blood pressure 102 mm[Hg] Hicks Sarmini [facility] 07-09-2023 10:53-0500 Mean blood pressure 119 mm[Hg] Hicks Sarmini [facility] 07-09-2023 10:53-0500 Systolic blood pressure 152 mm[Hg] Hicks Sarmini [facility] 07-09-2023 10:48-0500 Blood Pressure Location Hicks Sarmini [facility] 07-09-2023 10:48-0500 Diastolic blood pressure 94 mm[Hg] Hicks Sarmini [facility] 07-09-2023 10:48-0500 Heart rate 72 /min Hicks Sarmini [facility] 07-09-2023 10:48-0500 Respiratory rate 16 /min Hicks Sarmini [facility] 07-09-2023 10:48-0500 Systolic blood pressure 158 mm[Hg] Hicks Sarmini [facility] 05-17-2023 13:50-0500 Diastolic blood pressure 97 mm[Hg] Hicks Sarmini [facility] 05-17-2023 13:50-0500 Heart rate 52 /min Hicks Sarmini [facility] 05-17-2023 13:50-0500 Respiratory rate 20 /min Hicks Sarmini [facility] 05-17-2023 13:50-0500 SaO2% (BldA) [Mass fraction] 84 % Hicks Sarmini [facility] 05-17-2023 13:50-0500 Systolic blood pressure 144 mm[Hg] Hicks Sarmini [facility] 05-17-2023 13:40-0500 Diastolic blood pressure 98 mm[Hg] Hicks Sarmini [facility] 05-17-2023 13:40-0500 Heart rate 58 /min Hicks Sarmini [facility] 05-17-2023 13:40-0500 Respiratory rate 18 /min Hicks Sarmini [facility] 05-17-2023 13:40-0500 SaO2% (BldA) [Mass fraction] 95 % Hicks Sarmini [facility] 05-17-2023 13:40-0500 Systolic blood pressure 144 mm[Hg] Hicks Sarmini [facility] 05-17-2023 13:25-0500 Diastolic blood pressure 88 mm[Hg] Hicks Sarmini [facility] 05-17-2023 13:25-0500 Heart rate 58 /min Hicks Sarmini [facility] 05-17-2023 13:25-0500 Respiratory rate 18 /min Hicks Sarmini [facility] 05-17-2023 13:25-0500 SaO2% (BldA) [Mass fraction] 95 % Hicks Sarmini [facility] 05-17-2023 13:25-0500 Systolic blood pressure 113 mm[Hg] Hicks Sarmini [facility] 05-17-2023 13:13-0500 Body temperature 97.7 [degF] Hicks Sarmini [facility] 05-17-2023 13:05-0500 Respiratory rate 15 /min Hicks Kearamini [facility] 05-17-2023 12:55-0500 Respiratory rate 17 /min Hicks Kearamini [facility] 05-17-2023 11:48-0500 Blood Pressure Location Fabiola Sarahmini [facility] 05-17-2023 11:48-0500 Body temperature 98.24 [degF] Fabiola Sarahmini [facility] 12-25-2022 13:37-0400 Body height 180.34 cm Patel H Timmis Work Phone: [facility] [address] Work Phone: 12-25-2022 13:37-0400 Body mass index (BMI) [Ratio] 30.74 kg/m2 Patel H Timmis Work Phone: [facility] [address] Work Phone: 12-25-2022 13:37-0400 Body surface area Derived from formula 2.2 m2 Patel H Timmis Work Phone: [facility] [address] Work Phone: 12-25-2022 13:37-0400 Body temperature 96.1 [degF] [facility] Work Phone: 12-25-2022 13:37-0400 Body weight 99.97 kg Patel H Timmis [facility] Work Phone: 12-18-2022 14:30-0400 Body temperature 98.06 [degF] Patel Timmis Other Phone: [facility] 12-18-2022 14:30-0400 Diastolic blood pressure 74 mm[Hg] Patel Timmis Other Phone: [facility] 12-18-2022 14:30-0400 Heart rate 62 /min Patel Timmis Other Phone: [facility] 12-18-2022 14:30-0400 Respiratory rate 18 /min Patel Timmis Other Phone: [facility] 12-18-2022 14:30-0400 SaO2% (BldA) [Mass fraction] 94 % Patel Timmis Other Phone: [facility] 12-18-2022 14:30-0400 Systolic blood pressure 130 mm[Hg] Patel Timmis Other Phone: [facility] 2022 12:28-0400 Body height 180.34 cm Patel H Timmis [facility] Work Phone: 2022 12:28-0400 Body mass index (BMI) [Ratio] 31.94 kg/m2 Patel H Timmis [facility] Work Phone: 2022 12:28-0400 Body surface area Derived from formula 2.23 m2 Patel H Timmis Work [facility] Work Phone: 2022 12:28-0400 Body weight 103.87 kg Patel H Timmis [facility] Work Phone: 08-14-2022 14:25-0500 Body height 180.34 cm Patel Mendozas Work Phone: [facility] [address] Work Phone: 08-14-2022 14:25-0500 Body mass index (BMI) [Ratio] 31.67 kg/m2 Patel Mendozas Work Phone: [facility] [address] Work Phone: 08-14-2022 14:25-0500 Body surface area Derived from formula 2.23 m2 Patel Mendozas Work Phone: [facility] [address] Work Phone: 08-14-2022 14:25-0500 Body temperature 96.6 [degF] Patel Mendozas Work Phone: [facility] [address] Work Phone: 08-14-2022 14:25-0500 Body weight 103.01 kg Patel Mendozas Work Phone: [facility] [address] Work Phone: 06-24-2022 14:58-0500 Blood Pressure Location Billy ARBOLEDAAyana [facility] [place] 06-24-2022 14:58-0500 Diastolic blood pressure 88 mm[Hg] Billy HERR [facility] [place] 06-24-2022 14:58-0500 Heart rate 76 /min Bilyl HERR [facility] [place] 06-24-2022 14:58-0500 Respiratory rate 16 /min Billy HERR [facility] [place] 06-24-2022 14:58-0500 Systolic blood pressure 130 mm[Hg] Billy ARBOLEDAAyana [facility] [place] 05-26-2022 11:37-0500 Body temperature 97.59 [degF] Nikita Mario MD Work Phone: [employer] 05-26-2022 11:37-0500 Diastolic blood pressure 90 mm[Hg] Nikita Mario MD Work Phone: [employer] 05-26-2022 11:37-0500 SaO2% (BldA) [Mass fraction] 94 % Nikita Mario MD Work Phone: [employer] 05-26-2022 11:37-0500 Systolic blood pressure 134 mm[Hg] Nikita Mario MD Work Phone: [employer] 05-26-2022 08:22-0500 Heart rate 57 /min Nikita Mario MD Work Phone: [employer] 05-26-2022 08:22-0500 Respiratory rate 18 /min Nikita Mario MD Work Phone: [employer] 05-25-2022 20:00-0500 Body height 182.9 cm Nikita Mario MD Work Phone: [facility] 05-25-2022 20:00-0500 Body mass index (BMI) [Ratio] 30.32 kg/m2 Nikita Mario MD Work Phone: [employer] 05-25-2022 20:00-0500 Body weight 101.4 kg Nikita Mario MD Work Phone: [employer] Encounters Encounter Date Encounter Type Care Provider Facility Start: 11-18-2023 End: 11-18-2023 ambulatory Hicks Taledd Edmondsoni Facility:[facility] Start: 11-18-2023 End: 11-18-2023 Patient encounter procedure Fabiola Edmondsoni [facility] Start: 07-09-2023 End: 07-09-2023 Patient encounter procedure Fabiola Nichole [facility] Start: 05-17-2023 End: 05-17-2023 Patient encounter procedure Fabiola Nichole [facility] Start: 04-16-2023 End: 04-16-2023 Patient encounter procedure Billy HERR [facility] Nill/Said [place] Start: 01-22-2023 Chart Update Patel patel Work Phone: [facility] Work Phone: Start: 12-25-2022 Patient encounter procedure Patel Allyson Eleni Work Phone: [facility] 6639 Work Phone: Start: 12-25-2022 Postop follow up vis it related to original px Patel Angelesjonnyamanda Work Phone: [facility] 1196 Work Phone: Start: 12-25-[address] Nazario Oglesby Facility:[id number] Start: 12-17-2022 End: 12-18-2022 Evaluation and management of inpatient Nazario Steinberg 7th Flr Rm 719 A Start: 2022 Office outpatient vi sit 25 minutes Patel Fontaine Work Phone: [facility] 410 Work Phone: Start: 2022 Patient encounter procedure Patel Fontaine Work Phone: [facility] 4107 Work Phone: Start: 2022 ambulatory PATEL FONTAINE Facility: [id number] Start: 12-01-2022 Chart Update Patel patel Work Phone: VU-Cmjvthsecbfevv-Cdq urban Work Phone: Start: 12-01-[address] Nazario Oglesby [facility] Start: 12-01-2022 Encounter for preprocedural laboratory examination Dr. Nazario Oglesby [facility] Start: 10-09-2022 End: 10-10-[address] ANUPAM PEÑALOZA . Facility:H1 Start: 10-02-2022 End: 10-03-[address] ANUPAM PEÑALOZA . Facility: Start: 09-28-2022 End: 09-28-2022 ambulatory NAV FELIX Facility:[facility]1 Start: 09-10-[address] DOCTOR GRIFFIN Facility :[facility]1 Start: 09-09-2022 End: 09-10-[address] SHIELA KINCAID Facility:[facility]1 Start: 08-20-2022 End: 08-21-[address] DOCTOR GRIFFIN Facility: Start: 08-16-2022 Chart Update Patel patel Work Phone: [facility] 4[facility] Work Phone: Start: 08-14-2022 ambulatory PATEL FONTAINE Facility: [id number] Start: 08-14-2022 Office outpatient ne w 45 minutes Patel Fontaine Work Phone: OZ-Ydixebhwuazdmn-Raj urban Work Phone: Start: 08-14-2022 Patient encounter procedure Patel Fontaine Work Phone: QT[facility]Gvbkgulemrdomu[facility] 4104 Work Phone: Start: 07-28-2022 End: 07-28-2022 Patient encounter procedure Billy HERR [facility] [place]/Myrna [place] Start: 07-21-2022 End: 07-22-[address] PATEL FONTAINE Facility:H1 Start: 07-15-2022 End: 07-15-[address] BILLY HERR . Facility:[facility]1 Start: 06-24-2022 End: 06-24-2022 Patient encounter procedure Billy HERR [facility] Nilayana/Said Daisy Start: 06-17-2022 End: 06-19-2022 Subsequent hospital visit by physician [facility] Cat Scan Room [facility] Scan Comment on above: Subdural hematoma Start: 06-17-2022 End: 06-17-[address] ANUPAM PEÑALOZA . Facility:[facility]1 Start: 06-09-2022 End: 06-10-[address] ANUPAM PEÑALOZA . Facility:H1 Start: 06-04-2022 End: 06-05-[address] ANUPAM PEÑALOZA . Facility:[facility]1 Start: 05-25-2022 End: 05-26-2022 Evaluation and management of inpatient KIKE STOKES [facility] Start: 05-25-2022 End: 05-26-2022 Evaluation and management of inpatient Nikita Mario MD Work Phone: 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[employer] Work Phone: Start: 05-26-2022 Ct angiography neck [...] Nazario Oglesby, Status: Pen, Time: 10:00 AM ZP[facility]oz[facility] [place] 4107 Work Phone: Start: 01-08-2023 POV, Provider: Nazario Oglesby, Status: Pen, Time: 12:45 PM POV, Provider: Nazario Oglesby, Status: Pen, Time: 12:45 PM MM[facility]dnvtne[facility] 4100 Work Phone: Start: 12-25-2022 Patient encounter procedure [facility] Otolaryngology [place] Start: 12-25-2022 POV, Provider: Nazario Oglesby,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
--- NOTE | 2025-03-08 10:00 | CA_ITS ---
Patient Name: RAUL ADHIKARI MR#: [id number] : 1950 Exam Date: 03/08/2025 Ordering Doctor: DR ANUPAM PEÑALOZA . ECHOCARDIOGRAM REPORT PROCEDURE: CA ECHO DOPPLER COMPLETE INDICATIONS: Atrial fibrillation, heart failure COMPARISON: None. DESCRIPTION: COMPLETE ECHOCARDIOGRAM Real-time transthoracic echocardiography with 2D, M-mode, spectral and color flow Doppler performed. QUALITY: Technical quality was good. LEFT VENTRICLE: Normal chamber size. Mild concentric left ventricular hypertrophy. Normal systolic function. LV EF: Normal left ventricular ejection fraction, (55-60%). DIASTOLIC: Diastolic function is indeterminate. ATRIAL SEPTUM: LEFT ATRIUM: Moderate dilatation. RIGHT ATRIUM: Moderate dilatation. RIGHT VENTRICLE: Normal chamber size. Normal systolic function. TRICUSPID VALVE: Normal mobility and thickness. No stenosis with trivial regurgitation. No evidence of pulmonary hypertension. RVSP 34 mmHg MITRAL VALVE: Normal mobility and thickness. No evidence of mitral valve stenosis. There is no mitral annular calcification. Mild mitral regurgitation. AORTIC VALVE: Normal trileaflet appearance. No visible sclerosis. Normal leaflet mobility. No evidence of aortic valve stenosis. Mild aortic regurgitation. AORTIC ROOT: Mildly dilated, measuring 4.2 cm. Ascending aorta is moderately dilated (4.3 cm). PULMONIC VALVE: Normal thickness and mobility. No stenosis. Mild regurgitation. PERICARDIUM: No evidence of pericardial effusion. IVC: Collapses with inspiration. IVC is dilated (2.3 cm) PLEURA: CONCLUSION: 1. Mild concentric left ventricular hypertrophy with normal systolic function. Estimated LVEF is 55-60%. 2. Normal right ventricular size and systolic function. 3. Moderate biatrial dilatation. 4. Mild mitral and aortic regurgitation. 5. Normal right sided pressures. 6. Ascending aorta is moderately dilated (4.3 cm). Adult Echocardiography Procedure Report Left Ventricle LVEDD (3.7 - 5.6 cm): 5.31 cm LVESD (2.2 - 4.0 cm): 3.65 cm LVIVS thickness (0.6 - 1.2 cm): 1.20 cm LVPW thickness (0.5 - 1.0 cm): 1.16 cm e': 0.08 m/s E - e': 6.76 LVOT Max Gradient: 3.86 mm[Hg] LVOT Area (cm2): 0.98 m/s Peak Velocity (LVOT): 0.98 m/s Mean Velocity (LVOT): 0.68 m/s LVOT Diameter 2.45 cm Left Ventricular Ejection Fraction: 55-60 % Left Atrium LA Volume Index (2D A2C): 36.02 ml/m2 Left Atrium Systolic Dimension: 4.37 cm Mitral Valve MV E to A Ratio: 0.95 Mitral Valve A-Wave Peak Velocity: 0.58 m/s Mitral Valve E-Wave Peak Velocity: 0.55 m/s Right Ventricle Aorta AO Root Diam: 4.24 cm Ascending Ao Diam: 4.32 cm Aortic Valve AoV Area (Peak Lawrence): 4.04 cm2, 4.04 cm2, 3.74 cm2, 4.13 cm2 AoV Area (VTI): 4.09 cm2, 4.09 cm2 Deceleration Blanco: 1.11 m/s2 Pressure Half-Time: 1.15 s Peak Velocity(Antegrade Flow): 1.15 m/s, 1.12 m/s, 1.24 m/s Peak Gradient(Antegrade Flow): 5.03 mm[Hg], 6.15 mm[Hg], 5.27 mm[Hg] Mean Velocity(Antegrade Flow): 0.80 m/s Mean Gradient(Antegrade Flow): 2.94 mm[Hg] Velocity Time Integral: 27.96 cm Tricuspid Valve Peak Velocity (Regurgitant Flow): 2.56 m/s, 2.04 m/s, 1.92 m/s Pulmonic Valve Peak Gradient: 2.49 mm[Hg], 2.85 mm[Hg], 3.62 mm[Hg] Right Atrium Right Atrium Systolic Pressure: 139.37 ml, 139.37 ml Dictated by: Anthony Cook M.D. on 03/08/2025 at 17:08 Approved by: Anthony Cook M.D. on 03/08/2025 at 17:26
== END 2025-03-08 09:39 | disposition home or self-care (01) ==
LOC: CARD 09:38
PROVIDERS: PCP Family Medicine; Visit Provider Family Medicine
DX: I48.0 Paroxysmal atrial fibrillation (principal); I50.9 Heart failure, unspecified; E04.9 Nontoxic goiter, unspecified
CPT/HCPCS: 76536; 93306